=== PATIENT | male | born 1935 | race Caucasian/White ===

== ENCOUNTER → 2016-07-01 | Outpatient (CLI) | payer MEDICARE, OTHER ==
[~2016-07-01] VITALS: Ht 180.3 cm; Wt 99.8 kg
[~2016-07-01] MED LIST: AGM875T PO; ASPI-587 PO; ATOR10TA PO; ATOR40TA70 PO; BUPIVACAINE 0.25% 30 ML (SENSORCAINE) VIAL ONE; CALC-385 PO; CALC-80 PO; CYAN100015 SL; DCS100C PO; GABA-490 PO; HCT25T PO; HYDR-1231 PO; HYDR-3454 PO; HYDR-3714 PO; HYDR25TA4 PO; LISI40TA PO; METO100T2 PO; METO100T5 PO; MULT-974 PO; OMEG-9 PO; OMEG1CAP51 PO; OMEP20TA2 PO; ROSU5TAB PO; TRIAMCINOLONE ACET (KENALOG-40) 40 MG/ML 1 ML VIAL ONE
[2016-07-01 11:22] VITALS: BP 130/70
[2016-07-01 11:59] VITALS: BP 141/82
--- NOTE | 2016-07-01 14:13 | Pain Medicine-Procedure ---
Procedure Pre-Op/Post-Op Diagnosis Diagnosis: Disc disorder with radiculopathy, lumbar Indications for Operation Low back pain Attending Surgeon Sara Procedure Date of Service: Jul 01, 2016 Procedure: Lumbar Epidural Steroid Injection at the L5-S1 level under Fluoroscopic Guidance Procedure: Patient was identified in the holding area. After risks, benefits, and alternatives were discussed with the patient, informed consent was obtained. Patient was brought to the fluoroscopy suite and placed prone on the procedure room table. A time out was performed. Vital signs were monitored throughout the procedure. The patients low back was prepped and draped in the usual sterile fashion. The patients skin was anesthetized using 2% Lidocaine. A Tuohy needle was inserted and advanced to the L5-S1 epidural space under fluoroscopic guidance using the loss of resistance technique and intermittent projection of fluoroscopy. There was no paresthesia with needle placement. The needle position was confirmed in both the AP and lateral view. After negative aspiration 2ml of contrast was injected under live fluoroscopy which showed good spread of the contrast in the epidural space at the appropriate level, there was no intravascular or subarachnoid spread. Again, after negative aspiration for heme or CSF, 2 ml of 0.25% Bupivicaine, 2ml of preservative free normal saline, and 80mg of Kenalog was injected. The needle was removed and a sterile bandage was placed and the patient was transferred to the recovery area in stable condition. After a brief period of observation, patient was discharged to home with no new neurological deficits and no apparent complications. Complications None ALEA JOSEPH MD Jul 01, 2016 2:13 pm
== END ==
LOC: CARD 10:50
PROVIDERS: ATTEND Pain Medicine Pain Medicine
DX: M51.16 Intervertebral disc disorders with radiculopathy, lumbar region (principal); M47.816 Spondylosis without myelopathy or radiculopathy, lumbar region; Z79.899 Other long term (current) drug therapy
CPT/HCPCS: 62323

== ENCOUNTER 2016-09-15 08:51 | Outpatient (CLI) | payer MEDICARE, OTHER ==
[~2016-09-15] VITALS: Ht 177.8 cm; Wt 101.6 kg
[~2016-09-15 08:51] MED LIST changes: -BUPIVACAINE 0.25% 30 ML (SENSORCAINE) VIAL ONE; -TRIAMCINOLONE ACET (KENALOG-40) 40 MG/ML 1 ML VIAL ONE
[2016-09-15] MEDS ORDERED: ASPI-808 PO (09:06)
[2016-09-15 09:09] VITALS: BP 116/67
[2016-09-15 09:34] LABS: BASOPHILS # (AUTO) 0.1 10^3/uL (0.0-0.1); BASOPHILS % (AUTO) 1 % (0-10); EOSINOPHILS # (AUTO) 0.3 10^3/uL (0.0-0.3); EOSINOPHILS % (AUTO) 2 % (0-10); LYMPHOCYTES # (AUTO) 3.2 X 10^3 (1.0-4.0); LYMPHOCYTES % (AUTO) 27 % (12-44); MEAN CORPUSCULAR HEMOGLOBIN 32 PG (25-34); MEAN CORPUSCULAR HGB CONC 34 G/DL (32-36); MEAN CORPUSCULAR VOLUME 95 FL (80-99); MEAN PLATELET VOLUME 9.5 FL (7.4-10.4); MONOCYTES # (AUTO) 1.3 X 10^3 (0.0-1.0); MONOCYTES % (AUTO) 11 % (0-12); NEUTROPHILS # (AUTO) 7.2 X 10^3 (1.8-7.8); NEUTROPHILS % (AUTO) 60 % (42-75); PLATELET COUNT 249 10^3/uL (130-400); RED BLOOD COUNT 4.89 10^6/uL (4.35-5.85); RED CELL DISTRIBUTION WIDTH 14.9 % (10.0-14.5)
[2016-09-15 09:50] LABS: ANION GAP 8 MMOL/L (5-14); BLOOD UREA NITROGEN 15 MG/DL (7-18); BUN/CREATININE RATIO 14 (0-20); CALCIUM 9.8 MG/DL (8.5-10.1); CARBON DIOXIDE 29 MMOL/L (21-32); CHLORIDE 100 MMOL/L (98-107); CREATININE SERUM 1.07 MG/DL (0.60-1.30); GFR ESTIMATED > 60; GLUCOSE 100 MG/DL (70-105); HEMOLYSIS 16 (0-29); LIPEMIA -2 (0-49); POTASSIUM 4.8 MMOL/L (3.6-5.0); SODIUM 137 MMOL/L (135-145)
== END 2016-09-15 09:25 | disposition home or self-care (01) ==
LOC: PREOP 08:51
PROVIDERS: ATTEND Otolaryngology Otolaryngology/Facial Plastic Surgery
DX: Z01.812 Encounter for preprocedural laboratory examination (principal); Z11.2 Encounter for screening for other bacterial diseases; C44.42 Squamous cell carcinoma of skin of scalp and neck
CPT/HCPCS: 36415; 80048; 85025; 87081; 93005

== ENCOUNTER 2016-09-22 06:00 | Day surgery (SDC) | payer MEDICARE, OTHER ==
[~2016-09-22 06:00] MED LIST changes: +ASPI-808 PO
[2016-09-22] MEDS: LACTATED RINGERS 1,000 ML IV PRN ×2 (06:53→07:35)
[2016-09-22] MEDS ORDERED: fentaNYL INJECTION 100 MCG/2 ML AMP ONE (06:59)
[2016-09-22] MEDS ORDERED: proPOfol 200 MG/20 ML (DIPRIVAN) VIAL IV ONE (06:59)
[2016-09-22] MEDS ORDERED: LIDOCAINE/EPI 1%-1:200,000 (XYLOCAINE) 30 ML VIAL ONE (07:06)
[2016-09-22] MEDS ORDERED: SEVOFLURANE (ULTANE) 15 ML INHAL SOLN ONE ×3 (07:57→08:37)
[2016-09-22] MEDS ORDERED: LACTATED RINGERS 2,000 ML IV ONE (07:57)
[2016-09-22] MEDS ORDERED: ONDANSETRON 4 MG/2 ML (SDV) Z0FRAN ONE (07:57)
[2016-09-22] MEDS ORDERED: MUPIROCIN 2% OINT 22 GM (BACTROBAN) TUBE ONE ×2 (08:12→10:32)
[2016-09-22] MEDS ORDERED: HYDROcodone/APAP 5 MG/325 MG (LORTAB) TAB PO PRN (08:45)
[2016-09-22] MEDS ORDERED: ACETAMINOPHEN 325 MG TABLET/CAPLET (TYLENOL) PO PRN (08:45)
[2016-09-22] MEDS ORDERED: morphine INJ 10 MG/ML 1ML (SYR OR VIAL) IVP PRN (09:00)
[2016-09-22] MEDS ORDERED: ONDANSETRON 4 MG/2 ML (SDV) Z0FRAN IVP PRN (09:00)
[2016-09-22] MEDS ORDERED: HYDR-3812 PO (10:01)
== END 2016-09-22 10:43 | disposition home or self-care (01) ==
DX: C44.42 Squamous cell carcinoma of skin of scalp and neck (principal); I25.10 Atherosclerotic heart disease of native coronary artery without angina pectoris; I10 Essential (primary) hypertension; G62.9 Polyneuropathy, unspecified; Z95.5 Presence of coronary angioplasty implant and graft; Z79.899 Other long term (current) drug therapy

== ENCOUNTER → 2016-11-09 | Outpatient (CLI) | payer MEDICARE, OTHER ==
[~2016-11-09] MED LIST changes: +HYDR-3812 PO
--- NOTE | 2016-11-09 19:01 | Diagnostic Imaging Report ---
PA and lateral views of the chest. INDICATION: Abnormal lung exam. FINDINGS: There is bilateral pulmonary infiltrates in the bases. The heart size is moderately enlarged. There is a small left effusion and pleural thickening suggested. No pneumothorax. The mediastinum and mariza appear unremarkable. No prior studies are available for comparison. However, CT scan of the abdomen and pelvis from 2015 is reviewed and demonstrate fibrotic changes at the bases. IMPRESSION: 1. There are bibasilar infiltrates and suggestion of a small left effusion or pleural thickening. The findings could be chronic related to scarring. 2. Cardiomegaly. Dictated by: Dictated on workstation # [id number]
== END ==
LOC: RAD 11:04
PROVIDERS: ATTEND Internal Medicine
DX: R91.8 Other nonspecific abnormal finding of lung field (principal); I51.7 Cardiomegaly
CPT/HCPCS: 71020

== ENCOUNTER 2017-01-05 12:56 | Outpatient (CLI) | payer MEDICARE, OTHER ==
[~2017-01-05] VITALS: Ht 177.8 cm; Wt 102.1 kg
[2017-01-05] MEDS ORDERED: methylPREDNISolone 80 MG/ML (DEPO MEDROL) VIAL ONE (13:46)
[2017-01-05 13:58] VITALS: BP 109/69
[2017-01-05 14:25] VITALS: BP 124/109
--- NOTE | 2017-01-11 02:21 | OPERATIVE REPORT ---
DATE OF SERVICE: DIAGNOSIS: Lumbar radiculopathy. PROCEDURE: Fluoroscopic-guided interlaminar epidural steroid injection. PROCEDURE IN DETAIL: After obtaining informed consent from the patient, the patient's chart was reviewed. The patient was then brought to the procedure room and placed in the prone position. A timeout was performed. The back was prepped with antiseptic solution and under fluoro guidance, the patient's lumbar spine was identified at the level of L5-S1. The L5-S1 vertebra was identified with fluoro guidance and approximately 2 mL of 1.5% lidocaine solution was used to anesthetize the skin directly down to the pedicle of the L5-S1 and under fluoroscopic guidance, the tract was anesthetized up to the interlaminar space and the ligamentum flavum. This needle was withdrawn. Then, a 20-gauge 3.5 inch Tuohy needle was then directed following the same tract that was anesthetized with the spinal needle. Using loss of resistance, the epidural space was identified and then the syringe was switched for contrast solution which was injected, approximately 1 mL. After secondary confirmation of epidural access, another syringe was placed and 80 mg of Depo-Medrol was injected. The Tuohy needle was then flushed out with approximately 2 mL of the normal saline used from the loss of resistance syringe. Band-Aids were applied to all the procedure sites. The patient tolerated the procedure well and was taken to the recovery room in stable condition. COMPLICATIONS: None. Job ID: [id number] DocumentID: [id number] Dictated Date: 01/10/2017 13:18:14 Manufacturing Inspector Date: 01/11/2017 02:21:12 Dictated By: ALONSO HARTLEY DO
== END 2017-01-05 14:26 | disposition home or self-care (01) ==
LOC: CARD 12:56
PROVIDERS: ATTEND Pain Medicine Interventional Pain Medicine
DX: M54.16 Radiculopathy, lumbar region (principal); M51.36 Other intervertebral disc degeneration, lumbar region
CPT/HCPCS: 62323

== ENCOUNTER 2017-10-04 06:46 | Day surgery (SDC) | payer MEDICARE, OTHER ==
[~2017-10-04] VITALS: Ht 175.3 cm; Wt 106.7 kg
[~2017-10-04 06:46] MED LIST changes: +ACHD5005 PO; -HYDR-3812 PO
[2017-10-04] MEDS ORDERED: KETOROLAC 30 MG/ML VIAL IVP STA (06:57)
[2017-10-04] MEDS ORDERED: LACTATED RINGERS 1,000 ML IV ONE (06:57)
[2017-10-04] MEDS ORDERED: ONDANSETRON 4 MG/2 ML (SDV) Z0FRAN IVP ONE (07:00)
--- NOTE | 2017-10-04 07:05 | ED Abdominal Pain ---
General Chief Complaint: Abdominal/GI Problems Stated Complaint: ABD PAIN,NAUSEA,COUGHING Source of Information: Patient Exam Limitations: No Limitations History of Present Illness Date Seen by Provider: Oct 04, 2017 Time Seen by Provider: 06:52 Initial Comments PT ARRIVES VIA POV FROM HOME C/O RLQ PAIN SINCE 10 AM YESTERDAY RATES PAIN 4/10 AND STATES IT IS A MILD DULL ACHE C/O NAUSEA, NO VOMITING LAST MEAL WAS MONDAY EVENING 10/02/17 HAS BEEN DRINKING WATER AND GATORADE NO PROBLEMS URINATING LAST BM WAS ON MONDAY NO KNOWN FEVER, BUT TEMP IS 100.3 ON ARRIVAL HERE. NO HISTORY OF SIMILAR PCP: DR. CARMEN Allergies and Home Medications Allergies Coded Allergies: Sulfa (Sulfonamide Antibiotics) (Unverified Allergy, Unknown, 12/20/13) Home Medications Aspirin 325 Mg Tablet, 325 MG PO DAILY, (Reported) Atorvastatin Calcium 40 Mg Tablet, 20 MG PO HS, (Reported) TAKES 1/2 (40MG) TABLET Calcium Carbonate/Vitamin D3 1 Each Tablet, 1 TAB PO DAILY, (Reported) Gabapentin 400 Mg Capsule, 400 MG PO HS, (Reported) Hydrochlorothiazide 25 Mg Tablet, 12.5 MG PO DAILY, (Reported) TAKES 1/2 (25MG) TABLET Hydrocodone Bit/Acetaminophen 1 Each Tablet, 1-2 EACH PO Q4H PRN for PAIN Prescribed by: NAZIA HEAD on 09/22/16 1001 Lisinopril 40 Mg Tablet, 40 MG PO HS, (Reported) Metoprolol Tartrate 100 Mg Tablet, 25 MG PO BID, (Reported) TAKES 1/4 (100MG) TABLET Multivitamin 1 Each Tablet, 1 TAB PO DAILY, (Reported) [place]-3/Dha/Epa/Fish Oil 1 Each Capsule., 1,400 MG PO DAILY, (Reported) Patient Home Medication List Home Medication List Reviewed: Yes Review of Systems Constitutional: see HPI Respiratory: No Symptoms Reported Cardiovascular: No Symptoms Reported Gastrointestinal: See HPI, Abdominal Pain; Denies Diarrhea; Nausea; Denies Poor Fluid Intake, Denies Vomiting Genitourinary: No Symptoms Reported Musculoskeletal: no symptoms reported Skin: no symptoms reported Psychiatric/Neurological: No Symptoms Reported Endocrine: No Symptoms Reported Hematologic/Lymphatic: No Symptoms Reported Past Fshxuia-Lsohel-Iteeiq Hx Patient Social History Alcohol Use: Denies Use Recreational Drug Use: No Smoking Status: Former Smoker Type Used: Cigarettes Former Smoker, Quit: Feb 20, 1988 Recent Foreign Travel: No Contact w/Someone Who Travel: No Recent Hopitalizations: No Physical Abuse: No Sexual Abuse: No Immunizations Up To Date Tetanus Booster (TDap): Unknown PED Vaccines UTD: Yes Date of Pneumonia Vaccine: Jan 01, 2014 Date of Influenza Vaccine: Jan 01, 2014 Seasonal Allergies Seasonal Allergies: No Past Medical History Surgeries: Yes (CARDIAC STENTS; SKIN CANCER REMOVALS; SKIN GRAFT ON HEAD; PROSTATE SURGERY FOR CANCER WITH BRACHYTHERAPY; HERNIA REPAIR) Abdominal, Cardiac, Coronary Stent, Gallbladder Respiratory: Yes Pneumonia Cardiac: Yes (CARDIAC STENTS X2-2000,) Coronary Artery Disease, High Cholesterol, Hypertension Neurological: Yes Neuropathy Sexually Transmitted Disease: No HIV/AIDS: No Genitourinary: Yes (PROSTATE CANCER) Prostate Problems Gastrointestinal: Yes Abdominal Hernia Musculoskeletal: Yes Arthritis, Fractures Endocrine: No HEENT: No Cancer: Yes Prostate, Skin Did You Recieve Any Treatments: Yes What Type of Treatment Did You: Surgical Intervention, Other (BRACHYTHERAPY ON PROSTATE) Psychosocial: No Nursing Suicide Risk Score: 0 Integumentary: Yes (SKIN CANCER-REMOVED) Blood Disorders: No Adverse Reaction/Blood Tranf: No Family Medical History Glaucoma G8 BROTHER No Family History of: AIDS Abdominal aortic aneurysm [place]'s disease Alcoholism Aphasia Arthritis Asthma Cancer of mouth Cardiovascular disease Cataracts Colon cancer Completed stroke Congenital disease Congenital heart disease Coronary thrombosis Cystic fibrosis Deafness or hearing loss Dementia Diabetes mellitus Drug abuse Dysphasia Fibrocystic disease of breast Gastroenteritis Headache disorder Hypercholesterolemia Hypertension Infertility Kidney disease Myocardial infarction Neoplasm Not obtainable due to adoption Osteoporosis Parkinson's disease Prostate cancer Psychosocial problem Respiratory disorder Seizure disorder Severe allergy Thyroid disease Tuberculosis Visual disorder No Pertinent Family Hx Physical Exam Vital Signs Vital Signs - First Documented 10/04/17 06:51 Temp 100.3 Pulse 64 Resp 17 B/P (MAP) 154/84 (107) Pulse Ox 97 Capillary Refill : General Appearance: WD/WN, no apparent distress, other (WALKS UPRIGHT WITHOUT DIFFICULTY) Respiratory: normal breath sounds, no respiratory distress, no accessory muscle use Cardiovascular: regular rate, rhythm, no murmur Gastrointestinal: soft, no organomegaly, no pulsatile mass; No distended, No guarding; rebound (EQUIVOCAL), tenderness (RLQ); No hernia, No mass Extremities: normal inspection, no pedal edema, no calf tenderness, normal capillary refill Back: normal inspection, no CVA tenderness 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/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: 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, no motor/sensory deficits, alert, normal mood/affect, oriented x 3 Skin: normal color, warm/dry; No rash Focused Exam Lactate Level 10/04/17 08:13: Lactic Acid Level 1.92 Lactic Acid Level Laboratory Tests Test 10/04/17 08:13 Lactic Acid Level 1.92 MMOL/L (0.50-2.00) Progress/Results/Core Measures Results/Orders Lab Results Laboratory Tests Test 10/04/17 07:25 10/04/17 08:13 Range/Units White Blood Count 18.5 H 4.3-11.0 10^3/uL Red Blood Count 4.80 4.35-5.85 10^6/uL Hemoglobin 15.9 13.3-17.7 G/DL Hematocrit 44 40-54 % Mean Corpuscular Volume 92 80-99 FL Mean Corpuscular Hemoglobin 33 25-34 PG Mean Corpuscular Hemoglobin Concent 36 32-36 G/DL Red Cell Distribution Width 13.7 10.0-14.5 % Platelet Count 169 130-400 10^3/uL Mean Platelet Volume 10.4 7.4-10.4 FL Neutrophils (%) (Auto) 84 H 42-75 % Lymphocytes (%) (Auto) 6 L 12-44 % Monocytes (%) (Auto) 10 0-12 % Eosinophils (%) (Auto) 0 0-10 % Basophils (%) (Auto) 0 0-10 % Neutrophils # (Auto) 15.6 H 1.8-7.8 X 10^3 Lymphocytes # (Auto) 1.1 1.0-4.0 X 10^3 Monocytes # (Auto) 1.8 H 0.0-1.0 X 10^3 Eosinophils # (Auto) 0.0 0.0-0.3 10^3/uL Basophils # (Auto) 0.0 0.0-0.1 10^3/uL Neutrophils % (Manual) 82 % Lymphocytes % (Manual) 6 % Monocytes % (Manual) 12 % Blood Morphology Comment NORMAL Urine Color YELLOW Urine Clarity CLEAR Urine pH 6.5 5-9 Urine Specific [place] 1.010 L 1.016-1.022 Urine Protein 2+ H NEGATIVE Urine Glucose (UA) NEGATIVE NEGATIVE Urine Ketones NEGATIVE NEGATIVE Urine Nitrite NEGATIVE NEGATIVE Urine Bilirubin NEGATIVE NEGATIVE Urine Urobilinogen NORMAL NORMAL MG/DL Urine Leukocyte Esterase 2+ H NEGATIVE Urine RBC (Auto) 4+ H NEGATIVE Urine RBC RARE /HPF Urine WBC 25-50 H /HPF Urine Squamous Epithelial Cells 5-10 /HPF Urine Crystals NONE /LPF Urine Bacteria FEW H /HPF Urine Casts NONE /LPF Urine Mucus NEGATIVE /LPF Urine Culture Indicated YES Sodium Level 130 L 135-145 MMOL/L Potassium Level 4.2 3.6-5.0 MMOL/L Chloride Level 96 L 98-107 MMOL/L Carbon Dioxide Level 22 21-32 MMOL/L Anion Gap 12 5-14 MMOL/L Blood Urea Nitrogen 13 7-18 MG/DL Creatinine 0.90 0.60-1.30 MG/DL Estimat Glomerular Filtration Rate > 60 BUN/Creatinine Ratio 14 Glucose Level 142 H 70-105 MG/DL Calcium Level 9.4 8.5-10.1 MG/DL Total Bilirubin 1.6 H 0.1-1.0 MG/DL Aspartate Amino Transf (AST/SGOT) 24 5-34 U/L Alanine Aminotransferase (ALT/SGPT) 16 0-55 U/L Alkaline Phosphatase 56 40-136 U/L Total Protein 6.5 6.4-8.2 GM/DL Albumin 3.7 3.2-4.5 GM/DL Amylase Level 40 25-125 U/L Lipase 10 8-78 U/L Lactic Acid Level 1.92 0.50-2.00 MMOL/L My Orders Orders - TIERA MALHOTRA DO Saline Lock/Iv-Start (10/04/17 06:57) Monitor-Rhythm Ecg Trace Only (10/04/17 06:57) Amylase (10/04/17 06:57) Cbc With Automated Diff (10/04/17 06:57) Comprehensive Metabolic Panel (10/04/17 06:57) Lactic Acid Analyzer (10/04/17 06:57) Lipase (10/04/17 06:57) Ua Culture If Indicated (10/04/17 06:57) Blood Culture (10/04/17 06:57) Saline Lock/Iv-Start (10/04/17 06:57) Lactated Ringers (Lr 1000 Ml Iv Solution (10/04/17 06:57) Ondansetron Injection (Zofran Injectio (10/04/17 07:00) Ketorolac Injection (Toradol Injection) (10/04/17 06:57) Manual Differential (10/04/17 07:25) Urine Culture (10/04/17 07:25) Ct Abd/Pelv W (Appendicitis) (10/04/17 08:07) Acute Abd Series (10/04/17 08:07) Iohexol Injection (Omnipaque 350 Mg/Ml 1 (10/04/17 08:15) Sodium Chloride Flush (Catheter Flush Sy (10/04/17 08:15) Ns (Ivpb) (Sodium Chloride 0.9%) (10/04/17 08:15) Pharmacy Communication (Pharmacy Communi (10/04/17 08:09) Medications Given in ED Current Medications Medications Dose Ordered Sig/Stephen Route Start Time Stop Time Status Last Admin Dose Admin Iohexol 100 ml ONCE ONCE IV 10/04/17 08:15 10/04/17 08:16 DC 10/04/17 08:35 100 ML Lactated Ringer's 1,000 ml @ 0 mls/hr Q0M ONCE IV 10/04/17 06:57 10/04/17 06:59 DC 10/04/17 07:12 1,000 MLS/HR Ondansetron HCl 4 mg ONCE ONCE IVP 10/04/17 07:00 10/04/17 07:01 DC 10/04/17 07:12 4 MG Sodium Chloride 10 ml NEEDED PRN IV 10/04/17 08:15 10/04/17 08:35 10 ML Sodium Chloride 250 ml ONCE ONCE IV 10/04/17 08:15 10/04/17 08:16 DC 10/04/17 08:35 80 ML Vital Signs/I&O 10/04/17 06:51 Temp 100.3 Pulse 64 Resp 17 B/P (MAP) 154/84 (107) Pulse Ox 97 Progress Progress Note : Progress Note NAUSEA RESOLVED WITH ZOFRAN, PAIN IMPROVED BUT NOT COMPLETELY GONE WITH TORADOL PT DECLINES ANY OTHER MEDICATIONS FOR PAIN Diagnostic Imaging Comments CT ABDOMEN/PELVIS--+ APPENDICITIS, NO PERFORATION OR ABSCESS, MILD REACTIVE ILEUS. PER RADIOLOGIST VIA PHONE AT 0855 ACUTE ABDOMEN XRAYS--LIKELY CHRONIC CHANGES IN LUNG BASES, AIR FILLED DISTENTION OF SMALL BOWEL AND STOMACH PER RADIOLOGIST REPORT @ 0908 Reviewed: Reviewed by Me, Discussed w/Radiologist, Reviewed/Discussed Departure Communication (Admissions) 0900--SPOKE WITH DR. AGUILLON, WILL BE IN TO SEE PT AND TAKE DIRECTLY TO SURGERY , HE WILL CALL OR CREW 0937--DR. AGUILLON HERE, CARE TURNED OVER TO HIM Impression Primary Impression: Appendicitis Disposition: ADMITTED INPATIENT (TO SURGERY) Condition: Improved Admissions Decision to Admit Reason: Admit from ER (General) (TO SURGERY) Decision to Admit/Date: Oct 04, 2017 Time/Decision to Admit Time: 09:00 Departure-Patient Inst. Referrals: PAUL CARMEN MD (PCP/Family) Primary Care Physician TIERA MALHOTRA DO Oct 04, 2017 07:05
[2017-10-04 07:40] LABS: BASOPHILS % (AUTO) 0 % (0-10); EOSINOPHILS % (AUTO) 0 % (0-10); HEMATOCRIT 44 % (40-54); HEMOGLOBIN 15.9 G/DL (13.3-17.7); LYMPHOCYTES # (AUTO) 1.1 X 10^3 (1.0-4.0); LYMPHOCYTES % (AUTO) 6 % (12-44); MEAN CORPUSCULAR HEMOGLOBIN 33 PG (25-34); MEAN CORPUSCULAR HGB CONC 36 G/DL (32-36); MEAN CORPUSCULAR VOLUME 92 FL (80-99); MEAN PLATELET VOLUME 10.4 FL (7.4-10.4); MONOCYTES # (AUTO) 1.8 X 10^3 (0.0-1.0); MONOCYTES % (AUTO) 10 % (0-12); NEUTROPHILS # (AUTO) 15.6 X 10^3 (1.8-7.8); NEUTROPHILS % (AUTO) 84 % (42-75); PLATELET COUNT 169 10^3/uL (130-400); RED CELL DISTRIBUTION WIDTH 13.7 % (10.0-14.5); WHITE BLOOD COUNT 18.5 10^3/uL (4.3-11.0)
[2017-10-04 07:43] LABS: BILIRUBIN,URINE NEGATIVE (NEGATIVE); CLARITY,URINE CLEAR; COLOR,URINE YELLOW; GLUCOSE, URINE (UA) NEGATIVE (NEGATIVE); KETONES,URINE NEGATIVE (NEGATIVE); LEUKOCYTE ESTERASE ,URINE 2+ (NEGATIVE); NITRITE,URINE NEGATIVE (NEGATIVE); PH,URINE 6.5 (5-9); PROTEIN,URINE 2+ (NEGATIVE); UROBILINOGEN,URINE NORMAL (NORMAL)
[2017-10-04 08:04] LABS: BACTERIA,URINE FEW /HPF; RBC,URINE RARE /HPF; WBC,URINE 25-50 /HPF
[2017-10-04 08:06] LABS: ALANINE AMINOTRANSFERASE 16 U/L (0-55); ALBUMIN 3.7 GM/DL (3.2-4.5); ALKALINE PHOSPHATASE 56 U/L (40-136); AMYLASE 40 U/L (25-125); BILIRUBIN,TOTAL 1.6 MG/DL (0.1-1.0); BUN/CREATININE RATIO 14; CALCIUM 9.4 MG/DL (8.5-10.1); CARBON DIOXIDE 22 MMOL/L (21-32); CHLORIDE 96 MMOL/L (98-107); GFR ESTIMATED > 60; GLUCOSE 142 MG/DL (70-105); LIPASE 10 U/L (8-78); POTASSIUM 4.2 MMOL/L (3.6-5.0); SODIUM 130 MMOL/L (135-145); TOTAL PROTEIN 6.5 GM/DL (6.4-8.2)
[2017-10-04] MEDS ORDERED: CATHETER FLUSH 10 ML SYR IV PRN (08:15)
[2017-10-04] MEDS ORDERED: IOHEXOL 350 MG/ML 100 ML (OMNIPAQUE 350) VIAL IV ONE (08:15)
[2017-10-04] MEDS ORDERED: NS 250 ML (IVPB) BAG IV ONE (08:15)
[2017-10-04 08:20] LABS: LYMPHOCYTES % (MANUAL) 6 %; MONOCYTES % (MANUAL) 12 %; NEUTROPHILS % (MANUAL) 82 %; RBC MORPH NORMAL
--- NOTE | 2017-10-04 08:38 | Diagnostic Imaging Report ---
INDICATION: Abdominal pain starting yesterday. Nausea. TECHNIQUE: Single view chest with supine and upright radiographs of the abdomen. CORRELATION STUDY: Chest 11/09/2016 FINDINGS: Heart size enlarged. Mediastinum prominent perhaps slightly increased. Areas of fibrosis, scarring and/or infiltrate versus atelectasis at the lung bases are present. Stomach is distended with air-fluid level. There is prominent gas distention of the small bowel. There does appear to be some gas and stool within the colon including to the level of the rectum. However small bowel distention is rather prominent. Radiation seed implants are present. Vascular calcification. IMPRESSION: 1. Likely chronic change about the lung parenchyma. Superimposed areas of infiltrate or atelectasis at the lung bases not excluded. 2. While there is gas and stool in the colon to level of rectum, there is rather prominent gas distention of small bowel as well as the stomach. Features do raise concern for early or developing small bowel obstruction. Followup imaging would be recommended. Dictated by: Dictated on workstation # [id number]
--- NOTE | 2017-10-04 09:15 | Diagnostic Imaging Report ---
PROCEDURE: CT abdomen and pelvis with contrast, rule out appendicitis. TECHNIQUE: Multiple contiguous axial images were obtained through the abdomen and pelvis after the administration of intravenous contrast. INDICATION: Pelvic pain x1 day. History of prostate cancer. CORRELATION STUDY: 08/16/2014 FINDINGS: LOWER THORAX: Cardiomegaly is present. Coronary artery calcification. There is regional areas of fibrosis and prominent interstitial markings with honeycombing appearance about the right mid lower lung acharya and to a lesser degree lingula of the left upper lobe and anterior aspect left lower lobe. Findings relatively stable. Definitive superimposed infiltrate is not suggested. LIVER: GALLBLADDER: Absent with clips in the fossa. SPLEEN: Unremarkable. PANCREAS: Unremarkable. ADRENAL GLANDS: Unremarkable. KIDNEYS: Normal configuration. No calcification or obstruction. ABDOMINAL AORTA: Moderate aortoiliac wall calcification, nonaneurysmal. GASTROINTESTINAL TRACT: Duodenal diverticulum is present descending portion. There is inflammatory change in the right lower quadrant. The appendix is abnormally dilated in some areas up to 2 cm. Inflammatory changes particularly near the tip. There is an appendicolith near the orifice. Small amount of right lower quadrant fluid. No potential drainable abscess formation at this time. The stomach is distended. There is diffuse small bowel distention with air-fluid levels. Gas and stool to the colon. Extensive colonic diverticulosis. Features favor probable reactive ileus. Fat-containing inguinal hernias. URINARY BLADDER: Decompressed. REPRODUCTIVE: Multiple radiation seed implants to the prostate bed. OSSEOUS STRUCTURES: Degenerative change lumbar spine with likely degenerative spondylolisthesis of L4 on L5 and L3 on L4. Hypertrophic facet arthropathy. Significant areas of narrowing of spinal canal and foramina particularly at the L4-L5 and L5-S1 levels. OTHER: None. IMPRESSION: 1. Findings consistent with acute appendicitis. 2. Likely reactive ileus bowel gas pattern. Findings have been telephoned to the Emergency Department at time of this dictation. Dictated by: Dictated on workstation # [id number]
[2017-10-04] MEDS ORDERED: BUP/EPI 0.5% 1:200,000 (SENSORCAINE) 30 ML VIAL ONE (09:35)
[2017-10-04] MEDS ORDERED: DEXAMETHASONE 10 MG/ML (DECADRON) 1 ML VIAL ONE (09:38)
[2017-10-04] MEDS ORDERED: fentaNYL INJECTION 100 MCG/2 ML AMP ONE ×3 (09:38→10:48)
[2017-10-04] MEDS ORDERED: ROCURONIUM 10 MG/ML 5 ML SYRINGE IV ONE (09:38)
[2017-10-04] MEDS ORDERED: LIDOCAINE PF 2% 5 ML (XYLOCAINE) VIAL ONE (09:38)
[2017-10-04] MEDS ORDERED: proPOfol 200 MG/20 ML (DIPRIVAN) VIAL IV ONE (09:38)
[2017-10-04] MEDS ORDERED: ONDANSETRON 4 MG/2 ML (SDV) Z0FRAN ONE ×2 (09:38→10:39)
[2017-10-04] MEDS ORDERED: SEVOFLURANE (ULTANE) 15 ML INHAL SOLN ONE ×3 (09:39→11:25)
[2017-10-04] MEDS ORDERED: ceFAZolin 1,000 MG (ANCEF) VIAL ONE (09:54)
[2017-10-04] MEDS ORDERED: metroNIDAZOLE 500MG/100ML IVPB 100 ML ONE (09:55)
[2017-10-04] MEDS ORDERED: SUCCINYLCHOLINE INJ 100 MG/5 ML SYR ONE (09:59)
[2017-10-04] MEDS: LACTATED RINGERS 1,000 ML IV SCH ×2 (10:02→11:03)
--- NOTE | 2017-10-04 10:03 | History & Physicial ---
History of Present Illness History of Present Illness Reason for visit/HPI RLQ pain, anorexia and nausea over the last [address] Exam & CT confirm appendicitis. For laparoscopic appendectomy Date of Admission 10/04/17 Date Seen by Provider: Oct 04, 2017 Time Seen by Provider: 09:40 I consulted on this patient on 10/04/17 09:57 Attending Physician Drake Aguillon MD Admitting Physician Ed Smith MD Consult Allergies and Home Medications Allergies Coded Allergies: Sulfa (Sulfonamide Antibiotics) (Unverified Allergy, Unknown, 12/20/13) Home Medications Aspirin 325 Mg Tablet, 325 MG PO DAILY, (Reported) Atorvastatin Calcium 40 Mg Tablet, 20 MG PO HS, (Reported) TAKES 1/2 (40MG) TABLET Calcium Carbonate/Vitamin D3 1 Each Tablet, 1 TAB PO DAILY, (Reported) Gabapentin 400 Mg Capsule, 400 MG PO HS, (Reported) Hydrochlorothiazide 25 Mg Tablet, 12.5 MG PO DAILY, (Reported) TAKES 1/2 (25MG) TABLET Hydrocodone Bit/Acetaminophen 1 Each Tablet, 1-2 EACH PO Q4H PRN for PAIN Prescribed by: NAZIA HEAD on 09/22/16 1001 Lisinopril 40 Mg Tablet, 40 MG PO HS, (Reported) Metoprolol Tartrate 100 Mg Tablet, 25 MG PO BID, (Reported) TAKES 1/4 (100MG) TABLET Multivitamin 1 Each Tablet, 1 TAB PO DAILY, (Reported) [place]-3/Dha/Epa/Fish Oil 1 Each Capsule.dr, 1,400 MG PO DAILY, (Reported) Patient Home Medication List Home Medication List Reviewed: Yes Past Edcnlia-Bncyys-Ztohqj Hx Patient Social History Marrital Status: Employed/Student: retired Alcohol Use: Denies Use Recreational Drug Use: No Smoking Status: Former Smoker Former Smoker, Quit: Feb 20, 1988 Type Used: Cigarettes Recent Foreign Travel: No Contact w/other who traveled: No Recent Hopitalizations: No Recent Infectious Disease Expo: No Immunizations Up To Date Tetanus Booster (TDap): Unknown Pediatric: Yes Date of Pneumonia Vaccine: Jan 01, 2014 Date of Influenza Vaccine: Jan 01, 2014 Seasonal Allergies Seasonal Allergies: No Surgeries Yes (CARDIAC STENTS; SKIN CANCER REMOVALS; SKIN GRAFT ON HEAD; PROSTATE SURGERY FOR CANCER WITH BRACHYTHERAPY; HERNIA REPAIR) Abdominal, Cardiac, Coronary Stent, Gallbladder Respiratory Yes Cardiovascular Yes (CARDIAC STENTS X2-2000,) Coronary Artery Disease, High Cholesterol, Hypertension Neurological Yes Neuropathy Reproductive System Sexually Transmitted Disease: No HIV/AIDS: No Genitourinary Yes (PROSTATE CANCER) Prostate Problems Gastrointestinal Yes Abdominal Hernia Musculoskeletal Yes Arthritis, Fractures Endocrine History of Endocrine Disorders: No HEENT History of HEENT Disorders: No Cancer Yes Prostate, Skin Did You Recieve Any Treatments: Yes Type of Treatment: Surgical Intervention, Other (BRACHYTHERAPY ON PROSTATE) Psychosocial History of Psychiatric Problem: No Integumentary History of Skin or Integumenta: Yes (SKIN CANCER-REMOVED) Blood Transfusions History of Blood Disorders: No Adverse Reaction to a Blood Tr: No Family Medical History Significant Family History: No Pertinent Family Hx Family Hx: Glaucoma G8 BROTHER No Family History of: AIDS Abdominal aortic aneurysm [place]'s disease Alcoholism Aphasia Arthritis Asthma Cancer of mouth Cardiovascular disease Cataracts Colon cancer Completed stroke Congenital disease Congenital heart disease Coronary thrombosis Cystic fibrosis Deafness or hearing loss Dementia Diabetes mellitus Drug abuse Dysphasia Fibrocystic disease of breast Gastroenteritis Headache disorder Hypercholesterolemia Hypertension Infertility Kidney disease Myocardial infarction Neoplasm Not obtainable due to adoption Osteoporosis Parkinson's disease Prostate cancer Psychosocial problem Respiratory disorder Seizure disorder Severe allergy Thyroid disease Tuberculosis Visual disorder Constitutional: see HPI EENTM: no symptoms reported Respiratory: no symptoms reported Cardiovascular: no symptoms reported Gastrointestinal: see HPI Genitourinary: no symptoms reported Musculoskeletal: no symptoms reported Skin: no symptoms reported Psychiatric/Neurological: No Symptoms Reported Physical Exam Vital Signs Vital Signs - First Documented 10/04/17 06:51 Temp 100.3 Pulse 64 Resp 17 B/P (MAP) 154/84 (107) Pulse Ox 97 Capillary Refill : Less Than 3 Seconds General Appearance: No Apparent Distress Neck: Normal Inspection Respiratory: Lungs Clear Cardiovascular: Regular Rate, Rhythm Gastrointestinal: Tenderness Back: Normal Inspection Extremity: Normal Inspection Neurologic/Psychiatric: Alert, Oriented x3 Skin: Warm/Dry Comments Upper midline and supra-umbilical scars with no hernia Assessment/Plan Assessment and Plan Gentleman with acute appendicitis,for laparoscopic appendectomy Admission Diagnosis Admission Status: Observation DRAKE AGUILLON MD Oct 04, 2017 10:03 am
--- NOTE | 2017-10-04 10:05 | Progress Note-Pre Operative ---
Pre-Operative Progress Note H&P Reviewed The H&P was reviewed, patient examined and no changes noted. Date Seen by Provider: Oct 04, 2017 Time Seen by Provider: 09:40 Date H&P Reviewed: Oct 04, 2017 Time H&P Reviewed: 10:10 Pre-Operative Diagnosis: Acute appendicitis DRAKE AGUILLON MD Oct 04, 2017 10:05 am
[2017-10-04] MEDS ORDERED: PHENYLEPHRINE 100 MCG/ML 10 ML (ANESTHESIA) SYR ONE (10:17)
[2017-10-04] MEDS ORDERED: GLYCOPYRROLATE 0.2 MG/ML (ROBINUL) 2 ML VIAL ONE ×2 (10:27→10:38)
[2017-10-04] MEDS ORDERED: NEOSTIGMINE 1 MG/ML 5 ML SYRINGE ONE (10:38)
[2017-10-04] MEDS ORDERED: morphine INJ 10 MG/ML 1ML (SYR OR VIAL) ONE (10:38)
[2017-10-04] MEDS ORDERED: HYDROmorphone 1 MG/ML (DILAUDID) 1 ML SYRINGE ONE (10:39)
[2017-10-04] MEDS ORDERED: KETOROLAC 30 MG/ML VIAL ONE (11:11)
[2017-10-04] MEDS ORDERED: LACTATED RINGERS 1,000 ML IV SCH (11:28)
--- NOTE | 2017-10-04 11:28 | Operative Report ---
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 There was fluid around the right lower quadrant with a fecalith within the appendix, raising the suspicion for localized perforation. He was offered prompt laparoscopic appendectomy. Informed consent was obtained after reviewing the operative details and complications of wound infection, increased risk of bleeding and ecchymosis due to aspirin therapy, intra-abdominal abscess and cardiorespiratory from respiratory dysfunction. Description of the procedure: He was placed supine on the operative table and general anesthesia induced. 2 g of Ancef and 500 mg of Flagyl were administered intravenously as prophylaxis against wound infection. Sequential compression devices were placed around his legs, to minimize the risk of venous thrombosis. Abdomen was prepared and draped in the usual sterile manner. Due to previous abdominal surgery using midline incisions, I elected to establish pneumoperitoneum using a Veress needle introduced over the left subcostal margin. Intra-abdominal pressure was maintained at 15 mmHg, using carbon dioxide insufflation. A 5 mm trocar was placed and anatomy visualized using a 30 laparoscope. Omentum was adherent to the undersurface of an upper midline scar, in relation to a previous hernia repair. Under direct view, I placed a Andujar cannula over the supraumbilical region, followed by a 5 mm trocar over the right upper quadrant and a 12 mm trocar over the left lower quadrant of the abdomen patient was then turned into steep Trendelenburg position with the right side tilted up. Ileo-cecal junction was mobilized using Harmonic scalpel, revealing a retrocecal appendix with contained perforation along the body of the appendix. The base of the appendix was transected using an Endo ZEHRA vascular stapler. This staple line was revised using a second row of tenisha, placed along the cecum itself without compromising the ileocecal valve, due to the friable nature of the appendix stump. Mesoappendix was controlled using Harmonic scalpel and the perforated appendix was retrieved in 3 portions. These are placed in an Endo Catch bag and removed via the supraumbilical trocar site. Right lower quadrant and the pelvis with thoroughly irrigated with 2 L of warm saline. The fascia over the supraumbilical incision and the one over the left lower quadrant were closed using #1 Vicryl. To facilitate using the stapler, the 5 mm section over the right upper quadrant had to be converted to a 12 mm. Therefore the fascia was closed using #1 Vicryl as well. Skin incisions were closed using 3-0 Vicryl for the subcutaneous tissue and 4-0 Vicryl for skin, in a subcuticular fashion. 0.5 percent Marcaine with epinephrine was infiltrated along the incisions both preemptively and at the conclusion of the operation. He tolerated the procedure well, was extubated in the operating room and taken to the recovery room in a stable condition. Findings of the Procedure See op report Allergies and Home Medications Allergies Coded Allergies: Sulfa (Sulfonamide Antibiotics) (Unverified Allergy, Unknown, 12/20/13) Home Medications Aspirin 325 Mg Tablet, 325 MG PO DAILY, (Reported) Atorvastatin Calcium 40 Mg Tablet, 20 MG PO HS, (Reported) TAKES 1/2 (40MG) TABLET Calcium Carbonate/Vitamin D3 1 Each Tablet, 1 TAB PO DAILY, (Reported) Gabapentin 400 Mg Capsule, 400 MG PO HS, (Reported) Hydrochlorothiazide 25 Mg Tablet, 12.5 MG PO DAILY, (Reported) TAKES 1/2 (25MG) TABLET Hydrocodone Bit/Acetaminophen 1 Each Tablet, 1-2 EACH PO Q4H PRN for PAIN Prescribed by: NAZIA HEAD on 09/22/16 1001 Lisinopril 40 Mg Tablet, 40 MG PO HS, (Reported) Metoprolol Tartrate 100 Mg Tablet, 25 MG PO BID, (Reported) TAKES 1/4 (100MG) TABLET Multivitamin 1 Each Tablet, 1 TAB PO DAILY, (Reported) [place]-3/Dha/Epa/Fish Oil 1 Each Capsule., 1,400 MG PO DAILY, (Reported) Patient Home Medication List Home Medication List Reviewed: Yes DRAKE AGUILLON MD Oct 04, 2017 11:28 am
[2017-10-04] MEDS ORDERED: fentaNYL INJECTION 100 MCG/2 ML AMP IV PRN (11:30)
[2017-10-04] MEDS ORDERED: PIPERACILLIN/TAZOBACTAM 3.375 GM in D5W 100 ML IVPB 100 ML IV SCH (11:30)
[2017-10-04] MEDS ORDERED: ONDANSETRON 4 MG/2 ML (SDV) Z0FRAN IV PRN (11:30)
[2017-10-04] MEDS ORDERED: ACHD5005 PO (11:33)
[2017-10-04] MEDS ORDERED: AMOX-358 PO (11:33)
--- NOTE | 2017-10-04 11:34 | Discharge Inst-Simple/Standard ---
Discharge Inst-Standard Discharge Medications New, Converted or Re-Newed RX: RX on Chart Patient Instructions/Follow Up Plan of Care/Instructions/FU: Band-Aids off prior to discharge. Follow-up in one week Activity as Tolerated: Yes Discharge Diet: No Restrictions DRAKE AGUILLON MD Oct 04, 2017 11:34 am
[2017-10-04] MEDS ORDERED: ONDANSETRON 4 MG/2 ML (SDV) Z0FRAN IVP PRN (12:00)
[2017-10-04] MEDS ORDERED: PIPERACILLIN/TAZO 3.375 GM/D5W 100 ML IV NR ×2 (12:00)
[2017-10-04] MEDS ORDERED: HYDROmorphone 1 MG/ML (DILAUDID) 1 ML SYRINGE IV PRN (12:00)
[2017-10-04] MEDS ORDERED: fentaNYL INJECTION 100 MCG/2 ML AMP IVP PRN (12:00)
[2017-10-04 12:50] VITALS: BP 116/59
[2017-10-04 15:30] VITALS: BP 133/80
[2017-10-04] MEDS: PIPERACILLIN/TAZOBACTAM 3.375 GM in D5W 100 ML IVPB 100 ML IV SCH (18:59)
[2017-10-04 19:30] VITALS: BP 107/56
[2017-10-04] MEDS: HYDROcodone/APAP 5 MG/325 MG (LORTAB) TAB PO PRN (23:33)
[2017-10-05] VITALS: BP 105/60
[2017-10-05] MEDS: HYDROcodone/APAP 5 MG/325 MG (LORTAB) TAB PO PRN (03:43)
[2017-10-05] MEDS: PIPERACILLIN/TAZOBACTAM 3.375 GM in D5W 100 ML IVPB 100 ML IV SCH (03:43)
[2017-10-05 04:00] VITALS: BP 100/58
[2017-10-05 08:00] VITALS: BP 116/58
--- NOTE | 2017-10-05 08:51 | Anesthesia-General Post-Op ---
General Patient Condition Mental Status/LOC: Same as Preop Cardiovascular: Satisfactory Nausea/Vomiting: Absent Respiratory: Satisfactory Pain: Controlled Complications: Absent Post Op Complications Complications None Follow Up Care/Instructions Patient Instructions None needed. Anesthesia/Patient Condition Patient Condition Patient is doing well, no complaints, stable vital signs, no apparent adverse anesthesia problems. No complications reported per nursing. D/C home per [facility] [place] Criteria: No MULUGETA JOSUE CRNA Oct 05, 2017 08:51
--- NOTE | 2017-10-05 10:02 | Progress Note-Standard ---
Standard Progress Note Progress Notes/Assess & Plan Date Seen by Provider: Oct 05, 2017 Time Seen by Provider: 09:00 Progress/Assessment & Plan Doing well. Afebrile. Very minimal pain around the incisions. Could be discharged on oral antibiotics Final Diagnosis Perforated appendicitis Focused Exam Lactate Level 10/04/17 08:13: Lactic Acid Level 1.92 DRAKE AGUILLON MD Oct 05, 2017 10:02 am
== END 2017-10-05 09:55 | disposition home or self-care (01) ==
LOC: EDUNIT# 06:46 → ER 06:48 → SDC 09:07 → 4TH 12:40 → SDC 10-05 09:55
PROVIDERS: ATTEND Surgery
DX: K35.3 Acute appendicitis with localized peritonitis (principal); I25.10 Atherosclerotic heart disease of native coronary artery without angina pectoris; I10 Essential (primary) hypertension; C61 Malignant neoplasm of prostate; R82.99 Other abnormal findings in urine; Z79.82 Long term (current) use of aspirin; Z79.899 Other long term (current) drug therapy; Z87.891 Personal history of nicotine dependence; Z95.5 Presence of coronary angioplasty implant and graft
CPT/HCPCS: 36415; 74022; 74177; 80053; 81000; 82150; 83605; 83690; 85007; 85027; 87040; 87088; 87186; 88304; 94664; 96361; 96374; 96375

== ENCOUNTER 2018-05-20 20:39 | Emergency (ER) | payer MEDICARE, OTHER ==
[~2018-05-20] VITALS: Ht 177.8 cm; Wt 102.1 kg
[~2018-05-20 20:39] MED LIST changes: +AMOX-358 PO
[2018-05-20] MEDS ORDERED: KETOROLAC 30 MG/ML VIAL IVP STA (21:33)
--- NOTE | 2018-05-20 21:44 | ED Back Pain ---
General Chief Complaint: Back Problems Stated Complaint: BACK PAIN Nursing Triage Note: PT ARRIVED POV WITH C/I RIGHT UPPER BACK PAIN. HE WAS REACHING IN A DRYER ET HIS BACK GAVE OUT ON HIM AND NOW HE HAS PAIN Nursing Sepsis Screen: No Definite Risk Source of Information: Patient Exam Limitations: No Limitations History of Present Illness Date Seen by Provider: May 20, 2018 Time Seen by Provider: 21:15 Initial Comments PT ARRIVES VIA POV FROM HOME STATES AROUND 1400 TODAY, HE WAS HELPING HIS WITH LAUNDRY AND BENT OVER TO GET SOMETHING OUT OF THE DRYER AND LOST HIS BALANCE AND "WENT DOWN" ( STATES HE DIDN'T "FALL" )--BUT COULD NOT GET UP. STATES HIS WAS ABLE TO GET WALKER AND ASSIST HIM OFF THE FLOOR. STATES HE HAS NEUROPATHY AND HIS LEGS ARE WEAK ALL THE TIME PT STATES HE HAS HAD RIGHT UPPER AND MID BACK PAIN SINCE THEN PAIN RADIATES AROUND RIGHT RIBS TO FRONT NO PARESTHESIAS OR MOTOR DEFICITS NO PROBLEMS URINATING NO FEVER, COUGH OR RECENT ILLNESS HAS NOT TAKEN ANYTHING FOR PAIN--TAKES GABAPENTIN 900 MG AT HS FOR PERIPHERAL NEUROPATHY Allergies and Home Medications Allergies Coded Allergies: Sulfa (Sulfonamide Antibiotics) (Unverified Allergy, Unknown, 12/20/13) Home Medications Amoxicillin/Potassium Clav 1 Each Tablet, 1 EACH PO Q12H Prescribed by: DRAKE AGUILLON on 10/04/17 1133 Aspirin 325 Mg Tablet, 325 MG PO DAILY, (Reported) Atorvastatin Calcium 40 Mg Tablet, 20 MG PO HS, (Reported) TAKES 1/2 (40MG) TABLET Calcium Carbonate/Vitamin D3 1 Each Tablet, 1 TAB PO DAILY, (Reported) Gabapentin 400 Mg Capsule, 400 MG PO HS, (Reported) Hydrochlorothiazide 25 Mg Tablet, 12.5 MG PO DAILY, (Reported) TAKES 1/2 (25MG) TABLET Hydrocodone Bit/Acetaminophen 1 Tab Tab, 1-2 TAB PO 4-6HR PRN for PAIN Prescribed by: DRAKE AGUILLON on 10/04/17 1133 Lisinopril 40 Mg Tablet, 40 MG PO HS, (Reported) Metoprolol Tartrate 100 Mg Tablet, 25 MG PO BID, (Reported) TAKES 1/4 (100MG) TABLET Multivitamin 1 Each Tablet, 1 TAB PO DAILY, (Reported) [place]-3/Dha/Epa/Fish Oil 1 Each Capsule.dr, 1,400 MG PO DAILY, (Reported) Review of Systems Constitutional: no symptoms reported Respiratory: no symptoms reported Cardiovascular: see HPI Gastrointestinal: no symptoms reported Genitourinary: no symptoms reported Musculoskeletal: see HPI, back pain Skin: no symptoms reported Psychiatric/Neurological: See HPI, Pre-Existing Deficit Past Fnumksb-Niovov-Ernoud Hx Patient Social History Alcohol Use: Denies Use Recreational Drug Use: No Smoking Status: Former Smoker Type Used: Cigarettes Former Smoker, Quit: Feb 20, 1988 Recent Foreign Travel: No Contact w/Someone Who Travel: No Recent Infectious Disease Expo: No Recent Hopitalizations: No Immunizations Up To Date Tetanus Booster (TDap): Unknown PED Vaccines UTD: Yes Date of Pneumonia Vaccine: Jan 01, 2014 Date of Influenza Vaccine: Jan 01, 2014 Seasonal Allergies Seasonal Allergies: No Past Medical History Surgeries: Yes (CARDIAC CATHS WITH STENTS; SKIN CANCER REMOVALS; SKIN GRAFT ON HEAD; PROSTATE CANCER SURGERY WITH BRACHYTHERAPY; HERNIA REPAIR; APPY 10/04/17) Abdominal, Appendectomy, Cardiac, Coronary Stent, Gallbladder Respiratory: Yes Pneumonia Cardiac: Yes (CARDIAC STENTS X2-2000,) Coronary Artery Disease, High Cholesterol, Hypertension Neurological: Yes (PERIPHERAL NEUROPATHY) Neuropathy Sexually Transmitted Disease: No HIV/AIDS: No Genitourinary: Yes (PROSTATE CANCER) Prostate Problems Gastrointestinal: Yes Abdominal Hernia Musculoskeletal: Yes Arthritis, Fractures Endocrine: No HEENT: No Cancer: Yes Prostate, Skin Did You Recieve Any Treatments: Yes What Type of Treatment Did You: Surgical Intervention, Other Psychosocial: No Integumentary: Yes (SKIN CANCER-REMOVED) Blood Disorders: No Adverse Reaction/Blood Tranf: No Family Medical History Glaucoma G8 BROTHER No Family History of: AIDS Abdominal aortic aneurysm [place]'s disease Alcoholism Aphasia Arthritis Asthma Cancer of mouth Cardiovascular disease Cataracts Colon cancer Completed stroke Congenital disease Congenital heart disease Coronary thrombosis Cystic fibrosis Deafness or hearing loss Dementia Diabetes mellitus Drug abuse Dysphasia Fibrocystic disease of breast Gastroenteritis Headache disorder Hypercholesterolemia Hypertension Infertility Kidney disease Myocardial infarction Neoplasm Not obtainable due to adoption Osteoporosis Parkinson's disease Prostate cancer Psychosocial problem Respiratory disorder Seizure disorder Severe allergy Thyroid disease Tuberculosis Visual disorder No Pertinent Family Hx Physical Exam Vital Signs Vital Signs - First Documented 05/20/18 21:02 Temp 98.4 Pulse 81 Resp 18 B/P (MAP) 69/50 (56) Pulse Ox 95 O2 Delivery Room Air Capillary Refill : Less Than 3 Seconds Height, Weight, BMI Height: 5'10.00" Weight: 225lbs. 4.0oz. [id number]; 34.7 BMI Method:Stated Progress/Results/Core Measures Results/Orders My Orders Orders - TIERA MALHOTRA DO Ua Culture If Indicated (05/20/18 21:13) Saline Lock/Iv-Start (05/20/18 21:33) Ct Chest Wo (05/20/18 21:33) Ct Thoracic/Lumbar Spine Wo (05/20/18 21:33) Ketorolac Injection (Toradol Injection) (05/20/18 21:33) Vital Signs/I&O 05/20/18 21:02 Temp 98.4 Pulse 81 Resp 18 B/P (MAP) 69/50 (56) Pulse Ox 95 O2 Delivery Room Air Departure Impression Primary Impression: Back strain Additional Impressions: Pleural effusion, right Abnormal finding on CT scan Disposition: HOME, SELF-CARE Condition: Stable Departure-Patient Inst. Referrals: PAUL CARMEN MD (PCP/Family) Primary Care Physician Patient Instructions: Muscle Strain (DC), Pleural Effusion (DC), Upper Back Pain (DC) Add. Discharge Instructions: MOIST HEAT TO SORE AREA AT 20 MINUTE INTERVALS NO LIFTING OVER 10 LBS, NO TWISTING OR BENDING UNTIL YOUR BACK IS BETTER TAKE YOUR HYDROCODONE NEEDED FOR PAIN --MAY TAKE 1 PILL EVERY 4-6 HOURS NEEDED FOLLOW UP WITH YOUR DR IN 3-4 DAYS IF NO BETTER, OTHERWISE FOLLOW UP IN 1-2 WEEKS FOR FURTHER CARE All discharge instructions reviewed with patient and/or family. Voiced understanding. TIERA MALHOTRA DO May 20, 2018 21:44
--- NOTE | 2018-05-20 21:45 | NUR ---
PT TRYING TO URINATE BUT IS UNABLE TO AT THIS TIME
--- NOTE | 2018-05-20 22:07 | Diagnostic Imaging Report ---
PROCEDURE: CT chest without contrast. TECHNIQUE: Multiple contiguous axial images were obtained through the chest without the use of intravenous contrast. COMPARISON: CT abdomen and pelvis of 10/04/2017 INDICATION: Right-sided back pain FINDINGS: Lungs and airway: No endoluminal nodule within the trachea. There is a small amount of scar within the right lung base with associated volume loss and bronchiolectasis. A small area of scar within the left lung base is also noted. No airspace consolidations. Pleura: Small right pleural effusion. No pneumothorax. Heart and mediastinum: Thyroid is normal. No supraclavicular or axillary lymphadenopathy. No mediastinal, hilar or juxtaphrenic lymphadenopathy. The heart is normal in size with coronary artery calcification. No pericardial effusion. Normal caliber thoracic aorta. Upper abdomen: No evidence of acute abnormality in the upper abdomen by noncontrast imaging. Musculoskeletal: No acute rib fracture. No compression or burst fracture within the thoracic vertebral bodies. IMPRESSION: 1. Small right pleural effusion is of unknown etiology. No right-sided rib fracture. 2. Small areas of scarring and intrinsic bronchiectasis in the bilateral lower lobes are likely from sequela of prior infection. 3. No pneumonia. Dictated by: Dictated on workstation # [id number]
--- NOTE | 2018-05-20 23:13 | NUR ---
pt reports pain improved, denies being able to void at this time. po fluids encouraged.
[2018-05-20 23:36] LABS: BILIRUBIN,URINE NEGATIVE (NEGATIVE); CLARITY,URINE CLEAR; COLOR,URINE YELLOW; GLUCOSE, URINE (UA) NEGATIVE (NEGATIVE); KETONES,URINE NEGATIVE (NEGATIVE); LEUKOCYTE ESTERASE ,URINE 1+ (NEGATIVE); NITRITE,URINE NEGATIVE (NEGATIVE); PH,URINE 7 (5-9); PROTEIN,URINE NEGATIVE (NEGATIVE); UROBILINOGEN,URINE NORMAL (NORMAL)
[2018-05-20 23:43] LABS: BACTERIA,URINE TRACE /HPF; SQUAMOUS EPITHELIAL CELL,UR 0-2 /HPF; WBC,URINE RARE /HPF
[2018-05-20 23:48] VITALS: BP 101/67
--- NOTE | 2018-05-21 06:33 | Diagnostic Imaging Report ---
INDICATION: Right upper back pain. Back gave out when reaching in dryer. History of epidural injection. TECHNIQUE: Noncontrast CT imaging of the thoracic and lumbar spine with multiplanar reformatted images. CORRELATION STUDY: None FINDINGS: Thoracic spine: Alignment appearing to be relatively anatomic with very slight accentuated kyphotic curvature. There are areas of apparent likely Schmorl's node deformity about the superior T8 endplate. There is no significant overall compression deformity or acute appearing loss of vertebral body height. Mild multilevel degenerative changes are present. This includes disc space narrowing and reactive endplate osteophyte formation. High-degree osseous narrowing of the canal and/or foramina does not appear to be suggested. There is incidental note made of a small right pleural effusion. Prominent interstitial changes within the lung acharya, particularly of the right lower lobe and lingula. Nonspecific prominent-appearing lymph node in the prevascular space 14 mm in size. Lumbar spine: Lumbar spinal alignment demonstrates trace anterolisthesis of L3 on L4 and L4 on L5 favoring likely degenerative changes. No acute-appearing compression deformity. There are rather significant multilevel degenerative changes present. Disc space narrowing most severe at the L3-L4, L4-L5 and L5-S1 levels. Rather marked severity hypertrophic facet arthropathy about the lower lumbar spine. Note is made of sigmoid diverticulosis. IMPRESSION: 1. Negative for acute thoracic spine fracture. 2. Negative for acute lumbar spine fracture. 3. Advanced multilevel degenerative changes are present, particularly of the lumbar spine. 4. Incidental note made of a right pleural effusion. Interstitial change about the lung bases. 5. Incidental note made of a nonspecific approximately 14 mm lymph node within the prevascular space. A preliminary report was provided by [employer]. Dictated by: Dictated on workstation # [id number]
== END 2018-05-20 23:52 | disposition home or self-care (01) ==
LOC: EDUNIT# 20:39 → ER 20:42
DX: S29.012A Strain of muscle and tendon of back wall of thorax, initial encounter (principal); J90 Pleural effusion, not elsewhere classified; R93.89 Abnormal findings on diagnostic imaging of other specified body structures; Z85.46 Personal history of malignant neoplasm of prostate; Z85.828 Personal history of other malignant neoplasm of skin; Z88.2 Allergy status to sulfonamides; Z79.82 Long term (current) use of aspirin; Z87.891 Personal history of nicotine dependence; Z95.5 Presence of coronary angioplasty implant and graft; Z90.49 Acquired absence of other specified parts of digestive tract; Z87.01 Personal history of pneumonia (recurrent); Z98.890 Other specified postprocedural states; W18.30XA Fall on same level, unspecified, initial encounter
CPT/HCPCS: 71250; 72128; 72131; 81000

== ENCOUNTER 2018-05-22 17:55 | Emergency (ER) | payer MEDICARE, OTHER ==
[~2018-05-22] VITALS: Ht 177.8 cm; Wt 99.8 kg
--- OUTSIDE RECORDS SUMMARY | 2018-05-22 18:02 | XMS REPORT | Continuity of Care Document ---
Author Author [facility] Organization [facility] Address Unknown Phone Unavailable Allergies Active Description Code Type Severity Reaction Onset Reported/Identified Relationship to Patient Clinical Status Yes Sulfa (Sulfonamide Antibiotics) [id number] Drug Allergy Unknown N/A 2013 Medications There is no data. Problems Date Dx Coded Attending Type Code Diagnosis Diagnosed By 03/04/2013 ALEA JOSEPH MD Ot 278.00 OBESITY, NOS 03/04/2013 ALEA JOSEPH MD Ot 721.3 LUMBOSACRAL SPONDYLOSIS 03/04/2013 ALEA JOSEPH MD Ot 722.52 LUMB/LUMBOSAC DISC DEGEN 03/04/2013 ALEA JOSEPH MD, Ot V58.69 OTH MED,LT,CURRENT USE 03/04/2013 ALEA JOSEPH MD Ot V85.34 BODY MASS INDEX 34.0-34.9, ADULT 05/13/2013 ALEA JOSEPH MD, Ot 721.3 LUMBOSACRAL SPONDYLOSIS 05/13/2013 ALEA JOSEPH MD Ot 722.52 LUMB/LUMBOSAC DISC DEGEN 05/13/2013 ALEA JOSEPH MD Ot V58.69 OTH MED,LT,CURRENT USE 09/20/2013 ALEA JOSEPH MD Ot 721.3 LUMBOSACRAL SPONDYLOSIS 09/20/2013 ALEA JOSEPH MD Ot 722.52 LUMB/LUMBOSAC DISC DEGEN 09/20/2013 ALEA JOSEPH MD Ot V58.69 OTH MED,LT,CURRENT USE 12/20/2013 ALEA JOSEPH MD Ot 721.3 LUMBOSACRAL SPONDYLOSIS 12/20/2013 ALEA JOSEPH MD Ot 722.52 LUMB/LUMBOSAC DISC DEGEN 12/20/2013 ALEA JOSEPH MD Ot V58.69 OTH MED,LT,CURRENT USE 03/21/2014 ALEA JOSEPH MD Ot 721.3 LUMBOSACRAL SPONDYLOSIS 03/21/2014 ALEA JOSEPH MD Ot 722.52 LUMB/LUMBOSAC DISC DEGEN 03/21/2014 ALEA JOSEPH MD, Ot V58.69 OTH MED,LT,CURRENT USE 07/07/2014 ALEA JOSEPH MD Ot 722.52 LUMB/LUMBOSAC DISC DEGEN 08/16/2014 NELLA RAYGOZA, GAGE Gordon Ot 574.20 CHOLELITHIASIS NOS 08/16/2014 NELLA RAYGOZA, GAGE Gordon Ot 789.06 ABDOMINAL PAIN, EPIGASTRIC 08/26/2014 MAREK VAUGHAN DO Ot 574.00 CHOLELITH W AC CHOLECYST 10/10/2014 ALEA JOSEPH MD Ot 721.3 LUMBOSACRAL SPONDYLOSIS 10/10/2014 ALEA JOSEPH MD Ot 722.52 LUMB/LUMBOSAC DISC DEGEN 10/10/2014 ALEA JOSEPH MD, Ot V58.69 OTH MED,LT,CURRENT USE 02/06/2015 ALEA JOSEPH MD Ot 278.00 02/06/2015 ALEA JOSEPH MD Ot 721.3 02/06/2015 ALEA JOSEPH MD Ot 722.52 02/06/2015 ALEA JOSEPH MD Ot V58.69 02/06/2015 ALEA JOSEPH MD, Ot V85.34 02/06/2015 ALEA JOSEPH MD, Ot M47.816 SPONDYLOSIS W/O MYELOPATHY OR RADICULOPA 02/06/2015 ALEA JOSEPH MD Ot M51.16 INTERVERTEBRAL DISC DISORDERS W RADICULO 02/06/2015 ALEA JOSEPH MD Ot Z79.899 OTHER EVP SALES (CURRENT) DRUG THERAPY 06/12/2015 ALEA JOSEPH MD Ot 278.00 06/12/2015 ALEA JOSEPH MD Ot 721.3 06/12/2015 ALEA JOSEPH MD, Ot 722.52 06/12/2015 ALEA JOSEPH MD Ot V58.69 06/12/2015 ALEA JOSEPH MD Ot V85.34 06/12/2015 ALEA JOSEPH MD Ot M47.816 SPONDYLOSIS W/O MYELOPATHY OR RADICULOPA 06/12/2015 ALEA JOSEPH MD, Ot M51.16 INTERVERTEBRAL DISC DISORDERS W RADICULO 06/12/2015 ALEA JOSEPH MD, Ot Z79.899 OTHER EVP SALES (CURRENT) DRUG THERAPY 10/02/2015 ALEA JOSEPH MD, Ot M47.816 SPONDYLOSIS W/O MYELOPATHY OR RADICULOPA 10/02/2015 ALEA JOSEPH MD, Ot M51.16 INTERVERTEBRAL DISC DISORDERS W RADICULO 11/04/2015 ALEA JOSEPH MD, Ot M47.816 SPONDYLOSIS W/O MYELOPATHY OR RADICULOPA 11/04/2015 ALEA JOSEPH MD, Ot M51.16 INTERVERTEBRAL DISC DISORDERS W RADICULO 03/11/2016 ALEA JOSEPH MD Ot 278.00 OBESITY, NOS 03/11/2016 ALEA JOSEPH MD Ot 721.3 LUMBOSACRAL SPONDYLOSIS 03/11/2016 ALEA JOSEPH MD Ot 722.52 LUMB/LUMBOSAC DISC DEGEN 03/11/2016 ALEA JOSEPH MD, Ot V58.69 OTH MED,LT,CURRENT USE 03/11/2016 ALEA JOSEPH MD Ot V85.34 BODY MASS INDEX 34.0-34.9, ADULT 03/11/2016 ALEA JOSEPH MD, Ot M51.16 INTERVERTEBRAL DISC DISORDERS W RADICULO 04/06/2016 ALEA JOSEPH MD, Ot M51.16 INTERVERTEBRAL DISC DISORDERS W RADICULO 07/01/2016 ALEA JOSEPH MD Ot 278.00 OBESITY, NOS 07/01/2016 ALEA JOSEPH MD Ot 721.3 LUMBOSACRAL SPONDYLOSIS 07/01/2016 ALEA JOSEPH MD Ot 722.52 LUMB/LUMBOSAC DISC DEGEN 07/01/2016 ALEA JOSEPH MD Ot V58.69 OTH MED,LT,CURRENT USE 07/01/2016 ALEA JOSEPH MD Ot V85.34 BODY MASS INDEX 34.0-34.9, ADULT 07/06/2016 ALEA JOSEPH MD, Ot M47.816 SPONDYLOSIS W/O MYELOPATHY OR RADICULOPA 07/06/2016 ALEA JOSEPH MD, Ot M51.16 INTERVERTEBRAL DISC DISORDERS W RADICULO 07/06/2016 ALEA JOSEPH MD Ot Z79.899 OTHER EVP SALES (CURRENT) DRUG THERAPY 07/25/2016 ALEA JOSEPH MD, Ot M47.816 SPONDYLOSIS W/O MYELOPATHY OR RADICULOPA 07/25/2016 ALEA JOSEPH MD, Ot M51.16 INTERVERTEBRAL DISC DISORDERS W RADICULO 07/25/2016 ALEA JOSEPH MD, Ot Z79.899 OTHER EVP SALES (CURRENT) DRUG THERAPY 08/09/2016 ALEA JOSEPH MD, Ot M47.816 SPONDYLOSIS W/O MYELOPATHY OR RADICULOPA 08/09/2016 ALEA JOSEPH MD, Ot M51.16 INTERVERTEBRAL DISC DISORDERS W RADICULO 08/09/2016 ALEA JOSEPH MD, Ot Z79.899 OTHER JAIL (CURRENT) DRUG THERAPY 09/15/2016 ALONSO CLAUDIO MD Ot 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 09/15/2016 ALONSO CLAUDIO MD Ot Z01.812 ENCOUNTER FOR PREPROCEDURAL LABORATORY E 09/15/2016 ALONSO CLAUDIO MD Ot Z11.2 ENCOUNTER FOR SCREENING FOR OTHER BACTER 09/22/2016 ALONSO CLAUDIO MD, Ot 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 09/22/2016 ALONSO CLAUDIO MD Ot G62.9 POLYNEUROPATHY, UNSPECIFIED 09/22/2016 ALONSO CLAUDIO MD Ot I10 ESSENTIAL (PRIMARY) HYPERTENSION 09/22/2016 ALONSO CLAUDIO MD Ot I25.10 ATHSCL HEART DISEASE OF [place] CORONARY 09/22/2016 ALONSO CLAUDIO MD Ot Z79.899 OTHER JAIL (CURRENT) DRUG THERAPY 09/22/2016 ALONSO CLAUDIO MD Ot Z95.5 PRESENCE OF CORONARY ANGIOPLASTY IMPLANT 09/23/2016 ALONSO CLAUDIO MD Ot 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 09/23/2016 ALONSO CLAUDIO MD Ot G62.9 POLYNEUROPATHY, UNSPECIFIED 09/23/2016 ALONSO CLAUDIO MD Ot I10 ESSENTIAL (PRIMARY) HYPERTENSION 09/23/2016 ALONSO CLAUDIO MD Ot I25.10 ATHSCL HEART DISEASE OF [place] CORONARY 09/23/2016 ALONSO CLAUDIO MD Ot Z79.899 OTHER EVP SALES (CURRENT) DRUG THERAPY 09/23/2016 ALONSO CLAUDIO MD Ot Z95.5 PRESENCE OF CORONARY ANGIOPLASTY IMPLANT 10/02/2016 ALONSO CLAUDOI MD Ot 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 10/02/2016 ALONSO CLAUDIO MD Ot G62.9 POLYNEUROPATHY, UNSPECIFIED 10/02/2016 ALONSO CLAUDIO MD Ot I10 ESSENTIAL (PRIMARY) HYPERTENSION 10/02/2016 ALONSO CLAUDIO MD Ot I25.10 ATHSCL HEART DISEASE OF [place] CORONARY 10/02/2016 ALONSO CLAUDIO MD Ot Z79.899 OTHER JAIL (CURRENT) DRUG THERAPY 10/02/2016 ALONSO CLAUDIO MD Ot Z95.5 PRESENCE OF CORONARY ANGIOPLASTY IMPLANT 11/30/2016 PAUL CARMEN MD Ot I51.7 CARDIOMEGALY 11/30/2016 PAUL CARMEN MD Ot R91.8 OTHER NONSPECIFIC ABNORMAL FINDING OF [place] 12/07/2016 PAUL CARMEN MD Ot I51.7 CARDIOMEGALY 12/07/2016 PAUL CARMEN MD Ot R91.8 OTHER NONSPECIFIC ABNORMAL FINDING OF [place] 01/05/2017 ALONSO HARTLEY DO Ot M51.36 OTHER INTERVERTEBRAL DISC DEGENERATION, 01/05/2017 ALONSO HARTLEY DO Ot M54.16 RADICULOPATHY, LUMBAR REGION 10/05/2017 DRAKE AGUILLON MD Ot C61 MALIGNANT NEOPLASM OF PROSTATE 10/05/2017 DRAKE AGUILLON MD Ot I10 ESSENTIAL (PRIMARY) HYPERTENSION 10/05/2017 DRAKE AGUILLON MD Ot I25.10 ATHSCL HEART DISEASE OF [place] CORONARY 10/05/2017 DRAKE AGUILLON MD Ot K35.3 ACUTE APPENDICITIS WITH LOCALIZED PERITO 10/05/2017 DRAKE AGUILLON MD Ot R82.99 OTHER ABNORMAL FINDINGS IN URINE 10/05/2017 DRAKE AGUILLON MD Ot Z79.82 JAIL (CURRENT) USE OF ASPIRIN 10/05/2017 DRAKE AGUILLON MD Ot Z79.899 OTHER EVP SALES (CURRENT) DRUG THERAPY 10/05/2017 DRAKE AGUILLON MD Ot Z87.891 PERSONAL HISTORY OF NICOTINE DEPENDENCE 10/05/2017 DRAKE AGUILLON MD Ot Z95.5 PRESENCE OF CORONARY ANGIOPLASTY IMPLANT 10/10/2017 DRAKE AGUILLON MD Ot C61 MALIGNANT NEOPLASM OF PROSTATE 10/10/2017 DRAKE AGUILLON MD Ot I10 ESSENTIAL (PRIMARY) HYPERTENSION 10/10/2017 DRAKE AGUILLON MD Ot I25.10 ATHSCL HEART DISEASE OF [place] CORONARY 10/10/2017 DRAKE AGUILLON MD Ot K35.3 ACUTE APPENDICITIS WITH LOCALIZED PERITO 10/10/2017 HENNA RAYGOZA, DRAKE Shaikh Ot R82.99 OTHER ABNORMAL FINDINGS IN URINE 10/10/2017 HENNA RAYGOZA, DRAKE Shaikh Ot Z79.82 EVP SALES (CURRENT) USE OF ASPIRIN 10/10/2017 HENNA RAYGOZA, DRAKE Shaikh Ot Z79.899 OTHER EVP SALES (CURRENT) DRUG THERAPY 10/10/2017 HENNA RAYGOZA, DRAKE Shaikh Ot Z87.891 PERSONAL HISTORY OF NICOTINE DEPENDENCE 10/10/2017 HENNA RAYGOZA, DRAKE Shaikh Ot Z95.5 PRESENCE OF CORONARY ANGIOPLASTY IMPLANT 05/21/2018 ALEA JOSEPH MD Ot 278.00 OBESITY, NOS 05/21/2018 ALEA JOSEPH MD Ot 721.3 LUMBOSACRAL SPONDYLOSIS 05/21/2018 ALEA JOSEPH MD Ot 722.52 LUMB/LUMBOSAC DISC DEGEN 05/21/2018 ALEA JOSEPH MD Ot V58.69 OTH MED,LT,CURRENT USE 05/21/2018 ALEA JOSEPH MD Ot V85.34 BODY MASS INDEX 34.0-34.9, ADULT 05/21/2018 ALEA JOSEPH MD Ot M47.816 SPONDYLOSIS W/O MYELOPATHY OR RADICULOPA 05/21/2018 ALEA JOSEPH MD Ot M51.16 INTERVERTEBRAL DISC DISORDERS W RADICULO 05/21/2018 ALEA JOSEPH MD, Ot Z79.899 OTHER EVP SALES (CURRENT) DRUG THERAPY 05/21/2018 NELLA RAYGOZA, PAUL Dunbar Ot I51.7 CARDIOMEGALY 05/21/2018 PAUL CARMEN MD Ot R91.8 OTHER NONSPECIFIC ABNORMAL FINDING OF [place] 05/22/2018 TIERA MALHOTRA DO Ot J90 PLEURAL EFFUSION, NOT ELSEWHERE CLASSIFI 05/22/2018 TIERA MALHOTRA DO Ot M54.6 PAIN IN THORACIC SPINE 05/22/2018 TIERA MALHOTRA DO Ot R93.89 ABNORMAL FINDINGS ON DX IMAGING OF OTH B 05/22/2018 TIERA MALHOTRA DO Ot S29.012A STRAIN OF MUSCLE AND TENDON OF BACK WALL 05/22/2018 TIERA MALHOTRA DO Ot W18.30XA FALL ON SAME LEVEL, UNSPECIFIED, INITIAL 05/22/2018 TIERA MALHOTRA DO Ot Z79.82 JAIL (CURRENT) USE OF ASPIRIN 05/22/2018 TIERA MALHOTRA DO Ot Z85.46 PERSONAL HISTORY OF MALIGNANT NEOPLASM O 05/22/2018 TIERA MALHOTRA DO Ot Z85.828 PERSONAL HISTORY OF OTHER MALIGNANT NEOP 05/22/2018 TIERA MALHOTRA DO Ot Z87.01 PERSONAL HISTORY OF PNEUMONIA (RECURRENT 05/22/2018 TIERA MALHOTRA DO Ot Z87.891 PERSONAL HISTORY OF NICOTINE DEPENDENCE 05/22/2018 TIERA MALHOTRA DO Ot Z88.2 ALLERGY STATUS TO SULFONAMIDES STATUS 05/22/2018 TIERA MALHOTRA DO Ot Z90.49 ACQUIRED ABSENCE OF OTHER SPECIFIED PART 05/22/2018 TIERA MALHOTRA DO Ot Z95.5 PRESENCE OF CORONARY ANGIOPLASTY IMPLANT 05/22/2018 TIERA MALHOTRA DO Ot Z98.890 OTHER SPECIFIED POSTPROCEDURAL STATES Procedures There is no data. Results Test Result Range Complete blood count (CBC) with automated white blood cell (WBC) differential - 09/15/16 09:20 Blood leukocytes automated count (number/volume) 12.0 10*3/uL 4.3-11.0 Blood erythrocytes automated count (number/volume) 4.89 10*6/uL 4.35-5.85 Venous blood hemoglobin measurement (mass/volume) 15.5 g/dL 13.3-17.7 Blood hematocrit (volume fraction) 46 % 40-54 Automated erythrocyte mean corpuscular volume 95 [foz_us] 80-99 Automated erythrocyte mean corpuscular hemoglobin (mass per erythrocyte) 32 pg 25-34 Automated erythrocyte mean corpuscular hemoglobin concentration measurement ( mass/volume) 34 g/dL 32-36 Automated erythrocyte distribution width ratio 14.9 % 10.0-14.5 Automated blood platelet count (count/volume) 249 10*3/uL 130-400 Automated blood platelet mean volume measurement 9.5 [foz_us] 7.4-10.4 Automated blood neutrophils/100 leukocytes 60 % 42-75 Automated blood lymphocytes/100 leukocytes 27 % 12-44 Blood monocytes/100 leukocytes 11 % 0-12 Automated blood eosinophils/100 leukocytes 2 % 0-10 Automated blood basophils/100 leukocytes 1 % 0-10 Blood neutrophils automated count (number/volume) 7.2 10*3 1.8-7.8 Blood lymphocytes automated count (number/volume) 3.2 10*3 1.0-4.0 Blood monocytes automated count (number/volume) 1.3 10*3 0.0-1.0 Automated eosinophil count 0.3 10*3/uL 0.0-0.3 Automated blood basophil count (count/volume) 0.1 10*3/uL 0.0-0.1 Whole blood basic metabolic panel - 09/15/16 09:20 Serum or plasma sodium measurement (moles/volume) 137 mmol/L 135-145 Serum or plasma potassium measurement (moles/volume) 4.8 mmol/L 3.6-5.0 Serum or plasma chloride measurement (moles/volume) 100 mmol/L 98-107 Carbon dioxide 29 mmol/L 21-32 Serum or plasma anion gap determination (moles/volume) 8 mmol/L 5-14 Serum or plasma urea nitrogen measurement (mass/volume) 15 mg/dL 7-18 Serum or plasma creatinine measurement (mass/volume) 1.07 mg/dL 0.60-1.30 Serum or plasma urea nitrogen/creatinine mass ratio 14 0 -20 Serum or plasma creatinine measurement with calculation of estimated glomerular filtration rate > NRG Serum or plasma glucose measurement (mass/volume) 100 mg/dL 70-105 Serum or plasma calcium measurement (mass/volume) 9.8 mg/dL 8.5-10.1 Methicillin resistant Staphylococcus aureus (MRSA) screening culture - 09:20 Methicillin resistant Staphylococcus aureus (MRSA) screening culture NEG NRG Complete blood count (CBC) with automated white blood cell (WBC) differential - 10/04/17 07:25 Blood leukocytes automated count (number/volume) 18.5 10*3/uL 4.3-11.0 Blood erythrocytes automated count (number/volume) 4.80 10*6/uL 4.35-5.85 Venous blood hemoglobin measurement (mass/volume) 15.9 g/dL 13.3-17.7 Blood hematocrit (volume fraction) 44 % 40-54 Automated erythrocyte mean corpuscular volume 92 [foz_us] 80-99 Automated erythrocyte mean corpuscular hemoglobin (mass per erythrocyte) 33 pg 25-34 Automated erythrocyte mean corpuscular hemoglobin concentration measurement ( mass/volume) 36 g/dL 32-36 Automated erythrocyte distribution width ratio 13.7 % 10.0-14.5 Automated blood platelet count (count/volume) 169 10*3/uL 130-400 Automated blood platelet mean volume measurement 10.4 [foz_us] 7.4-10.4 Automated blood neutrophils/100 leukocytes 84 % 42-75 Automated blood lymphocytes/100 leukocytes 6 % 12-44 Blood monocytes/100 leukocytes 10 % 0-12 Automated blood eosinophils/100 leukocytes 0 % 0-10 Automated blood basophils/100 leukocytes 0 % 0-10 Blood neutrophils automated count (number/volume) 15.6 10*3 1.8-7.8 Blood lymphocytes automated count (number/volume) 1.1 10*3 1.0-4.0 Blood monocytes automated count (number/volume) 1.8 10*3 0.0-1.0 Automated eosinophil count 0.0 10*3/uL 0.0-0.3 Automated blood basophil count (count/volume) 0.0 10*3/uL 0.0-0.1 Complete urinalysis with reflex to culture - 10/04/17 07:25 Urine color determination YELLOW NRG Urine clarity determination CLEAR NRG Urine pH measurement by test strip 6.5 5-9 Specific gravity of urine by test strip 1.010 1.016- 1.022 Urine protein assay by test strip, semi-quantitative 2+ NEGATIVE Urine glucose detection by automated test strip NEGATIVE NEGATIVE Erythrocytes detection in urine sediment by light microscopy 4+ NEGATIVE Urine ketones detection by automated test strip NEGATIVE NEGATIVE Urine nitrite detection by test strip NEGATIVE NEGATIVE Urine total bilirubin detection by test strip NEGATIVE NEGATIVE Urine urobilinogen measurement by automated test strip (mass/volume) NORMAL NORMAL Urine leukocyte esterase detection by dipstick 2+ NEGATIVE Automated urine sediment erythrocyte count by microscopy (number/high power field) RARE NRG Automated urine sediment leukocyte count by microscopy (number/high power field ) [HPF] NRG Bacteria detection in urine sediment by light microscopy FEW NRG Squamous epithelial cells detection in urine sediment by light microscopy 5-10 NRG Crystals detection in urine sediment by light microscopy NONE NRG Casts detection in urine sediment by light microscopy NONE NRG Mucus detection in urine sediment by light microscopy NEGATIVE NRG Complete urinalysis with reflex to culture YES NRG Comprehensive metabolic panel - 10/04/17 07:25 Serum or plasma sodium measurement (moles/volume) 130 mmol/L 135-145 Serum or plasma potassium measurement (moles/volume) 4.2 mmol/L 3.6-5.0 Serum or plasma chloride measurement (moles/volume) 96 mmol/L 98-107 Carbon dioxide 22 mmol/L 21-32 Serum or plasma anion gap determination (moles/volume) 12 mmol/L 5-14 Serum or plasma urea nitrogen measurement (mass/volume) 13 mg/dL 7-18 Serum or plasma creatinine measurement (mass/volume) 0.90 mg/dL 0.60-1.30 Serum or plasma urea nitrogen/creatinine mass ratio 14 NRG Serum or plasma creatinine measurement with calculation of estimated glomerular filtration rate > NRG Serum or plasma glucose measurement (mass/volume) 142 mg/dL 70-105 Serum or plasma calcium measurement (mass/volume) 9.4 mg/dL 8.5-10.1 Serum or plasma total bilirubin measurement (mass/volume) 1.6 mg/dL 0.1-1.0 Serum or plasma alkaline phosphatase measurement (enzymatic activity/volume) 56 U/L 40-136 Serum or plasma aspartate aminotransferase measurement (enzymatic activity/ volume) 24 U/L 5-34 Serum or plasma alanine aminotransferase measurement (enzymatic activity/volume ) 16 U/L 0-55 Serum or plasma protein measurement (mass/volume) 6.5 g/dL 6.4-8.2 Serum or plasma albumin measurement (mass/volume) 3.7 g/dL 3.2-4.5 Serum or plasma amylase measurement (enzymatic activity/volume) - 10/04/17 07: 25 Serum or plasma amylase measurement (enzymatic activity/volume) 40 U /L 25-125 Lipase - 10/04/17 07:25 Lipase 10 U/L 8-78 Blood manual differential performed detection - 10/04/17 07:25 Blood monocytes/100 leukocytes 12 % NR Manual blood segmented neutrophils/100 leukocytes 82 % NR Manual blood lymphocytes/100 leukocytes 6 % NR Blood erythrocyte morphology finding identification NORMAL NR Bacterial urine culture - 10/04/17 07:25 Bacterial urine culture [facility] NR COLONY COUNT . NR FTX;REPORTABLE [facility] SENT SENSITIVITY REPORT 10/06 09:05 NRG Bacterial blood culture - 10/04/17 07:25 Bacterial blood culture NG [facility] RML Sensitivity Panel - 10/04/17 07:25 Gentamicin susceptibility test by minimum inhibitory concentration < = NRG Trimethoprim/sulfamethoxazole susceptibility test by minimum inhibitoryconcentration <= NRG Levofloxacin susceptibility test by minimum inhibitory concentration <= NRG Ampicillin susceptibility test by minimum inhibitory concentration > NRG Cefazolin susceptibility test by minimum inhibitory concentration 8 NRG Ceftriaxone susceptibility test by minimum inhibitory concentration <= NRG Ciprofloxacin susceptibility test by minimum inhibitory concentration <= NRG Meropenem susceptibility test by minimum inhibitory concentration < = NRG Nitrofurantoin susceptibility test by minimum inhibitory concentration <= NRG Amoxicillin and clavulanate potassium susc AKUA <= NRG RML Sensitivity Panel - 10/04/17 07:25 Gentamicin susceptibility test by minimum inhibitory concentration < = NRG Trimethoprim/sulfamethoxazole susceptibility test by minimum inhibitoryconcentration <= NRG Levofloxacin susceptibility test by minimum inhibitory concentration <= NRG Ampicillin susceptibility test by minimum inhibitory concentration > NRG Cefazolin susceptibility test by minimum inhibitory concentration > NRG Ceftriaxone susceptibility test by minimum inhibitory concentration <= NRG Ciprofloxacin susceptibility test by minimum inhibitory concentration <= NRG Meropenem susceptibility test by minimum inhibitory concentration < = NRG Nitrofurantoin susceptibility test by minimum inhibitory concentration <= NRG Amoxicillin and clavulanate potassium susc AKUA <= NRG Blood lactic acid measurement (moles/volume) - 10/04/17 08:13 Blood lactic acid measurement (moles/volume) 1.92 mmol/L 0.50-2.00 Bacterial blood culture - 10/04/17 08:13 Bacterial blood culture NG NRG Complete urinalysis with reflex to culture - 05/20/18 22:39 Urine color determination YELLOW NRG Urine clarity determination CLEAR NRG Urine pH measurement by test strip 7 5-9 Specific gravity of urine by test strip 1.010 1.016- 1.022 Urine protein assay by test strip, semi-quantitative NEGATIVE NEGATIVE Urine glucose detection by automated test strip NEGATIVE NEGATIVE Erythrocytes detection in urine sediment by light microscopy NEGATIVE NEGATIVE Urine ketones detection by automated test strip NEGATIVE NEGATIVE Urine nitrite detection by test strip NEGATIVE NEGATIVE Urine total bilirubin detection by test strip NEGATIVE NEGATIVE Urine urobilinogen measurement by automated test strip (mass/volume) NORMAL NORMAL Urine leukocyte esterase detection by dipstick 1+ NEGATIVE Automated urine sediment erythrocyte count by microscopy (number/high power field) NONE NRG Automated urine sediment leukocyte count by microscopy (number/high power field ) RARE NRG Bacteria detection in urine sediment by light microscopy TRACE NRG Squamous epithelial cells detection in urine sediment by light microscopy 0-2 NRG Crystals detection in urine sediment by light microscopy NONE NRG Casts detection in urine sediment by light microscopy NONE NRG Mucus detection in urine sediment by light microscopy NEGATIVE NRG Complete urinalysis with reflex to culture NO NRG Encounters ACCT No. Visit Date/Time Discharge Status Pt. Type Provider Facility Loc./Unit Complaint [id number] 05/20/2018 20:42:00 05/20/2018 23:52:00 DIS Outpatient MARYA MEJIA TIERA Bagley [facility] ER BACK PAIN [id number] 10/04/2017 09:07:00 10/05/2017 09:55:00 DIS Outpatient DRAKE AGUILLON MD [facility] APPENDICITIS [id number] 01/05/2017 12:56:00 01/05/2017 14:26:00 DIS Outpatient ALONSO HARTLEY DO [facility] CARD LUMBAR RADICULOPATHY [id number] 11/09/2016 11:04:00 11/09/2016 23:59:59 CLS Outpatient PAUL CARMEN MD [facility] RAD XR CHEST PA LATERAL [id number] 09/22/2016 06:00:00 09/22/2016 10:43:00 DIS Outpatient ALONSO CLAUDIO MD [facility] SCALP LESION [id number] 09/15/2016 08:51:00 09/15/2016 09:25:00 DIS Outpatient ALONSO CLAUDIO MD [facility] PREOP SCALP LESION [id number] 07/01/2016 10:50:00 07/01/2016 23:59:59 CLS Outpatient ALEA JOSEPH MD [facility] CARD DISC DISORDER [id number] 03/11/2016 12:57:00 03/11/2016 14:04:00 DIS Outpatient ALEA JOSEPH MD [facility] CARD DISC DISORDER [id number] 10/02/2015 11:17:00 10/02/2015 13:22:00 DIS Outpatient ALEA JOSEPH MD [facility] CARD DISC DISORDER W/ RADICULOPATHY [id number] 06/12/2015 07:12:00 06/12/2015 07:48:00 DIS Outpatient ALEA JOSEPH MD [facility] CARD DISC DISORDER WITH LUMBAR RADICULOPATH [id number] 02/06/2015 09:31:00 02/06/2015 10:35:00 DIS Outpatient ALEA JOSEPH MD [facility] DISC DISORDER W/ RADICULOPATHY [id number] 10/10/2014 07:03:00 10/10/2014 07:54:00 DIS Outpatient ALEA JOSEPH MD [facility] CARD DDD [id number] 08/25/2014 03:55:00 08/26/2014 15:00:00 DIS Outpatient MAREK VAUGHAN DO [facility] CHOLELITHIASIS [id number] 08/16/2014 00:32:00 08/16/2014 02:44:00 DIS Emergency GAGE CARMEN MD [facility] ER ABD PAIN [id number] 07/07/2014 12:43:00 07/07/2014 15:34:00 DIS Outpatient ALEA JOSEPH MD [facility] CARD DDD [id number] 03/21/2014 08:50:00 03/21/2014 09:55:00 DIS Outpatient ALEA JOSEPH MD [facility] CARD DDD [id number] 12/20/2013 07:47:00 12/20/2013 08:52:00 DIS Outpatient ALEA JOSEPH MD [facility] CARD DDD-LUMBAR [id number] 09/20/2013 07:06:00 09/20/2013 08:21:00 DIS Outpatient ALEA JOSEPH MD [facility] CARD DDD [id number] 05/13/2013 12:36:00 05/13/2013 13:29:00 DIS Outpatient ALEA JOSEPH MD [facility] CARD DDD LUMBAR [id number] 03/04/2013 12:20:00 03/04/2013 13:07:00 DIS Outpatient ALEA JOSEPH MD [facility] DDD LUMBAR [id number] 01/11/2013 07:07:00 01/11/2013 23:59:59 CLS Outpatient ALEA JOSEPH MD [facility] CARD DDD LUMBAR [id number] 05/22/2018 17:57:00 ACT Emergency ESPERANZA RAYGOZA, ARABELLA Dunbar [facility] ER FALL
[2018-05-22 18:34] LABS: BASOPHILS % (AUTO) 0 % (0-10); EOSINOPHILS % (AUTO) 0 % (0-10); HEMATOCRIT 44 % (40-54); HEMOGLOBIN 15.5 G/DL (13.3-17.7); LYMPHOCYTES # (AUTO) 0.9 X 10^3 (1.0-4.0); LYMPHOCYTES % (AUTO) 3 % (12-44); MEAN CORPUSCULAR HEMOGLOBIN 32 PG (25-34); MEAN CORPUSCULAR HGB CONC 35 G/DL (32-36); MEAN CORPUSCULAR VOLUME 91 FL (80-99); MEAN PLATELET VOLUME 8.7 FL (7.4-10.4); MONOCYTES # (AUTO) 2.6 X 10^3 (0.0-1.0); MONOCYTES % (AUTO) 8 % (0-12); NEUTROPHILS # (AUTO) 30.3 X 10^3 (1.8-7.8); NEUTROPHILS % (AUTO) 90 % (42-75); PLATELET COUNT 286 10^3/uL (130-400); RED CELL DISTRIBUTION WIDTH 14.1 % (10.0-14.5)
[2018-05-22 18:37] LABS: BILIRUBIN,URINE NEGATIVE (NEGATIVE); CLARITY,URINE SLIGHTLY CLOUDY; COLOR,URINE YELLOW; GLUCOSE, URINE (UA) NEGATIVE (NEGATIVE); KETONES,URINE 2+ (NEGATIVE); LEUKOCYTE ESTERASE ,URINE 1+ (NEGATIVE); NITRITE,URINE NEGATIVE (NEGATIVE); PH,URINE 7 (5-9); PROTEIN,URINE 2+ (NEGATIVE); UROBILINOGEN,URINE NORMAL (NORMAL)
[2018-05-22 18:39] LABS: WHITE BLOOD COUNT 33.8 10^3/uL (4.3-11.0)
[2018-05-22 18:45] LABS: BACTERIA,URINE MODERATE /HPF
[2018-05-22 19:02] LABS: ALBUMIN 3.3 GM/DL (3.2-4.5); BILIRUBIN,TOTAL 1.1 MG/DL (0.1-1.0); CREATININE SERUM 1.39 MG/DL (0.60-1.30); MAGNESIUM 1.9 MG/DL (1.8-2.4); POTASSIUM 4.7 MMOL/L (3.6-5.0); TOTAL PROTEIN 6.7 GM/DL (6.4-8.2)
--- NOTE | 2018-05-22 19:04 | Diagnostic Imaging Report ---
INDICATION: Fall 2 days ago. Time of exam 6:40 PM Correlation is made with prior study from 10/04/2017. There appears to be some infiltrate or atelectasis in the right base as well as a small right effusion. The left lung is clear. No pneumothorax is identified. IMPRESSION: Right basilar infiltrate and small right effusion. Dictated by: Dictated on workstation # [id number]
[2018-05-22 19:06] LABS: BAND NEUTROPHILS 2 %; BASOPHILS % (MANUAL) 0 %; EOSINOPHILS % (MANUAL) 0 %; LYMPHOCYTES % (MANUAL) 5 %; MONOCYTES % (MANUAL) 3 %; NEUTROPHILS % (MANUAL) 90 %; RBC MORPH NORMAL
[2018-05-22] MEDS ORDERED: NS IV 1000 ML 1,000 ML IV ONE ×2 (19:18→23:45)
--- NOTE | 2018-05-22 19:18 | ED General ---
General Chief Complaint: General Problems/Pain Stated Complaint: FALL Nursing Triage Note: PT BROUGHT IN BY EMS FROM HOME WITH COMPLAINT OF WEAKNESS. PT STATES HE FELL EARLIER TODAY AND THOUGHT HE WAS GOING TO FALL AGAIN. PT STATES HE LOWERED HIMSELF TO THE GROUND. STATES HE LAID THERE FOR AN HOUR AND HALF. HOPING TO REGAIN STRENGTH TO GET BACK UP. PT WAS UNABLE TO GET BACK UP AND EMS WAS CALLED. EMS STATES THIS IS THE SECOND TIME THEY HAVE BEEN CALLED OUT TO [facility]. PT WAS SEEN IN ER ON MONDAY AND DIAGNOED WITH PLEURISY. Nursing Sepsis Screen: No Definite Risk Source of Information: Patient, Old Records Exam Limitations: No Limitations History of Present Illness Date Seen by Provider: May 22, 2018 Time Seen by Provider: 17:57 Initial Comments This 82-year-old gentleman presents to the emergency room with primary complaint of a generalized weakness. He has been having falls recently. He was seen on May [address] of the chest, abdomen, pelvis, and spine was performed. No significant injuries were identified. A pleural effusion was identified without evidence of pneumonia. Patient was discharged from the ER on the . This morning he had another fall without injury. EMS was called to the home but patient declined transfer. He again found himself very weak this afternoon. He slid to the floor while trying to ambulate. He was unable to get up. He remained on the floor for over an hour. EMS was again activated and patient was transferred to the ER. Allergies and Home Medications Allergies Coded Allergies: Sulfa (Sulfonamide Antibiotics) (Unverified Allergy, Unknown, 12/20/13) Home Medications Amoxicillin/Potassium Clav 1 Each Tablet, 1 EACH PO Q12H Prescribed by: DRAKE AGUILLON on 10/04/17 1133 Aspirin 325 Mg Tablet, 325 MG PO DAILY, (Reported) Atorvastatin Calcium 40 Mg Tablet, 20 MG PO HS, (Reported) TAKES 1/2 (40MG) TABLET Calcium Carbonate/Vitamin D3 1 Each Tablet, 1 TAB PO DAILY, (Reported) Gabapentin 400 Mg Capsule, 400 MG PO HS, (Reported) Hydrochlorothiazide 25 Mg Tablet, 12.5 MG PO DAILY, (Reported) TAKES 1/2 (25MG) TABLET Hydrocodone Bit/Acetaminophen 1 Tab Tab, 1-2 TAB PO 4-6HR PRN for PAIN Prescribed by: DRAKE AGUILLON on 10/04/17 1133 Lisinopril 40 Mg Tablet, 40 MG PO HS, (Reported) Metoprolol Tartrate 100 Mg Tablet, 25 MG PO BID, (Reported) TAKES 1/4 (100MG) TABLET Multivitamin 1 Each Tablet, 1 TAB PO DAILY, (Reported) Balfour-3/Dha/Epa/Fish Oil 1 Each Capsule.dr, 1,400 MG PO DAILY, (Reported) Patient Home Medication List Home Medication List Reviewed: Yes Review of Systems Review of Systems Constitutional: see HPI, weakness EENTM: no symptoms reported Respiratory: see HPI, dyspnea on exertion Cardiovascular: no symptoms reported Gastrointestinal: no symptoms reported Genitourinary: no symptoms reported Musculoskeletal: see HPI Skin: no symptoms reported Psychiatric/Neurological: No Symptoms Reported Hematologic/Lymphatic: No Symptoms Reported Immunological/Allergic: no symptoms reported Past Wlllhak-Ywmlxt-Pkhpmh Hx Past Med/Social Hx: Reviewed Nursing Past Med/Soc Hx Patient Social History Alcohol Use: Occasionally Uses Number of Drinks Today: AA Alcohol Beverage of Choice: Beer Recreational Drug Use: No Smoking Status: Former Smoker Type Used: Cigarettes Former Smoker, Quit: Feb 20, 1988 Recent Foreign Travel: No Contact w/Someone Who Travel: No Recent Infectious Disease Expo: No Recent Hopitalizations: No Immunizations Up To Date Tetanus Booster (TDap): Unknown PED Vaccines UTD: Yes Date of Pneumonia Vaccine: Jan 01, 2014 Date of Influenza Vaccine: Jan 01, 2014 Seasonal Allergies Seasonal Allergies: No Past Medical History Surgeries: Yes Abdominal, Appendectomy, Cardiac, Coronary Stent, Gallbladder Respiratory: Yes Pneumonia Cardiac: Yes (CARDIAC STENTS X2-2000,) Coronary Artery Disease, High Cholesterol, Hypertension Neurological: Yes (PERIPHERAL NEUROPATHY) Neuropathy Sexually Transmitted Disease: No HIV/AIDS: No Genitourinary: Yes (PROSTATE CANCER) Prostate Problems Gastrointestinal: Yes Abdominal Hernia Musculoskeletal: Yes Arthritis, Fractures Endocrine: No HEENT: No Cancer: Yes Prostate, Skin Did You Recieve Any Treatments: Yes What Type of Treatment Did You: Surgical Intervention, Other Psychosocial: No Integumentary: Yes (SKIN CANCER-REMOVED) Blood Disorders: No Adverse Reaction/Blood Tranf: No Family Medical History Glaucoma G8 BROTHER No Family History of: AIDS Abdominal aortic aneurysm Chelan's disease Alcoholism Aphasia Arthritis Asthma Cancer of mouth Cardiovascular disease Cataracts Colon cancer Completed stroke Congenital disease Congenital heart disease Coronary thrombosis Cystic fibrosis Deafness or hearing loss Dementia Diabetes mellitus Drug abuse Dysphasia Fibrocystic disease of breast Gastroenteritis Headache disorder Hypercholesterolemia Hypertension Infertility Kidney disease Myocardial infarction Neoplasm Not obtainable due to adoption Osteoporosis Parkinson's disease Prostate cancer Psychosocial problem Respiratory disorder Seizure disorder Severe allergy Thyroid disease Tuberculosis Visual disorder No Pertinent Family Hx Physical Exam-Suspected Sepsis Physical Exam Vital Signs Vital Signs - First Documented 05/22/18 05/22/18 18:00 19:10 Temp 98.6 Pulse 112 Resp 22 B/P (MAP) 140/99 (113) Pulse Ox 92 O2 Delivery Room Air O2 Flow Rate 2.00 Capillary Refill : Less Than 3 Seconds Blood Pressure Mean: 113 Height, Weight, BMI Height: 5'10.00" Weight: 220lbs. 4.0oz. 99.637785bl; 34.7 BMI Method:Stated General Appearance: No Apparent Distress, WD/WN HEENT: PERRL/EOMI, Normal ENT Inspection Neck: Normal Inspection Respiratory: No Accessory Muscle Use, No Respiratory Distress, Crackles ( bilateral bases, left greater than right), Decreased Breath Sounds (diminished in the bases) Cardiovascular: No Edema, No Murmur, Tachycardia Gastrointestinal: Normal Bowel Sounds, Non Tender, Soft Extremity: Normal Capillary Refill, No Pedal Edema, Other (scabbed abrasion and ecchymosis to the left forearm from fallMay 20) Neurologic/Psychiatric: Alert, Oriented x3, No Motor/Sensory Deficits, Normal Mood/Affect, spot checker II-XII Norm as Tested Skin: normal color, warm/dry, ecchymosis (see above) Focused Exam Lactate Level 05/22/18 19:18: Lactic Acid Level 1.69 Lactic Acid Level Progress/Results/Core Measures Suspected Sepsis Recent Fever Within 48 Hours: No Infection Criteria Present: None New/Unexplained Altered Menta: No Sepsis Screen: No Definite Risk SIRS Temperature:98.6 Pulse: 112 Respiratory Rate: 22 Laboratory Tests 05/22/18 18:25: White Blood Count 33.8*H Blood Pressure 140 /99 Mean: 113 05/22/18 19:18: Lactic Acid Level 1.69 Laboratory Tests 05/22/18 18:25: Creatinine 1.39H, Platelet Count 286, Total Bilirubin 1.1H Results/Orders Lab Results Laboratory Tests Test 05/22/18 18:25 05/22/18 18:30 05/22/18 19:18 Range/Units White Blood Count 33.8 *H 4.3-11.0 10^3/uL Red Blood Count 4.81 4.35-5.85 10^6/uL Hemoglobin 15.5 13.3-17.7 G/DL Hematocrit 44 40-54 % Mean Corpuscular Volume 91 80-99 FL Mean Corpuscular Hemoglobin 32 25-34 PG Mean Corpuscular Hemoglobin Concent 35 32-36 G/DL Red Cell Distribution Width 14.1 10.0-14.5 % Platelet Count 286 130-400 10^3/uL Mean Platelet Volume 8.7 7.4-10.4 FL Neutrophils (%) (Auto) 90 H 42-75 % Lymphocytes (%) (Auto) 3 L 12-44 % Monocytes (%) (Auto) 8 0-12 % Eosinophils (%) (Auto) 0 0-10 % Basophils (%) (Auto) 0 0-10 % Neutrophils # (Auto) 30.3 H 1.8-7.8 X 10^3 Lymphocytes # (Auto) 0.9 L 1.0-4.0 X 10^3 Monocytes # (Auto) 2.6 H 0.0-1.0 X 10^3 Eosinophils # (Auto) 0.0 0.0-0.3 10^3/uL Basophils # (Auto) 0.0 0.0-0.1 10^3/uL Neutrophils % (Manual) 90 % Lymphocytes % (Manual) 5 % Monocytes % (Manual) 3 % Eosinophils % (Manual) 0 % Basophils % (Manual) 0 % Band Neutrophils 2 % Blood Morphology Comment NORMAL Sodium Level 122 *L 135-145 MMOL/L Potassium Level 4.7 3.6-5.0 MMOL/L Chloride Level 87 L 98-107 MMOL/L Carbon Dioxide Level 24 21-32 MMOL/L Anion Gap 11 5-14 MMOL/L Blood Urea Nitrogen 26 H 7-18 MG/DL Creatinine 1.39 H 0.60-1.30 MG/DL Estimat Glomerular Filtration Rate 49 BUN/Creatinine Ratio 19 Glucose Level 165 H 70-105 MG/DL Calcium Level 10.0 8.5-10.1 MG/DL Corrected Calcium 10.6 H 8.5-10.1 MG/DL Magnesium Level 1.9 1.8-2.4 MG/DL Total Bilirubin 1.1 H 0.1-1.0 MG/DL Aspartate Amino Transf (AST/SGOT) 29 5-34 U/L Alanine Aminotransferase (ALT/SGPT) 19 0-55 U/L Alkaline Phosphatase 86 40-136 U/L Troponin I 0.045 H <0.028 NG/ML C-Reactive Protein High Sensitivity 26.20 H 0.00-0.50 MG/DL B-Type Natriuretic Peptide 122.0 H <100.0 PG/ML Total Protein 6.7 6.4-8.2 GM/DL Albumin 3.3 3.2-4.5 GM/DL Urine Color YELLOW Urine Clarity SLIGHTLY CLOUDY Urine pH 7 5-9 Urine Specific [place] 1.010 L 1.016-1.022 Urine Protein 2+ H NEGATIVE Urine Glucose (UA) NEGATIVE NEGATIVE Urine Ketones 2+ H NEGATIVE Urine Nitrite NEGATIVE NEGATIVE Urine Bilirubin NEGATIVE NEGATIVE Urine Urobilinogen NORMAL NORMAL MG/DL Urine Leukocyte Esterase 1+ H NEGATIVE Urine RBC (Auto) 3+ H NEGATIVE Urine RBC 10-25 H /HPF Urine WBC 2-5 /HPF Urine Squamous Epithelial Cells NONE /HPF Urine Crystals NONE /LPF Urine Bacteria MODERATE H /HPF Urine Casts NONE /LPF Urine Mucus NEGATIVE /LPF Urine Culture Indicated YES Lactic Acid Level 1.69 0.50-2.00 MMOL/L My Orders Orders - JERRICA MARIANO MD BNP (05/22/18 18:15) Cbc With Automated Diff (05/22/18 18:15) Comprehensive Metabolic Panel (05/22/18 18:15) Hs C Reactive Protein (05/22/18 18:15) Magnesium (05/22/18 18:15) Troponin I (05/22/18 18:15) Ua Culture If Indicated (05/22/18 18:15) Saline Lock/Iv-Start (05/22/18 18:15) Ekg Tracing (05/22/18 18:15) O2 (05/22/18 18:15) Monitor-Rhythm Ecg Trace Only (05/22/18 18:15) Chest 1 View, Ap/Pa Only (05/22/18 18:15) Manual Differential (05/22/18 18:25) Urine Culture (05/22/18 18:30) Piperacillin/Tazobactam (Bulk) (Zosyn In (05/22/18 19:30) Blood Culture (05/22/18 19:18) Lactic Acid Analyzer (05/22/18 19:18) Saline Lock/Iv-Start (05/22/18 19:18) Ns Iv 1000 Ml (Sodium Chloride 0.9%) (05/22/18 19:18) Ns (Ivpb) (Sodium Chloride 0.9% Ivpb Bag (05/22/18 19:19) Piperacillin Sodium/Tazobactam (Zosyn Vi (05/22/18 19:20) Vancomycin Injection (Vancomycin Injecti (05/22/18 20:15) Vancomycin Injection (Vancomycin Injecti (05/22/18 20:24) Ns (Ivpb) (Sodium Chloride 0.9%) (05/22/18 20:24) Ns Iv 1000 Ml (Sodium Chloride 0.9%) (05/22/18 23:45) Medications Given in ED Vital Signs/I&O 05/23/18 00:00 Intake Total 1380 ml Balance 1380 ml Capillary Refill : Less Than 3 Seconds Blood Pressure Mean: 113 Progress Note : Progress Note Patient was seen and evaluated upon arrival. He denied any injuries from his falls today. Workup revealed evidence of pneumonia on the chest x-ray and possible urinary tract infection by urinalysis. He had a marked leukocytosis and he was determined to be septic. He was also hyponatremic and had acute kidney injury. Blood cultures and lactic acid were drawn. Antibiotic therapy was started with Zosyn. A liter of IV normal saline was administered. There was no bed availability for admission at [facility] in [place]. Patient requested transfer to [place]. I discussed the case with Dr. Louis who was agreeable to transfer. He requested vancomycin be administered as well prior to transfer. And imaging from his prior ER visit were reviewed. Imaging studies were clouded to [place]. ECG Initial ECG Impression Date: May 22, 2018 Initial ECG Impression Time: 18:11 Initial ECG Rate: 101 Initial ECG Rhythm: S.Tach Comment Sinus tachycardia with not ST elevation or depression. No abnormal intervals. PACs. Left axis deviation. Diagnostic Imaging Diagonstic Imaging: Xray Plain Films/CT/US/NM/MRI: chest Comments Chest x-ray viewed by me and report reviewed. See report below: NAME: SANDRA LANGLEY Viola [facility] REC#: [id number] PT STATUS: REG ER : 1935 PHYSICIAN: JERRICA MARIANO MD ADMIT DATE: 05/22/18/ER Signed Date of Exam: 05/22/18 CHEST 1 VIEW, AP/PA ONLY INDICATION: Fall 2 days ago. Time of exam 6:40 PM Correlation is made with prior study from 10/04/2017. There appears to be some infiltrate or atelectasis in the right base as well as a small right effusion. The left lung is clear. No pneumothorax is identified. IMPRESSION: Right basilar infiltrate and small right effusion. Dictated by: Dictated on workstation # [id number] Dict: 05/22/181900 Trans: 05/22/181904 Interpreted by: GANESH CASSIDY MD Electronically signed by: GANESH CASSIDY MD 05/22/181904 Departure Impression Primary Impression: Sepsis Qualified Codes: A41.9 - Sepsis, unspecified organism Additional Impressions: Right lower lobe pneumonia Qualified Codes: J18.1 - Lobar pneumonia, unspecified organism Acute kidney injury Hyponatremia Generalized weakness Multiple falls Urinary tract infection Qualified Codes: N39.0 - Urinary tract infection, site not specified Pleural effusion, right Disposition: XFER SHT-TRM HOSP Condition: Improved Transfer Time Spoke to Accepting Phy: 20:00 Transfer Progress Notes Patient requested transfer to [facility] due to admission diversion at [facility]. Transfer center was contacted at 19:20. Transfer Time: 00:02 Transfer Facility: [place], [place]. Accepting provider Dr. Louis. Method of Transfer: EMS Departure-Patient Inst. Referrals: PAUL CARMEN MD (PCP/Family) Primary Care Physician JERRICA MARIANO MD May 22, 2018 19:18
[2018-05-22] MEDS ORDERED: NS (IVPB) 100 ML ONE (19:19)
[2018-05-22] MEDS ORDERED: PIPERACILLIN/TAZO 4.5 GM VIAL (ZOSYN) IV ONE (19:20)
[2018-05-22] MEDS ORDERED: PIPERACILLIN/TAZOBACTAM (BULK) 4.5 GM in NS (IVPB) 100 ML IV ONE (19:30)
[2018-05-22] MEDS ORDERED: VANCOMYCIN INJECTION 1,000 MG in NS (IVPB) 250 ML IV SCH (20:15)
[2018-05-22] MEDS ORDERED: NS (IVPB) 250 ML ONE (20:24)
[2018-05-22] MEDS ORDERED: VANCOMYCIN 1000 MG/VIAL ONE (20:24)
[2018-05-22 22:43] VITALS: BP 129/62
[2018-05-23 00:01] VITALS: BP 152/102
== END 2018-05-23 00:02 | disposition short-term general hospital (02) ==
LOC: EDUNIT# 17:55 → ER 17:57
DX: A41.9 Sepsis, unspecified organism (principal); J18.1 Lobar pneumonia, unspecified organism; N17.9 Acute kidney failure, unspecified; E87.1 Hypo-osmolality and hyponatremia; R53.1 Weakness; N39.0 Urinary tract infection, site not specified; J90 Pleural effusion, not elsewhere classified; R29.6 Repeated falls; I25.10 Atherosclerotic heart disease of native coronary artery without angina pectoris; E78.00 Pure hypercholesterolemia, unspecified; I10 Essential (primary) hypertension; Z85.828 Personal history of other malignant neoplasm of skin; Z87.19 Personal history of other diseases of the digestive system; Z85.46 Personal history of malignant neoplasm of prostate; Z88.2 Allergy status to sulfonamides; Z79.82 Long term (current) use of aspirin; Z91.81 History of falling; Z87.891 Personal history of nicotine dependence; Z90.49 Acquired absence of other specified parts of digestive tract; Z98.890 Other specified postprocedural states; Z95.5 Presence of coronary angioplasty implant and graft; Z87.01 Personal history of pneumonia (recurrent)
CPT/HCPCS: 36415; 71045; 80053; 81000; 83605; 83735; 83880; 84484; 85007; 85027; 86141; 87040; 87077; 87088; 87186; 93005; 93041; 96361; 96365; 96367

== ENCOUNTER 2020-12-17 07:04 | Outpatient (CLI) | payer MEDICARE, OTHER ==
[~2020-12-17] VITALS: Ht 177.8 cm; Wt 101.5 kg
[2020-12-17 15:01] VITALS: BP 132/64
[2020-12-17 15:03] LABS: BASOPHILS % (AUTO) 0 % (0-10); EOSINOPHILS # (AUTO) 0.3 10^3/uL (0.0-0.3); EOSINOPHILS % (AUTO) 3 % (0-10); HEMATOCRIT 46 % (40-54); HEMOGLOBIN 15.3 g/dL (13.3-17.7); LYMPHOCYTES # (AUTO) 2.9 X 10^3 (1.0-4.0); LYMPHOCYTES % (AUTO) 29 % (12-44); MEAN CORPUSCULAR HEMOGLOBIN 34 pg (25-34); MEAN CORPUSCULAR HGB CONC 34 g/dL (32-36); MEAN CORPUSCULAR VOLUME 102 fL (80-99); MEAN PLATELET VOLUME 9.4 fL (9.0-12.2); MONOCYTES # (AUTO) 1.1 X 10^3 (0.0-1.0); MONOCYTES % (AUTO) 11 % (0-12); NEUTROPHILS # (AUTO) 5.6 X 10^3 (1.8-7.8); NEUTROPHILS % (AUTO) 56 % (42-75); PLATELET COUNT 207 10^3/uL (130-400); WHITE BLOOD COUNT 10.1 10^3/uL (4.3-11.0)
[2020-12-17 15:12] LABS: CALCIUM 9.4 MG/DL (8.5-10.1); CREATININE SERUM 1.04 MG/DL (0.60-1.30); POTASSIUM 4.4 MMOL/L (3.6-5.0)
[2020-12-17] MEDS ORDERED: CALC-1037 PO (15:42)
[2020-12-17] MEDS ORDERED: METO50TA15 PO (15:42)
[2020-12-17] MEDS ORDERED: ATOR10TA66 PO (15:42)
[2020-12-17] MEDS ORDERED: MULT-1136 PO (15:42)
[2020-12-17] MEDS ORDERED: GBPN600T PO (15:42)
[2020-12-17] MEDS ORDERED: LISI20TA26 PO (15:42)
[2020-12-17] MEDS ORDERED: HYDR12.56 PO (15:42)
[2020-12-17] MEDS ORDERED: OMEG12002 PO (15:42)
== END 2020-12-17 15:37 | disposition home or self-care (01) ==
LOC: PREOP 07:04
PROVIDERS: ATTEND Otolaryngology Otolaryngology/Facial Plastic Surgery
DX: Z01.812 Encounter for preprocedural laboratory examination (principal); L98.9 Disorder of the skin and subcutaneous tissue, unspecified
CPT/HCPCS: 36415; 80048; 85025; 87081; 93005

== ENCOUNTER 2020-12-25 06:07 | Day surgery (SDC) | payer MEDICARE, OTHER ==
[2020-12-25] VITALS (12 sets, daily range): BP systolic 130–171; BP diastolic 64–99
[~2020-12-25] VITALS: Ht 177.8 cm; Wt 101.5 kg
[~2020-12-25 06:07] MED LIST changes: +ATOR10TA66 PO; +CALC-1037 PO; +GBPN600T PO; +HYDR12.56 PO; +LISI20TA26 PO; +METO50TA15 PO; +MULT-1136 PO; +OMEG12002 PO
[2020-12-25] MEDS: LACTATED RINGERS 1,000 ML IV PRN ×2 (06:40→09:00)
--- NOTE | 2020-12-25 07:07 | Progress Note-Pre Operative ---
Pre-Operative Progress Note H&P Reviewed The H&P was reviewed, patient examined and no changes noted. Date Seen by Provider: Dec 25, 2020 Time Seen by Provider: 06:30 Date H&P Reviewed: Dec 25, 2020 Time H&P Reviewed: 06:30 Pre-Operative Diagnosis: Skin Cancer Right Posterior Scalp ALONSO CLAUDIO MD Dec 25, 2020 07:07
[2020-12-25] MEDS ORDERED: MUPIROCIN 2% OINT 22 GM (BACTROBAN) TUBE ONE (07:28)
[2020-12-25] MEDS ORDERED: LIDOCAINE/EPI 1%-1:100,000 (XYLOCAINE) 10 ML ONE (07:28)
[2020-12-25] MEDS ORDERED: LIDOCAINE PF 2% 5 ML (XYLOCAINE) VIAL ONE (07:37)
[2020-12-25] MEDS ORDERED: proPOfol 200 MG/20 ML (DIPRIVAN) VIAL IV ONE (07:37)
[2020-12-25] MEDS ORDERED: fentaNYL INJ 100 MCG/2 ML AMP ONE ×2 (07:51→10:39)
--- NOTE | 2020-12-25 08:39 | Progress Note-Post Operative ---
Post-Operative Progess Note Surgeon (s)/Ship Propeller Finisher (s) Surgeon ALONSO CLAUDIO MD Ship Propeller Finisher n/a Pre-Operative Diagnosis Skin Cancer Right Posterior Scalp Post-Operative Diagnosis same Post-Op Procedure Note Date of Procedure: Dec 25, 2020 Name of Procedure Performed: Excision of Right Posterior Scalp Lesion with REconstruction Description & Findings Description and Findings: n/a Anesthesia Type get Estimated Blood Loss minimal Packing none. Specimen(s) collected/removed right posterior Scalp Lesion ALONSO CLAUDIO MD Dec 25, 2020 08:39
[2020-12-25] MEDS ORDERED: HYDROcodone/APAP 5 MG/325 MG (LORTAB) TAB PO PRN (08:45)
[2020-12-25] MEDS ORDERED: ACETAMINOPHEN 325 MG TABLET PO PRN (08:45)
[2020-12-25] MEDS ORDERED: ACHD5005 PO ×2 (09:50→10:16)
[2020-12-25] MEDS ORDERED: CEPH500T PO (09:50)
[2020-12-25] MEDS ORDERED: SEVOFLURANE (ULTANE) 15 ML INHAL SOLN ONE (10:05)
[2020-12-25] MEDS ORDERED: fentaNYL INJ 100 MCG/2 ML AMP IVP ONE (10:45)
--- NOTE | 2020-12-25 11:09 | Anesthesia-General Post-Op ---
General Patient Condition Mental Status/LOC: Same as Preop Cardiovascular: Satisfactory Nausea/Vomiting: Absent Respiratory: Satisfactory Pain: Controlled Complications: Absent Post Op Complications Complications None Follow Up Care/Instructions Patient Instructions None needed. Anesthesia/Patient Condition Patient Condition Patient is doing well, no complaints, stable vital signs, no apparent adverse anesthesia problems. No complications reported per nursing. JERALD BONE CRNA Dec 25, 2020 11:09
== END 2020-12-25 12:30 | disposition home or self-care (01) ==
LOC: SDC 06:07
PROVIDERS: ATTEND Otolaryngology Otolaryngology/Facial Plastic Surgery
DX: C44.42 Squamous cell carcinoma of skin of scalp and neck (principal); I25.10 Atherosclerotic heart disease of native coronary artery without angina pectoris; I10 Essential (primary) hypertension; G62.9 Polyneuropathy, unspecified; Z87.891 Personal history of nicotine dependence; Z79.899 Other long term (current) drug therapy
CPT/HCPCS: 87081

== ENCOUNTER → 2021-07-13 | Outpatient (CLI) | payer MEDICARE, OTHER ==
[~2021-07-13] MED LIST changes: +CEPH500T PO
== END ==
LOC: CARD 09:30
PROVIDERS: ATTEND Internal Medicine Cardiovascular Disease
DX: I34.0 Nonrheumatic mitral (valve) insufficiency (principal); I11.9 Hypertensive heart disease without heart failure; I25.10 Atherosclerotic heart disease of native coronary artery without angina pectoris
CPT/HCPCS: 93306

== ENCOUNTER → 2021-07-14 | Outpatient (CLI) | payer MEDICARE, OTHER ==
[~2021-07-14] VITALS: Ht 177 cm; Wt 100.0 kg
[~2021-07-14] MED LIST changes: +REGADENOSON 0.4 MG/5 ML SYR (LEXISCAN) IV ONE
[2021-07-14] MEDS: CATHETER FLUSH 10 ML SYR IVP PRN ×2 (12:44→13:50)
[2021-07-14 13:44] VITALS: BP 149/87
--- NOTE | 2021-07-14 15:17 | Cardiology Stress Test Report ---
Stress Test Report Date of Procedure/Referring: Date of Procedure: Jul 14, 2021 PCP Nanci Ortiz MD Admitting Physician Ed Smith MD Indications: CP Baseline Heart Rate: 79 Baseline Blood Pressure: Blood Pressure Systolic: 149 Blood Pressure Diastolic: 87 Baseline Vitals Vital Signs Date Time Temp Pulse Resp B/P (MAP) Pulse Ox O2 Delivery O2 Flow Rate FiO2 07/14/21 13:44 77 16 149/87 (107) 98 Room Air Baseline EKG: Baseline EKG: NSR Summary After explaining the procedure to the patient, he signed a consent and then brought to the stress nuclear laboratory. Patient received 0.4 mg Lexiscan for stress test, ECG, heart rate and blood pressure were monitored continuously. Resting and stress dose of radio tracer were injected, imaging was acquired and reviewed in short axis, horizontal long axis and vertical long axis views. TID: 1.1 SSS: 14 SDS: 3 EF: 67 1. Patient tolerated Lexiscan well 2. Frequent atrial premature contractions noted throughout the test 3. Decreased uptake involving the whole inferior wall inferolateral wall and anterolateral wall with mild reversibility 4. Normal left ventricular size, EF 67% NANCI ORTIZ MD Jul 14, 2021 15:17
== END ==
LOC: CARD 12:45
PROVIDERS: ATTEND Internal Medicine Cardiovascular Disease
DX: I25.10 Atherosclerotic heart disease of native coronary artery without angina pectoris (principal); I10 Essential (primary) hypertension
CPT/HCPCS: 78452; 93017; A9502

== ENCOUNTER 2021-07-23 10:00 | Day surgery (SDC) | payer MEDICARE, OTHER ==
[2021-07-23] VITALS (14 sets, daily range): BP systolic 99–152; BP diastolic 61–89
[~2021-07-23] VITALS: Ht 177.8 cm; Wt 96.6 kg
[2021-07-23 08:37] LABS: HEMATOCRIT 47 % (40-54); HEMOGLOBIN 16.4 g/dL (13.3-17.7); MEAN CORPUSCULAR HEMOGLOBIN 34 pg (25-34); MEAN CORPUSCULAR HGB CONC 35 g/dL (32-36); MEAN CORPUSCULAR VOLUME 98 fL (80-99); MEAN PLATELET VOLUME 9.2 fL (9.0-12.2); PLATELET COUNT 214 10^3/uL (130-400); WHITE BLOOD COUNT 8.4 10^3/uL (4.3-11.0)
--- NOTE | 2021-07-23 08:38 | Diagnostic Imaging Report ---
EXAMINATION: Chest 1 view HISTORY: Hypertension COMPARISON: 05/22/2018 FINDINGS: The right heart border is obscured. There are bilateral pleural effusions. Prominent right perihilar opacification. No pneumothorax. There continues to be mild rightward mediastinal shift. Patchy interstitial opacities are seen throughout both lungs. The osseous structures are intact. IMPRESSION: 1. Small bilateral pleural effusions with patchy interstitial opacities throughout both lungs. Findings can be seen with pulmonary edema or atypical infection. 2. Prominent right perihilar opacification which may represent heart border given the mediastinal shift but underlying consolidation or pneumonia would be within the differential. Dictated by: Dictated on workstation # [id number]
[2021-07-23 08:44] LABS: BILIRUBIN,URINE NEGATIVE (NEGATIVE); CLARITY,URINE CLEAR; COLOR,URINE YELLOW; GLUCOSE, URINE (UA) NEGATIVE (NEGATIVE); KETONES,URINE NEGATIVE (NEGATIVE); LEUKOCYTE ESTERASE ,URINE NEGATIVE (NEGATIVE); NITRITE,URINE NEGATIVE (NEGATIVE); PH,URINE 6.5 (5-9); PROTEIN,URINE NEGATIVE (NEGATIVE)
[2021-07-23 08:49] LABS: INR 0.9 (0.8-1.4)
[2021-07-23 08:53] LABS: CALCIUM 9.7 MG/DL (8.5-10.1); CREATININE SERUM 1.05 MG/DL (0.60-1.30); POTASSIUM 4.4 MMOL/L (3.6-5.0)
[2021-07-23 09:18] LABS: BACTERIA,URINE NEGATIVE /HPF
[~2021-07-23 10:00] MED LIST changes: +ASPI-1238 PO; +ATOR20TA66 PO; +GABA300C PO; +HEParin (CATH LAB) 2,000 ML IV ONE; +LIDOCAINE 1% INJ 20 ML VIAL ONE; +LISI40TA9 PO; +METF-397 PO; +NS IV 1000 ML 1,000 ML IV SCH; +NS IV 1000 ML 1,000 ML ONE; -REGADENOSON 0.4 MG/5 ML SYR (LEXISCAN) IV ONE
--- NOTE | 2021-07-23 11:17 | Conscious Sedation/ASA ---
Conscious Sedation Pre-Proced Time 11:17 ASA Score 3 For ASA 3 and 4: Consider anesthesia and medical clearance. Also, for patients with a history of failed moderate sedation consider anesthesia. Airway Lungs Heart ASA score ASA 1: a normal healthy patient ASA 2: a patient with a mild systemic disease (mid diabetes, controlled hypertension, obesity x ASA 3: a patient with a severe systemic disease that limits activity (angina, COPD, prior Myocardial infarction) ASA 4: a patient with an incapacitating disease that is a constant threat to life (CHF, renal failure) ASA 5: a moribund patient not expected to survive 24 hrs. (ruptured aneurysm) ASA 6: a declared brain- patient whose organs are being harvested. For emergent operations, add the letter E after the classification Mallampati Classification Grade 3 Sedation Plan Analgesia, Amnesia, Plan communicated to team members, Discussed options with patient/fam, Discussed risks with patient/fam The patient is an appropriate candidate to undergo the planned procedure, sedation, and anesthesia. The patient immediately re-assessed prior to indication. NANCI ORTIZ MD Jul 23, 2021 11:17
[2021-07-23] MEDS ORDERED: fentaNYL INJ 100 MCG/2 ML AMP ONE (11:18)
[2021-07-23] MEDS ORDERED: MIDAZOLAM 5 MG/5 ML (VERSED) VIAL ONE (11:18)
[2021-07-23] MEDS ORDERED: HEParin 1000 UNIT/ML (10ML VIAL) FOR BOLUS ONE (11:18)
[2021-07-23] MEDS ORDERED: NS (IVPB) 250 ML ONE (11:41)
[2021-07-23] MEDS ORDERED: NITROGLYCERIN 50 MG/10 ML VIAL IV ONE (11:41)
[2021-07-23] MEDS ORDERED: ASPIRIN 325 MG (5 GR) TABLET ONE (12:36)
[2021-07-23] MEDS ORDERED: CLOPIDOGREL 300 MG (PLAVIX) TABLET PO ONE (12:36)
[2021-07-23] MEDS ORDERED: PATIENT MAY USE OWN MEDS, ALL PO SCH (12:45)
--- NOTE | 2021-07-23 12:52 | Cardiac Cath Report ---
Cardiac Cath Report Physician (s)/Tank Hoop Bender (s) Physician NANCI ORTIZ MD Pre-Procedure Diagnosis Pre-Procedure Diagnosis: Coronary artery disease, peripheral arterial disease Post-Procedure Note Procedure Start Date: Jul 23, 2021 Name of Procedure: Left heart catheterization Balloon angioplasty to the LAD Bilateral lower extremities runoff Third order Additional imaging Balloon angioplasty to the right SFA Findings/Procedure Note PROCEDURE NOTE: 85 years old gentleman with critical limb ischemia, ischemic toe, abnormal ONUR bilaterally, bilateral claudication, had extensive history of peripheral arterial disease and coronary artery disease. Had an abnormal stress test. Scheduled for peripheral angiogram and coronary angiogram. After explaining the procedure to the patient, all pros and cons were explained, all questions were answered. The patient signed the consent and then he was placed on the cardiac catheterization laboratory. Groin was prepped SL fashion local anesthesia was used. Sheath placed in the left femoral artery, Hina right and left were used to access the right and left coronary system, multiple views were obtained. Hina right prolapsed to the left ventricular cavity, pressure was measured, pullback LV to aorta was done. Coronary angioplasty: Patient has severe in-stent restenosis in the mid LAD, given 5000 units of heparin, EBU 4.0 guide was advanced to the left coronary system, BMW wire was advanced and parked distally, balloon angioplasty using trek 3 x 20 millimeters was done with multiple inflation with excellent results. Peripheral angiogram: Using the Hina right I was able to crossover and did runoff to the right leg then I advanced a Storq wire down to the mid SFA I was unable to advance any further and advanced straight catheter to the mid SFA I was unable to advance any further due to the subtotal occlusion with heavy calcium. Angiogram was done then angiogram was done below the knee. At that point I exchanged the catheter and the sheath and used 6 Nepali sheath 55 cm and advanced it to the proximal right SFA then advanced a straight catheter and used multiple deflated wires I was able to advance with the command 14 down to the anterior tibial artery, I advanced [place] 6 x 200 and I was unable to advance it beyond the distal SFA I was unable to advance it through the calcification in the popliteal artery. I did a single inflation, angiogram showed good result in the SFA. I was concerned about the heavy calcium and the way the lumen created a channel that patient will need debulking mechanism prior to deployment of a stent. The balloon and wire were removed, angiogram showed excellent results. I did DSA imaging below the knee on the right leg. I exchanged the catheter into 6 Nepali short catheter and did runoff to the left leg then did DSA imaging at the trifurcation. At the end of the procedure the sheath was removed. Closure device was deployed FINDINGS: Hemodynamics LV 134/11, end-diastolic pressure of 11 Aorta 130/57 mean of 84 ANATOMY: Left Main has mild stenosis. Left Anterior Descending is calcified artery with multiple stent in the proximal and midportion with severe in-stent restenosis successful balloon angioplasty using trek 3 x 20 with reduction of the stenosis to mild residual stenosis. 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 Subtotal occlusion in the posterior tibial artery at the proximal and midportion. Balloon angioplasty was done to the mid and distal right SFA. With good results. CONCLUSION: 1. Severe in-stent restenosis in the mid LAD with successful balloon angioplasty using trek 3 x 20 with good results. Mild to moderate disease at the distal LAD. 2. 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 Mild to moderate disease in the mid circumflex artery. 4. Subtotal occlusion with heavily calcified right SFA and popliteal artery with successful balloon angioplasty and reduction of the stenosis. Patient will require debulking system then deployment of a stent. Which will be staged for later point. 5. Total occlusion of the left distal SFA/popliteal artery, the trifurcation is reconstructed by collateral with slow flow DISCUSSION AND RECOMMENDATION: Continue to maximize medical therapy. Evaluate tolerance and response Anesthesia Type: Conscious Sedation Estimated blood loss (mL): 35 ml Contrast Amount: 97 ml Total Radiation Dose: 934 mGy Post-Procedure Diagnosis Post-operative diagnosis: Coronary artery disease Peripheral arterial disease Critical limb ischemia Hypertension NANCI ORTIZ MD Jul 23, 2021 12:52
[2021-07-23] MEDS ORDERED: CLOP75TA28 PO (12:54)
--- NOTE | 2021-07-23 12:55 | Discharge Inst-Post CATH ---
Discharge Inst-CATH/EP Problems Reviewed?: Yes Post Cardiac Cath/EP D/C Inst Follow Up/Plan Schedule for angiogram with possible angioplasty of the leg for Friday July 30, 2021 <b>CARDIAC CATH/EP PROCEDURE DISCHARGE INSTRUCTIONS</b> ACTIVITY * Go Home directly and rest. * Limit activity of the leg (or wrist if it was used) for 7 days including aerobics, swimming, jogging, bicycling, etc. * Restrict stair-climbing for 7 days if possible, if not, climb up with your non-cath leg, then bring together on the same step. * Avoid lifting, pushing, pulling or excessive movement of the affected extremity for 7 days. * Customary sexual activity may be resumed after 2 days-use caution not to use a position that strains or causes pain to the affected extremity. * No driving for 24 hours. * NO SMOKING. * Avoid straining for bowel movements for 7 days. * Gentle walking on level ground is allowed. * Returning to work will depend on the type of procedure and the results. Your doctor will discuss this with you. CALL YOUR DOCTOR FOR ANY OF THE FOLLOWING: *If bleeding from the puncture site occurs- Apply gentle pressure to site with clean cloth and call your doctor or EMS. * If a knot or lump forms under the skin, increases in size, or causes pain. * If bruising appears to be worsening or moving further down your leg instead of disappearing. * Temperature above 101 F. CARE OF YOUR GROIN INCISION; * Bruising or purple discoloration of the skin near the puncture site is common. * You may shower only, no bathtub bathing for 5 days. Be careful to avoid slipping as your leg may feel stiff. * If a closure device was used on your femoral artery, please see the attached guide regarding care of the device and your leg. * Leave dressing on FOR 24 hours. CARE OF YOUR WRIST INCISION; * Bruising or purple discoloration of the skin near the puncture site is common. * You may shower. * DO NOT submerge wrist. * Leave dressing on FOR 24 hours. NANCI ORTIZ MD Jul 23, 2021 12:55
[2021-07-23] MEDS: NS IV 1000 ML 1,000 ML IV SCH ×2 (14:13→22:45)
[2021-07-23] MEDS ORDERED: oxyCODONE/APAP 5/325MG (PERCOCET 5) TABLET PO ONE (19:00)
[2021-07-23] MEDS ORDERED: oxyCODONE/APAP 5/325MG (PERCOCET 5) TABLET ONE (19:01)
[2021-07-23] MEDS ORDERED: AtorvaSTATin TABLET 10 MG TABLET PO SCH (21:00)
[2021-07-23] MEDS ORDERED: meTOprolol TARTRATE 50 MG (LOPRESSOR) TAB PO SCH (21:00)
[2021-07-23] MEDS ORDERED: GABAPENTIN 300 MG (NEURONTIN) CAP PO SCH ×2 (21:00)
[2021-07-23] MEDS: meTOprolol TARTRATE 50 MG (LOPRESSOR) TAB PO SCH (21:32)
[2021-07-24] VITALS: BP 125/71
[2021-07-24 05:37] LABS: HEMATOCRIT 39 % (40-54); HEMOGLOBIN 13.4 g/dL (13.3-17.7); MEAN CORPUSCULAR HEMOGLOBIN 34 pg (25-34); MEAN CORPUSCULAR HGB CONC 35 g/dL (32-36); MEAN CORPUSCULAR VOLUME 99 fL (80-99); MEAN PLATELET VOLUME 9.6 fL (9.0-12.2); PLATELET COUNT 196 10^3/uL (130-400); WHITE BLOOD COUNT 8.3 10^3/uL (4.3-11.0)
[2021-07-24 05:47] LABS: POTASSIUM 4.3 MMOL/L (3.6-5.0)
[2021-07-24 05:49] LABS: CALCIUM 8.4 MG/DL (8.5-10.1)
[2021-07-24 05:53] LABS: CREATININE SERUM 0.99 MG/DL (0.60-1.30)
[2021-07-24] MEDS: meTOprolol TARTRATE 50 MG (LOPRESSOR) TAB PO SCH (08:10)
[2021-07-24] MEDS ORDERED: CLOPIDOGREL 75 MG (PLAVIX) TABLET PO SCH (09:00)
[2021-07-24] MEDS ORDERED: lisINopril 40 MG (PRINIVIL) TABLET PO SCH ×2 (09:00)
[2021-07-24] MEDS ORDERED: ASPIRIN E.C. 81 MG (ECOTRIN) TAB PO SCH ×2 (09:00)
[2021-07-24] MEDS ORDERED: OMEGA 3 (FISH OIL) 1000 MG CAP PO SCH (09:00)
[2021-07-24] MEDS: NS IV 1000 ML 1,000 ML IV SCH (09:08)
--- NOTE | 2021-07-24 10:47 | Progress Note - Cardiology ---
Cardiology SOAP Progress Note Subjective: No cp or palp or syncope or shortness of breath No groin or leg pain Notes bruising in the groin No focal weakness No n/v/d Wishes to go home Objective: I&O/Vital Signs 07/23/21 07/23/21 07/24/21 07/24/21 23:00 23:00 00:00 00:00 Pulse 65 65 60 58 Resp 13 13 12 12 B/P (MAP) 126/77 126/77 (93) 125/71 (89) 125/71 Pulse Ox 95 95 95 95 O2 Delivery Room Air Room Air Room Air Room Air 07/24/21 07/24/21 07/24/21 07/24/21 01:00 01:00 02:00 03:00 Pulse 57 60 56 69 Resp 11 18 20 B/P (MAP) 122/54 128/58 129/84 Pulse Ox 95 95 94 O2 Delivery Room Air Room Air Room Air 07/24/21 07/24/21 07/24/21 07/24/21 04:00 04:00 05:00 06:00 Temp 36.2 Pulse 74 68 61 Resp 24 12 12 B/P (MAP) 130/65 95/49 113/64 Pulse Ox 94 95 94 O2 Delivery Room Air Room Air Room Air 07/24/21 07/24/21 07/24/21 07/24/21 07:00 08:00 08:00 08:12 Temp 36.3 Pulse 59 63 Resp 12 B/P (MAP) 120/73 Pulse Ox 96 O2 Delivery Room Air Room Air 07/24/21 00:00 Intake Total 240 ml Output Total 175 ml Balance 65 ml Weight (Pounds): 220 Weight (Ounces): 4.0 Weight (Calculated Kilograms): 99.590055 Bruising: large amount of bruising Constitutional: AAO x 3, well-developed, well-nourished Respiratory: No accessory muscle use; other (good, bilateral air entry) Cardiovascular: regular rate-rhythm, S1 and S2, systolic murmur (soft SILVA At card base) Gastrointestional: No tender; soft; No guarding, No rebound; audible bowel sounds Extremities: other (Large amount of bruising in the L groin with brusing also involving the scrotal skin and the skin of the penis); No clubbing, No cyanosis, No significant edema Neurologic/Psychiatric: oriented x 3, other (moves all limbs equally) Skin: No rash on exposed areas, No ulcerations on exposed areas Results/Procedures: Labs Laboratory Tests 07/24/21 04:48: White Blood Count 8.3, Red Blood Count 3.93L, Hemoglobin 13.4, Hematocrit 39L, Mean Corpuscular Volume 99, Mean Corpuscular Hemoglobin 34, Mean Corpuscular Hem oglobin Concent 35, Red Cell Distribution Width 13.2, Platelet Count 196, Mean Platelet Volume 9.6, Sodium Level 128L, Potassium Level 4.3, Chloride Level 93L, Carbon Dioxide Level 22, Anion Gap 13, Blood Urea Nitrogen 14, Creatinine 0.99, Estimat Glomerular Filtration Rate 75, BUN/Creatinine Ratio 14, Glucose Level 158H, Calcium Level 8.4L A/P: Assessment: CAD and PAD - Angiography and intervention on 07/23/21: CAD Severe in-stent restenosis in the mid LAD with successful balloon angioplasty using Trek 3 x 20 balloon. Mild to moderate disease at the distal LAD. 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 Mild to moderate disease in the mid circumflex artery. PAD Subtotal occlusion and heavily calcified right SFA and popliteal artery with successful balloon angioplasty and reduction of the stenosis. Patient will require debulking system then deployment of a stent, which will be staged for later point. 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
[2021-07-24 11:46] VITALS: BP 120/73
== END 2021-07-24 11:32 | disposition home or self-care (01) ==
LOC: CATH 10:00 → ICU 13:07 → CATH 07-24 11:32
PROVIDERS: ATTEND Internal Medicine Cardiovascular Disease
DX: T82.855A Stenosis of coronary artery stent, initial encounter (principal); I25.10 Atherosclerotic heart disease of native coronary artery without angina pectoris; I73.9 Peripheral vascular disease, unspecified; I77.1 Stricture of artery; I70.92 Chronic total occlusion of artery of the extremities; I99.8 Other disorder of circulatory system; I10 Essential (primary) hypertension; I65.23 Occlusion and stenosis of bilateral carotid arteries; I45.10 Unspecified right bundle-branch block; E78.5 Hyperlipidemia, unspecified; L97.519 Non-pressure chronic ulcer of other part of right foot with unspecified severity; G62.9 Polyneuropathy, unspecified; Z87.891 Personal history of nicotine dependence; Z79.899 Other long term (current) drug therapy
CPT/HCPCS: 36247; 36248; 37224; 71045; 75716; 80048; 80053; 80061; 81000; 85027 ×2; 85610; 85730; 87081; 92920; 93005; 93458; C1725 ×2; C1760; C1769 ×4; C1887 ×3; C1894 ×2; 36415

== ENCOUNTER → 2021-08-23 | Outpatient (CLI) | payer MEDICARE, OTHER ==
[~2021-08-23] MED LIST changes: +CLOP75TA28 PO; -HEParin (CATH LAB) 2,000 ML IV ONE; -LIDOCAINE 1% INJ 20 ML VIAL ONE; -NS IV 1000 ML 1,000 ML IV SCH; -NS IV 1000 ML 1,000 ML ONE
--- NOTE | 2021-08-23 10:47 | Diagnostic Imaging Report ---
Indication: Pleural effusion. Time of Exam: 10:30 AM Correlation is made with prior chest from 11/09/2016. Heart size stable. There are some basilar interstitial changes, greatest on the right. Some mild superimposed infiltrate in the right base cannot be entirely excluded. Lungs show some hyperinflation consistent with COPD. No significant effusion is seen. There could be trace bilateral effusions. No pneumothorax is identified. Impression: COPD with basilar interstitial changes. The possibility of some superimposed infiltrate in the right base cannot be entirely excluded. Dictated by: Dictated on workstation # [id number]
== END ==
LOC: RAD 09:44
PROVIDERS: ATTEND Internal Medicine Cardiovascular Disease
DX: J44.9 Chronic obstructive pulmonary disease, unspecified (principal); J84.9 Interstitial pulmonary disease, unspecified
CPT/HCPCS: 71046

== ENCOUNTER 2021-10-23 14:42 | Emergency (ER) | payer MEDICARE, OTHER ==
[~2021-10-23] VITALS: Ht 177.8 cm; Wt 94.8 kg
[2021-10-23] MEDS ORDERED: TETANUS,DIPTH,PERTUSS P/F (BOOSTRIX) 0.5 ML VIAL IM ONE (15:45)
--- NOTE | 2021-10-23 16:00 | Diagnostic Imaging Report ---
INDICATION: Shoulder pain. COMPARISON: None available. TECHNIQUE: Three radiographs of the left shoulder dated October 23, 2021. FINDINGS: Mild degenerative changes of the acromioclavicular joint. Minimal lucency is suggested involving the left humeral neck with minimal angulation medially. No additional fracture or dislocation. No destructive osseous process. Mild degenerative changes of the glenohumeral joint. No suspicious radiopaque foreign body. IMPRESSION: Findings suspect for a nondisplaced recent left humeral neck fracture with mild degenerative changes present. Dictated by: Dictated on workstation # [id number]
[2021-10-23] MEDS ORDERED: ACHD5005 PO (17:07)
--- NOTE | 2021-10-23 17:08 | ED Upper Extremity ---
General Chief Complaint: Upper Extremity Stated Complaint: FELL, L SHOULDER PAIN Nursing Triage Note: PT TO FT 2 IN WC WITH C/O L SHOULDER PAIN. PT REPROTS FALL THIS AM AT 10AM AT HOME. PT DENIES LOC OR HITTING HIS HEAD. Source: patient, family Exam Limitations: no limitations History of Present Illness Date Seen by Provider: Oct 23, 2021 Time Seen by Provider: 15:25 Initial Comments This 85-year-old gentleman presents to the emergency room with complaints of left shoulder pain after tripping and falling on a porch step. He has neuropathy which challenges his gait. He states this is what caused the fall. He normally walks with a cane or walker and was using his cane this morning. He landed on the left shoulder and has since had persistent shoulder pain. He denies any head or neck injury. He has an abrasion on the right knee and a skin tear on the right elbow. Wounds were cleaned by his family at home. Allergies and Home Medications Allergies Coded Allergies: Sulfa (Sulfonamide Antibiotics) (Unverified Allergy, Unknown, 12/20/13) Patient Home Medication List Home Medication List Reviewed: Yes Aspirin (Aspirin EC) 81 Mg Tablet.dr, 81 MG PO DAILY, (Reported) Entered as Reported by: HORTENSIA RUIZ on 07/23/21 09 Atorvastatin Calcium (Atorvastatin Calcium) 20 Mg Tablet, 5 MG PO HS, (Reported) Entered as Reported by: HORTENSIA RUIZ on 07/23/21 09 Calcium Carbonate/Vitamin D3 (Calcium 600 + Vit D Tablet) 1 Each Tablet, 1 EACH PO DAILY, (Reported) Entered as Reported by: MARLA LEIVA on 12/17/20 1542 Cephalexin (Cephalexin) 500 Mg Tablet, 500 MG PO TID Prescribed by: MICH MORALES on 12/25/20 0950 Clopidogrel Bisulfate (Clopidogrel) 75 Mg Tablet, 75 MG PO DAILY Prescribed by: NANCI ORTIZ on 07/23/21 1254 Gabapentin (Neurontin) 300 Mg Capsule, 600 MG PO HS, (Reported) Entered as Reported by: HORTENSIA RUIZ on 07/23/21 0909 Hydrochlorothiazide (Hydrochlorothiazide) 25 Mg Tablet, 25 MG PO DAILY, (Reported) Entered as Reported by: HORTENSIA RUIZ on 07/23/21 0909 Hydrocodone/Acetaminophen (Hydrocodone-Acetamin 5-325 mg) 5 Mg-325 Mg Tablet, 0.5-1 TAB PO Q4H PRN for PAIN-MODERATE (5-7) Prescribed by: JERRICA ALEXANDER on 10/23/21 1707 Lisinopril (Lisinopril) 40 Mg Tablet, 40 MG PO DAILY, (Reported) Entered as Reported by: HORTENSIA RUIZ on 07/23/21 0909 Metoprolol Tartrate (Metoprolol Tartrate) 50 Mg Tablet, 25 MG PO BID, (Reported) Entered as Reported by: MARLA LEIVA on 12/17/20 154 Multivitamin (Multivitamin) 1 Each Tablet, 1 EACH PO DAILY, (Reported) Entered as Reported by: MARLA LEIVA on 12/17/20 154 [place]-3/Dha/Epa/Fish Oil (Fish Oil 1,200 mg Softgel) 1,200 Mg Capsule, 1,200 MG PO DAILY, (Reported) Entered as Reported by: MARLA LEIVA on 12/17/201541 Review of Systems Constitutional: no symptoms reported EENTM: no symptoms reported Respiratory: no symptoms reported Cardiovascular: no symptoms reported Gastrointestinal: no symptoms reported Genitourinary: no symptoms reported Musculoskeletal: see HPI Skin: see HPI Psychiatric/Neurological: See HPI Past Yhkrway-Iegota-Ilcquj Hx Patient Social History Tobacco Use?: No Substance use?: No Alcohol Use?: Yes Alcohol Frequency: Rarely Pt feels they are or have been: No Immunizations Up To Date Tetanus Booster (TDap): Unknown PED Vaccines UTD: Yes First/Initial COVID19 Vaccinat: Apr 2020 Second COVID19 Vaccination Marcelo: May 2020 Third COVID19 Vaccination Date: Apr 2020 Seasonal Allergies Seasonal Allergies: No Past Medical History Surgery/Hospitalization HX: HEART STENTS, HERNIA REPAIR, PROSTATE SURGERY, LUNG SURGERY Surgeries: Yes (skin lesions removed, ) Abdominal, Appendectomy, Cardiac, Coronary Stent, Gallbladder, Prostatectomy Respiratory: Yes Pneumonia Currently Using CPAP: No Currently Using BIPAP: No Cardiac: Yes (CARDIAC STENTS X2-2000,) Coronary Artery Disease, High Cholesterol, Hypertension Neurological: Yes (PERIPHERAL NEUROPATHY) Neuropathy Sexually Transmitted Disease: No HIV/AIDS: No Genitourinary: Yes (PROSTATE CANCER) Prostate Problems Gastrointestinal: Yes Abdominal Hernia Musculoskeletal: Yes Arthritis, Fractures Endocrine: No HEENT: No Cancer: Yes Prostate, Skin Did You Recieve Any Treatments: Yes What Type of Treatment Did You: Radiation, Surgical Intervention Psychosocial: No Integumentary: Yes (hx SKIN CANCER-REMOVED) Blood Disorders: No Adverse Reaction/Blood Tranf: No Family Medical History Glaucoma G8 BROTHER No Family History of: AIDS Abdominal aortic aneurysm Gabe's disease Alcoholism Aphasia Arthritis Asthma Cancer of mouth Cardiovascular disease Cataracts Colon cancer Completed stroke Congenital disease Congenital heart disease Coronary thrombosis Cystic fibrosis Deafness or hearing loss Dementia Diabetes mellitus Drug abuse Dysphasia Fibrocystic disease of breast Gastroenteritis Headache disorder Hypercholesterolemia Hypertension Infertility Kidney disease Myocardial infarction Neoplasm Not obtainable due to adoption Osteoporosis Parkinson's disease Prostate cancer Psychosocial problem Respiratory disorder Seizure disorder Severe allergy Thyroid disease Tuberculosis Visual disorder No Pertinent Family Hx Physical Exam Vital Signs Vital Signs - First Documented 10/23/21 14:57 Temp 35.8 Pulse 71 Resp 15 B/P (MAP) 112/67 (82) Pulse Ox 96 O2 Delivery Room Air Capillary Refill : Less Than 3 Seconds Height, Weight, BMI Height: 5'10.00" Weight: 220lbs. 4.0oz. 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 It was nondisplaced. Distal exam was unremarkable. Patient was offered pain medication but declined. He was provided a sling and discharge instructions were reviewed. Wounds were attended to and dressed by ER staff. Tetanus booster was administered. Diagnostic Imaging Diagonstic Imaging: Xray Plain Films/CT/US/NM/MRI: other (Left shoulder) Comments Left shoulder x-ray viewed by me and report reviewed. See report below: NAME: SANDRA LANGLEY REC#: [id number] PT STATUS: REG ER : 1935 PHYSICIAN: JERRICA MARIANO MD ADMIT DATE: 10/23/21/ER Signed Date of Exam:10/23/21 SHOULDER, LEFT, 3 VIEWS INDICATION: Shoulder pain. COMPARISON: None available. TECHNIQUE: Three radiographs of the left shoulder dated October 23, 2021. FINDINGS: Mild degenerative changes of the acromioclavicular joint. Minimal lucency is suggested involving the left humeral neck with minimal angulation medially. No additional fracture or dislocation. No destructive osseous process. Mild degenerative changes of the glenohumeral joint. No suspicious radiopaque foreign body. IMPRESSION: Findings suspect for a nondisplaced recent left humeral neck fracture with mild degenerative changes present. Dictated by: Dictated on workstation # [id number] Dict: 10/23/21 1555 Trans: 10/23/[address] [facility] [id number] Interpreted by: SUPRIYA REIS MD Electronically signed by: SUPRIYA REIS MD 10/23/21 1705 Departure Impression Primary Impression: Closed left humeral fracture Qualified Codes: S42.295A - Other nondisplaced fracture of upper end of left humerus, initial encounter for closed fracture Additional Impressions: Fall on same level Qualified Codes: W18.30XA - Fall on same level, unspecified, initial encounter Multiple abrasions Disposition: 01 HOME, SELF-CARE Condition: Stable Departure-Patient Inst. Decision time for Depature: 17:05 Referrals: JUANITA MOSHER MD, TERRY D MD TAYLOR, JOHN D MD (PCP/Family) Primary Care Physician ALONSO FUENTES MD Patient Instructions: How to Use a Shoulder Sling ED, Upper Arm Fracture ED Add. Discharge Instructions: Keep the left arm in the sling is much as possible. Icing in 20-minute intervals may be helpful for reducing pain and swelling. You may take the sling off to bathe but avoid moving the arm when doing so. You may support the arm with pillows or folded blankets when lying down. Do not attempt to reach your arm out away from your body or over your head. You may take hydrocodone as prescribed for pain. Do not use NSAID medications such as ibuprofen or naproxen as they may delay bone healing. Use hydrocodone with caution as it may cause drowsiness and constipation. You may wish to use a stool softener such as Colace to prevent constipation while you are on hydrocodone. Please contact an orthopedic provider of your choice on Monday to arrange follo w-up. A list of orthopedic providers is listed below. Please get up and ambulate with caution and preferably with assistance as you will not have the benefit of using your left arm for balance. Call for questions or concerns. Return to the ER if you have worsening symptoms despite following these instructions. All discharge instructions reviewed with patient and/or family. Voiced understanding. Scripts Hydrocodone/Acetaminophen (Hydrocodone-Acetamin 5-325 mg) 5 Mg-325 Mg Tablet 0.5-1 TAB PO Q4H PRN for PAIN-MODERATE (5-7), #20 TAB Prov: JERRICA MARIANO MD 10/23/21 Copy Copies To 1: PAUL CARMEN MD, JOSHUA T MD Oct 23, 2021 17:08
[2021-10-23 17:25] VITALS: BP 112/67
== END 2021-10-23 17:25 | disposition home or self-care (01) ==
LOC: EDUNIT# 14:42 → ER 14:44
DX: S42.202A Unspecified fracture of upper end of left humerus, initial encounter for closed fracture (principal); S51.011A Laceration without foreign body of right elbow, initial encounter; S80.211A Abrasion, right knee, initial encounter; Z23 Encounter for immunization; W10.8XXA Fall (on) (from) other stairs and steps, initial encounter
CPT/HCPCS: 73030; 99283; A4565; 90715

== ENCOUNTER 2021-11-03 11:24 | Inpatient (IN) | payer MEDICARE, OTHER ==
[~2021-11-03] VITALS: Ht 177.8 cm; Wt 94.5 kg
[~2021-11-03 11:24] MED LIST changes: -CALC600T80 PO
--- NOTE | 2021-11-03 12:04 | ED General ---
General Chief Complaint: Neurological Problems Stated Complaint: LOW BP, WEAKNESS Nursing Triage Note: STARTED ON MONDAY HAVING WEAKNESS WHICH CAUSED A FALL AT HOME FOR WHICH HE WAS SEEN IN THE ED. CURRENTLY WEARING A SLING ON HIS LEFT ARM. Source of Information: Patient Exam Limitations: No Limitations History of Present Illness Date Seen by Provider: Nov 03, 2021 Time Seen by Provider: 12:00 Initial Comments Patient is a 85-year-old male with a history of coronary artery disease, prostate cancer who presents ED with family for increased weakness. Weakness started on Monday. Patient fell last week resulted in a left shoulder fracture.Unsteady gait secondary to his neuropathy. Patient was seen at Dr. Seay's office today for further evaluation. Currently in a sling and currently nonoperative. States he has been having difficulty getting around. According to she is not able to get him around to the bathroom or around the house. Patient states he feels weak throughout. He reports increased urine urgency with decreased urine output. Reports some lower abdominal discomfort. Denies of any headache, chest pain, cough, shortness of breath, vomiting, diarrhea. His blood pressure over at the orthopedic office was 75/52. On arrival 127/67. History of neuropathy peripheral vascular disease in his lower extremity. History of cardiac stents sees Dr. Ortiz. No known fever, unilateral muscle weakness or sensory changes, facial droop, visual changes, increased confusion Allergies and Home Medications Allergies Coded Allergies: Sulfa (Sulfonamide Antibiotics) (Unverified Allergy, Unknown, 12/20/13) Patient Home Medication List Home Medication List Reviewed: Yes Aspirin (Aspirin EC) 81 Mg Tablet., 81 MG PO DAILY, (Reported) Entered as Reported by: HORTENSIA RUIZ on 07/23/21 0909 Atorvastatin Calcium (Atorvastatin Calcium) 20 Mg Tablet, 5 MG PO HS, (Reported) Entered as Reported by: HORTENSIA RUIZ on 07/23/21 0909 Calcium Carbonate/Vitamin D3 (Calcium 600 + Vit D Tablet) 1 Each Tablet, 1 EACH PO DAILY, (Reported) Entered as Reported by: MARLA LEIVA on 12/17/20 1542 Cephalexin (Cephalexin) 500 Mg Tablet, 500 MG PO TID Prescribed by: MICH MORALES on 12/25/20 0950 Clopidogrel Bisulfate (Clopidogrel) 75 Mg Tablet, 75 MG PO DAILY Prescribed by: NANCI ORTIZ on 07/23/21 1254 Gabapentin (Neurontin) 300 Mg Capsule, 600 MG PO HS, (Reported) Entered as Reported by: HORTENSIA RUIZ on 07/23/21 0909 Hydrochlorothiazide (Hydrochlorothiazide) 25 Mg Tablet, 25 MG PO DAILY, (Reported) Entered as Reported by: HORTENSIA RUIZ on 07/23/21 0909 Hydrocodone/Acetaminophen (Hydrocodone-Acetamin 5-325 mg) 5 Mg-325 Mg Tablet, 0.5-1 TAB PO Q4H PRN for PAIN-MODERATE (5-7) Prescribed by: JERRICA ALEXANDER on 10/23/21 1707 Lisinopril (Lisinopril) 40 Mg Tablet, 40 MG PO DAILY, (Reported) Entered as Reported by: HORTENSIA RUIZ on 07/23/21 0909 Metoprolol Tartrate (Metoprolol Tartrate) 50 Mg Tablet, 25 MG PO BID, (Reported) Entered as Reported by: MARLA LEIVA on 12/17/20 154 Multivitamin (Multivitamin) 1 Each Tablet, 1 EACH PO DAILY, (Reported) Entered as Reported by: MARLA LEIVA on 12/17/20 154 [place]-3/Dha/Epa/Fish Oil (Fish Oil 1,200 mg Softgel) 1,200 Mg Capsule, 1,200 MG PO DAILY, (Reported) Entered as Reported by: MARLA LEIVA on 12/17/20 154 Review of Systems Review of Systems Constitutional: No chills; diaphoresis, malaise, weakness EENTM: No ear pain, No blurred vision, No double vision, No mouth pain, No mouth swelling Respiratory: No cough, No short of breath Cardiovascular: No chest pain Gastrointestinal: abdominal pain; No diarrhea, No nausea, No vomiting Genitourinary: decreased output Musculoskeletal: No back pain, No joint pain All Other Systems Reviewed Negative Unless Noted: Yes Past Bwxehyn-Qiigqf-Ckmyqr Hx Patient Social History Tobacco Use?: No Use of E-Cig and/or Vaping dev: No Substance use?: No Alcohol Use?: Yes Alcohol Frequency: Daily Pt feels they are or have been: No Immunizations Up To Date Tetanus Booster (TDap): Unknown PED Vaccines UTD: Yes First/Initial COVID19 Vaccinat: Apr 2020 Second COVID19 Vaccination Marcelo: May 2020 Third COVID19 Vaccination Date: FALL 2020 COVID19 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: CONSTANZA Seasonal Allergies Seasonal Allergies: No Past Medical History Surgery/Hospitalization HX: HEART STENTS, HERNIA REPAIR, PROSTATE SURGERY, LUNG SURGERY Surgeries: Yes (skin lesions removed, ) Abdominal, Appendectomy, Cardiac, Coronary Stent, Gallbladder, Prostatectomy Respiratory: Yes Pneumonia Currently Using CPAP: No Currently Using BIPAP: No Cardiac: Yes (CARDIAC STENTS X2-2000,) Coronary Artery Disease, High Cholesterol, Hypertension Neurological: Yes (PERIPHERAL NEUROPATHY) Neuropathy Sexually Transmitted Disease: No HIV/AIDS: No Genitourinary: Yes (PROSTATE CANCER) Prostate Problems Gastrointestinal: Yes Abdominal Hernia Musculoskeletal: Yes Arthritis, Fractures Endocrine: No HEENT: No Cancer: Yes Prostate, Skin Did You Recieve Any Treatments: Yes What Type of Treatment Did You: Radiation, Surgical Intervention Psychosocial: No Integumentary: Yes (hx SKIN CANCER-REMOVED) Blood Disorders: No Adverse Reaction/Blood Tranf: No Family Medical History Glaucoma G8 BROTHER No Family History of: AIDS Abdominal aortic aneurysm [place]'s disease Alcoholism Aphasia Arthritis Asthma Cancer of mouth Cardiovascular disease Cataracts Colon cancer Completed stroke Congenital disease Congenital heart disease Coronary thrombosis Cystic fibrosis Deafness or hearing loss Dementia Diabetes mellitus Drug abuse Dysphasia Fibrocystic disease of breast Gastroenteritis Headache disorder Hypercholesterolemia Hypertension Infertility Kidney disease Myocardial infarction Neoplasm Not obtainable due to adoption Osteoporosis Parkinson's disease Prostate cancer Psychosocial problem Respiratory disorder Seizure disorder Severe allergy Thyroid disease Tuberculosis Visual disorder No Pertinent Family Hx Physical Exam Vital Signs Vital Signs - First Documented 11/03/21 11:44 Temp 36.0 Pulse 56 Resp 18 B/P (MAP) 126/67 (86) Pulse Ox 95 Capillary Refill : Less Than 3 Seconds Height, Weight, BMI Height: 5'10.00" Weight: 220lbs. 4.0oz. 99.841936md; 31.00 BMI Method:Stated General Appearance: No Apparent Distress, WD/WN Eyes: Bilateral Eye Normal Inspection, Bilateral Eye PERRL, Bilateral Eye EOMI HEENT: PERRL/EOMI, TMs Normal, Normal ENT Inspection, Pharynx Normal Neck: Full Range of Motion, Normal Inspection, Non Tender, Supple Respiratory: Chest Non Tender, Lungs Clear, Normal Breath Sounds, No Accessory Muscle Use, No Respiratory Distress Cardiovascular: Regular Rate, Rhythm, No Edema, No Gallop Gastrointestinal: Normal Bowel Sounds, No Organomegaly, No Pulsatile Mass, Soft, Tenderness (Suprapubic tenderness) Back: Normal Inspection, No CVA Tenderness, No Vertebral Tenderness Extremity: Normal Capillary Refill, Normal Inspection, Normal Range of Motion, Non Tender Neurologic/Psychiatric: Alert, Oriented x3, No Motor/Sensory Deficits, Normal Mood/Affect Skin: Normal Color, Warm/Dry Progress/Results/Core Measures Suspected Sepsis SIRS Temperature: Pulse: 56 Respiratory Rate: 18 Laboratory Tests 11/03/21 11:53: White Blood Count 11.2H Blood Pressure 126 /67 Mean: 86 Laboratory Tests 11/03/21 11:53: Creatinine 0.97, Platelet Count 313, Total Bilirubin 1.0 Results/Orders Lab Results Laboratory Tests Test 11/03/21 11:53 11/03/21 12:04 11/03/21 14:15 Range/Units White Blood Count 11.2 H 4.3-11.0 10^3/uL Red Blood Count 4.51 4.30-5.52 10^6/uL Hemoglobin 15.3 13.3-17.7 g/dL Hematocrit 42 40-54 % Mean Corpuscular Volume 94 80-99 fL Mean Corpuscular Hemoglobin 34 25-34 pg Mean Corpuscular Hemoglobin Concent 36 32-36 g/dL Red Cell Distribution Width 12.6 10.0-14.5 % Platelet Count 313 130-400 10^3/uL Mean Platelet Volume 8.5 L 9.0-12.2 fL Immature Granulocyte % (Auto) 1 % Neutrophils (%) (Auto) 73 42-75 % Lymphocytes (%) (Auto) 14 12-44 % Monocytes (%) (Auto) 11 0-12 % Eosinophils (%) (Auto) 1 0-10 % Basophils (%) (Auto) 0 0-10 % Neutrophils # (Auto) 8.2 H 1.8-7.8 10^3/uL Lymphocytes # (Auto) 1.5 1.0-4.0 10^3/uL Monocytes # (Auto) 1.3 H 0.0-1.0 10^3/uL Eosinophils # (Auto) 0.1 0.0-0.3 10^3/uL Basophils # (Auto) 0.1 0.0-0.1 10^3/uL Immature Granulocyte # (Auto) 0.1 0.0-0.1 10^3/uL Sodium Level 119 *L 135-145 MMOL/L Potassium Level 4.4 3.6-5.0 MMOL/L Chloride Level 80 L 98-107 MMOL/L Carbon Dioxide Level 29 21-32 MMOL/L Anion Gap 10 5-14 MMOL/L Blood Urea Nitrogen 15 7-18 MG/DL Creatinine 0.97 0.60-1.30 MG/DL Estimat Glomerular Filtration Rate 77 BUN/Creatinine Ratio 15 Glucose Level 114 H 70-105 MG/DL Calcium Level 10.0 8.5-10.1 MG/DL Corrected Calcium 10.0 8.5-10.1 MG/DL Magnesium Level 1.9 1.6-2.4 MG/DL Total Bilirubin 1.0 0.1-1.0 MG/DL Aspartate Amino Transf (AST/SGOT) 19 5-34 U/L Alanine Aminotransferase (ALT/SGPT) 16 0-55 U/L Alkaline Phosphatase 61 40-136 U/L Troponin I < 0.028 <0.028 NG/ML C-Reactive Protein High Sensitivity 0.50 0.00-0.50 MG/DL B-Type Natriuretic Peptide 72.8 <100.0 PG/ML Total Protein 7.1 6.4-8.2 GM/DL Albumin 4.0 3.2-4.5 GM/DL Lipase 45 8-78 U/L Influenza Type A (RT-PCR) Not Detected Not Detecte Influenza Type B (RT-PCR) Not Detected Not Detecte SARS-CoV-2 RNA (RT-PCR) Not Detected Not Detecte Urine Color YELLOW Urine Clarity CLEAR Urine pH 7.0 5-9 Urine Specific [place] 1.010 L 1.016-1.022 Urine Protein NEGATIVE NEGATIVE Urine Glucose (UA) NEGATIVE NEGATIVE Urine Ketones NEGATIVE NEGATIVE Urine Nitrite NEGATIVE NEGATIVE Urine Bilirubin NEGATIVE NEGATIVE Urine Urobilinogen 4.0 < = 1.0 MG/DL Urine Leukocyte Esterase NEGATIVE NEGATIVE Urine RBC (Auto) NEGATIVE NEGATIVE Urine RBC NONE /HPF Urine WBC RARE /HPF Urine Crystals NONE /LPF Urine Bacteria NEGATIVE /HPF Urine Casts PRESENT /LPF Urine Hyaline Casts RARE /LPF Urine Mucus NEGATIVE /LPF Urine Culture Indicated NO My Orders Orders - ERIC MILLER Cbc With Automated Diff (11/03/21 11:57) Comprehensive Metabolic Panel (11/03/21 11:57) Lipase (8/3/22 11:57) Magnesium (11/03/21 11:57) Hs C Reactive Protein (11/03/21 11:57) Urinalysis (11/03/21 11:57) Bladder Scan (11/03/21 11:57) Troponin I [place] (11/03/21 11:57) Bnp [place] (11/03/21 11:57) Ekg Tracing (11/03/21 11:57) Ct Head Wo (11/03/21 11:57) Ct Abdomen/Pelvis W (11/03/21 11:57) Covid 19 Inhouse Test (11/03/21 11:57) Influenza A And B By Pcr (11/03/21 11:57) Chest 1 View, Ap/Pa Only (11/03/21 11:57) Iohexol Injection (Omnipaque 350 Mg/Ml 1 (11/03/21 12:45) Received Contrast (Hold Metformin- Contr (11/03/21 12:45) Ns (Ivpb) (Sodium Chloride 0.9% Ivpb Bag (11/03/21 12:45) Ns Iv 1000 Ml (Sodium Chloride 0.9%) (11/03/21 12:39) Catheter(Urinary) Insert & Ass 03,15 (11/03/21 13:18) Lidocaine 2% (Urojet) (Xylocaine Urojet) (11/03/21 13:30) Ceftriaxone 1 Gm Pre-Mix (Rocephin 1 Gm (11/03/21 13:18) Ed Admission (Communication) (11/03/21 13:19) Medications Given in ED Current Medications Medications Dose Ordered Sig/Stephen Route Start Time Stop Time Status Last Admin Dose Admin Iohexol 100 ml ONCE ONCE IV 11/03/21 12:45 11/03/21 12:46 DC 11/03/21 12:47 100 ML Lidocaine HCl 10 ml ONCE ONCE TOP 11/03/21 13:30 11/03/21 13:31 DC 11/03/21 14:03 10 ML Sodium Chloride 100 ml ONCE ONCE IV 11/03/21 12:45 11/03/21 12:46 DC 11/03/21 12:47 80 ML Vital Signs/I&O 11/03/21 11:44 Temp 36.0 Pulse 56 Resp 18 B/P (MAP) 126/67 (86) Pulse Ox 95 Capillary Refill : Less Than 3 Seconds Blood Pressure Mean: 86 ECG Comment Sinus bradycardia with occasional supraventricular premature complexes, 59 bpm, QRS duration 101 MS, QTc 407 MS Departure Communication (PCP) Patient is a 85-year-old male with a history of coronary artery disease presents ED with generalized weakness. Patient fell last Monday suffered a left proximal humerus fracture. Was seen at the orthopedic clinic sent here for his continued weakness. Patient was normal tensive. Reports urine urgency with decreased urine output since Monday. Bladder scan showed 267 mL. Was not able to urinate here. Patient with hyponatremia 119 chloride of 80. Patient was started on a liter of fluid. Slight elevated white blood count. Cardiac work-up unremarkable. CT scan of the head with chronic findings. Chest x-ray negative for pneumonia concerning for fibrosis chronic. Denies of any chest pain, shortness of breath or fever. Reports lower abdominal tenderness. CT abdomen pelvis negative for any acute findings. Discussed patient with Dr. Quiroz who recommends placing a Burnett catheter and give Rocephin. Admit to the unit for IV fluids. Family agrees with plan of action. Patient may have underlying UTI but the weakness may be secondary to electrolyte abnormalities Impression Primary Impression: Hyponatremia Additional Impressions: Weakness Urinary retention Disposition: ADMITTED INPATIENT Condition: Stable Admissions Decision to Admit Reason: Admit from ER (General) Decision to Admit/Date: Nov 03, 2021 Time/Decision to Admit Time: 13:36 Departure-Patient Inst. Referrals: PAUL CARMEN MD (PCP/Family) Primary Care Physician ERIC MILLER Nov 03, 2021 12:04
[2021-11-03 12:07] LABS: BASOPHILS # (AUTO) 0.1 10^3/uL (0.0-0.1); BASOPHILS % (AUTO) 0 % (0-10); EOSINOPHILS # (AUTO) 0.1 10^3/uL (0.0-0.3); EOSINOPHILS % (AUTO) 1 % (0-10); HEMATOCRIT 42 % (40-54); HEMOGLOBIN 15.3 g/dL (13.3-17.7); LYMPHOCYTES # (AUTO) 1.5 10^3/uL (1.0-4.0); LYMPHOCYTES % (AUTO) 14 % (12-44); MEAN CORPUSCULAR HEMOGLOBIN 34 pg (25-34); MEAN CORPUSCULAR HGB CONC 36 g/dL (32-36); MEAN CORPUSCULAR VOLUME 94 fL (80-99); MEAN PLATELET VOLUME 8.5 fL (9.0-12.2); MONOCYTES # (AUTO) 1.3 10^3/uL (0.0-1.0); MONOCYTES % (AUTO) 11 % (0-12); NEUTROPHILS # (AUTO) 8.2 10^3/uL (1.8-7.8); NEUTROPHILS % (AUTO) 73 % (42-75); PLATELET COUNT 313 10^3/uL (130-400); WHITE BLOOD COUNT 11.2 10^3/uL (4.3-11.0)
[2021-11-03 12:12] LABS: CHLORIDE 80 MMOL/L (98-107); POTASSIUM 4.4 MMOL/L (3.6-5.0)
[2021-11-03 12:15] LABS: GLUCOSE 114 MG/DL (70-105); TOTAL PROTEIN 7.1 GM/DL (6.4-8.2)
[2021-11-03 12:16] LABS: CARBON DIOXIDE 29 MMOL/L (21-32)
[2021-11-03 12:18] LABS: ALKALINE PHOSPHATASE 61 U/L (40-136)
[2021-11-03 12:19] LABS: CREATININE SERUM 0.97 MG/DL (0.60-1.30); GFR ESTIMATED 77
[2021-11-03 12:20] LABS: BUN/CREATININE RATIO 15
[2021-11-03 12:21] LABS: ALANINE AMINOTRANSFERASE 16 U/L (0-55); MAGNESIUM 1.9 MG/DL (1.6-2.4)
[2021-11-03 12:22] LABS: LIPASE 45 U/L (8-78)
[2021-11-03 12:35] LABS: SODIUM 119 MMOL/L (135-145)
[2021-11-03] MEDS ORDERED: NS IV 1000 ML 1,000 ML IV STA (12:39)
[2021-11-03] MEDS ORDERED: HOLD METFORMIN - RECEIVED CONTRAST 20 ML VIAL IV SCH (12:45)
[2021-11-03] MEDS ORDERED: IOHEXOL 350 MG/ML 100 ML (OMNIPAQUE 350) VIAL IV ONE (12:45)
[2021-11-03] MEDS ORDERED: NS 100 ML (IVPB) BAG IV ONE (12:45)
--- NOTE | 2021-11-03 13:08 | Diagnostic Imaging Report ---
PROCEDURE: CT head without contrast. TECHNIQUE: Multiple contiguous axial images were obtained through the brain without the use of intravenous contrast. Auto Exposure Controls were utilized during the CT exam to meet ALARA standards for radiation dose reduction. INDICATION: Weakness, fall. COMPARISON: I have no priors. FINDINGS: There is no hemorrhage, and there are no abnormal extra-axial fluid collections. There is atrophy accounting for ventriculomegaly. No focal or generalized cerebral edema. No findings to suggest an elevated intracerebral pressure. There are intracranial vertebral and carotid atherosclerotic vascular calcifications. No calvarial fracture deformity. The sinuses are clear. No pneumocephalus. IMPRESSION: Chronic atrophy and ventriculomegaly with atherosclerotic calcifications and white matter disease as chronic findings. No hemorrhage, fracture, or acute pathology apparent. Dictated by: Dictated on workstation # [id number]
--- NOTE | 2021-11-03 13:11 | Diagnostic Imaging Report ---
HISTORY: Cough. COMPARISON: 08/23/2021. TECHNIQUE: Frontal view of the chest. FINDINGS: Lung volumes are mildly low. The cardiac silhouette is normal in size. There are chronic interstitial opacities in the lung bases with reticular opacities in the right lung base. Overall aeration appears similar to the prior exam. No pleural effusion or pneumothorax is seen. There are degenerative changes in the shoulders and spine. IMPRESSION: 1. Chronic opacities in the lung bases, likely fibrosis and/or atelectasis, with no new consolidation seen. Dictated by: Dictated on workstation # [id number]
--- NOTE | 2021-11-03 13:12 | Diagnostic Imaging Report ---
PROCEDURE: CT abdomen and pelvis with contrast. TECHNIQUE: Multiple contiguous axial images were obtained through the abdomen and pelvis after administration of intravenous contrast. Auto Exposure Controls were utilized during the CT exam to meet ALARA standards for radiation dose reduction. All CT scans use one or more of the following dose optimizing techniques: Automated exposure control, MA and/or KvP adjustment based on patient size and exam type or iterative reconstruction. INDICATION: Incomplete bladder emptying. COMPARISON: Exam is compared with abdominopelvic CT 10/04/2017. FINDINGS: Since the prior, there has been apparent interval appendectomy. There are progressive fibrotic changes to the visualized lung bases, greater right. Gallbladder is surgically absent. The liver, spleen, adrenals, and pancreas are all nonacute. There is no hydroureteronephrosis. The atherosclerotic aortoiliac vessels are patent and nonaneurysmal. There is noninflamed diverticulosis of the sigmoid. The urinary bladder appeared normal. Its volume is unremarkable. The wall is non-thickened. No perivesical edema. There are radiation seeds at the prostate. No pelvic sidewall or ilioinguinal lymphadenopathy. There is no suspicious lytic or sclerotic bone lesion. There are degenerative changes to the spine, chronic. No inflammatory process, ascites, abscess, hematoma, or acute fluid collection. No radiopaque stone. IMPRESSION: 1. Unobstructed, nonfocal, and nonacute urinary tracts. 2. Post-treatment changes to the prostate with no findings suggestive of soft tissue or osseous metastases. 3. Progressive basilar pulmonary fibrosis with surgical changes as described without apparent complication. 4. Noninflamed diverticulosis. No acute appearing abnormality. Dictated by: Dictated on workstation # [id number]
[2021-11-03] MEDS ORDERED: cefTRIAXone 1 GM PRE-MIX 50 ML IV STA (13:18)
[2021-11-03] MEDS ORDERED: LIDOCAINE UROJET 2% GEL 10 ML PKG TOP ONE (13:30)
[2021-11-03 14:20] LABS: BILIRUBIN,URINE NEGATIVE (NEGATIVE); CLARITY,URINE CLEAR; COLOR,URINE YELLOW; GLUCOSE, URINE (UA) NEGATIVE (NEGATIVE); KETONES,URINE NEGATIVE (NEGATIVE); LEUKOCYTE ESTERASE ,URINE NEGATIVE (NEGATIVE); NITRITE,URINE NEGATIVE (NEGATIVE); PROTEIN,URINE NEGATIVE (NEGATIVE)
[2021-11-03 14:55] LABS: BACTERIA,URINE NEGATIVE /HPF; HYALINE CASTS, URINE RARE /LPF; WBC,URINE RARE /HPF
[2021-11-03 17:31] VITALS: BP 131/65
--- NOTE | 2021-11-03 17:52 | Tele-ICU Progress Note ---
Subjective Date Seen by a Provider: Nov 03, 2021 Time Seen by a Provider: 17:45 Subjective/Events-last exam This virtual visit was conducted using real time audio/video. Thank you for asking us to see this patient for weakness, low Na 119 and urinary retention. Recent events: Fell last week and has shoulder #. PMH:CAD/stents, Prostate CA, PAD, neuropathy, HL, HTN. SH: smoking history: N FH: Non-contributory ROas in HPI. PE: No distress on camera. VSS. O2 sat 95% on RA HEENT: No obvious masses, adenopathy or JVD. Chest: clear to auscultation. CV: RRR S1 S2 No murmur or added sounds. Abd: Non-tender. Bowel sounds Y. : Unremarkable. Burnett Y. IT BUSINESS SYSTEMS ANALYST/psychiatric: Grossly intact. No obvious focal findings. Extremities: No edema. Capillary refill < 3 seconds. Skin: unremarkable. Results: Elevated WCC 11.2, BG 114. Decreased Na 119. CXR: minor chronic basal opacities. Available chart/ vitals / labs / images reviewed. Video assessment done using teleICU camera, rest of exam as per RN. A/P: Critical Care: critically ill patient. Cont. IVF, empiric abx. Lovenox added. Discussed with RN SANGITA. Asked RN to reach out to eICU if any questions or concerns later. Time spent with patient/coordination of care with other health professionals (mins): 30 Sepsis Event Evaluation Height, Weight, BMI Height: 5'10.00" Weight: 220lbs. 4.0oz. 99.164412mx; 31.00 BMI Method:Stated Exam Exam Patient acknowledged, consented, and participated in this virtual visit which was conducted using real time audio/video Vital Signs Date Time Temp Pulse Resp B/P (MAP) Pulse Ox O2 Delivery O2 Flow Rate FiO2 11/03/21 11:44 36.0 56 18 126/67 (86) 95 Height & Weight Height: 5'10.00" Weight: 220lbs. 4.0oz. 99.831175kr; 31.00 BMI Method:Stated General Appearance: No Apparent Distress, WD/WN HEENT: PERRL/EOMI, TMs Normal, Normal ENT Inspection, Pharynx Normal Neck: Full Range of Motion, Normal Inspection, Non Tender, Supple Respiratory: Chest Non Tender, Lungs Clear, Normal Breath Sounds, No Accessory Muscle Use, No Respiratory Distress Cardiovascular: Regular Rate, Rhythm, No Edema, No Gallop Capillary Refill: Less Than 3 Seconds Extremity: Normal Capillary Refill, Normal Inspection, Normal Range of Motion, Non Tender Neurologic/Psychiatric: Alert, Oriented x3, No Motor/Sensory Deficits, Normal Mood/Affect Skin: Normal Color, Warm/Dry Results Lab Laboratory Tests 11/03/21 11:53 Assessment/Plan Assessment/Plan See free text. Critical Care: Critically Ill Patient SYMONE DAUGHERTY MD Nov 03, 2021 17:52
[2021-11-03] MEDS ORDERED: NS IV 1000 ML 1,000 ML ONE (17:53)
[2021-11-03] MEDS: NS IV 1000 ML 1,000 ML IV SCH (17:56)
[2021-11-03] MEDS ORDERED: MILK OF MAGNESIA 400 MG/5 ML 30 ML UDC PO PRN (18:00)
[2021-11-03] MEDS ORDERED: MELATONIN 3 MG TABLET PO PRN (18:00)
[2021-11-03] MEDS ORDERED: diphenhydrAMINE 50 MG/ML INJ (BENADRYL) IVP PRN (18:00)
[2021-11-03] MEDS ORDERED: CALCIUM CARBONATE 500 MG (TUMS) TAB.CHEW PO PRN (18:00)
[2021-11-03] MEDS ORDERED: cefTRIAXone 2,000 MG in NS (IVPB) 50 ML IV SCH (18:00)
[2021-11-03] MEDS ORDERED: ONDANSETRON 4 MG/2 ML (SDV) Z0FRAN IV PRN (18:00)
[2021-11-03] MEDS ORDERED: ANTACID SUSP 30 ML UDC (MYLANTA) PO PRN (18:00)
[2021-11-03] MEDS ORDERED: diphenhydrAMINE 25 MG TAB (BENADRYL) PO PRN (18:00)
[2021-11-03] MEDS ORDERED: LACTULOSE SYRUP 10GM/15ML (ENULOSE) 30ML UDC PO PRN (18:00)
[2021-11-03] MEDS ORDERED: polyethylene glycoL POWDER 17 GM (MIRALAX) PACK PO PRN (18:00)
[2021-11-03] MEDS ORDERED: ACETAMINOPHEN 325 MG TABLET PO PRN (18:00)
[2021-11-03] MEDS ORDERED: ONDANSETRON 4 MG (ZOFRAN) ORAL DISSOLVE TAB PO PRN (18:00)
[2021-11-03] MEDS ORDERED: BISACODYL 10 MG SUPP (DULCOLAX) PR PRN (18:00)
--- NOTE | 2021-11-03 19:16 | History & Physical-Hospitalist ---
History of Present Illness HPI/Chief Complaint Caitlyn Negro is an 85 year old male with PMH HTN, CAD, history of prostate cancer, who presented with weakness. He has had multiple falls recently. He had a fall over a week ago and broke his left arm whicih is now in a sling. He has not been eating or drinking much at home. He has been having urinary urgency. He denies headaches. He has had some confusion. He denies lightheadedness and dizziness. He denies chest pain and shortness of breath. Source: patient, family Exam Limitations: no limitations Date Seen 11/03/21 Time Seen by a Provider: 18:30 Attending Physician Ed Smith MD PCP Admitting Physician: Keke Green MD Attending Physician: Keke Green MD Referring Physician Date of Admission Nov 03, 2021 at 15:29 Home Medications & Allergies Home Medications Reviewed patient Home Medication Reconciliation performed by pharmacy medication reconciliations copier and printer field technician and/or nursing. Patients Allergies have been reviewed. Allergies Allergies Coded Allergies Sulfa (Sulfonamide Antibiotics) (Unverified Allergy, Unknown, 12/20/13) Past Vmsbmeh-Gwvvie-Ynslov Hx Patient Social History Tobacco Use?: No Smoking Status: Never a Smoker Use of E-Cig and/or Vaping dev: No Substance use?: No Alcohol Use?: Yes Alcohol type: Hard Liquor Additional alcohol type: [place]OUR[place] AND WATER Alcohol Frequency: Daily Additional Alcohol Comments: 1 DRINK PER DAY Pt feels they are or have been: No Immunizations Up To Date Date of Influenza Vaccine: Dec 17, 2020 First/Initial COVID19 Vaccinat: Apr 2020 Second COVID19 Vaccination Marcelo: May 2020 Tetanus Booster (TDap): Unknown Hepatitis A: No Hepatitis B: No PED Vaccines UTD: Yes Date of Pneumonia Vaccine: Jan 01, 2014 Seasonal Allergies Seasonal Allergies: No Current Status Advance Directives: Yes Advance Directive Location: Family to bring in copy Communicates: Verbally Primary Language: Comoran Preferred Spoken Language: Comoran Is interpretation needed?: No Sensory deficits: Vision impairment Implanted or Applied Medical D: None Past Medical History Surgeries: Abdominal, Appendectomy, Cardiac, Coronary Stent, Gallbladder, Prostatectomy Pneumonia Currently Using CPAP: No Currently Using BIPAP: No Coronary Artery Disease, High Cholesterol, Hypertension Neuropathy Sexually Transmitted Disease: No HIV/AIDS: No Prostate Problems Abdominal Hernia Arthritis, Fractures Prostate, Skin Did You Recieve Any Treatments: Yes What Type of Treatment Did You: Radiation, Surgical Intervention Blood Disorders: No Adverse Reaction/Blood Tranf: No Family Medical History Glaucoma G8 BROTHER No Family History of: AIDS Abdominal aortic aneurysm Gabe's disease Alcoholism Aphasia Arthritis Asthma Cancer of mouth Cardiovascular disease Cataracts Colon cancer Completed stroke Congenital disease Congenital heart disease Coronary thrombosis Cystic fibrosis Deafness or hearing loss Dementia Diabetes mellitus Drug abuse Dysphasia Fibrocystic disease of breast Gastroenteritis Headache disorder Hypercholesterolemia Hypertension Infertility Kidney disease Myocardial infarction Neoplasm Not obtainable due to adoption Osteoporosis Parkinson's disease Prostate cancer Psychosocial problem Respiratory disorder Seizure disorder Severe allergy Thyroid disease Tuberculosis Visual disorder No Pertinent Family Hx Review of Systems Constitutional: weakness EENTM: no symptoms reported Respiratory: no symptoms reported Cardiovascular: no symptoms reported Gastrointestinal: no symptoms reported Genitourinary: decreased output Physical Exam Physical Exam Vital Signs Vital Signs - First Documented 11/03/21 11/03/21 11:44 17:31 Temp 36.0 Pulse 56 Resp 18 B/P (MAP) 126/67 (86) Pulse Ox 95 O2 Delivery Room Air Capillary Refill : Less Than 3 Seconds Height, Weight, BMI Height: 5'10.00" Weight: 220lbs. 4.0oz. 99.527699dn; 29.79 BMI Method:Stated General Appearance: No Apparent Distress, WD/WN HEENT: PERRL/EOMI, Pharynx Normal Neck: Normal Inspection, Supple Respiratory: Lungs Clear, Normal Breath Sounds, No Respiratory Distress Cardiovascular: Regular Rate, Rhythm, No Murmur Gastrointestinal: Normal Bowel Sounds, Non Tender, Soft Extremity: Normal Inspection, Pedal Edema Neurologic/Psychiatric: Alert, Normal Mood/Affect Skin: Normal Color, Warm/Dry Results Results/Procedures Labs Laboratory Tests 11/03/21 11:53 11/03/21 18:20 11/03/21 20:20 Patient resulted labs reviewed. Imaging: Reviewed Imaging Report Assessment/Plan Admission Diagnosis Hyponatremia Admission Status: Inpatient Order (span 2 midnights) Reason for Inpatient Admission: Electrolyte abnormality Assessment and Plan Hyponatremia Na 119 on arrival Likely due to HCTZ, hold Normal saline Monitor sodium levels closely HTN CAD Hold HCTZ Resume home meds once med rec completed History of prostate cancer Urinary urgency Recommend follow up with PCP Needs to establish with Urology DVT prophylaxis: Lovenox Critical Care Critically Ill Patient Diagnosis/Problems Diagnosis/Problems (1) Hyponatremia Status: Acute (2) Fall on same level Status: Acute KEKE GREEN MD Nov 03, 2021 19:16
[2021-11-03] MEDS: SENNOSIDES 8.6 MG (SENOKOT) TAB PO SCH (19:45)
[2021-11-03] MEDS: ENOXAPARIN 40 MG/0.4 ML (LOVENOX) SYR SC SCH (19:45)
[2021-11-03] MEDS: DOCUSATE SODIUM 100 MG (COLACE) CAP PO SCH (19:45)
[2021-11-03] MEDS ORDERED: OXYBUTYNIN (DITROPAN) 5 MG TAB PO ONE (22:15)
[2021-11-04] MEDS: NS IV 1000 ML 1,000 ML IV SCH ×3 (03:11→19:32)
[2021-11-04] MEDS ORDERED: 1/2 NS IV SOLUTION 1,000 ML IV SCH (06:00)
[2021-11-04] MEDS: SENNOSIDES 8.6 MG (SENOKOT) TAB PO SCH ×2 (08:15→21:37)
[2021-11-04] MEDS: OXYBUTYNIN (DITROPAN) 5 MG TAB PO SCH ×2 (08:15→21:36)
[2021-11-04] MEDS: DOCUSATE SODIUM 100 MG (COLACE) CAP PO SCH ×2 (08:15→21:37)
[2021-11-04 08:28] LABS: HEMATOCRIT 39 % (40-54); HEMOGLOBIN 13.8 g/dL (13.3-17.7); MEAN CORPUSCULAR HEMOGLOBIN 34 pg (25-34); MEAN CORPUSCULAR HGB CONC 36 g/dL (32-36); MEAN CORPUSCULAR VOLUME 96 fL (80-99); MEAN PLATELET VOLUME 8.9 fL (9.0-12.2); PLATELET COUNT 242 10^3/uL (130-400); WHITE BLOOD COUNT 9.7 10^3/uL (4.3-11.0)
[2021-11-04 08:36] LABS: POTASSIUM 3.9 MMOL/L (3.6-5.0)
[2021-11-04 08:42] LABS: CREATININE SERUM 0.77 MG/DL (0.60-1.30)
[2021-11-04 08:44] LABS: MAGNESIUM 1.7 MG/DL (1.6-2.4)
[2021-11-04] MEDS ORDERED: PHARMACY TO DOSE SQ SCH (09:00)
--- NOTE | 2021-11-04 09:37 | Tele-ICU Progress Note ---
Subjective Date Seen by a Provider: Nov 04, 2021 Time Seen by a Provider: 09:05 Subjective/Events-last exam This virtual visit was conducted using real time audio/video. Thank you for asking us to see this patient for weakness, low Na 119 and urinary retention. Recent events: Fell last week and has shoulder #. PMH:CAD/stents, Prostate CA, PAD, neuropathy, HL, HTN. SH: smoking history: N FH: Non-contributory ROS: as in HPI. PE: No distress on camera. VSS. O2 sat 98% on RA HEENT: No obvious masses, adenopathy or JVD. Chest: clear to auscultation. CV: RRR S1 S2 No murmur or added sounds. Abd: Non-tender. Bowel sounds Y. : Unremarkable. Burnett Y. GAS ENGINEER/psychiatric: Grossly intact. No obvious focal findings. Extremities: No edema. Capillary refill < 3 seconds. Skin: unremarkable. Results: Decreased Na 122 improved. CXR: minor chronic basal opacities. Available chart/ vitals / labs / images reviewed. Video assessment done using teleICU camera, rest of exam as per RN. A/P: Critical Care: critically ill patient. Cont. IVF, Beena., empiric abx. HCTZ held. Discussed with RN SANGITA. Asked RN to reach out to eICU if any questions or concerns later. Time spent with patient/coordination of care with other health professionals (mins): 15 Sepsis Event Evaluation Height, Weight, BMI Height: 5'10.00" Weight: 220lbs. 4.0oz. 99.671342fx; 29.67 BMI Method:Stated Exam Exam Patient acknowledged, consented, and participated in this virtual visit which was conducted using real time audio/video Vital Signs Date Time Temp Pulse Resp B/P (MAP) Pulse Ox O2 Delivery O2 Flow Rate FiO2 11/04/21 09:00 67 10 124/54 99 Room Air 11/04/21 08:00 36.4 11/04/21 08:00 76 13 144/69 99 Room Air 11/04/21 08:00 Room Air 11/04/21 07:00 80 11/04/21 07:00 70 12 144/64 95 Room Air 11/04/21 06:00 66 15 133/72 98 Room Air 11/04/21 05:00 65 16 125/53 95 Room Air 11/04/21 04:00 Room Air 11/04/21 04:00 66 13 131/73 97 Room Air 11/04/21 03:00 74 15 113/64 97 Room Air 11/04/21 02:56 Room Air 11/04/21 02:00 70 16 136/58 99 Room Air 11/04/21 01:00 80 11/04/21 01:00 75 22 97 Room Air 11/04/21 00:00 65 18 142/62 99 Room Air 11/04/21 00:00 Room Air 11/03/21 23:00 74 17 131/70 98 Room Air 11/03/21 22:34 36.1 11/03/21 22:00 69 14 122/63 97 Room Air 11/03/21 21:00 70 20 120/30 97 Room Air 11/03/21 20:42 11/03/21 20:03 36.3 11/03/21 20:00 Room Air 11/03/21 20:00 72 17 114/63 98 Room Air 11/03/21 19:00 70 16 108/77 99 Room Air 11/03/21 18:05 98 Room Air 11/03/21 18:01 65 11/03/21 17:55 67 16 141/74 98 Room Air 11/03/21 17:31 74 20 131/65 99 Room Air 11/03/21 11:44 36.0 56 18 126/67 (86) 95 I & O 11/04/21 07:00 Intake Total 1620 ml Output Total 2625 ml Balance -1005 ml Height & Weight Height: 5'10.00" Weight: 220lbs. 4.0oz. 99.812473hh; 29.67 BMI Method:Stated General Appearance: No Apparent Distress, WD/WN HEENT: PERRL/EOMI, Pharynx Normal Neck: Normal Inspection, Supple Respiratory: Lungs Clear, Normal Breath Sounds, No Respiratory Distress Cardiovascular: Regular Rate, Rhythm, No Murmur Capillary Refill: Less Than 3 Seconds Extremity: Normal Inspection, Pedal Edema Neurologic/Psychiatric: Alert, Normal Mood/Affect Skin: Normal Color, Warm/Dry Results Lab Laboratory Tests 11/03/21 11:53 11/03/21 18:20 11/03/21 20:20 11/04/21 00:52 11/04/21 04:37 11/04/21 08:14 Assessment/Plan Assessment/Plan See free text. Critical Care: Critically Ill Patient SYMONE DAUGHERTY MD Nov 04, 2021 09:37
--- NOTE | 2021-11-04 11:05 | Physical Therapy Evaluation ---
PT Evaluation-General Medical Diagnosis Admission Date Nov 03, 2021 at 15:29 Medical Diagnosis: falls Onset Date: Nov 03, 2021 Therapy Diagnosis Therapy Diagnosis: impaired mobility, strength, balance Height/Weight Height (Feet): 5 Height (Inches): 10.00 Weight (Pounds): 220 Weight (Ounces): 4.0 Precautions Precautions/Isolations: Fall Prevention, Standard Precautions Referral Physician: Richie Reason for Referral: Evaluation/Treatment Medical History Additional Medical History Past Medical History Surgeries: Abdominal, Appendectomy, Cardiac, Coronary Stent, Gallbladder, Prostatectomy Pneumonia Currently Using CPAP: No Currently Using BIPAP: No Coronary Artery Disease, High Cholesterol, Hypertension Neuropathy Sexually Transmitted Disease: No HIV/AIDS: No Prostate Problems Abdominal Hernia Arthritis, Fractures Prostate, Skin Did You Recieve Any Treatments: Yes What Type of Treatment Did You: Radiation, Surgical Intervention Blood Disorders: No Adverse Reaction/Blood Tranf: No Reviewed History: Yes Social History Current Living Status: Spouse Entry Into Home: Stairs With Railing PT Steps Into Home: 3 Prior Prior Level of Function SCALE: Activities may be completed with or without assistive devices. 9-Yabecgobpr-zdyrmej completes the activity by him/herself with no assistance from a helper. 5-Set-up or Clean-up Assistance-helper sets up or cleans up; patient completes activity. [place] assists only prior to or following the activity. 4-Supervision or Touching Assistance-helper provides verbal cues and/or touching/steadying and/or contact guard assistance as patient completes activity. Assistance may be provided throughout the activity or intermittently. 3-Partial/Moderate Assistance-helper does LESS THAN HALF the effort. [place] lifts, holds or supports trunk or limbs, but provides less than half the effort. 2-Substantial/Maximal Assistance-helper does MORE THAN HALF the effort. [place] lifts or holds trunk or limbs and provides more than half the effort. 8-Sfxhdhnmg-ubmvkb does ALL the effort. Patient does none of the effort to complete the activity. Or, the assistance of 2 or more helpers is required for the patient to complete the activity. If activity was not attempted, code reason: 7-Patient Refused. 9-Not Applicable-not attempted and the patient did not perform the activity before the current illness, exacerbation or injury. 10-Not Attempted due to Environmental Limitations-(lack of equipment, weather restraints, etc.). 88-Not Attempted due to Medical Conditions or Safety Concerns. Bed Mobility: 6 Transfers (B,C,W/C): 6 Gait: 6 Stairs: 6 Indoor Mobility (Ambulation): Independent Stairs: Independent Prior Devices Use: Walker PT Evaluation-Current Subjective Patient in bed pre tx, agrees to PT, has 4/10 pain in left shoulder. Pt/Family Goals to be independent at home Objective Patient Orientation: Person, Place, Situation Attachments: Burnett Catheter, IV left arm sling, unknown weight bearing status but assume it is NWB ROM/Strength ROM Lower Extremities WNL Strength Lower Extremities LLE (hip flexion 3/5, knee flexion 4-/5, knee extension 4-/5, dorsiflexion 3+/5), RLE (hip flexion 3/5, knee flexion 4-/5, knee extension 4-/5, dorsiflexion 3+/5) Sensory Vision: Wears Glasses Sensation Right Lower Extremit: Impaired Sensation Left Lower Extremity: Impaired Transfers Roll Left to Right (QC): 3 Lying to Sitting/Side of Bed(Q: 3 Sit to Stand (QC): 3 Chair/Whu-hv-Mhtod Xfer(QC): 3 Toilet Transfer (QC): 3 Patient needs min assist for supine to sit and to scoot forward, he stands once with min assist, supporting with walker, and is only able to stand for a few seconds before needing to sit back down. Patient states that he needs to have a BM. Bedside commode obtained and he stands again with min assist, transfers to the commode with min assist and sits. Therapist helps patient move walker because he can only use the right arm on it. Nurse notified patient is on commode. Balance Sitting Static: Fair Sitting Dynamic: Poor Standing Static: Poor Standing Dynamic: Poor Assessment/Needs Patient on commode post tx with nurse call. Patient has impaired mobility, strength, balance. Patient slumps quite a bit with standing and transfers. Rehab Potential: Fair PT Chcf Goals Spinning Frame Cleaner Goals PT Ch[facility] Goals Time Frame: Nov 11, 2021 Roll Left & Right (QC): 4 Sit to Lying (QC): 4 Lying-Sitting on Side/Bed(QC): 4 Sit to Stand (QC): 4 Chair/Cwz-de-Rgohq Xfer(QC): 4 Walk 10 feet (QC): 4 Walk 50ft with 2 Turns (QC): 4 PT Plan Problem List Problem List: Activity Tolerance, Functional Strength, Safety, Balance, Gait, Transfer, Bed Mobility, ROM Treatment/Plan Treatment Plan: Continue Plan of Care Treatment Plan: Bed Mobility, Education, Functional Activity [place], Functional Strength, Gait, Safety, Therapeutic Exercise, Transfers Treatment Duration: Nov 11, 2021 Frequency: 6 times per week Estimated Hrs Per Day: .25 hour per day Patient and/or Family Agrees t: Yes Safety Risks/Education Patient Education: Transfer Techniques, Correct Positioning, Safety Issues Teaching Recipient: Patient Teaching Methods: Demonstration, Discussion Response to Teaching: Reinforcement Needed Discharge Recommendations Plan Patient will perform bed mobility and transfer training, balance and endurance training, functional strengthening, stair training, gait training, and education, to improve functional mobility and independence at home Therapy Discharge Recommendati: Scheduled Assistance, Home & Family, Post Acute PT Time/GCodes Time In: 1011 Time Out: 1025 Total Billed Treatment Time: 14 Total Billed Treatment 1 visit BRENDA DENNIS PT Nov 04, 2021 11:05
[2021-11-04] MEDS ORDERED: CLOP75TA28 PO (12:59)
[2021-11-04] MEDS ORDERED: CALC600T80 PO (12:59)
--- NOTE | 2021-11-04 13:44 | Occupational Therapy Eval ---
OT Evaluation-General/PLF Medical Diagnosis Admission Date Nov 03, 2021 at 15:29 Medical Diagnosis: Hyponatremia Onset Date: Nov 03, 2021 Therapy Diagnosis Therapy Diagnosis: Reduced adl status Height/Weight Height (Feet): 5 Height (Inches): 10.00 Weight (Pounds): 220 Weight (Ounces): 4.0 Precautions Precautions/Isolations: Fall Prevention, Standard Precautions Weight Bear Status Weight Bearing Restriction: Non Weight Bearing Location Restriction: L UE Referral Physician: Richie Referral Reason: Evaluation/Treatment Medical History Pertinent Medical History: CAD, HTN, Neuropathy Current History Pt presents to ER with weakness. He had a fall ~1 week prior resulting in a L shoulder fx. Per family, pt is to remain in sling and is not a candidate for surgery. Unknown WB status, thus therapy will treat as NWB at this time. Per , pt is unsteady at baseline secondary to neuropathy and weakness. He required assistance with transferring in/out of shower and "sometimes" (dependi ng on day) need assist with LB dressing. Since fall, he has been dependent for adls. does all iadls. Pt uses a walker at baseline. Social History Home: Multilevel (Pt remains on main level ) Current Living Status: Spouse Entry Into Home: Stairs With Railing Steps Into Home: 3 ADL-Prior Level of Function SCALE: Activities may be completed with or without assistive devices. 0-Hjvbtxqjkw-jhylkge completes the activity by him/herself with no assistance from a helper. 5-Set-up or Clean-up Assistance-helper sets up or cleans up; patient completes activity. [place] assists only prior to or following the activity. 4-Supervision or Touching Assistance-helper provides verbal cues and/or touching/steadying and/or contact guard assistance as patient completes activity. Assistance may be provided throughout the activity or intermittently. 3-Partial/Moderate Assistance-helper does LESS THAN HALF the effort. [place] lifts, holds or supports trunk or limbs, but provides less than half the effort. 2-Substantial/Maximal Assistance-helper does MORE THAN HALF the effort. [place] lifts or holds trunk or limbs and provides more than half the effort. 0-Pyksqojml-rbqcsd does ALL the effort. Patient does none of the effort to complete the activity. Or, the assistance of 2 or more helpers is required for the patient to complete the activity. If activity was not attempted, code reason: 7-Patient Refused. 9-Not Applicable-not attempted and the patient did not perform the activity before the current illness, exacerbation or injury. 10-Not Attempted due to Environmental Limitations-(lack of equipment, weather restraints, etc.). 88-Not Attempted due to Medical Conditions or Safety Concerns. Self Care: Needed Some Help Functional Cognition: Needed Some Help DME/Equipment: Bath Chair, Grab Bars, Shower Drive Self: No OT Current Status Subjective responds to majority of questions. She reports that he has pain in L shoulder, no numerical value given. Pt will often look at (to answer) when she does not immediately respond to questions. Appearance Pt left supine in bed, all needs within reach. Mental Status/Objective Patient Orientation: Person, Situation Attachments: Sherman Catheter, IV, Other-See Comments (LUE sling ) Current Glasses/Contacts: Yes Hearing Aids: No Dentures/Partials: No Hand Dominance: Right Upper Extremity Coordination RUE WFL L shoulder not tested secondary to recent shoulder fx L elbow not tested secondary to pain with very limited movement L Hand/wrist WFL Upper Extremity Strength RUE: 3+/5 grossly L metrologist: fair ADL-Treatment Eating (QC): 4 (anticipate assst with bilateral tasks such as cutting) Upper Body Dressing (QC): 1 Lower Body Dressing (QC): 1 On/Off Footwear (QC): 1 (due to only having use of 1 UE.) Toileting Hygiene (QC): 1 (sherman cathter) Pt supine in bed at OT arrival. Sling almost completely off of LUE. Education on correct positioning. Dependent to readjust. His reports that he has been dependent to don/doff UB clothing and sling since fracture. Education/demonstration provided on compensatory techniques and type of clothing to wear to ease task. Per physical therapy, pt was very unsteady on feet and only able to tolerate standing for a brief moment. Per patient's , pt usually requires BUE support on walker to maintain balance. At this time, pt is unable to use LUE for weight bearing and will likely need assist with all standing functional tasks such as clothing management. Pt may benefit from using a shweta walker once LE strength improves. Education OT Patient Education: Correct positioning, Energy conservation, Modified ADL techniques, Purpose of tx/functional activities, Reviewed precautions, Rehab process, Safety issues, Transfer techniques Teaching Recipient: Patient, Family Teaching Methods: Demonstration, Discussion Response to Teaching: Verbalize Understanding, Reinforcement Needed OT Corporate Travel Agent Goals Corporate Travel Agent Goals Time Frame: Nov 25, 2021 Eating (QC): 5 Oral Hygiene (QC): 5 Toileting Hygiene (QC): 3 Shower/Bathe Self (QC): 3 Upper Body Dressing (QC): 3 Lower Body Dressing (QC): 3 1=Demonstrate adherence to instructed precautions during ADL tasks. 2=Patient will verbalize/demonstrate understanding of assistive devices/mo difications for ADL. 3=Patient will improve strength/tolerance for activity to enable patient to perform ADL's. OT Education/Plan Problem List/Assessment Assessment: Decreased Activ Tolerance, Decreased Safety Aware, Decreased UE Strength, Impaired Bed Mobility, Impaired Cognition, Impaired Coordination, Impaired Funct Balance, Impaired Self-Care Skills, Restricted Funct UE ROM Discharge Recommendations Plan/Recommendations: Continue POC Therapy Discharge Recommendati: Post Acute OT Treatment Plan/Plan of Care Treatment,Training & Education: Yes Patient would benefit from OT for education, treatment and training to promote i ndependence in ADL's, mobility, safety and/or upper extremity function for ADL's. Plan of Care: ADL Retraining, Caregiver Training, Cognitive Retraining, Functional Mobility, Group Exercise/Act as Ind, Orthotic Fitting/Training, UE Fu nct Exercise/Act, W/C Management Training Treatment Duration: Nov 25, 2021 Frequency: 3 times per week (3-5x/week) Estimated Hrs Per Day: .25 hour per day Agreement: Yes Rehab Potential: Fair Time/GCodes Start Time: 13:22 Stop Time: 13:37 Total Time Billed (hr/min): 15 Billed Treatment Time 1 visit Lindsey Tate OT Nov 04, 2021 13:44
[2021-11-04] MEDS ORDERED: cefTRIAXone 2,000 MG in NS (IVPB) 50 ML IV SCH (14:00)
[2021-11-04] MEDS: ENOXAPARIN 40 MG/0.4 ML (LOVENOX) SYR SC SCH (18:34)
--- NOTE | 2021-11-04 19:59 | Progress Note - Hospitalist ---
Subjective HPI/CC On Admission Date Seen by Provider: Nov 04, 2021 Time Seen by Provider: 10:00 Caitlyn Negro is an 85 year old male with PMH HTN, CAD, history of prostate cancer, who presented with weakness. He has had multiple falls recently. He had a fall over a week ago and broke his left arm whicih is now in a sling. He has not been eating or drinking much at home. He has been having urinary urgency. He denies headaches. He has had some confusion. He denies lightheadedness and dizziness. He denies chest pain and shortness of breath. Subjective/Events-last exam He is feeling well. He wants to go home. His says he is not getting around well enough to go back home. She wants him to get some rehab before coming back home. He has not worked with therapy yet. He denies pain. He denies confusion. Objective Exam Vital Signs Vital Signs Date Time Temp Pulse Resp B/P (MAP) Pulse Ox O2 Delivery O2 Flow Rate FiO2 11/04/21 19:50 36.7 11/04/21 19:35 97 Room Air 11/04/21 19:00 65 18 158/70 Capillary Refill : Less Than 3 Seconds General Appearance: No Apparent Distress, WD/WN Respiratory: Lungs Clear, No Respiratory Distress Cardiovascular: Regular Rate, Rhythm, No Murmur Gastrointestinal: Normal Bowel Sounds, Soft Extremity: Normal Inspection, Pedal Edema Neurologic/Psychiatric: Alert, Normal Mood/Affect Skin: Normal Color, Warm/Dry Results/Procedures Lab Laboratory Tests 11/03/21 20:20 11/04/21 00:52 11/04/21 04:37 11/04/21 08:14 11/04/21 11:58 11/04/21 16:14 Patient resulted labs reviewed. Imaging: Reviewed Imaging Report Assessment/Plan Assessment and Plan Assess & Plan/Chief Complaint Hyponatremia Na 119 on arrival Likely due to HCTZ, hold Na improved to 125 this morning Transitioned to 1/2 NS overnight Switch back to NS Monitor sodium level closely May need 3% hypertonic saline HTN CAD Hold HCTZ Resume home meds once med rec completed History of prostate cancer Urinary urgency Recommend follow up with PCP Needs to establish with Urology DVT prophylaxis: Lovenox Critical Care Critically Ill Patient Diagnosis/Problems Diagnosis/Problems (1) Hyponatremia Status: Acute (2) Fall on same level Status: Acute (3) Weakness Status: Acute (4) History of prostate cancer Status: Chronic KEKE GREEN MD Nov 04, 2021 19:59
[2021-11-04] MEDS ORDERED: GABAPENTIN 300 MG (NEURONTIN) CAP PO SCH (21:00)
[2021-11-04] MEDS ORDERED: meTOprolol TARTRATE 50 MG (LOPRESSOR) TAB PO SCH (21:00)
[2021-11-04] MEDS ORDERED: GABAPENTIN 300 MG (NEURONTIN) CAP ONE (21:38)
[2021-11-04] MEDS ORDERED: meTOprolol TARTRATE 50 MG (LOPRESSOR) TAB ONE (21:38)
[2021-11-04] MEDS ORDERED: SODIUM CHLORIDE 3% 500 ML IV SCH (23:00)
[2021-11-05 07:55] LABS: HEMATOCRIT 37 % (40-54); HEMOGLOBIN 13.5 g/dL (13.3-17.7); MEAN CORPUSCULAR HEMOGLOBIN 35 pg (25-34); MEAN CORPUSCULAR HGB CONC 37 g/dL (32-36); MEAN CORPUSCULAR VOLUME 96 fL (80-99); MEAN PLATELET VOLUME 8.4 fL (9.0-12.2); PLATELET COUNT 224 10^3/uL (130-400); WHITE BLOOD COUNT 7.7 10^3/uL (4.3-11.0)
[2021-11-05 08:00] LABS: CALCIUM 8.7 MG/DL (8.5-10.1)
[2021-11-05 08:04] LABS: CREATININE SERUM 0.74 MG/DL (0.60-1.30)
[2021-11-05] MEDS: DOCUSATE SODIUM 100 MG (COLACE) CAP PO SCH (08:18)
[2021-11-05] MEDS: SENNOSIDES 8.6 MG (SENOKOT) TAB PO SCH (08:18)
[2021-11-05] MEDS ORDERED: lisINopril 20 MG (PRINIVIL) TABLET PO SCH (09:00)
[2021-11-05] MEDS: OXYBUTYNIN (DITROPAN) 5 MG TAB PO SCH (09:00)
[2021-11-05] MEDS ORDERED: CALCIUM CARBONATE 600 MG (CALCARB) TAB PO SCH (09:00)
[2021-11-05] MEDS ORDERED: meTOprolol TARTRATE 25 MG (LOPRESSOR) TABLET PO SCH (09:00)
[2021-11-05] MEDS ORDERED: ASPIRIN E.C. 81 MG (ECOTRIN) TAB PO SCH (09:00)
[2021-11-05] MEDS ORDERED: CLOPIDOGREL 75 MG (PLAVIX) TABLET PO SCH (09:00)
--- NOTE | 2021-11-05 09:40 | Tele-ICU Progress Note ---
Subjective Date Seen by a Provider: Nov 05, 2021 Time Seen by a Provider: 09:35 Subjective/Events-last exam 85 M fell one wk ago with left humerus Fx, Na found to be 119, Now on 3% saline, last Na 125, No Sz, patient is awake and alert, Does not have central line Sepsis Event Evaluation Height, Weight, BMI Height: 5'10.00" Weight: 220lbs. 4.0oz. 99.611079sx; 29.89 BMI Method:Stated Exam Exam Patient acknowledged, consented, and participated in this virtual visit which was conducted using real time audio/video Vital Signs Date Time Temp Pulse Resp B/P (MAP) Pulse Ox O2 Delivery O2 Flow Rate FiO2 11/05/21 08:00 88 14 91/78 96 Room Air 11/05/21 08:00 95 Room Air 11/05/21 08:00 36.7 11/05/21 07:00 80 24 133/71 92 Room Air 11/05/21 07:00 59 11/05/21 06:00 56 17 128/60 97 Room Air 11/05/21 05:00 62 17 140/67 95 Room Air 11/05/21 04:00 54 17 128/51 97 Room Air 11/05/21 03:50 36.5 Room Air 11/05/21 03:50 95 Room Air 11/05/21 03:00 55 23 112/47 94 Room Air 11/05/21 02:00 56 15 93/45 97 Room Air 11/05/21 01:00 52 11/05/21 01:00 52 15 119/60 98 Room Air 11/05/21 00:00 53 12 125/58 93 Room Air 11/04/21 23:10 98 Room Air 11/04/21 23:10 36.4 Room Air 11/04/21 23:00 64 15 113/99 97 Room Air 11/04/21 22:00 65 22 134/66 97 Room Air 11/04/21 21:42 36.4 11/04/21 21:00 36.4 11/04/21 21:00 62 16 140/52 97 Room Air 11/04/21 20:00 64 18 152/35 97 Room Air 11/04/21 19:50 36.7 11/04/21 19:35 97 Room Air 11/04/21 19:00 36.7 65 18 158/70 97 Room Air 11/04/21 19:00 68 14 158/70 98 Room Air 11/04/21 19:00 68 11/04/21 18:00 75 11 80/65 97 Room Air 11/04/21 17:00 65 10 108/96 97 Room Air 11/04/21 16:00 69 14 127/61 96 Room Air 11/04/21 16:00 Room Air 11/04/21 15:00 67 14 117/74 97 Room Air 11/04/21 14:00 79 18 101/81 97 Room Air 11/04/21 13:00 68 18 107/47 97 Room Air 11/04/21 13:00 68 11/04/21 12:00 76 16 86/54 97 Room Air 11/04/21 12:00 Room Air 11/04/21 11:59 36.7 11/04/21 11:00 84 16 101/51 97 Room Air 11/04/21 10:00 80 14 91/67 95 Room Air I & O 11/05/21 07:00 Intake Total 2555 ml Output Total 2375 ml Balance 180 ml Height & Weight Height: 5'10.00" Weight: 220lbs. 4.0oz. 99.414816cw; 29.89 BMI Method:Stated General Appearance: No Apparent Distress, WD/WN HEENT: PERRL/EOMI, Pharynx Normal Neck: Normal Inspection, Supple Respiratory: Lungs Clear, No Respiratory Distress Cardiovascular: Regular Rate, Rhythm, No Murmur Capillary Refill: Less Than 3 Seconds Gastrointestinal: normal bowel sounds, non tender, soft Extremity: Normal Inspection, No Pedal Edema, Pedal Edema Neurologic/Psychiatric: Alert, Normal Mood/Affect Skin: Normal Color, Warm/Dry Results Lab Laboratory Tests 11/03/21 11:53 11/03/21 18:20 11/03/21 20:20 11/04/21 00:52 11/04/21 04:37 11/04/21 08:14 11/04/21 11:58 11/04/21 16:14 11/04/21 19:42 11/05/21 00:38 11/05/21 07:42 Assessment/Plan Assessment/Plan With Na 125 would stop 3%, and start 0.9 NS @ 100 mL/h WIll speak to attending Dr Quiroz Critical Care: Critically Ill Patient (25) MARGARITA FIGUEROA MD Nov 05, 2021 09:40
[2021-11-05] MEDS ORDERED: SODIUM CHLORIDE 1 GM TABLET PO ONE (10:15)
[2021-11-05] MEDS ORDERED: SODIUM CHLORIDE 1 GM TABLET PO SCH (13:00)
--- NOTE | 2021-11-05 13:43 | Physical Therapy Daily Note ---
PT Daily Note-Current Subjective Pt in bed upon arrival and agrees to PT. Spouse present. Pain Numeric Pain Scale: 5-Moderate Pain Location: Left Location Body Site: Arm Mental Status Patient Orientation: Person, Confused, Time Attachments: [place]ett Catheter, IV Transfers SCALE: Activities may be completed with or without assistive devices. 9-Pugftmnbss-akowpce completes the activity by him/herself with no assistance f rom a helper. 5-Set-up or Clean-up Assistance-helper sets up or cleans up; patient completes activity. [place] assists only prior to or following the activity. 4-Supervision or Touching Assistance-helper provides verbal cues and/or touching/steadying and/or contact guard assistance as patient completes activity. Assistance may be provided throughout the activity or intermittently. 3-Partial/Moderate Assistance-helper does LESS THAN HALF the effort. [place] lifts, holds or supports trunk or limbs, but provides less than half the effort. 2-Substantial/Maximal Assistance-helper does MORE THAN HALF the effort. [place] lifts or holds trunk or limbs and provides more than half the effort. 7-Yemwydjtw-rfuifz does ALL the effort. Patient does none of the effort to complete the activity. Or, the assistance of 2 or more helpers is required for the patient to complete the activity. If activity was not attempted, code reason: 7-Patient Refused. 9-Not Applicable-not attempted and the patient did not perform the activity before the current illness, exacerbation or injury. 10-Not Attempted due to Environmental Limitations-(lack of equipment, weather restraints, etc.). 88-Not Attempted due to Medical Conditions or Safety Concerns. Sit to Lying (QC): 3 Lying to Sitting/Side of Bed(Q: 2 Sit to Stand (QC): 2 Gait Training Does the Patient Walk?: Yes Distance: 5' Gait Persons Needed: 1 Gait Assistive Device: FWW Exercises Supine Ex: Bridging Supine Reps: 10 Treatments TFs from bed and amb 5' pt then very faituged and needs to go back to the bed. Then performs bed mobility. Call light nearby and all needs met as PT departs. Assessment Current Status: Fair Progress Pt becomes fatigued very quickly after taking just a few steps and then needs to sit down. Pt then very fatigued following amb and balance while sitting EOB becomes poor. Pt required frequent verbal and tactile cues for TFs and bed mobility. PT Electrophysiology Tech Goals Care Home Goals PT Electrophysiology Tech Goals Time Frame: Nov 11, 2021 Roll Left & Right (QC): 4 Sit to Lying (QC): 4 Lying-Sitting on Side/Bed(QC): 4 Sit to Stand (QC): 4 Chair/Ghw-wl-Qmstj Xfer(QC): 4 Walk 10 feet (QC): 4 Walk 50ft with 2 Turns (QC): 4 PT Plan Problem List Problem List: Activity Tolerance, Functional Strength, Safety, Transfer Treatment/Plan Treatment Plan: Continue Plan of Care Treatment Plan: Bed Mobility, Education, Functional Activity [place], Functional Strength, Gait, Safety, Therapeutic Exercise, Transfers Treatment Duration: Nov 11, 2021 Frequency: 6 times per week Estimated Hrs Per Day: .25 hour per day Patient and/or Family Agrees t: Yes Safety Risks/Education Patient Education: Transfer Techniques, Reviewed Precautions, Correct Positioning Teaching Recipient: Patient, Family Teaching Methods: Discussion Response to Teaching: Verbalize Understanding Time/GCodes Time In: 0858 Time Out: 921 Total Billed Treatment Time: 24 Total Billed Treatment 1, FA x 2 MILO BOND POULTRY PATHOLOGIST Nov 05, 2021 13:43
[2021-11-05] MEDS ORDERED: AtorvaSTATin TABLET 10 MG TABLET PO SCH (21:00)
--- NOTE | 2021-11-05 21:03 | Discharge Summary ---
Discharge Summary Hospital Course Was the Problem List Reviewed?: Yes Problems/Dx: (1) Hyponatremia Status: Acute (2) Fall on same level Status: Acute (3) Weakness Status: Acute (4) History of prostate cancer Status: Chronic Hospital Course Date of Admission: Nov 03, 2021 at 15:29 Admission Diagnosis : Hyponatremia Family Physician/Provider: Paul Carmen MD Date of Discharge: 11/05/21 Discharge Diagnosis: Hyponatremia Hospital Course: Caitlyn Negro is an 85 year old male who presented after a fall and was admitted with severe hyponatremia. His sodium was 119 on arrival. After over 24 hours on normal saline, his sodium levels had not significantly improved. He was started on 3% hypertonic saline and his sodium levels improved to 125. He was transitioned to salt tabs. He was on a fluid restriction. 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 He had a CT head and chest xray on arrival without any acute abnormalities. He was not on any medications typical for causing SIADH. His HCTZ was stopped. He has a history of prostate cancer and needs to follow up with a Urologist. He has been having urinary urgency, but his UA was negative for infection. He remained debilitated and was transferred to inpatient rehab for ongoing therapy needs. Labs and Pending Lab Test: Laboratory Tests 11/05/21 00:38: Sodium Level 123*L 11/05/21 07:42: Sodium Level 125*L, White Blood Count 7.7, Red Blood Count 3.86L, Hemoglobin 13.5, Hematocrit 37L, Mean Corpuscular Volume 96, Mean Corpuscular Hemoglobin 35H, Mean Corpuscular Hemoglobin Concent 37H, Red Cell Distribution Width 12.8, Platelet Count 224, Mean Platelet Volume 8.4L, Potassium Level 4.0, Chloride Level 94L, Carbon Dioxide Level 25, Anion Gap 6, Blood Urea Nitrogen 8, Creatinine 0.74, Estimat Glomerular Filtration Rate 89, BUN/Creatinine Ratio 11, Glucose Level 86, Calcium Level 8.7 Microbiology 11/03/21 MRSA Screen - Final, Complete MRSA not isolated Home Meds Active Reported Clopidogrel (Clopidogrel Bisulfate) 75 Mg Tablet 75 Mg PO DAILY Calcium Carbonate 600 Mg Calcium (1500 Mg) Tablet 600 Mg PO DAILY Aspirin EC (Aspirin) 81 Mg Tablet.dr 81 Mg PO DAILY Neurontin (Gabapentin) 300 Mg Capsule 600 Mg PO HS TAKES 2 (300MG) CAPS Atorvastatin Calcium 20 Mg Tablet 5 Mg PO HS TAKES OF A 20MG TAB Hydrochlorothiazide 25 Mg Tablet 12.5 Mg PO DAILY TAKES OF A 25MG TAB Lisinopril 40 Mg Tablet 20 Mg PO DAILY TAKES OF A 40MG TAB Metoprolol Tartrate 50 Mg Tablet 25 Mg PO BID TAKES OF A 50MG TAB Fish Oil 1,200 mg Softgel ([place]-3/Dha/Epa/Fish Oil) 1,200 Mg Capsule 1,200 Mg PO DAILY Multivitamin 1 Each Tablet 1 Each PO DAILY Assessment/Pt Instructions Transferred to inpatient rehab Discharge Planning: >30 minutes discharge planning Discharge Instructions Discharge Diet: Low Sodium Diet Activity as Tolerated: Yes Discharge Physical Examination Vital Signs Vital Signs Date Time Temp Pulse Resp B/P (MAP) Pulse Ox O2 Delivery O2 Flow Rate FiO2 11/05/21 12:00 90 25 129/73 Room Air 11/05/21 12:00 95 11/05/21 08:00 36.7 General Appearance: No Apparent Distress, WD/WN Respiratory: Lungs Clear, No Respiratory Distress Cardiovascular: Regular Rate, Rhythm, No Murmur Gastrointestinal: Normal Bowel Sounds, Soft Extremity: Normal Inspection, No Pedal Edema Skin: Normal Color, Warm/Dry Neurologic/Psychiatric: Alert, Normal Mood/Affect, Motor Weakness Allergies: Coded Allergies: Sulfa (Sulfonamide Antibiotics) (Unverified Allergy, Unknown, 12/20/13) Copy Copies To 1: PAUL CARMEN MD Discharge Summary Date of Admission Nov 03, 2021 at 15:29 Date of Discharge Nov 05, 2021 at 13:59 Discharge Date: Nov 05, 2021 Discharge Time: 13:59 Admission Diagnosis Hyponatremia Consults/Procedures Consulations TeleICU Discharge Diagnosis Hyponatremia HTN CAD History of prostate cancer (1) Hyponatremia Status: Acute (2) Fall on same level Status: Acute (3) Weakness Status: Acute (4) History of prostate cancer Status: Chronic KEKE GREEN MD Nov 05, 2021 21:02
== END 2021-11-05 13:59 | DRG 641 ==
LOC: EDUNIT# 11:24 → ER 11:26 → ICU 13:21 → UNDOADMIN 13:21 → ICU 15:29
PROVIDERS: ADMIT Internal Medicine; ATTEND Internal Medicine
DX: E87.1 Hypo-osmolality and hyponatremia (principal); R53.1 Weakness; Z85.46 Personal history of malignant neoplasm of prostate; I10 Essential (primary) hypertension; I25.10 Atherosclerotic heart disease of native coronary artery without angina pectoris; R39.15 Urgency of urination; I73.9 Peripheral vascular disease, unspecified; G62.9 Polyneuropathy, unspecified; Z95.5 Presence of coronary angioplasty implant and graft; E78.00 Pure hypercholesterolemia, unspecified; M19.90 Unspecified osteoarthritis, unspecified site; Z85.828 Personal history of other malignant neoplasm of skin; Z92.3 Personal history of irradiation; Z20.822 Contact with and (suspected) exposure to COVID-19
CPT/HCPCS: 36415; 51702; 70450; 71045; 74177; 80048; 80053; 81000; 82436; 83690; 83735; 83880; 83930; 83935; 84100; 84133; 84295; 84300; 84484; 85025; 85027; 86141; 87081; 87636; 93005

== ENCOUNTER → 2021-11-03 | Outpatient (CLI) | payer MEDICARE, OTHER ==
[~2021-11-03] MED LIST changes: +CALC600T80 PO
--- NOTE | 2021-11-03 11:01 | Diagnostic Imaging Report ---
INDICATION: Left shoulder fracture, follow-up. Time of Exam: 10:42 AM Correlation is made with prior radiographs from 10/23/2021. The fracture involving the neck of the humerus is again noted. There is also a fracture involving the greater tuberosity. No significant displacement is seen. Overall alignment is anatomic. Glenohumeral and acromioclavicular alignment are maintained. No significant callus formation is seen. IMPRESSION: Proximal humerus fracture, as described. Fracture lines remain clearly visible without significant callus formation. Overall alignment is anatomic. Dictated by: Dictated on workstation # [id number]
== END ==
LOC: ORTHO 10:31
PROVIDERS: ATTEND Orthopaedic Surgery
DX: S42.225D 2-part nondisplaced fracture of surgical neck of left humerus, subsequent encounter for fracture with routine healing (principal); X58.XXXD Exposure to other specified factors, subsequent encounter
CPT/HCPCS: 73030; G0463; 99202

== ENCOUNTER 2021-11-05 10:29 | Inpatient (IN) | payer MEDICARE, OTHER ==
[~2021-11-05] VITALS: Ht 177.8 cm; Wt 94.7 kg
[~2021-11-05 10:29] MED LIST changes: +CALC600T80 PO
--- NOTE | 2021-11-05 11:53 | PM&R Post Admission Assessment ---
PM&R HP Date of Visit: Nov 05, 2021 Time of Visit: 14:00 History of Present Illness CC: Debility from hyponatremia and left humerus fracture HPI: This is an 85 yr old male clinic pt of Dr. Smith and Dr. Ortiz cardiology. Pt presented to the hospital with severe hyponatremia, with a sodium level of 120. Pt also suffered a fall sustaining left humerus fracture. At this current time he presented to in-patient rehab for aggressive rehabilitation, fluid restriction, salt tablets, and monitoring closely. at bedside. Has urinary retention so will start on bladder meds abd keep sherman in for now. Received Rocephin empirically but UA normal. Past Ucixnaj-Aatbnp-Sserlf Hx Past Med/Social Hx: Reviewed Nursing Past Med/Soc Hx, Reviewed and Corrections made Patient Social History Marrital Status: Employed/Student: retired Alcohol Use: Occasionally Uses Alcohol Beverage of Choice: Beer Smoking Status: Never a Smoker Former Smoker, Quit: Feb 20, 1988 Type Used: Cigarettes Recent Hopitalizations: No Immunizations Up To Date Tetanus Booster (TDap): Unknown Pediatric: Yes Date of Pneumonia Vaccine: Jan 01, 2014 Date of Influenza Vaccine: Dec 17, 2020 Seasonal Allergies Seasonal Allergies: No Past Medical History Surgeries: Abdominal, Appendectomy, Cardiac, Coronary Stent, Gallbladder, Prostatectomy Currently Using CPAP: No Currently Using BIPAP: No Cardiac: Coronary Artery Disease, High Cholesterol, Hypertension Neurological: Neuropathy Sexually Transmitted Disease: No HIV/AIDS: No Genitourinary: Prostate Problems Gastrointestinal: Abdominal Hernia Musculoskeletal: Arthritis, Fractures Cancer: Prostate, Skin Did You Recieve Any Treatments: Yes What Type of Treatment Did You: Radiation, Surgical Intervention History of Blood Disorders: No Adverse Reaction to Blood Mckeon: No Family History Glaucoma G8 BROTHER No Family History of: AIDS Abdominal aortic aneurysm Gabe's disease Alcoholism Aphasia Arthritis Asthma Cancer of mouth Cardiovascular disease Cataracts Colon cancer Completed stroke Congenital disease Congenital heart disease Coronary thrombosis Cystic fibrosis Deafness or hearing loss Dementia Diabetes mellitus Drug abuse Dysphasia Fibrocystic disease of breast Gastroenteritis Headache disorder Hypercholesterolemia Hypertension Infertility Kidney disease Myocardial infarction Neoplasm Not obtainable due to adoption Osteoporosis Parkinson's disease Prostate cancer Psychosocial problem Respiratory disorder Seizure disorder Severe allergy Thyroid disease Tuberculosis Visual disorder No Pertinent Family Hx PM&R Allergy/Meds/Data Review Allergies Coded Allergies: Sulfa (Sulfonamide Antibiotics) (Unverified Allergy, Unknown, 12/20/13) Home Medications Scheduled Aspirin (Aspirin EC), 81 MG PO DAILY, (Reported) Atorvastatin Calcium (Atorvastatin Calcium), 5 MG PO HS, (Reported) Calcium Carbonate (Calcium Carbonate), 600 MG PO DAILY, (Reported) Clopidogrel Bisulfate (Clopidogrel), 75 MG PO DAILY, (Reported) Gabapentin (Neurontin), 600 MG PO HS, (Reported) Hydrochlorothiazide (Hydrochlorothiazide), 12.5 MG PO DAILY, (Reported) Lisinopril (Lisinopril), 20 MG PO DAILY, (Reported) Metoprolol Tartrate (Metoprolol Tartrate), 25 MG PO BID, (Reported) Multivitamin (Multivitamin), 1 EACH PO DAILY, (Reported) [place]-3/Dha/Epa/Fish Oil (Fish Oil 1,200 mg Softgel), 1,200 MG PO DAILY, (Reported) Discontinued Medications Calcium Carbonate/Vitamin D3 (Calcium 600 + Vit D Tablet), 1 EACH PO DAILY, (Reported) Discontinued Reason: Prescription changed Cephalexin (Cephalexin), 500 MG PO TID Discontinued Reason: Duplicate Order Clopidogrel Bisulfate (Clopidogrel), 75 MG PO DAILY Discontinued Reason: Duplicate Order Hydrocodone/Acetaminophen (Hydrocodone-Acetamin 5-325 mg), 0.5-1 TAB PO Q4H PRN for PAIN-MODERATE (5-7) Discontinued Reason: No Longer Taking Current Medications Current Medications Reviewed Review of Systems Constitutional: see HPI, malaise, weakness EENTM: no symptoms reported Respiratory: no symptoms reported Cardiovascular: no symptoms reported Gastrointestinal: no symptoms reported Genitourinary: other (retention) Musculoskeletal: back pain, joint pain Skin: no symptoms reported Psychiatric/Neurological: Anxiety, Depressed All Other Systems Reviewed Negative Unless Noted: Yes Physical Exam Physical Exam Vital Signs Capillary Refill : Height, Weight, BMI Height: 5'10.00" Weight: 220lbs. 4.0oz. 99.007228kv; 29.89 BMI Method:Stated General Appearance: No Apparent Distress, WD/WN, Chronically ill Eyes: Bilateral Eye Normal Inspection, Bilateral Eye PERRL HEENT: PERRL/EOMI, Normal ENT Inspection, Pharynx Normal Neck: Full Range of Motion, Normal Inspection, Non Tender, Supple, Carotid Bruit Respiratory: Chest Non Tender, Lungs Clear, Normal Breath Sounds, No Accessory Muscle Use, No Respiratory Distress Cardiovascular: Regular Rate, Rhythm, No Edema, No Gallop, No JVD, No Murmur, Normal Peripheral Pulses Gastrointestinal: Normal Bowel Sounds, No Organomegaly, No Pulsatile Mass, Non Tender, Soft Back: Normal Inspection, No CVA Tenderness, No Vertebral Tenderness Extremity: Normal Capillary Refill, Normal Inspection, Normal Range of Motion (except right arm in sling), Non Tender, No Calf Tenderness, No Pedal Edema Neurologic/Psychiatric: Alert, Oriented x3, No Motor/Sensory Deficits, Normal Mood/Affect, Motor Weakness (generalized) Skin: Normal Color, Warm/Dry Lymphatic: No Adenopathy PM&R Medical Assessment & Plan REHAB/MEDICAL ASSESSMENT AND PLAN: REHAB IMPAIRMENT GROUP: Hyponatremia with left humerus fracture ETIOLOGIC DIAGNOSIS: Hyponatremia with left humerus fracture The comorbidities that impact the patients function and/or functional outcome by: left arm in sling, fall risk, hyponatremia, CAD, urinary retention REHAB PLAN: The patient is being admitted to our comprehensive inpatient rehabilitation facility and can tolerate the intensity of service consisting of at least: 180 minutes of therapy a day, 5 out of 7 days a week Rehab treatment will consist of: PT OT will focus on regaining function in order to return back to independent living The patient/family has a good understanding of our discharge process and will benefit from an interdisciplinary inpatient rehabilitation program. The patient has potential to make improvement and is in need of at least two of the following multidisciplinary therapies including but not limited to physical, occupational, speech, and prosthetics and orthotics. Additionally the patient will need services from respiratory, nutritional services, wound care, psychology, etc. (Customize this to each patient). Given the patients complex condition and risk of further medical complications, rehabilitation services cannot be safely or effectively provided at a lower level of care such as a jail facility. BARRIERS TO DISCHARGE: Urinary retention with left arm in sling ESTIMATED LOS: 7 days DISPOSITION: Home RELEVANT CHANGES SINCE PREADMISSION SCREENING: I have compared the patients medical and functional status at the time of the preadmission screening and there are: no changes PROGNOSIS: Good REHABILITATION GOALS: 1.PT OT will focus on regaining function in order to return back to independent living All the above goals were reviewed with the patient and he/she is in agreement. By signing this document, I acknowledge that I have personally performed a full physical examination on this patient within 24 hours of admission to this inpatient rehabilitation facility and have determined the patient to be able to tolerate the above course of treatment at an intensive level for a reasonable period of time. I will be completing a detailed individualized Plan of Care for this patient by day #4 of the patients stay based upon the Preadmission Screen, the Post-Admission Evaluation, and the therapy evaluations. Admission Dx/Comorbidities: (1) Weakness Status: Acute ICD Codes: R53.1 - Weakness (2) CAD (coronary artery disease) ICD Codes: I25.10 - Atherosclerotic heart disease of [place] coronary artery w ithout angina pectoris (3) Sherman catheter in place ICD Codes: Z97.8 - Presence of other specified devices (4) Fall on same level Status: Acute ICD Codes: W18.30XA - Fall on same level, unspecified, initial encounter (5) Hyponatremia Status: Acute ICD Codes: E87.1 - Hypo-osmolality and hyponatremia (6) Urinary retention ICD Codes: R33.9 - Retention of urine, unspecified (7) History of prostate cancer Status: Chronic ICD Codes: Z85.46 - Personal history of malignant neoplasm of prostate (8) Closed left humeral fracture Status: Acute ICD Codes: S42.302A - Unspecified fracture of shaft of humerus, left arm, initial encounter for closed fracture (9) Multiple abrasions Status: Acute ICD Codes: T07.XXXA - Unspecified multiple injuries, initial encounter Assessment/Plan Assessment and Plan Assess & Plan/Chief Complaint Assessment: Fall Debility Left humerus fracture no surgery required placed in sling Urinary retention Sherman cath in place started bladder meds Hyponatremia placed on salt tablets and fluid restriction HTN HLP h/o Prostate cancer Plan: IRF protocol Bladder meds DC sherman soon Home meds ARIA ALEMAN DO Nov 05, 2021 11:53
[2021-11-05] MEDS ORDERED: LOPERAMIDE 2 MG (IMODIUM) TABLET PO PRN (12:00)
[2021-11-05] MEDS ORDERED: LACTULOSE SYRUP 10GM/15ML (ENULOSE) 30ML UDC PO PRN (12:00)
[2021-11-05] MEDS ORDERED: guaiFENesin/CODEINE (ROBITUSSIN AC) 10ML UDC PO PRN (12:00)
[2021-11-05] MEDS ORDERED: DOCUSATE SODIUM 100 MG (COLACE) CAP PO PRN (12:00)
[2021-11-05] MEDS ORDERED: diphenhydrAMINE 25 MG TAB (BENADRYL) PO PRN (12:00)
[2021-11-05] MEDS ORDERED: CALCIUM CARBONATE 500 MG (TUMS) TAB.CHEW PO PRN (12:00)
[2021-11-05] MEDS ORDERED: BISACODYL 10 MG SUPP (DULCOLAX) PR PRN (12:00)
[2021-11-05] MEDS ORDERED: ALPRAZolam 0.25 MG (XANAX) TAB PO PRN (12:00)
[2021-11-05] MEDS ORDERED: FLEET ENEMA ADULT 1 EA BTL PR PRN (12:00)
[2021-11-05] MEDS ORDERED: ONDANSETRON 4 MG (ZOFRAN) ORAL DISSOLVE TAB PO PRN (12:00)
[2021-11-05 13:00] VITALS: BP 130/69
--- NOTE | 2021-11-05 13:56 | Physical Therapy Evaluation ---
PT Evaluation-General Medical Diagnosis Admission Date Nov 05, 2021 at 13:38 Medical Diagnosis: debility, humerus fx Onset Date: Nov 03, 2021 Therapy Diagnosis Therapy Diagnosis: impaired mobility Height/Weight Height (Feet): 5 Height (Inches): 10.00 Weight (Pounds): 220 Weight (Ounces): 4.0 Referral Physician: Aurelia Cruz DO Reason for Referral: Evaluation/Treatment Medical History Pertinent Medical History: CAD, HTN, Neuropathy Additional Medical History Past Medical History Surgeries: Abdominal, Appendectomy, Cardiac, Coronary Stent, Gallbladder, Prostatectomy Pneumonia Currently Using CPAP: No Currently Using BIPAP: No Coronary Artery Disease, High Cholesterol, Hypertension Neuropathy Sexually Transmitted Disease: No HIV/AIDS: No Prostate Problems Abdominal Hernia Arthritis, Fractures Prostate, Skin Did You Recieve Any Treatments: Yes What Type of Treatment Did You: Radiation, Surgical Intervention Blood Disorders: No Adverse Reaction/Blood Tranf: No Reviewed History: Yes Reviewed History: Yes Social History Current Living Status: Spouse Entry Into Home: Stairs With Railing PT Steps Into Home: 3 Prior Prior Level of Function SCALE: Activities may be completed with or without assistive devices. 7-Wbaweekwdb-xksvesm completes the activity by him/herself with no assistance from a helper. 5-Set-up or Clean-up Assistance-helper sets up or cleans up; patient completes activity. [place] assists only prior to or following the activity. 4-Supervision or Touching Assistance-helper provides verbal cues and/or touching/steadying and/or contact guard assistance as patient completes activity. Assistance may be provided throughout the activity or intermittently. 3-Partial/Moderate Assistance-helper does LESS THAN HALF the effort. [place] lifts, holds or supports trunk or limbs, but provides less than half the effort. 2-Substantial/Maximal Assistance-helper does MORE THAN HALF the effort. [place] lifts or holds trunk or limbs and provides more than half the effort. 0-Tesgzxdxk-wpjdfe does ALL the effort. Patient does none of the effort to complete the activity. Or, the assistance of 2 or more helpers is required for the patient to complete the activity. If activity was not attempted, code reason: 7-Patient Refused. 9-Not Applicable-not attempted and the patient did not perform the activity before the current illness, exacerbation or injury. 10-Not Attempted due to Environmental Limitations-(lack of equipment, weather restraints, etc.). 88-Not Attempted due to Medical Conditions or Safety Concerns. Bed Mobility: 6 Transfers (B,C,W/C): 6 Gait: 6 Stairs: 6 Indoor Mobility (Ambulation): Independent Stairs: Independent Prior Devices Use: Walker PT Evaluation-Current Subjective Patient in bed pre tx, agrees to PT, has 6-7/10 pain in left shoulder, nurse notified. Will be co-treating with OT for part of tx due to poor patient mobility, strength, endurance, severe debility, coordinate UE and LE during activity, safety and reduce risk of falls. Pt/Family Goals to be independent at home Objective Patient Orientation: Person, Place, Situation arm sling left side ROM/Strength ROM Lower Extremities WNL Strength Lower Extremities LLE (hip flexion 3/5, knee flexion 4-/5, knee extension 4-/5, dorsiflexion 3+/5), RLE (hip flexion 3/5, knee flexion 4-/5, knee extension 4-/5, dorsiflexion 3+/5) Sensory Vision: Wears Glasses Sensation Right Lower Extremit: Impaired Sensation Left Lower Extremity: Impaired Transfers Roll Left & Right (QC): 3 Sit to Lying (QC): 3 Lying to Sitting/Side of Bed(Q: 3 Sit to Stand (QC): 3 Chair/Yep-bu-Zngpi Xfer(QC): 4 Toilet Transfer (QC): 4 Car Transfer (QC): 3 Patient performs rolling and supine <-> sit with min assist, sit <-> stand min assist, transfers CGA, car transfer min assist. Patient needs frequent cues for hand placement and positioning. Gait Does the Patient Walk?: Yes Mode of Locomotion: Walk Anticipated Mode of Locomotion: Walk Walk 10 feet (QC): 88 Walk 50 ft with 2 Turns(QC): 88 Walk 150 ft (QC): 88 Walking 10ft/uneven surface-QC: 88 Distance: 6' Gait Assistive Device: Walker Erich Comments/Gait Description Patient ambulated 6' with a hemiwalker with min assist, he is fairly unsteady during ambulation and needs some assist with balance, needs cues for foot placement, slumped posture Wheelchair Training Wheel 50 ft with 2 turns (QC): 10 Wheel 150 ft (QC): 10 Stairs 1 Step (curb) (QC): 88 4 Steps (QC): 88 12 Steps (QC): 88 Balance Sitting Static: Normal Sitting Dynamic: Normal Standing Static: Poor Standing Dynamic: Poor Picking up an Object (QC): 88 Treatment Patient also performed bathing and dressing. PT performed bed mobility and transfers, ambulation, standing and positioning during bathing and dressing, OT performed bathing, dressing, UE positioning and safety during activity. Assessment/Needs Patient in WC post tx, will be working with OT and a PARIMUTUEL TICKET SELLER at this time. Patient has impaired mobility, strength, endurance. Patient is very unsteady on his feet and needs assist with balance during ambulation. Rehab Potential: Fair PT Short Term Goals Short Term Goals Time Frame: Nov 12, 2021 Roll Left & Right: 4 (CGA) Sit to lyin (CGA) Lying to sitting on side of be: 4 (CGA) Sit to stand: 4 (CGA) Walk 10 feet: 4 (CGA) Walk 50 feet with two turns: 4 (CGA) PT Alf Goals Alf Goals PT Alf Goals Time Frame: Nov 26, 2021 Roll Left & Right (QC): 6 Sit to Lying (QC): 6 Lying-Sitting on Side/Bed(QC): 6 Sit to Stand (QC): 4 (SBA) Chair/Djc-ma-Gwqng Xfer(QC): 4 (SA) Toilet Transfer (QC): 4 (SBA) Car Transfer (QC): 4 (SBA) Does the Patient Walk: Yes Walk 10 feet (QC): 4 (SBA) Walk 50ft with 2 Turns (QC): 4 (SBA) Walk 150 ft (QC): 4 (SBA) Walking 10ft on Uneven Surface: 4 (SBA) 1 Step (curb) (QC): 4 (SBA) 4 Steps (QC): 4 (SBA) 12 Steps (QC): 88 Picking up an Object (QC): 4 (CGA using hostess cashier) Wheel 50 feet with 2 turns (QC: 9 Wheel 150 feet: 9 PT Plan Problem List Problem List: Activity Tolerance, Functional Strength, Safety, Balance, Gait, Transfer, Bed Mobility, ROM Treatment/Plan Treatment Plan: Continue Plan of Care Treatment Plan: Bed Mobility, Education, Functional Activity [place], Functional Strength, Group Therapy, Gait, Safety, Therapeutic Exercise, Transfers Treatment Duration: Nov 26, 2021 Frequency: At least 5 of 7 days/Wk (IRF) Estimated Hrs Per Day: 1.5 hours per day Patient and/or Family Agrees t: Yes Safety Risks/Education Patient Education: Gait Training, Transfer Techniques, Correct Positioning, Safety Issues Teaching Recipient: Patient Teaching Methods: Demonstration, Discussion Response to Teaching: Reinforcement Needed Discharge Recommendations Plan Patient will perform bed mobility and transfer training, balance and endurance training, functional strengthening, stair training, gait training, and education, to improve functional mobility and independence at home. Therapy Discharge Recommendati: Scheduled Assistance, Home & Family, Post Acute PT Time/GCodes Time In: 1305 Time Out: 1340 Total Billed Treatment Time: 25 Total Billed Treatment 1 visit EVM 10' FA 15' PT eval from [id number], OT eval from [id number], co-treat from [id number] BRENDA LEVIN PT Nov 05, 2021 13:56
--- NOTE | 2021-11-05 13:56 | ST Cognitive Linguistic Eval ---
Speech Evaluation-General Medical History Pertinent Medical History: CAD, HTN, Neuropathy JESSICA EDWARDS Nov 05, 2021 13:56
[2021-11-05] MEDS ORDERED: BETHANECHOL 25 MG (URECHOLINE) TAB PO ONE (14:30)
[2021-11-05] MEDS: ACETAMINOPHEN 325 MG TABLET PO PRN ×2 (14:33→21:02)
--- NOTE | 2021-11-05 14:46 | Occupational Therapy Eval ---
OT Evaluation-General/PLF Medical Diagnosis Admission Date Nov 05, 2021 at 13:38 Medical Diagnosis: debility, humerus fx Onset Date: Nov 03, 2021 Therapy Diagnosis Therapy Diagnosis: reduced adl status Height/Weight Height (Feet): 5 Height (Inches): 10.00 Weight (Pounds): 220 Weight (Ounces): 4.0 Precautions Precautions/Isolations: Fall Prevention, Standard Precautions Referral Physician: Aurelia Cruz DO Referral Reason: Evaluation/Treatment Medical History Pertinent Medical History: CAD, HTN, Neuropathy Current History Pt presents to ER with weakness. Found to have hyponetremia. He had a fall ~1 week prior resulting in a L shoulder fx. Per family, pt is to remain in sling and is not a candidate for surgery. Unknown WB status, thus therapy will treat as NWB at this time. Per , pt is unsteady at baseline secondary to neuropathy and weakness. He required assistance with transferring in/out of shower and "sometimes" (depending on day) need assist with LB dressing. Since fall, he has been dependent for adls. does all iadls. Pt uses a walker at baseline. Reviewed History: Yes Social History Home: Multilevel (Pt remains on main level ) Current Living Status: Spouse Entry Into Home: Stairs With Railing Steps Into Home: 3 ADL-Prior Level of Function SCALE: Activities may be completed with or without assistive devices. 9-Kbnrnyhrhz-kpnxduy completes the activity by him/herself with no assistance from a helper. 5-Set-up or Clean-up Assistance-helper sets up or cleans up; patient completes activity. [place] assists only prior to or following the activity. 4-Supervision or Touching Assistance-helper provides verbal cues and/or touching/steadying and/or contact guard assistance as patient completes activity. Assistance may be provided throughout the activity or intermittently. 3-Partial/Moderate Assistance-helper does LESS THAN HALF the effort. [place] lifts, holds or supports trunk or limbs, but provides less than half the effort. 2-Substantial/Maximal Assistance-helper does MORE THAN HALF the effort. [place] lifts or holds trunk or limbs and provides more than half the effort. 4-Fauwtrgnh-huuixd does ALL the effort. Patient does none of the effort to complete the activity. Or, the assistance of 2 or more helpers is required for the patient to complete the activity. If activity was not attempted, code reason: 7-Patient Refused. 9-Not Applicable-not attempted and the patient did not perform the activity before the current illness, exacerbation or injury. 10-Not Attempted due to Environmental Limitations-(lack of equipment, weather restraints, etc.). 88-Not Attempted due to Medical Conditions or Safety Concerns. Self Care: Needed Some Help Functional Cognition: Needed Some Help DME/Equipment: Bath Chair, Grab Bars, Shower OT Current Status Subjective Pt rates pain 7/10 in R shoulder. RN notified. Appearance Pt left supine in bed, all needs within reach, RN in room at end of treatment. Mental Status/Objective Patient Orientation: Person, Place, Situation Attachments: Burnett Catheter, Telemetry Current Glasses/Contacts: Yes Hearing Aids: No Dentures/Partials: No Hand Dominance: Right Upper Extremity ROM RUE WFL L shoulder not tested secondary to recent shoulder fx L elbow not tested secondary to pain with very limited movement L Hand/wrist: WFL Upper Extremity Strength RUE: 3+/5 grossly L car ferry master: fair ADL-Treatment Eating (QC): 4 Oral Hygiene (QC): 4 Shower/Bathe Self (QC): 1 Upper Body Dressing (QC): 2 Lower Body Dressing (QC): 1 On/Off Footwear (QC): 1 Toileting Hygiene (QC): 1 (Pt able to reach back devendra area, however wipes once and reports "I'm good." Significant amount of stool still present. Max a to clean.) With unsupported sitting, pt requires UE support to maintain sitting balance. Thus, Sponge bath performed at w/c level (for trunk support). Cues for shweta technique when washing R axilla. Assist still needed for thoroughness post cues. Min a to minimally abduct L arm in order to wash L axilla. Pt able to wash down to mid calf, assist to wash down to feet secondary to poor flexibility. Mod a x1 to stand and maintain balance as second person washed buttocks/devendra care. Very poor standing tolerance with pt only able to tolerate standing for ~20 seconds. Poor posture in standing, several cues for trunk/hip extension. Clothing donned seated in w/c. Post cues for compensatory method, pt still needing max a to don UB clothing. Assist needed to thread LUE, bring overhead, and thread RUE. Dependent to don LUE sling. Very little effort when donning LB clothing over feet. After one failed attempt, pt politely refuses to attempt again. Dependent for clothing management due to needing assist x2. Post cues, pt was able to untwist toothpaste lid and apply to toothbrush without physical assistance. Other Treatments Pt performed several sit<>stands with mod a. Several reminders on correct hand placement and brake management on w/c. Pt with very poor standing tolerance. Often initiates sitting, requires cues for safety. Pt only able to take 4-6 steps at a time, very unsteady. Poor safety with shweta walker, cues/assist for management. He propelled w/c throughout unit, several cues on improved propulsion, safety, object avoidance, and body awareness (pt often bumping R or L arm when turning corners). Education OT Patient Education: Correct positioning, Energy conservation, Modified ADL techniques, Progress toward Goal/Update tx plan, Purpose of tx/functional activities, Reviewed precautions, Rehab process, Safety issues, Transfer techniques, W/C management Teaching Recipient: Patient Teaching Methods: Demonstration, Discussion Response to Teaching: Verbalize Understanding, Return Demonstration, Reinforcement Needed OT Short Term Goals Short Term Goals Time Frame: Nov 19, 2021 Eatin Oral hygiene: 5 Toileting hygiene: 2 Shower/bathe self: 3 Upper body dressin Lower body dressin Putting on/taking off footwear: 2 OT Group Home Goals Group Home Goals Time Frame: Nov 26, 2021 Eating (QC): 5 Oral Hygiene (QC): 5 Toileting Hygiene (QC): 4 Shower/Bathe Self (QC): 4 Upper Body Dressing (QC): 4 Lower Body Dressing (QC): 3 On/Off Footwear (QC): 3 1=Demonstrate adherence to instructed precautions during ADL tasks. 2=Patient will verbalize/demonstrate understanding of assistive devices/modifications for ADL. 3=Patient will improve strength/tolerance for activity to enable patient to perform ADL's. OT Education/Plan Problem List/Assessment Assessment: Decreased Activ Tolerance, Decreased Safety Aware, Decreased UE Strength, Impaired Bed Mobility, Impaired Cognition, Impaired Coordination, Impaired Funct Balance, Impaired Self-Care Skills, Restricted Funct UE ROM Discharge Recommendations Plan/Recommendations: Continue POC Therapy Discharge Recommendati: Post Acute OT Equpiment Recommendations-D/C: Toilet Riser with Rails, Binder Coverstitch Treatment Plan/Plan of Care Treatment,Training & Education: Yes Patient would benefit from OT for education, treatment and training to promote independence in ADL's, mobility, safety and/or upper extremity function for ADL's. Plan of Care: ADL Retraining, Caregiver Training, Cognitive Retraining, Concurrent Therapy, Functional Mobility, Group Exercise/Act as Ind, Orthotic Fitting/Training, UE Funct Exercise/Act, W/C Management Training Treatment Duration: Nov 26, 2021 Frequency: At least 5 of 7 days/Wk (IRF) Estimated Hrs Per Day: 1.5 hours per day (75-90 min/day) Agreement: Yes Rehab Potential: Fair Time/GCodes Start Time: 13:15 Stop Time: 14:45 Total Time Billed (hr/min): 90 Billed Treatment Time 1 visit EVH (10 min) ADL x3 (50 min) FA x2 (30 min) Lindsey Sykes OT Nov 05, 2021 14:46
--- NOTE | 2021-11-05 15:35 | Physical Therapy Daily Note ---
PT Daily Note-Current Subjective Pt agrees to PT/OT cotreat. Will be co-treating with OT for part of tx due to poor patient mobility, strength, endurance, severe debility, coordinate UE and LE during activity, safety and reduce risk of falls. Pain Numeric Pain Scale: 7 Location: Left Location Body Site: Shoulder Mental Status Patient Orientation: Person Transfers SCALE: Activities may be completed with or without assistive devices. 4-Wdfsnkzkgq-luprggc completes the activity by him/herself with no assistance from a helper. 5-Set-up or Clean-up Assistance-helper sets up or cleans up; patient completes activity. [place] assists only prior to or following the activity. 4-Supervision or Touching Assistance-helper provides verbal cues and/or touching/steadying and/or contact guard assistance as patient completes a ctivity. Assistance may be provided throughout the activity or intermittently. 3-Partial/Moderate Assistance-helper does LESS THAN HALF the effort. [place] lifts, holds or supports trunk or limbs, but provides less than half the effort. 2-Substantial/Maximal Assistance-helper does MORE THAN HALF the effort. [place] lifts or holds trunk or limbs and provides more than half the effort. 4-Fykgryimh-ihcjub does ALL the effort. Patient does none of the effort to complete the activity. Or, the assistance of 2 or more helpers is required for the patient to complete the activity. If activity was not attempted, code reason: 7-Patient Refused. 9-Not Applicable-not attempted and the patient did not perform the activity before the current illness, exacerbation or injury. 10-Not Attempted due to Environmental Limitations-(lack of equipment, weather restraints, etc.). 88-Not Attempted due to Medical Conditions or Safety Concerns. Sit to Lying (QC): 3 Sit to Stand (QC): 3 Gait Training Does the Patient Walk?: Yes Distance: 5' x 2 Gait Persons Needed: 1 Gait Assistive Device: FWW Pt only able to take 4-6 steps at a time, very unsteady. Treatments Call light and all needs met as PT departs. Nursing present. Assessment Current Status: Fair Progress Very poor standing tolerance with pt only able to tolerate standing for ~20 seconds. Poor posture in standing, several cues for trunk/hip extension. Pt performed several sit<>stands with mod a. Several reminders on correct hand placement and brake management on w/c. Pt with very poor standing tolerance. Often initiates sitting, requires cues for safety. He propelled w/c throughout unit, several cues on improved propulsion, safety, object avoidance, and body awareness (pt often bumping R or L arm when turning corners). PT Short Term Goals Short Term Goals Time Frame: Nov 12, 2021 Roll Left & Right: 4 (CGA) Sit to lyin (CGA) Lying to sitting on side of be: 4 (CGA) Sit to stand: 4 (CGA) Walk 10 feet: 4 (CGA) Walk 50 feet with two turns: 4 (CGA) PT Usp Goals Usp Goals PT Usp Goals Time Frame: Nov 26, 2021 Roll Left & Right (QC): 6 Sit to Lying (QC): 6 Lying-Sitting on Side/Bed(QC): 6 Sit to Stand (QC): 4 (SBA) Chair/Nkc-qs-Atpwc Xfer(QC): 4 (SA) Toilet Transfer (QC): 4 (SBA) Car Transfer (QC): 4 (SBA) Does the Patient Walk: Yes Walk 10 feet (QC): 4 (SBA) Walk 50ft with 2 Turns (QC): 4 (SBA) Walk 150 ft (QC): 4 (SBA) Walking 10ft on Uneven Surface: 4 (SBA) 1 Step (curb) (QC): 4 (SBA) 4 Steps (QC): 4 (SBA) 12 Steps (QC): 88 Picking up an Object (QC): 4 (CGA using lighthouse keeper) Wheel 50 feet with 2 turns (QC: 9 Wheel 150 feet: 9 PT Plan Problem List Problem List: Activity Tolerance, Functional Strength, Safety Treatment/Plan Treatment Plan: Continue Plan of Care Treatment Plan: Bed Mobility, Education, Functional Activity [place], Functional Strength, Group Therapy, Gait, Safety, Therapeutic Exercise, Transfers Treatment Duration: Nov 26, 2021 Frequency: At least 5 of 7 days/Wk (IRF) Estimated Hrs Per Day: 1.5 hours per day Patient and/or Family Agrees t: Yes Safety Risks/Education Patient Education: Gait Training, Transfer Techniques, Correct Positioning, W/C Management Teaching Recipient: Patient Teaching Methods: Discussion Response to Teaching: Verbalize Understanding, Return Demonstration Time/GCodes Time In: 1340 Time Out: 1445 Total Billed Treatment Time: 65 Total Billed Treatment 1, FA x 2 (35min), WC x 2 (30min) MILO BOND CIGARETTE MACHINE OPERATOR Nov 05, 2021 15:35
[2021-11-05] MEDS: TAMSULOSIN 0.4 MG (FLOMAX) CAP PO SCH (17:29)
[2021-11-05] MEDS: BETHANECHOL 25 MG (URECHOLINE) TAB PO SCH ×2 (17:29→21:02)
[2021-11-05] MEDS: ENOXAPARIN 40 MG/0.4 ML (LOVENOX) SYR SC SCH (17:33)
[2021-11-05 20:21] VITALS: BP 125/66
[2021-11-05] MEDS: GABAPENTIN 300 MG (NEURONTIN) CAP PO SCH (21:01)
[2021-11-05] MEDS: SENNA W/DOCUSATE (SENOKOT S) TABLET PO SCH (21:03)
[2021-11-05] MEDS: DOCUSATE SODIUM 100 MG (COLACE) CAP PO SCH (21:03)
[2021-11-05] MEDS: meTOprolol TARTRATE 25 MG (LOPRESSOR) TABLET PO SCH (21:03)
[2021-11-05] MEDS: AtorvaSTATin TABLET 10 MG TABLET PO SCH (21:04)
[2021-11-05] MEDS: polyethylene glycoL POWDER 17 GM (MIRALAX) PACK PO SCH (21:06)
[2021-11-05] MEDS: SODIUM CHLORIDE 1 GM TABLET PO SCH (21:06)
[2021-11-06] MEDS: MULTIVIT W/MINERALS TAB (THERAGRAN M) PO SCH (06:41)
[2021-11-06] MEDS: BETHANECHOL 25 MG (URECHOLINE) TAB PO SCH ×4 (06:42→21:15)
[2021-11-06] MEDS: CALCIUM CARBONATE 600 MG (CALCARB) TAB PO SCH (06:42)
[2021-11-06] MEDS: OMEGA 3 (FISH OIL) 1000 MG CAP PO SCH (06:42)
--- NOTE | 2021-11-06 06:58 | Individualized Plan of Care ---
Individualized Plan of Care Rehab Nursing IPOC Order Admission Date Nov 05, 2021 at 13:38 Current Orders Orders Admission Order(Inpt,Obs,Sdc) (11/05/21 11:51) [place] (11/05/21 11:51) Sequential Compression Device (11/05/21 11:51) Computer Recycling Worker-Inpt Rehab Con (11/05/21 11:51) Rehab Nursing Orders-Ipoc (11/05/21 11:51) Physical Therapy Rehab Orders (11/05/21 11:51) Occupational Therapy Rehab Ord (11/05/21 11:51) Speech Therapy Rehab Orders (11/05/21 11:51) Precautions (Aru) (11/05/21 11:51) Weekly Weight WEEK (11/05/21 11:51) Rehab-Intensity Of Therapy (11/05/21 11:51) Initiate Admission Nursing Pro .admission (11/05/21 11:51) Alprazolam Tablet (Xanax Tablet) (11/05/21 12:00) Calcium Carbonate Chew Tablet (Antacid C (11/05/21 12:00) Diphenhydramine Tablet (Benadryl Tablet) (11/05/21 12:00) Docusate Sodium Capsule (Colace Capsule) (11/05/21 21:00) Docusate Sodium Capsule (Colace Capsule) (11/05/21 12:00) Bisacodyl Suppository (Dulcolax Supposit (11/05/21 12:00) Lactulose Oral Solution (Enulose Oral So (11/05/21 12:00) Na Phos/Na Biphos Enema (Fleet Enema Francesco (11/05/21 12:00) Guaifenesin/Codeine Syrup (Robitussin Ac (11/05/21 12:00) Loperamide Tablet (Imodium Tablet) (11/05/21 12:00) Melatonin Tablet (Melatonin Tablet) (11/05/21 12:00) Polyethylene Glycol Powder Pkt (Miralax (11/05/21 21:00) Ondansetron Oral Dissolve Tab (Zofran (11/05/21 12:00) Senna S Tablet (Senokot S Tablet) (11/05/21 21:00) Acetaminophen Tablet/Caplet (Tylenol T (11/05/21 12:00) Code/Resuscitation (11/05/21 11:51) Initiate Admission Nursing Pro .admission (11/05/21 11:51) Admission Arrival Bed Request (11/05/21 13:23) Code/Resuscitation (11/05/21 14:12) Sodium Chloride Tablet (Sodium Chloride (11/05/21 21:00) Enoxaparin Injection (Lovenox Injection) (11/05/21 18:00) Catheter(Uri) To Dependent Mony (11/05/21 14:16) Aspirin Enteric Coated Tablet (Ecotrin T (11/06/21 09:00) Calcium Carbonate Tablet (Calcarb 600 Ta (11/06/21 07:00) Clopidogrel Tablet (Plavix Tablet) (11/06/21 09:00) Gabapentin Capsule/Tablet (Neurontin Cap (11/05/21 21:00) Hydrochlorothiazide Cap/Tablet (Hctz Cap (11/06/21 09:00) Therapeutic Multivitamin Tab (Vitamins, (11/06/21 07:00) [place] 3 Capsule (Fish Oil Capsule) (11/06/21 07:00) Fluid Restriction (11/05/21 14:19) Hydrocodone/Apap 5/325 Tablet (Lortab 5 (11/05/21 14:30) Atorvastatin Tablet (Lipitor Tablet) (11/05/21 21:00) Lisinopril Tablet (Zestril Tablet) (11/06/21 09:00) Metoprolol Tartrate (Ir) Tab (Lopressor (11/05/21 21:00) Tamsulosin Capsule (Flomax Capsule) (11/05/21 18:00) Bethanechol Tablet (Urecholine Tablet) (11/05/21 14:30) Bethanechol Tablet (Urecholine Tablet) (11/05/21 16:00) Patient Visit (11/05/21 ) Pt Eval Moderate Complexity (11/05/21 ) Functional Activities, Ea 15 (11/05/21 ) Sodium 2g (2000 Mg) (11/05/21 Dinner) Cbc With Automated Diff (11/06/21 06:59) Comprehensive Metabolic Panel (11/06/21 06:59) Patient Visit (11/06/21 ) Exercise Therap, Ea 15 Min (11/06/21 ) Rehab Nursing Orders: Ongoing Assess. of Cognitive Status, Ongoing Assess. of Function Status, Bladder Management, Bladder Scan, Bladder Training, Bowel Management, Bowel Training, Disease Management & Educaiton, DVT Prophylaxis, Fall Prevention, Fluid/Electrolyte/Nutrition Mgmt, Infection Prevention, Medication Management & Education, Management of Risks & Complications, Management of Skin Intergrity, Nutrition Management, Pain Management, Patient/Family Support, Safety Management, Wound Management Intensity of Therapy to be met Patient to be seen: Min.3h per day/5 of 7d PT IPOC Problem List: Activity Tolerance, Functional Strength, Safety Treatment Plan: Continue Plan of Care Bed Mobility, Education, Functional Activity [place], Functional Strength, Group Therapy, Gait, Safety, Therapeutic Exercise, Transfers Treatment Duration: Nov 26, 2021 Frequency: At least 5 of 7 days/Wk (IRF) Estimated Hrs Per Day: 1.5 hours per day OT IPOC Problems: Decreased Activ Tolerance, Decreased Safety Aware, Decreased UE Strength, Impaired Bed Mobility, Impaired Cognition, Impaired Coordination, Impaired Funct Balance, Impaired Self-Care Skills, Restricted Funct UE ROM OT Treatment, Training and Edu: Yes Plan of Care: ADL Retraining, Caregiver Training, Cognitive Retraining, Concurrent Therapy, Functional Mobility, Group Exercise/Act as Ind, Orthotic Fitting/Training, UE Funct Exercise/Act, W/C Management Training Treatment Duration: Nov 26, 2021 Frequency: At least 5 of 7 days/Wk (IRF) Estimated Hrs Per Day: 1.5 hours per day (75-90 min/day) ST IPOC Speech Therapy Treatment Plan: Discontinue ST Treatment Duration: Nov 05, 2021 Frequency: Modified Program (IRF) Estimated Hrs Per Day: Other Computer Recycling Worker/Case Mgmt Computer Recycling Worker/Case Managemen: Discharge Planning Dietitian/Migration Specialist Dietitian/Migration Specialist to monitor nutritional status and make changes and/or re commendations as needed and work with speech pathology on dietary upgrades as the occur. Physician IPOC Medical Issues being managed closely and that require the 24 hour availability of a physician: Recent fall with left humerus fracture with severe hyponatremia requiring ICU monitoring will need close management to prevent any decompensation Medical Issues: Bowel/Bladder Function, DVT Prophylaxis, Falls Precautions, Fluid/Electrolyte/Nutrition Balance, Infection Protection, Pain Management Brief Synthesis of Preadmission Screen, Post-Admission Evaluation, and Therapy Evaluations: PT and OT will focus on regaining function with left arm in a sling due to fracture inoperable type in order to regain function in order to return back to independent living Medical Prognosis: Good Anticipated Length of Stay: 7 days ARIA ALEMAN DO Nov 06, 2021 06:58
--- NOTE | 2021-11-06 06:58 | PM&R Progress Note ---
Subjective HPI/CC On Admission Date Seen by Provider: Nov 06, 2021 Time Seen by Provider: 11:00 Subjective/Events-last exam 11/06/2021: Doing well Bowels caused fecal incontinence but they are moving Sodium level 125 Salt tablets and fluid restriction in place Participating in therapy Review of Systems General: Fatigue, Malaise Objective Exam Vital Signs Vital Signs Date Time Temp Pulse Resp B/P (MAP) Pulse Ox O2 Delivery O2 Flow Rate FiO2 11/06/21 08:30 Room Air 11/06/21 08:00 36.3 68 20 131/60 (83) 93 Capillary Refill : General Appearance: No Apparent Distress, WD/WN, Chronically ill HEENT: PERRL/EOMI, Normal ENT Inspection, Pharynx Normal Neck: Full Range of Motion, Normal Inspection, Non Tender, Supple, Carotid Bruit Respiratory: Chest Non Tender, Lungs Clear, Normal Breath Sounds, No Accessory Muscle Use, No Respiratory Distress Cardiovascular: Regular Rate, Rhythm, No Edema, No Gallop, No JVD, No Murmur, Normal Peripheral Pulses Gastrointestinal: Normal Bowel Sounds, No Organomegaly, No Pulsatile Mass, Non Tender, Soft Back: Normal Inspection, No CVA Tenderness, No Vertebral Tenderness Extremity: Normal Capillary Refill, Normal Inspection, Normal Range of Motion (except right arm in sling), Non Tender, No Calf Tenderness, No Pedal Edema Neurologic/Psychiatric: Alert, Oriented x3, No Motor/Sensory Deficits, Normal Mood/Affect, Motor Weakness (generalized) Skin: Normal Color, Warm/Dry Lymphatic: No Adenopathy Results/Procedures Lab Laboratory Tests 11/06/21 07:15 Patient resulted labs reviewed. FIM Transfers Therapy Code Descriptions/Definitions Functional [place] Measure: 0=Not Assessed/NA 4=Minimal Assistance 1=Total Assistance 5=Supervision or Setup 2=Maximal Assistance 6=Modified [place] 3=Moderate Assistance 7=Complete IndependenceSCALE: Activities may be completed with or without assistive devices. 5-Ziidgqalwt-lszzphe completes the activity by him/herself with no assistance from a helper. 5-Set-up or Clean-up Assistance-helper sets up or cleans up; patient completes activity. [place] assists only prior to or following the activity. 4-Supervision or Touching Assistance-helper provides verbal cues and/or touching/steadying and/or contact guard assistance as patient completes activity. Assistance may be provided throughout the activity or intermittently. 3-Partial/Moderate Assistance-helper does LESS THAN HALF the effort. [place] lifts, holds or supports trunk or limbs, but provides less than half the effort. 2-Substantial/Maximal Assistance-helper does MORE THAN HALF the effort. [place] lifts or holds trunk or limbs and provides more than half the effort. 5-Trxwhwhgx-sdvdoo does ALL the effort. Patient does none of the effort to complete the activity. Or, the assistance of 2 or more helpers is required for the patient to complete the activity. If activity was not attempted, code reason: 7-Patient Refused. 9-Not Applicable-not attempted and the patient did not perform the activity before the current illness, exacerbation or injury. 10-Not Attempted due to Environmental Limitations-(lack of equipment, weather restraints, etc.). 88-Not Attempted due to Medical Conditions or Safety Concerns. Roll Left to Right (QC): 3 Sit to Lying (QC): 3 Sit to Stand (QC): 3 Chair/Fkj-qu-Edrzk Xfer(QC): 4 Car Transfer (QC): 3 Gait Training Does the Patient Walk?: Yes Distance: 5' x 2 Walk 10 feet (QC): 88 Walk 50 ft with 2 Turns(QC): 88 Walk 150 ft (QC): 88 Walking 10ft/uneven surface-QC: 88 Gait Persons Needed: 1 Gait Assistive Device: FWW Wheelchair Training Wheel 50 ft with 2 turns (QC): 10 Wheel 150 ft (QC): 10 Stair Training 1 Step (curb) (QC): 88 4 Steps (QC): 88 12 Steps (QC): 88 Balance Picking up an Object (QC): 88 ADL-Treatment Eating (QC): 4 Oral Hygiene (QC): 4 Shower/Bathe Self (QC): 1 Upper Body Dressing (QC): 2 Lower Body Dressing (QC): 1 On/Off Footwear (QC): 1 Toileting Hygiene (QC): 1 (Pt able to reach back devendra area, however wipes once and reports "I'm good." Significant amount of stool still present. Max a to clean.) Assessment/Plan Assessment and Plan Assess & Plan/Chief Complaint Assessment: Fall Debility Left humerus fracture no surgery required placed in sling Urinary retention Sherman cath in place started bladder meds Hyponatremia placed on salt tablets and fluid restriction HTN HLP h/o Prostate cancer Plan: IRF protocol Bladder meds DC sherman soon Home meds 11/06/2021: Supportive care Bladder meds (1) Weakness Status: Acute (2) CAD (coronary artery disease) (3) Sherman catheter in place (4) Fall on same level Status: Acute (5) Hyponatremia Status: Acute (6) Urinary retention (7) History of prostate cancer Status: Chronic (8) Closed left humeral fracture Status: Acute (9) Multiple abrasions Status: Acute ARIA ALEMAN DO Nov 06, 2021 06:58
[2021-11-06 07:22] VITALS: BP 131/60
[2021-11-06 07:25] LABS: BASOPHILS # (AUTO) 0.1 10^3/uL (0.0-0.1); BASOPHILS % (AUTO) 1 % (0-10); EOSINOPHILS # (AUTO) 0.2 10^3/uL (0.0-0.3); EOSINOPHILS % (AUTO) 3 % (0-10); HEMATOCRIT 38 % (40-54); HEMOGLOBIN 13.3 g/dL (13.3-17.7); LYMPHOCYTES # (AUTO) 1.6 10^3/uL (1.0-4.0); LYMPHOCYTES % (AUTO) 25 % (12-44); MEAN CORPUSCULAR HEMOGLOBIN 34 pg (25-34); MEAN CORPUSCULAR HGB CONC 35 g/dL (32-36); MEAN CORPUSCULAR VOLUME 97 fL (80-99); MEAN PLATELET VOLUME 8.2 fL (9.0-12.2); MONOCYTES # (AUTO) 0.8 10^3/uL (0.0-1.0); MONOCYTES % (AUTO) 13 % (0-12); NEUTROPHILS # (AUTO) 3.7 10^3/uL (1.8-7.8); NEUTROPHILS % (AUTO) 57 % (42-75); PLATELET COUNT 229 10^3/uL (130-400); WHITE BLOOD COUNT 6.4 10^3/uL (4.3-11.0)
[2021-11-06 07:53] LABS: ALBUMIN 3.1 GM/DL (3.2-4.5); BILIRUBIN,TOTAL 0.8 MG/DL (0.1-1.0); CALCIUM 8.8 MG/DL (8.5-10.1); CREATININE SERUM 0.78 MG/DL (0.60-1.30); POTASSIUM 3.9 MMOL/L (3.6-5.0); TOTAL PROTEIN 5.6 GM/DL (6.4-8.2)
[2021-11-06] MEDS: SODIUM CHLORIDE 1 GM TABLET PO SCH ×3 (07:54→21:21)
[2021-11-06] MEDS: CLOPIDOGREL 75 MG (PLAVIX) TABLET PO SCH (07:55)
[2021-11-06] MEDS: ASPIRIN E.C. 81 MG (ECOTRIN) TAB PO SCH (07:55)
[2021-11-06] MEDS: lisINopril 20 MG (PRINIVIL) TABLET PO SCH (07:55)
[2021-11-06] MEDS: DOCUSATE SODIUM 100 MG (COLACE) CAP PO SCH ×2 (07:55→21:19)
[2021-11-06] MEDS: SENNA W/DOCUSATE (SENOKOT S) TABLET PO SCH ×2 (07:55→21:19)
[2021-11-06] MEDS: meTOprolol TARTRATE 25 MG (LOPRESSOR) TABLET PO SCH ×2 (07:55→21:15)
[2021-11-06 08:00] VITALS: BP 131/60
[2021-11-06] MEDS: ACETAMINOPHEN 325 MG TABLET PO PRN ×3 (08:20→21:16)
[2021-11-06] MEDS: polyethylene glycoL POWDER 17 GM (MIRALAX) PACK PO SCH ×2 (09:30→21:19)
--- NOTE | 2021-11-06 14:18 | Physical Therapy Daily Note ---
PT Daily Note-Current Subjective Pt laying Supine in bed as Nursing had just finished TF from recliner to Supine in bed. Pt agrees to Supine EX. Mental Status Patient Orientation: Person, Place, Situation Attachments: Other-See Comments (Sling for L UE) Transfers SCALE: Activities may be completed with or without assistive devices. 4-Gvugfsvzvs-qyvgefj completes the activity by him/herself with no assistance from a helper. 5-Set-up or Clean-up Assistance-helper sets up or cleans up; patient completes activity. [place] assists only prior to or following the activity. 4-Supervision or Touching Assistance-helper provides verbal cues and/or touching/steadying and/or contact guard assistance as patient completes activity. Assistance may be provided throughout the activity or intermittently. 3-Partial/Moderate Assistance-helper does LESS THAN HALF the effort. [place] lifts, holds or supports trunk or limbs, but provides less than half the effort. 2-Substantial/Maximal Assistance-helper does MORE THAN HALF the effort. [place] lifts or holds trunk or limbs and provides more than half the effort. 2-Djthcnwgz-ytttdl does ALL the effort. Patient does none of the effort to complete the activity. Or, the assistance of 2 or more helpers is required for the patient to complete the activity. If activity was not attempted, code reason: 7-Patient Refused. 9-Not Applicable-not attempted and the patient did not perform the activity before the current illness, exacerbation or injury. 10-Not Attempted due to Environmental Limitations-(lack of equipment, weather restraints, etc.). 88-Not Attempted due to Medical Conditions or Safety Concerns. Exercises Supine Ex: Ankle pumps, Quad Set, Glut sets, Heel Slides, Straight leg raise, Hip abd/add Supine Reps: 10 Treatments Pt completes Supine EX in bed w/RB as needed. Pt resting with all needs met, call light in hand. Assessment Current Status: Good Progress ROM is good with Supine Ex. PT Short Term Goals Short Term Goals Time Frame: Nov 12, 2021 Roll Left & Right: 4 (CGA) Sit to lyin (CGA) Lying to sitting on side of be: 4 (CGA) Sit to stand: 4 (CGA) Walk 10 feet: 4 (CGA) Walk 50 feet with two turns: 4 (CGA) PT Mcfp Goals Mcfp Goals PT Survey Research Analyst Goals Time Frame: Nov 26, 2021 Roll Left & Right (QC): 6 Sit to Lying (QC): 6 Lying-Sitting on Side/Bed(QC): 6 Sit to Stand (QC): 4 (SBA) Chair/Brx-io-Izdto Xfer(QC): 4 (SA) Toilet Transfer (QC): 4 (SBA) Car Transfer (QC): 4 (SBA) Does the Patient Walk: Yes Walk 10 feet (QC): 4 (SBA) Walk 50ft with 2 Turns (QC): 4 (SBA) Walk 150 ft (QC): 4 (SBA) Walking 10ft on Uneven Surface: 4 (SBA) 1 Step (curb) (QC): 4 (SBA) 4 Steps (QC): 4 (SBA) 12 Steps (QC): 88 Picking up an Object (QC): 4 (CGA using produce clerk) Wheel 50 feet with 2 turns (QC: 9 Wheel 150 feet: 9 PT Plan Problem List Problem List: Activity Tolerance Treatment/Plan Treatment Plan: Continue Plan of Care Treatment Plan: Bed Mobility, Education, Functional Activity [place], Functional Strength, Group Therapy, Gait, Safety, Therapeutic Exercise, Transfers Treatment Duration: Nov 26, 2021 Frequency: At least 5 of 7 days/Wk (IRF) Estimated Hrs Per Day: 1.5 hours per day Patient and/or Family Agrees t: Yes Safety Risks/Education Patient Education: Correct Positioning Teaching Recipient: Patient Teaching Methods: Discussion Response to Teaching: Verbalize Understanding Time/GCodes Time In: 1335 Time Out: 1355 Total Billed Treatment Time: 20 Total Billed Treatment 1, EX (20m) VALERIE OMER RECLAMATION ENGINEER Nov 06, 2021 14:18
[2021-11-06] MEDS: ENOXAPARIN 40 MG/0.4 ML (LOVENOX) SYR SC SCH (17:53)
[2021-11-06] MEDS: TAMSULOSIN 0.4 MG (FLOMAX) CAP PO SCH (17:53)
[2021-11-06 20:00] VITALS: BP 125/59
[2021-11-06 21:03] VITALS: BP 125/59
[2021-11-06] MEDS: GABAPENTIN 300 MG (NEURONTIN) CAP PO SCH (21:15)
[2021-11-06] MEDS: AtorvaSTATin TABLET 10 MG TABLET PO SCH (21:15)
[2021-11-07] MEDS: BETHANECHOL 25 MG (URECHOLINE) TAB PO SCH ×4 (05:41→21:40)
[2021-11-07] MEDS: ACETAMINOPHEN 325 MG TABLET PO PRN (05:41)
[2021-11-07] MEDS: OMEGA 3 (FISH OIL) 1000 MG CAP PO SCH (06:03)
[2021-11-07] MEDS: CALCIUM CARBONATE 600 MG (CALCARB) TAB PO SCH (06:03)
[2021-11-07] MEDS: MULTIVIT W/MINERALS TAB (THERAGRAN M) PO SCH (06:03)
--- NOTE | 2021-11-07 06:40 | PM&R Progress Note ---
Subjective HPI/CC On Admission Date Seen by Provider: Nov 07, 2021 Time Seen by Provider: 12:00 Subjective/Events-last exam 11/07/2021: Doing well No pain reported Left sling in place BM with fecal incontinence which frustrates him 11/06/2021: Doing well Bowels caused fecal incontinence but they are moving Sodium level 125 Salt tablets and fluid restriction in place Participating in therapy Review of Systems General: Fatigue, Malaise Musculoskeletal: arm pain Objective Exam Vital Signs Vital Signs Date Time Temp Pulse Resp B/P (MAP) Pulse Ox O2 Delivery O2 Flow Rate FiO2 11/07/21 21:34 95 Room Air 11/07/21 20:00 36.5 70 20 130/59 (82) Capillary Refill : General Appearance: No Apparent Distress, WD/WN, Chronically ill HEENT: PERRL/EOMI, Normal ENT Inspection, Pharynx Normal Neck: Full Range of Motion, Normal Inspection, Non Tender, Supple, Carotid Bruit Respiratory: Chest Non Tender, Lungs Clear, Normal Breath Sounds, No Accessory Muscle Use, No Respiratory Distress Cardiovascular: Regular Rate, Rhythm, No Edema, No Gallop, No JVD, No Murmur, Normal Peripheral Pulses Gastrointestinal: Normal Bowel Sounds, No Organomegaly, No Pulsatile Mass, Non Tender, Soft Back: Normal Inspection, No CVA Tenderness, No Vertebral Tenderness Extremity: Normal Capillary Refill, Normal Inspection, Normal Range of Motion (except right arm in sling), Non Tender, No Calf Tenderness, No Pedal Edema Neurologic/Psychiatric: Alert, Oriented x3, No Motor/Sensory Deficits, Normal Mood/Affect, Motor Weakness (generalized) Skin: Normal Color, Warm/Dry Lymphatic: No Adenopathy Results/Procedures Lab Patient resulted labs reviewed. FIM Transfers Therapy Code Descriptions/Definitions Functional [place] Measure: 0=Not Assessed/NA 4=Minimal Assistance 1=Total Assistance 5=Supervision or Setup 2=Maximal Assistance 6=Modified [place] 3=Moderate Assistance 7=Complete IndependenceSCALE: Activities may be completed with or without assistive devices. 1-Rqopkqozxq-eflctgb completes the activity by him/herself with no assistance from a helper. 5-Set-up or Clean-up Assistance-helper sets up or cleans up; patient completes activity. [place] assists only prior to or following the activity. 4-Supervision or Touching Assistance-helper provides verbal cues and/or touching/steadying and/or contact guard assistance as patient completes activity. Assistance may be provided throughout the activity or intermittently. 3-Partial/Moderate Assistance-helper does LESS THAN HALF the effort. [place] lifts, holds or supports trunk or limbs, but provides less than half the effort. 2-Substantial/Maximal Assistance-helper does MORE THAN HALF the effort. [place] lifts or holds trunk or limbs and provides more than half the effort. 0-Jqpcqlfpz-aygndx does ALL the effort. Patient does none of the effort to complete the activity. Or, the assistance of 2 or more helpers is required for the patient to complete the activity. If activity was not attempted, code reason: 7-Patient Refused. 9-Not Applicable-not attempted and the patient did not perform the activity before the current illness, exacerbation or injury. 10-Not Attempted due to Environmental Limitations-(lack of equipment, weather restraints, etc.). 88-Not Attempted due to Medical Conditions or Safety Concerns. Roll Left to Right (QC): 3 Sit to Lying (QC): 3 Sit to Stand (QC): 3 Chair/Tct-df-Npfzi Xfer(QC): 4 Car Transfer (QC): 3 Gait Training Does the Patient Walk?: Yes Distance: 5' x 2 Walk 10 feet (QC): 88 Walk 50 ft with 2 Turns(QC): 88 Walk 150 ft (QC): 88 Walking 10ft/uneven surface-QC: 88 Gait Persons Needed: 1 Gait Assistive Device: FWW Wheelchair Training Wheel 50 ft with 2 turns (QC): 10 Wheel 150 ft (QC): 10 Stair Training 1 Step (curb) (QC): 88 4 Steps (QC): 88 12 Steps (QC): 88 Balance Picking up an Object (QC): 88 ADL-Treatment Eating (QC): 4 Oral Hygiene (QC): 4 Shower/Bathe Self (QC): 1 Upper Body Dressing (QC): 2 Lower Body Dressing (QC): 1 On/Off Footwear (QC): 1 Toileting Hygiene (QC): 1 (Pt able to reach back devendra area, however wipes once and reports "I'm good." Significant amount of stool still present. Max a to clean.) Assessment/Plan Assessment and Plan Assess & Plan/Chief Complaint Assessment: Fall Debility Left humerus fracture no surgery required placed in sling Urinary retention Sherman cath in place started bladder meds Hyponatremia placed on salt tablets and fluid restriction HTN HLP h/o Prostate cancer Plan: IRF protocol Bladder meds DC sherman soon Home meds 11/06/2021: Supportive care Bladder meds 11/07/2021: Check labs in am BM+ (1) Weakness Status: Acute (2) CAD (coronary artery disease) (3) Sherman catheter in place (4) Fall on same level Status: Acute (5) Hyponatremia Status: Acute (6) Urinary retention (7) History of prostate cancer Status: Chronic (8) Closed left humeral fracture Status: Acute (9) Multiple abrasions Status: Acute ARIA ALEMAN DO Nov 07, 2021 06:40
[2021-11-07 07:23] VITALS: BP 130/63
[2021-11-07] MEDS: CLOPIDOGREL 75 MG (PLAVIX) TABLET PO SCH (09:06)
[2021-11-07] MEDS: meTOprolol TARTRATE 25 MG (LOPRESSOR) TABLET PO SCH ×2 (09:06→21:33)
[2021-11-07] MEDS: HYDROcodone/APAP 5 MG/325 MG (LORTAB) TAB PO PRN (09:06)
[2021-11-07] MEDS: ASPIRIN E.C. 81 MG (ECOTRIN) TAB PO SCH (09:06)
[2021-11-07] MEDS: lisINopril 20 MG (PRINIVIL) TABLET PO SCH (09:06)
[2021-11-07] MEDS: SODIUM CHLORIDE 1 GM TABLET PO SCH ×3 (09:53→21:32)
[2021-11-07] MEDS: TAMSULOSIN 0.4 MG (FLOMAX) CAP PO SCH ×2 (10:13→17:59)
[2021-11-07] MEDS: DOCUSATE SODIUM 100 MG (COLACE) CAP PO SCH ×2 (10:13→21:37)
[2021-11-07] MEDS: polyethylene glycoL POWDER 17 GM (MIRALAX) PACK PO SCH ×2 (10:13→21:38)
[2021-11-07] MEDS: SENNA W/DOCUSATE (SENOKOT S) TABLET PO SCH ×2 (10:13→21:39)
[2021-11-07] MEDS: ENOXAPARIN 40 MG/0.4 ML (LOVENOX) SYR SC SCH (18:00)
[2021-11-07 20:00] VITALS: BP 130/59
[2021-11-07] MEDS: GABAPENTIN 300 MG (NEURONTIN) CAP PO SCH (21:33)
[2021-11-07] MEDS: AtorvaSTATin TABLET 10 MG TABLET PO SCH (21:33)
[2021-11-08] MEDS: ACETAMINOPHEN 325 MG TABLET PO PRN ×2 (02:15→21:17)
--- NOTE | 2021-11-08 05:56 | PM&R Progress Note ---
Subjective HPI/CC On Admission Date Seen by Provider: Nov 08, 2021 Time Seen by Provider: 08:30 Subjective/Events-last exam 11/08/2021: Pt is confused a bit Sodium level is 128 Regular diet, will discontinue low sodium diet 11/07/2021: Doing well No pain reported Left sling in place BM with fecal incontinence which frustrates him 11/06/2021: Doing well Bowels caused fecal incontinence but they are moving Sodium level 125 Salt tablets and fluid restriction in place Participating in therapy Review of Systems General: Fatigue, Malaise Musculoskeletal: arm pain Objective Exam Vital Signs Vital Signs Date Time Temp Pulse Resp B/P (MAP) Pulse Ox O2 Delivery O2 Flow Rate FiO2 11/08/21 20:01 36.3 72 22 158/74 (102) 93 Room Air Capillary Refill : General Appearance: No Apparent Distress, WD/WN, Chronically ill HEENT: PERRL/EOMI, Normal ENT Inspection, Pharynx Normal Neck: Full Range of Motion, Normal Inspection, Non Tender, Supple, Carotid Bruit Respiratory: Chest Non Tender, Lungs Clear, Normal Breath Sounds, No Accessory Muscle Use, No Respiratory Distress Cardiovascular: Regular Rate, Rhythm, No Edema, No Gallop, No JVD, No Murmur, Normal Peripheral Pulses Gastrointestinal: Normal Bowel Sounds, No Organomegaly, No Pulsatile Mass, Non Tender, Soft Back: Normal Inspection, No CVA Tenderness, No Vertebral Tenderness Extremity: Normal Capillary Refill, Normal Inspection, Normal Range of Motion (except right arm in sling), Non Tender, No Calf Tenderness, No Pedal Edema Neurologic/Psychiatric: Alert, Oriented x3, No Motor/Sensory Deficits, Normal Mood/Affect, Motor Weakness (generalized) Skin: Normal Color, Warm/Dry Lymphatic: No Adenopathy Results/Procedures Lab Laboratory Tests 11/08/21 05:30 11/08/21 06:32 Patient resulted labs reviewed. FIM Transfers Therapy Code Descriptions/Definitions Functional [place] Measure: 0=Not Assessed/NA 4=Minimal Assistance 1=Total Assistance 5=Supervision or Setup 2=Maximal Assistance 6=Modified [place] 3=Moderate Assistance 7=Complete IndependenceSCALE: Activities may be completed with or without assistive devices. 7-Hxkpahwmls-xinsnaa completes the activity by him/herself with no assistance from a helper. 5-Set-up or Clean-up Assistance-helper sets up or cleans up; patient completes activity. [place] assists only prior to or following the activity. 4-Supervision or Touching Assistance-helper provides verbal cues and/or touching/steadying and/or contact guard assistance as patient completes activity. Assistance may be provided throughout the activity or intermittently. 3-Partial/Moderate Assistance-helper does LESS THAN HALF the effort. [place] lifts, holds or supports trunk or limbs, but provides less than half the effort. 2-Substantial/Maximal Assistance-helper does MORE THAN HALF the effort. [place] lifts or holds trunk or limbs and provides more than half the effort. 8-Mmgycrnom-begylu does ALL the effort. Patient does none of the effort to complete the activity. Or, the assistance of 2 or more helpers is required for the patient to complete the activity. If activity was not attempted, code reason: 7-Patient Refused. 9-Not Applicable-not attempted and the patient did not perform the activity before the current illness, exacerbation or injury. 10-Not Attempted due to Environmental Limitations-(lack of equipment, weather restraints, etc.). 88-Not Attempted due to Medical Conditions or Safety Concerns. Roll Left to Right (QC): 3 Sit to Lying (QC): 3 Sit to Stand (QC): 3 Chair/Icx-sg-Gaqfm Xfer(QC): 4 Car Transfer (QC): 3 Gait Training Does the Patient Walk?: Yes Distance: 5' x 2 Walk 10 feet (QC): 88 Walk 50 ft with 2 Turns(QC): 88 Walk 150 ft (QC): 88 Walking 10ft/uneven surface-QC: 88 Gait Persons Needed: 1 Gait Assistive Device: FWW Wheelchair Training Wheel 50 ft with 2 turns (QC): 10 Wheel 150 ft (QC): 10 Stair Training 1 Step (curb) (QC): 88 4 Steps (QC): 88 12 Steps (QC): 88 Balance Picking up an Object (QC): 88 ADL-Treatment Eating (QC): 4 Oral Hygiene (QC): 4 Shower/Bathe Self (QC): 1 Upper Body Dressing (QC): 2 Lower Body Dressing (QC): 1 On/Off Footwear (QC): 1 Toileting Hygiene (QC): 1 (Pt able to reach back devednra area, however wipes once and reports "I'm good." Significant amount of stool still present. Max a to clean.) Assessment/Plan Assessment and Plan Assess & Plan/Chief Complaint Assessment: Fall Debility Left humerus fracture no surgery required placed in sling Urinary retention Sherman cath in place started bladder meds Hyponatremia placed on salt tablets and fluid restriction HTN HLP h/o Prostate cancer Plan: IRF protocol Bladder meds DC sherman soon Home meds 11/06/2021: Supportive care Bladder meds 11/07/2021: Check labs in am BM+ 11/08/2021: Salt tablets Fluid restriction (1) Weakness Status: Acute (2) CAD (coronary artery disease) (3) Sherman catheter in place (4) Fall on same level Status: Acute (5) Hyponatremia Status: Acute (6) Urinary retention (7) History of prostate cancer Status: Chronic (8) Closed left humeral fracture Status: Acute (9) Multiple abrasions Status: Acute ARIA ALEMAN DO Nov 08, 2021 05:56
[2021-11-08 06:06] LABS: POTASSIUM 4.2 MMOL/L (3.6-5.0)
[2021-11-08 06:07] LABS: CALCIUM 8.6 MG/DL (8.5-10.1)
[2021-11-08] MEDS: OMEGA 3 (FISH OIL) 1000 MG CAP PO SCH (06:08)
[2021-11-08] MEDS: MULTIVIT W/MINERALS TAB (THERAGRAN M) PO SCH (06:08)
[2021-11-08] MEDS: BETHANECHOL 25 MG (URECHOLINE) TAB PO SCH ×4 (06:08→21:12)
[2021-11-08] MEDS: CALCIUM CARBONATE 600 MG (CALCARB) TAB PO SCH (06:08)
[2021-11-08 06:09] LABS: TOTAL PROTEIN 5.6 GM/DL (6.4-8.2)
[2021-11-08 06:11] LABS: BILIRUBIN,TOTAL 0.7 MG/DL (0.1-1.0)
[2021-11-08 06:12] LABS: CREATININE SERUM 0.79 MG/DL (0.60-1.30)
[2021-11-08 06:42] LABS: BASOPHILS # (AUTO) 0.1 10^3/uL (0.0-0.1); BASOPHILS % (AUTO) 1 % (0-10); EOSINOPHILS # (AUTO) 0.3 10^3/uL (0.0-0.3); EOSINOPHILS % (AUTO) 3 % (0-10); HEMATOCRIT 36 % (40-54); HEMOGLOBIN 12.6 g/dL (13.3-17.7); LYMPHOCYTES # (AUTO) 1.8 10^3/uL (1.0-4.0); LYMPHOCYTES % (AUTO) 24 % (12-44); MEAN CORPUSCULAR HEMOGLOBIN 33 pg (25-34); MEAN CORPUSCULAR HGB CONC 35 g/dL (32-36); MEAN CORPUSCULAR VOLUME 96 fL (80-99); MEAN PLATELET VOLUME 8.3 fL (9.0-12.2); MONOCYTES # (AUTO) 0.8 10^3/uL (0.0-1.0); MONOCYTES % (AUTO) 11 % (0-12); NEUTROPHILS # (AUTO) 4.4 10^3/uL (1.8-7.8); NEUTROPHILS % (AUTO) 60 % (42-75); PLATELET COUNT 242 10^3/uL (130-400); WHITE BLOOD COUNT 7.3 10^3/uL (4.3-11.0)
[2021-11-08 07:43] VITALS: BP 126/68
[2021-11-08] MEDS: ASPIRIN E.C. 81 MG (ECOTRIN) TAB PO SCH (08:07)
[2021-11-08] MEDS: lisINopril 20 MG (PRINIVIL) TABLET PO SCH (08:07)
[2021-11-08] MEDS: CLOPIDOGREL 75 MG (PLAVIX) TABLET PO SCH (08:07)
[2021-11-08] MEDS: meTOprolol TARTRATE 25 MG (LOPRESSOR) TABLET PO SCH ×2 (08:07→21:13)
[2021-11-08] MEDS: SENNA W/DOCUSATE (SENOKOT S) TABLET PO SCH ×2 (08:08→21:12)
[2021-11-08] MEDS: DOCUSATE SODIUM 100 MG (COLACE) CAP PO SCH ×2 (08:08→21:12)
[2021-11-08] MEDS: polyethylene glycoL POWDER 17 GM (MIRALAX) PACK PO SCH ×2 (08:08→21:12)
[2021-11-08] MEDS: SODIUM CHLORIDE 1 GM TABLET PO SCH ×3 (08:10→21:18)
--- NOTE | 2021-11-08 08:30 | ST Cognitive Linguistic Eval ---
Speech Evaluation-General Medical Diagnosis Debility, Humerus fx Onset Date: Nov 03, 2021 Therapy Diagnosis Therapy Diagnosis: Minimal Cognitive Impairment Precautions Precautions: Fall, Pressure Ulcer Precautions/Isolations: Fall Prevention, Standard Precautions, Pressure Ulcer Referral Referring Physician: Dr. Aurelia Cruz Reason for Referral: Evaluation/Treatment Medical History Pertinent Medical History: CAD, HTN, Neuropathy Current History The patient is an 85 year-old male with a past medical history of CAD, high cholesterol, and HTN, who presented to the medical facility with severe hyponatermia and a left humerus fracture following a fall. Reviewed History: Yes Social History Current Living Status: Spouse Speech PLF-Current Status Prior Level of Function The patient denied difficulties with his speech and language abilities. Per patient, "I told my friends, at our age, our brain just runs out of room, we're at capacity." in reference to the clinician's questions regarding his memory ability. The patient stated he is not concerned about his memory and feels he is age appropriate. The patient stated he has not noticed a change in his cognitive function pre-fall versus post-fall and denied the presence of a concussion or loss of consciousness. Subjective The patient was seated upright in his bed, awake and alert upon entrance to his room by the clinician. The patient greeted the clinician appropriately and was agreeable to participation in the cognitive linguistic treatment session. The patient does have dried blood on his left ring finger. 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 Language Eval: Auditory Comprehends Simple Yes/No Ques: Functional Indent/Objects [place]: Functional Ident/Pics in [place]: Functional Follows 1-Step Commands: Functional Follows General Conversations: Functional Language Eval: Verbal Language Completes Spontaneous Greeting: Functional Produces Auto, Serial Info: Functional Imitates Simple Words/Phrases: Functional Word Finding: Functional Requests Basic Needs: Functional States Basic Personal Info: Functional Language Evaluation: Reading Follows Simple Written Direct: Functional Language Evaluation: Writing Writes to Simple Dictation: Functional Cognitive Patient Orientation The patient was independently oriented to self, location, month, day of the week, date and year. 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 Oral Motor/Speech Production The patient does not display dysarthria or apraxia of speech at this time. The patient is 100% intelligible in known and unknown contexts. 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 The clinician discussed with the patient the decline in his memory scores and the skilled speech pathology exercises which could be completed during his rehabilitation stay to aid in these areas. The patient stated he has not experienced a recent decline in his memory or a change since the time of his fall. The patient reported he was present on ARU to "get strong and get back home." The clinician supported the patient's statement and offered to monitor the patient's progress throughout his stay. The clinician additionally discussed the patient with physical therapy and requested any concerns with cognition be brought to the ST's attention. Speech Patient Assess Expression of Ideas/Wants: Expression (4) Understanding Verbal Content: Understands (4) Brief Interview-Mental Status: Yes Repetition of Three Words: Three (3) Temporal Orientation: Year: Correct (3) Temporal Orientation: Month: Accurate within 5 days(2) Temporal Orientation: Day: Correct (1) Recall : Wear to say "Sock": Yes, no cue required (2) Recall : Color: Yes, after cueing (1) Recall : Bed: Yes,after cueing (1) Memory/Recall Ability: Current season, That he or she is in a hsp/hsp unit Speech-Plan Treatment Plan Speech Therapy Treatment Plan: Discontinue ST (Speech pathology will monitor the patient's progress through additional therapy disciplines. If memory deficits result in reduced ability to progress safely physically, speech pathology will follow up with the patient.) Treatment Duration: Nov 08, 2021 Frequency: 1 time per week Estimated Hrs Per Day: .5 hour per day Rehab Potential: Fair Safety Risks/Education Teaching Recipient: Patient Teaching Methods: Discussion Response to Teaching: Verbalize Understanding Education Topics Provided: Results, Plan of Care, Speech Pathology Skill Set and Focus Time Speech Therapy Time In: 08:30 Speech Therapy Time Out: 09:00 Total Billed Time: 30 Billed Treatment Time 1, YULY BARDALES ELIZABETH Nov 08, 2021 08:30
--- NOTE | 2021-11-08 11:40 | Occupational Ther Daily Note ---
OT Current Status-Daily Note Subjective Pt alert, lying in bed. Pt agrees to therapy. Pt has tendencies to give up on tasks that require increased work or a new technique to do due to medical status. Pt asked during tasks, "What do I do next?" but when the question is asked of pt, he is able to stated next step. Mental Status/Objective Patient Orientation: Person, Place, Time, Situation Attachments: Other-See Comments (L UE sling) ADL-Treatment Pt agrees to shower. Mod A for supine to EOB with HOB fully raised. Pt requ ires verbal cues and physical assist to stand straight up to transfer from EOB to w/c using hemiwalker. Min A for SPT using w/c and grabbars for toilet transfer. Assist to manipulate clothing and cleanse after BM. Pt sat 100% of the time to complete shower. Verbal cues to make sure pt washes all body parts. Assist to cleanse buttocks while pt leaned to side, pt able to cleanse other areas. Min A to doff socks, max A to don socks. Max A to don/doff pants. Min A to doff shirt, mod A to don shirt using modified technique (L UE->head->R UE). Verbal cues to use L UE to hold tube of toothpaste to take off lid then squeeze onto toothbrush. Pt able to slide Crocs on/off by self. Therapy Code Descriptions/Definitions Functional [place] Measure: 0=Not Assessed/NA 4=Minimal Assistance 1=Total Assistance 5=Supervision or Setup 2=Maximal Assistance 6=Modified [place] 3=Moderate Assistance 7=Complete IndependenceSCALE: Activities may be completed with or without assistive devices. 3-Nkwnkfrsyd-wxnzapf completes the activity by him/herself with no assistance from a helper. 5-Set-up or Clean-up Assistance-helper sets up or cleans up; patient completes activity. [place] assists only prior to or following the activity. 4-Supervision or Touching Assistance-helper provides verbal cues and/or touching/steadying and/or contact guard assistance as patient completes activity. Assistance may be provided throughout the activity or intermittently. 3-Partial/Moderate Assistance-helper does LESS THAN HALF the effort. [place] lifts, holds or supports trunk or limbs, but provides less than half the effort. 2-Substantial/Maximal Assistance-helper does MORE THAN HALF the effort. [place] lifts or holds trunk or limbs and provides more than half the effort. 0-Kbqhbsmcw-fcsrtq does ALL the effort. Patient does none of the effort to complete the activity. Or, the assistance of 2 or more helpers is required for the patient to complete the activity. If activity was not attempted, code reason: 7-Patient Refused. 9-Not Applicable-not attempted and the patient did not perform the activity before the current illness, exacerbation or injury. 10-Not Attempted due to Environmental Limitations-(lack of equipment, weather restraints, etc.). 88-Not Attempted due to Medical Conditions or Safety Concerns. Oral Hygiene (QC): 6 Shower/Bathe Self (QC): 3 Upper Body Dressing (QC): 3 (Mod A) Lower Body Dressing (QC): 2 (Max A) On/Off Footwear: 3 (Mod A) Toileting Hygiene (QC): 2 Toilet Transfer (QC): 3 Other Treatment Co-treat with PT [id number], skills of 2 clinicians required to decrease fall risk, increase activity tolerance and strength for daily functional tasks. PT focusing on ambulation, transfers and LE strengthening while OT focusing on L UE positioning, dynamic standing and support during ambulation. Pt able to ambulate using rail with R UE 2x's with min A to CGA, see PT notes for distance. Pt then working on sit to stand with B LE strengthening. After session, pt left in care of PT. All needs met. OT Short Term Goals Short Term Goals Time Frame: Nov 19, 2021 Eatin Oral hygiene: 5 Toileting hygiene: 2 Shower/bathe self: 3 Upper body dressin Lower body dressin Putting on/taking off footwear: 2 OT Syrup Filterer Goals Syrup Filterer Goals Time Frame: Nov 26, 2021 Eating (QC): 5 Oral Hygiene (QC): 5 Toileting Hygiene (QC): 4 Shower/Bathe Self (QC): 4 Upper Body Dressing (QC): 4 Lower Body Dressing (QC): 3 On/Off Footwear (QC): 3 1=Demonstrate adherence to instructed precautions during ADL tasks. 2=Patient will verbalize/demonstrate understanding of assistive devices/modifications for ADL. 3=Patient will improve strength/tolerance for activity to enable patient to perform ADL's. OT Education/Plan Problem List/Assessment Assessment: Decreased Activ Tolerance, Decreased Safety Aware, Decreased UE Strength, Impaired Bed Mobility, Impaired Cognition, Impaired Coordination, Impaired Funct Balance, Impaired Self-Care Skills, Restricted Funct UE ROM (L UE ) Discharge Recommendations Plan/Recommendations: Continue POC Treatment Plan/Plan of Care Patient would benefit from OT for education, treatment and training to promote independence in ADL's, mobility, safety and/or upper extremity function for ADL's. Plan of Care: ADL Retraining, Caregiver Training, Cognitive Retraining, Concurrent Therapy, Functional Mobility, Group Exercise/Act as Ind, Orthotic Fitting/Training, UE Funct Exercise/Act, W/C Management Training Treatment Duration: Nov 26, 2021 Frequency: At least 5 of 7 days/Wk (IRF) Estimated Hrs Per Day: 1.5 hours per day (75-90 min/day) Agreement: Yes Rehab Potential: Fair Time/GCodes Start Time: 10:00 Stop Time: 11:30 Total Time Billed (hr/min): 90 Billed Treatment Time 1 visit-ADL 4 (60 min) FA 2 (30 min) co-treat with PT [id number], Individual [id number] TAMIKA CENTENO Nov 08, 2021 11:40
[2021-11-08] MEDS: HYDROcodone/APAP 5 MG/325 MG (LORTAB) TAB PO PRN (12:43)
--- NOTE | 2021-11-08 13:23 | Physical Therapy Daily Note ---
PT Daily Note-Current Subjective Pt wheeling out of room with OT upon arrival. Pt agrees to PT/OT partial co- treat to work on higher level balance activities. Mental Status Patient Orientation: Person, Place, Situation Attachments: Burnett Catheter Transfers SCALE: Activities may be completed with or without assistive devices. 9-Hehfyxvnjz-onxvvys completes the activity by him/herself with no assistance from a helper. 5-Set-up or Clean-up Assistance-helper sets up or cleans up; patient completes activity. [place] assists only prior to or following the activity. 4-Supervision or Touching Assistance-helper provides verbal cues and/or t ouching/steadying and/or contact guard assistance as patient completes activity. Assistance may be provided throughout the activity or intermittently. 3-Partial/Moderate Assistance-helper does LESS THAN HALF the effort. [place] lifts, holds or supports trunk or limbs, but provides less than half the effort. 2-Substantial/Maximal Assistance-helper does MORE THAN HALF the effort. [place] lifts or holds trunk or limbs and provides more than half the effort. 9-Gvkhlxnry-lmfrpj does ALL the effort. Patient does none of the effort to complete the activity. Or, the assistance of 2 or more helpers is required for the patient to complete the activity. If activity was not attempted, code reason: 7-Patient Refused. 9-Not Applicable-not attempted and the patient did not perform the activity before the current illness, exacerbation or injury. 10-Not Attempted due to Environmental Limitations-(lack of equipment, weather restraints, etc.). 88-Not Attempted due to Medical Conditions or Safety Concerns. Sit to Stand (QC): 4 Weight Bearing Full Weight Bearing Full Weight Bearing Gait Training Does the Patient Walk?: Yes Distance: 20' Walk 10 feet (QC): 4 Hallway railing used during walking Wheelchair Training Does the Pt Use a Wheelchair?: Yes Wheel 50 ft with 2 turns (QC): 4 Wheel 150 ft (QC): 4 Type of Wheelchair: Manual Exercises Seated Therapy Exercises: Ankle pumps, Long arc quads, Hip flexion, Hip abd/add, Glut set Seated Reps: 15 Treatments Co-treat with PT [id number], skills of 2 clinicians required to decrease fall risk, increase activity tolerance and strength for daily functional tasks. PT focusing on ambulation, transfers and LE strengthening while OT focusing on L UE positioning, dynamic standing and support during ambulation. Pt able to ambulate using rail with R UE 2x's with min A to CGA for ~10' for 2 sets. Pt then working on sit to stand with B LE strengthening. OT departs & ([id number]) PT continues to work on Seated EX for LE strengthening. Pt propels WCH to room & TF via SPT to recliner. All needs met, call light in hand. Assessment Current Status: Good Progress Pt is gaining strength but still demonstrates knee buckling with extended standing. PT Short Term Goals Short Term Goals Time Frame: Nov 12, 2021 Roll Left & Right: 4 (CGA) Sit to lyin (CGA) Lying to sitting on side of be: 4 (CGA) Sit to stand: 4 (CGA) Walk 10 feet: 4 (CGA) Walk 50 feet with two turns: 4 (CGA) PT Mcfp Goals Indoor Landscape Architect Goals PT Mcfp Goals Time Frame: Nov 26, 2021 Roll Left & Right (QC): 6 Sit to Lying (QC): 6 Lying-Sitting on Side/Bed(QC): 6 Sit to Stand (QC): 4 (SBA) Chair/Rcr-xu-Lpdma Xfer(QC): 4 (SA) Toilet Transfer (QC): 4 (SBA) Car Transfer (QC): 4 (SBA) Does the Patient Walk: Yes Walk 10 feet (QC): 4 (SBA) Walk 50ft with 2 Turns (QC): 4 (SBA) Walk 150 ft (QC): 4 (SBA) Walking 10ft on Uneven Surface: 4 (SBA) 1 Step (curb) (QC): 4 (SBA) 4 Steps (QC): 4 (SBA) 12 Steps (QC): 88 Picking up an Object (QC): 4 (CGA using finance business partner) Wheel 50 feet with 2 turns (QC: 9 Wheel 150 feet: 9 PT Plan Problem List Problem List: Activity Tolerance, Functional Strength Treatment/Plan Treatment Plan: Continue Plan of Care Treatment Plan: Bed Mobility, Education, Functional Activity [place], Functional Strength, Group Therapy, Gait, Safety, Therapeutic Exercise, Transfers Treatment Duration: Nov 26, 2021 Frequency: At least 5 of 7 days/Wk (IRF) Estimated Hrs Per Day: 1.5 hours per day Patient and/or Family Agrees t: Yes Safety Risks/Education Patient Education: Gait Training, Transfer Techniques, Correct Positioning, Safety Issues Teaching Recipient: Patient Teaching Methods: Discussion Response to Teaching: Verbalize Understanding Time/GCodes Time In: 1100 Time Out: 1200 Total Billed Treatment Time: 60 Total Billed Treatment Co-treat w/OT for 30m ([id number]) 1, GT (15m), FA (15m), EX (15 & WCH (15m) VALERIE OMER OVERLOCK HEMMER Nov 08, 2021 13:23
[2021-11-08] MEDS: TAMSULOSIN 0.4 MG (FLOMAX) CAP PO SCH (17:03)
[2021-11-08] MEDS: ENOXAPARIN 40 MG/0.4 ML (LOVENOX) SYR SC SCH (17:03)
[2021-11-08 20:01] VITALS: BP 158/74
[2021-11-08] MEDS: AtorvaSTATin TABLET 10 MG TABLET PO SCH (21:13)
[2021-11-08] MEDS: GABAPENTIN 300 MG (NEURONTIN) CAP PO SCH (21:16)
--- NOTE | 2021-11-09 05:54 | PM&R Progress Note ---
Subjective HPI/CC On Admission Date Seen by Provider: Nov 09, 2021 Time Seen by Provider: 12:30 Subjective/Events-last exam 11/09/2021: Patient doing well Appreciate urology consult Discontinue catheter for trial void Flomax and Urecholine maintained No major issues 11/08/2021: Pt is confused a bit Sodium level is 128 Regular diet, will discontinue low sodium diet 11/07/2021: Doing well No pain reported Left sling in place BM with fecal incontinence which frustrates him 11/06/2021: Doing well Bowels caused fecal incontinence but they are moving Sodium level 125 Salt tablets and fluid restriction in place Participating in therapy Review of Systems General: Fatigue, Malaise Objective Exam Vital Signs Vital Signs Date Time Temp Pulse Resp B/P (MAP) Pulse Ox O2 Delivery O2 Flow Rate FiO2 11/09/21 19:17 36.7 83 20 130/60 (83) 93 Room Air Capillary Refill : General Appearance: No Apparent Distress, WD/WN, Chronically ill HEENT: PERRL/EOMI, Normal ENT Inspection, Pharynx Normal Neck: Full Range of Motion, Normal Inspection, Non Tender, Supple, Carotid Bruit Respiratory: Chest Non Tender, Lungs Clear, Normal Breath Sounds, No Accessory Muscle Use, No Respiratory Distress Cardiovascular: Regular Rate, Rhythm, No Edema, No Gallop, No JVD, No Murmur, Normal Peripheral Pulses Gastrointestinal: Normal Bowel Sounds, No Organomegaly, No Pulsatile Mass, Non Tender, Soft Back: Normal Inspection, No CVA Tenderness, No Vertebral Tenderness Extremity: Normal Capillary Refill, Normal Inspection, Normal Range of Motion (except right arm in sling), Non Tender, No Calf Tenderness, No Pedal Edema Neurologic/Psychiatric: Alert, Oriented x3, No Motor/Sensory Deficits, Normal Mood/Affect, Motor Weakness (generalized) Skin: Normal Color, Warm/Dry Lymphatic: No Adenopathy Results/Procedures Lab Patient resulted labs reviewed. FIM Transfers Therapy Code Descriptions/Definitions Functional [place] Measure: 0=Not Assessed/NA 4=Minimal Assistance 1=Total Assistance 5=Supervision or Setup 2=Maximal Assistance 6=Modified [place] 3=Moderate Assistance 7=Complete IndependenceSCALE: Activities may be completed with or without assistive devices. 0-Zvbpmxzzgj-vuloafz completes the activity by him/herself with no assistance from a helper. 5-Set-up or Clean-up Assistance-helper sets up or cleans up; patient completes activity. [place] assists only prior to or following the activity. 4-Supervision or Touching Assistance-helper provides verbal cues and/or touching/steadying and/or contact guard assistance as patient completes activity. Assistance may be provided throughout the activity or intermittently. 3-Partial/Moderate Assistance-helper does LESS THAN HALF the effort. [place] lifts, holds or supports trunk or limbs, but provides less than half the effort. 2-Substantial/Maximal Assistance-helper does MORE THAN HALF the effort. [place] lifts or holds trunk or limbs and provides more than half the effort. 5-Pqsskawxz-qdzlgr does ALL the effort. Patient does none of the effort to complete the activity. Or, the assistance of 2 or more helpers is required for the patient to complete the activity. If activity was not attempted, code reason: 7-Patient Refused. 9-Not Applicable-not attempted and the patient did not perform the activity before the current illness, exacerbation or injury. 10-Not Attempted due to Environmental Limitations-(lack of equipment, weather restraints, etc.). 88-Not Attempted due to Medical Conditions or Safety Concerns. Roll Left to Right (QC): 3 Sit to Lying (QC): 3 Sit to Stand (QC): 4 Chair/Arc-mq-[place] Xfer(QC): 4 Car Transfer (QC): 3 Gait Training Does the Patient Walk?: Yes Distance: 20' Walk 10 feet (QC): 4 Walk 50 ft with 2 Turns(QC): 88 Walk 150 ft (QC): 88 Walking 10ft/uneven surface-QC: 88 Gait Persons Needed: 1 Gait Assistive Device: FWW Wheelchair Training Does the Pt Use a Wheelchair?: Yes Wheel 50 ft with 2 turns (QC): 4 Wheel 150 ft (QC): 4 Type of Wheelchair: Manual Stair Training 1 Step (curb) (QC): 88 4 Steps (QC): 88 12 Steps (QC): 88 Balance Picking up an Object (QC): 88 ADL-Treatment Eating (QC): 4 Oral Hygiene (QC): 6 Shower/Bathe Self (QC): 3 Upper Body Dressing (QC): 3 (Mod A) Lower Body Dressing (QC): 2 (Max A) On/Off Footwear (QC): 3 (Mod A) Toileting Hygiene (QC): 2 Toilet Transfer (QC): 3 Assessment/Plan Assessment and Plan Assess & Plan/Chief Complaint Assessment: Fall Debility Left humerus fracture no surgery required placed in sling Urinary retention Sherman cath in place started bladder meds then DC catheter 11/09/2021 by urology Hyponatremia placed on salt tablets and fluid restriction HTN HLP h/o Prostate cancer Plan: IRF protocol Bladder meds DC sherman soon Home meds 11/06/2021: Supportive care Bladder meds 11/07/2021: Check labs in am BM+ 11/08/2021: Salt tablets Fluid restriction 11/09/2021: Supportive care Monitor closely (1) Weakness Status: Acute (2) CAD (coronary artery disease) (3) Sherman catheter in place (4) Fall on same level Status: Acute (5) Hyponatremia Status: Acute (6) Urinary retention (7) History of prostate cancer Status: Chronic (8) Closed left humeral fracture Status: Acute (9) Multiple abrasions Status: Acute ARIA ALEMAN DO Nov 09, 2021 05:54
[2021-11-09] MEDS: OMEGA 3 (FISH OIL) 1000 MG CAP PO SCH (06:26)
[2021-11-09] MEDS: CALCIUM CARBONATE 600 MG (CALCARB) TAB PO SCH (06:26)
[2021-11-09] MEDS: ACETAMINOPHEN 325 MG TABLET PO PRN (06:26)
[2021-11-09] MEDS: MULTIVIT W/MINERALS TAB (THERAGRAN M) PO SCH (06:26)
[2021-11-09] MEDS: BETHANECHOL 25 MG (URECHOLINE) TAB PO SCH ×4 (06:26→20:07)
[2021-11-09 07:28] VITALS: BP 159/74
--- NOTE | 2021-11-09 09:05 | Physical Therapy Daily Note ---
PT Daily Note-Current Subjective Pt sitting in recliner upon arrival. Pt agrees to PT. Pain Location: Left Location Body Site: Shoulder Pain Description: Ache Comment: Reports but not rated Mental Status Patient Orientation: Person, Place, Time, Situation Attachments: Other-See Comments (Sling for L UE) Transfers SCALE: Activities may be completed with or without assistive devices. 2-Jmawskjbpr-mvavfuk completes the activity by him/herself with no assistance from a helper. 5-Set-up or Clean-up Assistance-helper sets up or cleans up; patient completes activity. [place] assists only prior to or following the activity. 4-Supervision or Touching Assistance-helper provides verbal cues and/or touching/steadying and/or contact guard assistance as patient completes acti vity. Assistance may be provided throughout the activity or intermittently. 3-Partial/Moderate Assistance-helper does LESS THAN HALF the effort. [place] lifts, holds or supports trunk or limbs, but provides less than half the effort. 2-Substantial/Maximal Assistance-helper does MORE THAN HALF the effort. [place] lifts or holds trunk or limbs and provides more than half the effort. 9-Wfzcsuyho-lqfhgq does ALL the effort. Patient does none of the effort to complete the activity. Or, the assistance of 2 or more helpers is required for the patient to complete the activity. If activity was not attempted, code reason: 7-Patient Refused. 9-Not Applicable-not attempted and the patient did not perform the activity before the current illness, exacerbation or injury. 10-Not Attempted due to Environmental Limitations-(lack of equipment, weather restraints, etc.). 88-Not Attempted due to Medical Conditions or Safety Concerns. Sit to Stand (QC): 4 Weight Bearing Full Weight Bearing Full Weight Bearing Exercises Seated Therapy Exercises: Sit to stand (5 reps), Long arc quads, Hip flexion, Hip abd/add, Glut set Seated Reps: 15 Treatments 800-900: TF to standing and propels WCH in hallway. Pt completes Seated EX then short RB. Pt completes sit to stands at //bars. Short RB between each. Pt propels WCH in hallway until fatigued then BUTCHER MEAT assists. Pt TF back to recliner to rest at end of tx. All needs met, call light in hand. [id number]: Pt's Sp is present and asks how pt is progressing. Pt is able to TF to EOB and back. BUTCHER MEAT reports sit to stand TF progress and how tx is going. Pt resting in bed as lunch arrives. All needs met, call light in hand. Assessment Current Status: Fair Progress PT Short Term Goals Short Term Goals Time Frame: Nov 12, 2021 Roll Left & Right: 4 (CGA) Sit to lyin (CGA) Lying to sitting on side of be: 4 (CGA) Sit to stand: 4 (CGA) Walk 10 feet: 4 (CGA) Walk 50 feet with two turns: 4 (CGA) PT Halfway Goals Halfway Goals PT Halfway Goals Time Frame: Nov 26, 2021 Roll Left & Right (QC): 6 Sit to Lying (QC): 6 Lying-Sitting on Side/Bed(QC): 6 Sit to Stand (QC): 4 (SBA) Chair/Uop-dv-Pvzyh Xfer(QC): 4 (SA) Toilet Transfer (QC): 4 (SBA) Car Transfer (QC): 4 (SBA) Does the Patient Walk: Yes Walk 10 feet (QC): 4 (SBA) Walk 50ft with 2 Turns (QC): 4 (SBA) Walk 150 ft (QC): 4 (SBA) Walking 10ft on Uneven Surface: 4 (SBA) 1 Step (curb) (QC): 4 (SBA) 4 Steps (QC): 4 (SBA) 12 Steps (QC): 88 Picking up an Object (QC): 4 (CGA using nascar pit crew person) Wheel 50 feet with 2 turns (QC: 9 Wheel 150 feet: 9 PT Plan Problem List Problem List: Activity Tolerance, Functional Strength Treatment/Plan Treatment Plan: Continue Plan of Care Treatment Plan: Bed Mobility, Education, Functional Activity [place], Functional Strength, Group Therapy, Gait, Safety, Therapeutic Exercise, Transfers Treatment Duration: Nov 26, 2021 Frequency: At least 5 of 7 days/Wk (IRF) Estimated Hrs Per Day: 1.5 hours per day Patient and/or Family Agrees t: Yes Safety Risks/Education Patient Education: Transfer Techniques, Correct Positioning, Safety Issues Teaching Recipient: Patient Teaching Methods: Discussion Response to Teaching: Verbalize Understanding Time/GCodes Time In: 800 Time Out: 900 Total Billed Treatment Time: 60 Total Billed Treatment 800-900: 1, EX (20m), WCH (15m) & FA x2 (25m) [id number]: 1, FA (15m) VALERIE OMER BUTCHER MEAT Nov 09, 2021 09:05
[2021-11-09] MEDS: CLOPIDOGREL 75 MG (PLAVIX) TABLET PO SCH (09:54)
[2021-11-09] MEDS: ASPIRIN E.C. 81 MG (ECOTRIN) TAB PO SCH (09:54)
[2021-11-09] MEDS: lisINopril 20 MG (PRINIVIL) TABLET PO SCH (09:55)
[2021-11-09] MEDS: SENNA W/DOCUSATE (SENOKOT S) TABLET PO SCH ×2 (09:55→20:10)
[2021-11-09] MEDS: DOCUSATE SODIUM 100 MG (COLACE) CAP PO SCH ×2 (09:55→20:11)
[2021-11-09] MEDS: meTOprolol TARTRATE 25 MG (LOPRESSOR) TABLET PO SCH ×2 (09:55→20:07)
[2021-11-09] MEDS: SODIUM CHLORIDE 1 GM TABLET PO SCH ×3 (09:55→20:09)
--- NOTE | 2021-11-09 10:00 | Occupational Ther Daily Note ---
OT Current Status-Daily Note Subjective Pt alert, sitting in recliner. Pt agrees to therapy. Pt states that he is just tired. Mental Status/Objective Patient Orientation: Person, Place, Time, Situation Attachments: Burnett Catheter ADL-Treatment Sitting at sink, pt completes oral care independently. CGA with SPT using hemicane. Therapy Code Descriptions/Definitions Functional [place] Measure: 0=Not Assessed/NA 4=Minimal Assistance 1=Total Assistance 5=Supervision or Setup 2=Maximal Assistance 6=Modified [place] 3=Moderate Assistance 7=Complete IndependenceSCALE: Activities may be completed with or without assistive devices. 5-Pkorlhzioa-krwunwc completes the activity by him/herself with no assistance from a helper. 5-Set-up or Clean-up Assistance-helper sets up or cleans up; patient completes activity. [place] assists only prior to or following the activity. 4-Supervision or Touching Assistance-helper provides verbal cues and/or touching/steadying and/or contact guard assistance as patient completes activity. Assistance may be provided throughout the activity or intermittently. 3-Partial/Moderate Assistance-helper does LESS THAN HALF the effort. [place] lif ts, holds or supports trunk or limbs, but provides less than half the effort. 2-Substantial/Maximal Assistance-helper does MORE THAN HALF the effort. [place] lifts or holds trunk or limbs and provides more than half the effort. 0-Auqomnocu-luzkjv does ALL the effort. Patient does none of the effort to complete the activity. Or, the assistance of 2 or more helpers is required for the patient to complete the activity. If activity was not attempted, code reason: 7-Patient Refused. 9-Not Applicable-not attempted and the patient did not perform the activity before the current illness, exacerbation or injury. 10-Not Attempted due to Environmental Limitations-(lack of equipment, weather restraints, etc.). 88-Not Attempted due to Medical Conditions or Safety Concerns. Oral Hygiene (QC): 6 Other Treatment Pt able to propel w/c using R UE and B LE. Pt requires verbal cues to maintain straight line while propelling w/c. Pt completed R UE exercise using 2# wt 2 sets 10 reps of chest press and shldr press, 2 sets 15 reps bicep curls. Pt completed grasp strengthening with blue therapy sponge 20x's 2 sets with forearm rotation. L elbow flex/ext with support and no resistance. Pt then propelled back to room using w/c. Pt requested to lay in bed. Min A for EOB to supine with B LE's. After therapy, pt lying in bed with call light/phone in reach. All needs met in room. OT Short Term Goals Short Term Goals Time Frame: Nov 19, 2021 Eatin Oral hygiene: 5 Toileting hygiene: 2 Shower/bathe self: 3 Upper body dressin Lower body dressin Putting on/taking off footwear: 2 OT Fpc Goals Powdered Sugar Pulverizer Operator Goals Time Frame: Nov 26, 2021 Eating (QC): 5 Oral Hygiene (QC): 5 Toileting Hygiene (QC): 4 Shower/Bathe Self (QC): 4 Upper Body Dressing (QC): 4 Lower Body Dressing (QC): 3 On/Off Footwear (QC): 3 1=Demonstrate adherence to instructed precautions during ADL tasks. 2=Patient will verbalize/demonstrate understanding of assistive devices/modifications for ADL. 3=Patient will improve strength/tolerance for activity to enable patient to perform ADL's. OT Education/Plan Problem List/Assessment Assessment: Decreased Activ Tolerance, Decreased UE Strength, Impaired Self-C are Skills Discharge Recommendations Plan/Recommendations: Continue POC Treatment Plan/Plan of Care Patient would benefit from OT for education, treatment and training to promote independence in ADL's, mobility, safety and/or upper extremity function for ADL's. Plan of Care: ADL Retraining, Caregiver Training, Cognitive Retraining, Concurrent Therapy, Functional Mobility, Group Exercise/Act as Ind, Orthotic Fitting/Training, UE Funct Exercise/Act, W/C Management Training Treatment Duration: Nov 26, 2021 Frequency: At least 5 of 7 days/Wk (IRF) Estimated Hrs Per Day: 1.5 hours per day (75-90 min/day) Agreement: Yes Rehab Potential: Fair Time/GCodes Start Time: 09:00 Stop Time: 10:00 Total Time Billed (hr/min): 60 Billed Treatment Time 1 visit-ADL 2 (35 min) EX 2 (35 min) TAMIKA CENTENO Nov 09, 2021 10:00
--- NOTE | 2021-11-09 11:01 | CONSULTATION REPORT ---
DATE OF SERVICE: 11/09/2021 ATTENDING PHYSICIAN: Dr. Cruz. SUMMARY: An 85-year-old white man with a left humeral fracture in rehabilitation for debility, weakness and rehabilitation. The patient has had a catheter since the fracture. He was started on Flomax 0.4 daily and Urecholine 25 q.i.d., no trial of voiding yet. The patient has a history of cancer of the prostate, which was treated over 10 years ago by brachytherapy by and Dr. Rose, who has been followed for the cancer with his PCP and his PSA has been okay. Rectal exam, deferred. IMPRESSION: 1. Possible urinary retention. 2. History of CA of the prostate. PLAN: Trial of voiding. Follow up with bladder scan, postvoid residual and manage accordingly. Keep him on Flomax and Urecholine for now. If he fails a trial of voidings, we will do a cystoscopy. The plan was fully explained to the patient. CC: Dr. Cruz - requested, unable to deliver. Job ID: [id number] DocumentID: [id number] Dictated Date: 11/09/2021 10:25:21 Medical Collector Date: 11/09/2021 11:00:29 Dictated By: JANICE SCHWARZ MD
[2021-11-09] MEDS: polyethylene glycoL POWDER 17 GM (MIRALAX) PACK PO SCH ×2 (12:01→20:10)
[2021-11-09] MEDS: TAMSULOSIN 0.4 MG (FLOMAX) CAP PO SCH (18:17)
[2021-11-09] MEDS: ENOXAPARIN 40 MG/0.4 ML (LOVENOX) SYR SC SCH (18:17)
[2021-11-09 19:17] VITALS: BP 130/60
[2021-11-09] MEDS: GABAPENTIN 300 MG (NEURONTIN) CAP PO SCH (20:06)
[2021-11-09] MEDS: AtorvaSTATin TABLET 10 MG TABLET PO SCH (20:08)
[2021-11-09] MEDS: HYDROcodone/APAP 5 MG/325 MG (LORTAB) TAB PO PRN (20:08)
[2021-11-10] MEDS: HYDROcodone/APAP 5 MG/325 MG (LORTAB) TAB PO PRN ×4 (01:57→20:04)
[2021-11-10] MEDS: OMEGA 3 (FISH OIL) 1000 MG CAP PO SCH (06:09)
[2021-11-10] MEDS: BETHANECHOL 25 MG (URECHOLINE) TAB PO SCH ×4 (06:09→20:03)
[2021-11-10] MEDS: CALCIUM CARBONATE 600 MG (CALCARB) TAB PO SCH (06:10)
[2021-11-10] MEDS: MULTIVIT W/MINERALS TAB (THERAGRAN M) PO SCH (06:10)
--- NOTE | 2021-11-10 06:38 | PM&R Progress Note ---
Subjective HPI/CC On Admission Date Seen by Provider: Nov 10, 2021 Time Seen by Provider: 09:00 Subjective/Events-last exam 11/10/2021: No major issues No falls No pain Fluid restriction maintained 11/09/2021: Patient doing well Appreciate urology consult Discontinue catheter for trial void Flomax and Urecholine maintained No major issues 11/08/2021: Pt is confused a bit Sodium level is 128 Regular diet, will discontinue low sodium diet 11/07/2021: Doing well No pain reported Left sling in place BM with fecal incontinence which frustrates him 11/06/2021: Doing well Bowels caused fecal incontinence but they are moving Sodium level 125 Salt tablets and fluid restriction in place Participating in therapy Review of Systems General: Fatigue, Malaise Objective Exam Vital Signs Vital Signs Date Time Temp Pulse Resp B/P (MAP) Pulse Ox O2 Delivery O2 Flow Rate FiO2 11/10/21 20:01 36.6 72 16 158/77 (104) 92 Room Air Capillary Refill : General Appearance: No Apparent Distress, WD/WN, Chronically ill HEENT: PERRL/EOMI, Normal ENT Inspection, Pharynx Normal Neck: Full Range of Motion, Normal Inspection, Non Tender, Supple, Carotid Bruit Respiratory: Chest Non Tender, Lungs Clear, Normal Breath Sounds, No Accessory Muscle Use, No Respiratory Distress Cardiovascular: Regular Rate, Rhythm, No Edema, No Gallop, No JVD, No Murmur, Normal Peripheral Pulses Gastrointestinal: Normal Bowel Sounds, No Organomegaly, No Pulsatile Mass, Non Tender, Soft Back: Normal Inspection, No CVA Tenderness, No Vertebral Tenderness Extremity: Normal Capillary Refill, Normal Inspection, Normal Range of Motion (except right arm in sling), Non Tender, No Calf Tenderness, No Pedal Edema Neurologic/Psychiatric: Alert, Oriented x3, No Motor/Sensory Deficits, Normal Mood/Affect, Motor Weakness (generalized) Skin: Normal Color, Warm/Dry Lymphatic: No Adenopathy Results/Procedures Lab Patient resulted labs reviewed. FIM Transfers Therapy Code Descriptions/Definitions Functional [place] Measure: 0=Not Assessed/NA 4=Minimal Assistance 1=Total Assistance 5=Supervision or Setup 2=Maximal Assistance 6=Modified [place] 3=Moderate Assistance 7=Complete IndependenceSCALE: Activities may be completed with or without assistive devices. 2-Jslcbviuli-xthqfny completes the activity by him/herself with no assistance from a helper. 5-Set-up or Clean-up Assistance-helper sets up or cleans up; patient completes activity. [place] assists only prior to or following the activity. 4-Supervision or Touching Assistance-helper provides verbal cues and/or touching/steadying and/or contact guard assistance as patient completes activity. Assistance may be provided throughout the activity or intermittently. 3-Partial/Moderate Assistance-helper does LESS THAN HALF the effort. [place] lifts, holds or supports trunk or limbs, but provides less than half the effort. 2-Substantial/Maximal Assistance-helper does MORE THAN HALF the effort. [place] lifts or holds trunk or limbs and provides more than half the effort. 4-Ythshcbvo-ncbijz does ALL the effort. Patient does none of the effort to complete the activity. Or, the assistance of 2 or more helpers is required for the patient to complete the activity. If activity was not attempted, code reason: 7-Patient Refused. 9-Not Applicable-not attempted and the patient did not perform the activity before the current illness, exacerbation or injury. 10-Not Attempted due to Environmental Limitations-(lack of equipment, weather restraints, etc.). 88-Not Attempted due to Medical Conditions or Safety Concerns. Roll Left to Right (QC): 3 Sit to Lying (QC): 3 Sit to Stand (QC): 4 Chair/Kvx-ue-Racdy Xfer(QC): 4 Car Transfer (QC): 3 Gait Training Does the Patient Walk?: Yes Distance: 20' Walk 10 feet (QC): 4 Walk 50 ft with 2 Turns(QC): 88 Walk 150 ft (QC): 88 Walking 10ft/uneven surface-QC: 88 Gait Persons Needed: 1 Gait Assistive Device: FWW Wheelchair Training Does the Pt Use a Wheelchair?: Yes Wheel 50 ft with 2 turns (QC): 4 Wheel 150 ft (QC): 4 Type of Wheelchair: Manual Stair Training 1 Step (curb) (QC): 88 4 Steps (QC): 88 12 Steps (QC): 88 Balance Picking up an Object (QC): 88 ADL-Treatment Eating (QC): 4 Oral Hygiene (QC): 6 Shower/Bathe Self (QC): 3 Upper Body Dressing (QC): 3 (Mod A) Lower Body Dressing (QC): 2 (Max A) On/Off Footwear (QC): 3 (Mod A) Toileting Hygiene (QC): 2 Toilet Transfer (QC): 3 Assessment/Plan Assessment and Plan Assess & Plan/Chief Complaint Assessment: Fall Debility Left humerus fracture no surgery required placed in sling Urinary retention Sherman cath in place started bladder meds then DC catheter 11/09/2021 by urology Hyponatremia placed on salt tablets and fluid restriction HTN HLP h/o Prostate cancer Plan: IRF protocol Bladder meds DC sherman soon Home meds 11/06/2021: Supportive care Bladder meds 11/07/2021: Check labs in am BM+ 11/08/2021: Salt tablets Fluid restriction 11/09/2021: Supportive care Monitor closely 11/10/2021: Fall risk Pain control (1) Weakness Status: Acute (2) CAD (coronary artery disease) (3) Sherman catheter in place (4) Fall on same level Status: Acute (5) Hyponatremia Status: Acute (6) Urinary retention (7) History of prostate cancer Status: Chronic (8) Closed left humeral fracture Status: Acute (9) Multiple abrasions Status: Acute ARIA ALEMAN DO Nov 10, 2021 06:38
[2021-11-10 07:55] VITALS: BP 112/67
[2021-11-10] MEDS: polyethylene glycoL POWDER 17 GM (MIRALAX) PACK PO SCH ×3 (08:13→20:04)
[2021-11-10] MEDS: lisINopril 20 MG (PRINIVIL) TABLET PO SCH (08:13)
[2021-11-10] MEDS: meTOprolol TARTRATE 25 MG (LOPRESSOR) TABLET PO SCH ×2 (08:14→20:04)
[2021-11-10] MEDS: CLOPIDOGREL 75 MG (PLAVIX) TABLET PO SCH (08:14)
[2021-11-10] MEDS: SODIUM CHLORIDE 1 GM TABLET PO SCH ×3 (08:14→20:05)
[2021-11-10] MEDS: DOCUSATE SODIUM 100 MG (COLACE) CAP PO SCH ×2 (08:14→20:03)
[2021-11-10] MEDS: SENNA W/DOCUSATE (SENOKOT S) TABLET PO SCH ×2 (08:14→20:04)
--- NOTE | 2021-11-10 08:33 | Progress Note - Urology ---
Progress Note-Urology Progress Notes/Assess & Plan Progress/Assessment & Plan VOIDING WELL. NO COMPLAINTS. PVR 66 AND 200. KEEP SAME PLAN Final Diagnosis RETENTION JANICE SCHWARZ MD Nov 10, 2021 08:33
--- NOTE | 2021-11-10 08:43 | Occupational Ther Daily Note ---
OT Current Status-Daily Note Subjective Pt alert, sitting in recliner. Pt agrees to therapy. During session, pt fatigues quickly and is 'whoozy/dizzy'. Lengthy recovery break taken and pt recovers, reported to nrsg. Mental Status/Objective Patient Orientation: Person, Place, Time, Situation Attachments: Other-See Comments (arm sling L) ADL-Treatment Pt agrees to shower. CGA for sit to stand, though pt thinks that he needs assistance to push to stand. CGA for toilet transfer. CGA to manipulate clothing, pt voided 100cc. Pt completed shower 100% in sitting using grabbars and hand held shower. Pt doffs pants with CGA, dons pants with max A. Fearful of leaning forward to grasp waist band of pants. As pt tires, decrease problem solving and sequencing occurs and verbal/physical cues are required. Pt independent with oral care and eating. Pt able to doff shirt by self then mod A to don shirt. Verbal cues to position self in bed only. After session, pt lying in bed with call light/phone in reach. All needs met. Therapy Code Descriptions/Definitions Functional [place] Measure: 0=Not Assessed/NA 4=Minimal Assistance 1=Total Assistance 5=Supervision or Setup 2=Maximal Assistance 6=Modified [place] 3=Moderate Assistance 7=Complete IndependenceSCALE: Activities may be completed with or without assistive devices. 1-Oezktbswnf-yxnbedx completes the activity by him/herself with no assistance from a helper. 5-Set-up or Clean-up Assistance-helper sets up or cleans up; patient completes activity. [place] assists only prior to or following the activity. 4-Supervision or Touching Assistance-helper provides verbal cues and/or touching/steadying and/or contact guard assistance as patient completes activity. Assistance may be provided throughout the activity or intermittently. 3-Partial/Moderate Assistance-helper does LESS THAN HALF the effort. [place] lifts, holds or supports trunk or limbs, but provides less than half the effort. 2-Substantial/Maximal Assistance-helper does MORE THAN HALF the effort. [place] lifts or holds trunk or limbs and provides more than half the effort. 2-Ropbnfqru-qiwjpx does ALL the effort. Patient does none of the effort to complete the activity. Or, the assistance of 2 or more helpers is required for the patient to complete the activity. If activity was not attempted, code reason: 7-Patient Refused. 9-Not Applicable-not attempted and the patient did not perform the activity before the current illness, exacerbation or injury. 10-Not Attempted due to Environmental Limitations-(lack of equipment, weather restraints, etc.). 88-Not Attempted due to Medical Conditions or Safety Concerns. Eating (QC): 6 Oral Hygiene (QC): 6 Shower/Bathe Self (QC): 4 Upper Body Dressing (QC): 3 Lower Body Dressing (QC): 2 On/Off Footwear: 2 Toileting Hygiene (QC): 4 Toilet Transfer (QC): 4 OT Short Term Goals Short Term Goals Time Frame: Nov 19, 2021 Eatin Oral hygiene: 5 Toileting hygiene: 2 Shower/bathe self: 3 Upper body dressin Lower body dressin Putting on/taking off footwear: 2 OT Host And Hostess Goals [facility] Goals Time Frame: Nov 26, 2021 Eating (QC): 5 Oral Hygiene (QC): 5 Toileting Hygiene (QC): 4 Shower/Bathe Self (QC): 4 Upper Body Dressing (QC): 4 Lower Body Dressing (QC): 3 On/Off Footwear (QC): 3 1=Demonstrate adherence to instructed precautions during ADL tasks. 2=Patient will verbalize/demonstrate understanding of assistive camron mac/modifications for ADL. 3=Patient will improve strength/tolerance for activity to enable patient to perform ADL's. OT Education/Plan Problem List/Assessment Assessment: Decreased Activ Tolerance, Impaired Funct Balance, Impaired Self- Care Skills Discharge Recommendations Plan/Recommendations: Continue POC Treatment Plan/Plan of Care Patient would benefit from OT for education, treatment and training to promote independence in ADL's, mobility, safety and/or upper extremity function for ADL's. Plan of Care: ADL Retraining, Caregiver Training, Cognitive Retraining, Concurrent Therapy, Functional Mobility, Group Exercise/Act as Ind, Orthotic Fitting/Training, UE Funct Exercise/Act, W/C Management Training Treatment Duration: Nov 26, 2021 Frequency: At least 5 of 7 days/Wk (IRF) Estimated Hrs Per Day: 1.5 hours per day (75-90 min/day) Agreement: Yes Rehab Potential: Fair Time/GCodes Start Time: 07:30 Stop Time: 09:00 Total Time Billed (hr/min): 90 Billed Treatment Time 1 visit-ADL 6 (90 min) TAMIKA CENTENO Nov 10, 2021 08:43
[2021-11-10] MEDS: ASPIRIN E.C. 81 MG (ECOTRIN) TAB PO SCH (09:56)
--- NOTE | 2021-11-10 12:05 | Physical Therapy Daily Note ---
PT Daily Note-Current Subjective Pt sitting in recliner upon arrival. Pt agrees to PT. Pt reports pain in L shoulder with movement. Nurse gives pain med. Pain Numeric Pain Scale: 9 Location: Left Location Body Site: Shoulder Pain Description: Ache Mental Status Patient Orientation: Person, Place, Situation Attachments: Other-See Comments (Sling for L UE) Transfers SCALE: Activities may be completed with or without assistive devices. 2-Xzaarbuhkl-xxqovar completes the activity by him/herself with no assistance from a helper. 5-Set-up or Clean-up Assistance-helper sets up or cleans up; patient completes activity. [place] assists only prior to or following the activity. 4-Supervision or Touching Assistance-helper provides verbal cues and/or touching/steadying and/or contact guard assistance as patient completes activity. Assistance may be provided throughout the activity or intermittently. 3-Partial/Moderate Assistance-helper does LESS THAN HALF the effort. [place] lifts, holds or supports trunk or limbs, but provides less than half the effort. 2-Substantial/Maximal Assistance-helper does MORE THAN HALF the effort. [place] lifts or holds trunk or limbs and provides more than half the effort. 7-Hivmuaept-cbfldv does ALL the effort. Patient does none of the effort to complete the activity. Or, the assistance of 2 or more helpers is required for the patient to complete the activity. If activity was not attempted, code reason: 7-Patient Refused. 9-Not Applicable-not attempted and the patient did not perform the activity before the current illness, exacerbation or injury. 10-Not Attempted due to Environmental Limitations-(lack of equipment, weather restraints, etc.). 88-Not Attempted due to Medical Conditions or Safety Concerns. Sit to Stand (QC): 3 Toilet Transfer (QC): 3 Weight Bearing Full Weight Bearing Full Weight Bearing Gait Training Does the Patient Walk?: Yes Distance: 10' Walk 10 feet (QC): 4 Gait Assistive Device: Walker Erich Wheelchair Training Does the Pt Use a Wheelchair?: Yes Wheel 50 ft with 2 turns (QC): 5 Wheel 150 ft (QC): 5 Type of Wheelchair: Manual Exercises NuStep Minutes: 10 NuStep Workload: 3 Treatments TF to standing and amb. using Erich walker to BR. After toileting, pt needs some assistance to pull up underwear & short up. Pt amb. short distance to hallway before fatiguing and needing to sit in WCH to rest. Pt able to propel WCH in hallway. TF to NuStep then takes short RB after completed 10m. Pt propels back to room and TF to recliner to rest. All needs met, call light in hand. Assessment Current Status: Good Progress Pt has been able to increase activity level kaitlyn. with walking. Pain in shoulder at times will limit upright activity. PRIMARY CARE PROVIDER encouraged pt to take pain med. earlier before pain gets that unbearable. PT Short Term Goals Short Term Goals Time Frame: Nov 12, 2021 Roll Left & Right: 4 (CGA) Sit to lyin (CGA) Lying to sitting on side of be: 4 (CGA) Sit to stand: 4 (CGA) Walk 10 feet: 4 (CGA) Walk 50 feet with two turns: 4 (CGA) PT Correction Goals Tribunal Member Goals PT Correction Goals Time Frame: Nov 26, 2021 Roll Left & Right (QC): 6 Sit to Lying (QC): 6 Lying-Sitting on Side/Bed(QC): 6 Sit to Stand (QC): 4 (SBA) Chair/Zpy-ms-Axror Xfer(QC): 4 (SA) Toilet Transfer (QC): 4 (SBA) Car Transfer (QC): 4 (SBA) Does the Patient Walk: Yes Walk 10 feet (QC): 4 (SBA) Walk 50ft with 2 Turns (QC): 4 (SBA) Walk 150 ft (QC): 4 (SBA) Walking 10ft on Uneven Surface: 4 (SBA) 1 Step (curb) (QC): 4 (SBA) 4 Steps (QC): 4 (SBA) 12 Steps (QC): 88 Picking up an Object (QC): 4 (CGA using revenue field agent) Wheel 50 feet with 2 turns (QC: 9 Wheel 150 feet: 9 PT Plan Problem List Problem List: Activity Tolerance, Functional Strength, Gait, Transfer Treatment/Plan Treatment Plan: Continue Plan of Care Treatment Plan: Bed Mobility, Education, Functional Activity [place], Functional Strength, Group Therapy, Gait, Safety, Therapeutic Exercise, Transfers Treatment Duration: Nov 26, 2021 Frequency: At least 5 of 7 days/Wk (IRF) Estimated Hrs Per Day: 1.5 hours per day Patient and/or Family Agrees t: Yes Safety Risks/Education Patient Education: Gait Training, Transfer Techniques, Correct Positioning, Safety Issues Teaching Recipient: Patient Teaching Methods: Discussion Response to Teaching: Verbalize Understanding Time/GCodes Time In: 1100 Time Out: 1200 Total Billed Treatment Time: 60 Total Billed Treatment 1, FA (15m), GT (15m), WCH (15m) & EX (15m) VALERIE OMER PRIMARY CARE PROVIDER Nov 10, 2021 12:05
--- NOTE | 2021-11-10 15:39 | Physical Therapy Daily Note ---
PT Daily Note-Current Subjective Pt sitting in recliner just finishing with [place] upon arrival. Pt agrees to PT. Pain Location: Left Location Body Site: Shoulder Pain Description: Ache Comment: Reports but doesn't rate Mental Status Patient Orientation: Person, Place, Situation Attachments: Other-See Comments (Sling for L UE) Transfers SCALE: Activities may be completed with or without assistive devices. 4-Sjvtuctysm-xckpfay completes the activity by him/herself with no assistance from a helper. 5-Set-up or Clean-up Assistance-helper sets up or cleans up; patient completes activity. [place] assists only prior to or following the activity. 4-Supervision or Touching Assistance-helper provides verbal cues and/or touching/steadying and/or contact guard assistance as patient completes activity. Assistance may be provided throughout the activity or intermittently. 3-Partial/Moderate Assistance-helper does LESS THAN HALF the effort. [place] lifts, holds or supports trunk or limbs, but provides less than half the effort. 2-Substantial/Maximal Assistance-helper does MORE THAN HALF the effort. [place] lifts or holds trunk or limbs and provides more than half the effort. 7-Hygweoblp-kmormc does ALL the effort. Patient does none of the effort to complete the activity. Or, the assistance of 2 or more helpers is required for the patient to complete the activity. If activity was not attempted, code reason: 7-Patient Refused. 9-Not Applicable-not attempted and the patient did not perform the activity before the current illness, exacerbation or injury. 10-Not Attempted due to Environmental Limitations-(lack of equipment, weather restraints, etc.). 88-Not Attempted due to Medical Conditions or Safety Concerns. Sit to Lying (QC): 5 Sit to Stand (QC): 3 Toilet Transfer (QC): 3 Weight Bearing Full Weight Bearing Full Weight Bearing Gait Training Does the Patient Walk?: Yes Distance: 15' x2 Walk 10 feet (QC): 4 Gait Persons Needed: 1 Gait Assistive Device: Walker Erich Exercises Seated Therapy Exercises: Ankle pumps, Long arc quads, Hip flexion, Glut set Seated Reps: 15 Treatments TF to standing and amb. to BR. Pt able to don/doff underwear & shorts but reports fatigue so amb. back to recliner to rest. Pt completes Seated Ex before asking to TF to bed. TF to EOB then Supine, repositioned to comfort & positioning. All needs met, call light in hand. Assessment Current Status: Good Progress Pt's mobility has improved with using Erich walker. Pt still fatigues quickly but able to ambulate farther and more independently with Erich instead of FWW or hallway railing. Pt walks more functionally. PT Short Term Goals Short Term Goals Time Frame: Nov 12, 2021 Roll Left & Right: 4 (CGA) Sit to lyin (CGA) Lying to sitting on side of be: 4 (CGA) Sit to stand: 4 (CGA) Walk 10 feet: 4 (CGA) Walk 50 feet with two turns: 4 (CGA) PT Alf Goals Insurance Agency Owner Goals PT Alf Goals Time Frame: Nov 26, 2021 Roll Left & Right (QC): 6 Sit to Lying (QC): 6 Lying-Sitting on Side/Bed(QC): 6 Sit to Stand (QC): 4 (SBA) Chair/Hvd-gm-Aiunt Xfer(QC): 4 (SA) Toilet Transfer (QC): 4 (SBA) Car Transfer (QC): 4 (SBA) Does the Patient Walk: Yes Walk 10 feet (QC): 4 (SBA) Walk 50ft with 2 Turns (QC): 4 (SBA) Walk 150 ft (QC): 4 (SBA) Walking 10ft on Uneven Surface: 4 (SBA) 1 Step (curb) (QC): 4 (SBA) 4 Steps (QC): 4 (SBA) 12 Steps (QC): 88 Picking up an Object (QC): 4 (CGA using jewelry sales associate) Wheel 50 feet with 2 turns (QC: 9 Wheel 150 feet: 9 PT Plan Problem List Problem List: Activity Tolerance, Functional Strength, Gait, Transfer Treatment/Plan Treatment Plan: Continue Plan of Care Treatment Plan: Bed Mobility, Education, Functional Activity [place], Functional Strength, Group Therapy, Gait, Safety, Therapeutic Exercise, Transfers Treatment Duration: Nov 26, 2021 Frequency: At least 5 of 7 days/Wk (IRF) Estimated Hrs Per Day: 1.5 hours per day Patient and/or Family Agrees t: Yes Safety Risks/Education Patient Education: Gait Training, Transfer Techniques, Correct Positioning Teaching Recipient: Patient Teaching Methods: Discussion Response to Teaching: Verbalize Understanding Time/GCodes Time In: 1420 Time Out: 1505 Total Billed Treatment Time: 45 Total Billed Treatment 1, FA x2 (25m) & EX (20m) VALERIE OMER OIL DISTRIBUTOR Nov 10, 2021 15:39
[2021-11-10] MEDS: ENOXAPARIN 40 MG/0.4 ML (LOVENOX) SYR SC SCH (17:09)
[2021-11-10] MEDS: TAMSULOSIN 0.4 MG (FLOMAX) CAP PO SCH (17:09)
[2021-11-10 20:01] VITALS: BP 158/77
[2021-11-10] MEDS: GABAPENTIN 300 MG (NEURONTIN) CAP PO SCH (20:03)
[2021-11-10] MEDS: AtorvaSTATin TABLET 10 MG TABLET PO SCH (20:03)
[2021-11-11] VITALS (8 sets, daily range): BP systolic 61–122; BP diastolic 31–58
[2021-11-11] MEDS: HYDROcodone/APAP 5 MG/325 MG (LORTAB) TAB PO PRN ×2 (00:36→05:09)
[2021-11-11] MEDS: BETHANECHOL 25 MG (URECHOLINE) TAB PO SCH ×2 (05:09→11:47)
--- NOTE | 2021-11-11 05:39 | PM&R Progress Note ---
Subjective HPI/CC On Admission Date Seen by Provider: Nov 11, 2021 Time Seen by Provider: 12:00 Subjective/Events-last exam 11/11/2021: Nurse called me to the bedside urgently due to hypotension and unable to obtain oxygen saturation and bradycardia of 30 I arrived at the bedside urgently and found the patient to be diaphoretic but in no other distress Blood pressure was 70/40 IV fluids initiated of 1 L bolus which ultimately improved blood pressure to 88/40 Constant cough was noted so chest x-ray obtained showing pneumonia and findings consistent with sepsis from pneumonia so he was moved to the ICU. All medication orders and sepsis protocol initiated 11/10/2021: No major issues No falls No pain Fluid restriction maintained 11/09/2021: Patient doing well Appreciate urology consult Discontinue catheter for trial void Flomax and Urecholine maintained No major issues 11/08/2021: Pt is confused a bit Sodium level is 128 Regular diet, will discontinue low sodium diet 11/07/2021: Doing well No pain reported Left sling in place BM with fecal incontinence which frustrates him 11/06/2021: Doing well Bowels caused fecal incontinence but they are moving Sodium level 125 Salt tablets and fluid restriction in place Participating in therapy Review of Systems General: Fatigue, Malaise Musculoskeletal: arm pain Focused Exam Lactate Level 11/11/21 12:54: Lactic Acid Level 3.59*H 11/11/21 15:27: Lactic Acid Level 3.24*H 11/11/21 19:05: Lactic Acid Level 1.95 Lactic Acid Level Laboratory Tests Test 11/11/21 19:05 Lactic Acid Level 1.95 MMOL/L (0.50-2.00) Objective Exam Vital Signs Vital Signs Date Time Temp Pulse Resp B/P (MAP) Pulse Ox O2 Delivery O2 Flow Rate FiO2 11/11/21 19:34 Nasal Cannula 2.00 11/11/21 12:40 35.3 73 109/53 (71) 97 11/11/21 11:41 20 Capillary Refill : General Appearance: No Apparent Distress, WD/WN, Chronically ill HEENT: PERRL/EOMI, Normal ENT Inspection, Pharynx Normal Neck: Full Range of Motion, Normal Inspection, Non Tender, Supple, Carotid Bruit Respiratory: Chest Non Tender, Lungs Clear, Normal Breath Sounds, No Accessory Muscle Use, No Respiratory Distress Cardiovascular: Regular Rate, Rhythm, No Edema, No Gallop, No JVD, No Murmur, Normal Peripheral Pulses Gastrointestinal: Normal Bowel Sounds, No Organomegaly, No Pulsatile Mass, Non Tender, Soft Back: Normal Inspection, No CVA Tenderness, No Vertebral Tenderness Extremity: Normal Capillary Refill, Normal Inspection, Normal Range of Motion (except right arm in sling), Non Tender, No Calf Tenderness, No Pedal Edema Neurologic/Psychiatric: Alert, Oriented x3, No Motor/Sensory Deficits, Normal Mood/Affect, Motor Weakness (generalized) Skin: Normal Color, Warm/Dry Lymphatic: No Adenopathy Results/Procedures Lab Laboratory Tests 11/11/21 08:12 11/11/21 12:54 Patient resulted labs reviewed. FIM Transfers Therapy Code Descriptions/Definitions Functional [place] Measure: 0=Not Assessed/NA 4=Minimal Assistance 1=Total Assistance 5=Supervision or Setup 2=Maximal Assistance 6=Modified [place] 3=Moderate Assistance 7=Complete IndependenceSCALE: Activities may be completed with or without assistive devices. 9-Rhfqrcvinz-jhliocz completes the activity by him/herself with no assistance from a helper. 5-Set-up or Clean-up Assistance-helper sets up or cleans up; patient completes activity. [place] assists only prior to or following the activity. 4-Supervision or Touching Assistance-helper provides verbal cues and/or touching/steadying and/or contact guard assistance as patient completes activity. Assistance may be provided throughout the activity or intermittently. 3-Partial/Moderate Assistance-helper does LESS THAN HALF the effort. [place] lifts, holds or supports trunk or limbs, but provides less than half the effort. 2-Substantial/Maximal Assistance-helper does MORE THAN HALF the effort. [place] lifts or holds trunk or limbs and provides more than half the effort. 7-Fxtrmebuh-zxngum does ALL the effort. Patient does none of the effort to complete the activity. Or, the assistance of 2 or more helpers is required for the patient to complete the activity. If activity was not attempted, code reason: 7-Patient Refused. 9-Not Applicable-not attempted and the patient did not perform the activity before the current illness, exacerbation or injury. 10-Not Attempted due to Environmental Limitations-(lack of equipment, weather restraints, etc.). 88-Not Attempted due to Medical Conditions or Safety Concerns. Roll Left to Right (QC): 3 Sit to Lying (QC): 5 Sit to Stand (QC): 3 Chair/Yln-px-Rcdff Xfer(QC): 4 Car Transfer (QC): 3 Gait Training Does the Patient Walk?: Yes Distance: 15' x2 Walk 10 feet (QC): 4 Walk 50 ft with 2 Turns(QC): 88 Walk 150 ft (QC): 88 Walking 10ft/uneven surface-QC: 88 Gait Persons Needed: 1 Gait Assistive Device: Walker Erich Wheelchair Training Does the Pt Use a Wheelchair?: Yes Wheel 50 ft with 2 turns (QC): 5 Wheel 150 ft (QC): 5 Type of Wheelchair: Manual Stair Training 1 Step (curb) (QC): 88 4 Steps (QC): 88 12 Steps (QC): 88 Balance Picking up an Object (QC): 88 ADL-Treatment Eating (QC): 6 Oral Hygiene (QC): 6 Shower/Bathe Self (QC): 4 Upper Body Dressing (QC): 3 Lower Body Dressing (QC): 2 On/Off Footwear (QC): 2 Toileting Hygiene (QC): 4 Toilet Transfer (QC): 4 Assessment/Plan Assessment and Plan Assess & Plan/Chief Complaint Assessment: Hypotensive event on 11/11/2021 with hypoxia, diaphoresis and evidence of sepsis from pneumonia prompting ICU transfer Fall Debility Left humerus fracture no surgery required placed in sling Urinary retention Sherman cath in place started bladder meds then DC catheter 11/09/2021 by urology Hyponatremia placed on salt tablets and fluid restriction HTN HLP h/o Prostate cancer Plan: IRF protocol Bladder meds DC sherman soon Home meds 11/06/2021: Supportive care Bladder meds 11/07/2021: Check labs in am BM+ 11/08/2021: Salt tablets Fluid restriction 11/09/2021: Supportive care Monitor closely 11/10/2021: Fall risk Pain control 11/11/2021: Transferred to ICU (1) Weakness Status: Acute (2) CAD (coronary artery disease) (3) Sherman catheter in place (4) Fall on same level Status: Acute (5) Hyponatremia Status: Acute (6) Urinary retention (7) History of prostate cancer Status: Chronic (8) Closed left humeral fracture Status: Acute (9) Multiple abrasions Status: Acute ARIA ALEMAN DO Nov 11, 2021 05:39
[2021-11-11] MEDS: MULTIVIT W/MINERALS TAB (THERAGRAN M) PO SCH (06:33)
[2021-11-11] MEDS: OMEGA 3 (FISH OIL) 1000 MG CAP PO SCH (06:33)
[2021-11-11] MEDS: CALCIUM CARBONATE 600 MG (CALCARB) TAB PO SCH (06:33)
[2021-11-11] MEDS: ASPIRIN E.C. 81 MG (ECOTRIN) TAB PO SCH (08:21)
[2021-11-11] MEDS: CLOPIDOGREL 75 MG (PLAVIX) TABLET PO SCH (08:21)
[2021-11-11] MEDS: SODIUM CHLORIDE 1 GM TABLET PO SCH (08:22)
[2021-11-11] MEDS: meTOprolol TARTRATE 25 MG (LOPRESSOR) TABLET PO SCH (08:22)
[2021-11-11] MEDS: lisINopril 20 MG (PRINIVIL) TABLET PO SCH (08:22)
[2021-11-11] MEDS: polyethylene glycoL POWDER 17 GM (MIRALAX) PACK PO SCH ×2 (08:23→09:32)
[2021-11-11] MEDS: SENNA W/DOCUSATE (SENOKOT S) TABLET PO SCH (08:23)
[2021-11-11] MEDS: DOCUSATE SODIUM 100 MG (COLACE) CAP PO SCH (08:23)
--- NOTE | 2021-11-11 08:41 | Occupational Ther Daily Note ---
OT Current Status-Daily Note Subjective Pt alert, lying in bed. Pt had not received breakfast when DUNCAN entered room. DUNCAN called and checked on meal, meal came during session. No c/o pain at this time, pain only with adjusting sling on L UE. Pt agrees to therapy. Mental Status/Objective Patient Orientation: Person, Place, Time, Situation Attachments: Other-See Comments (L arm sling) ADL-Treatment Pt requests to use toilet. Min A for supine to EOB. CGA for sit to stand. Pt using hemiwalker to ambulate to bathroom, min A due to balance deficits. Pt requires hemiwalker to assist with stabilization during ambulation and transfer for safety and decrease fall risk. CGA for toilet transfer using hemiwalker and grabbars. Pt able to initiate hiking pants down over hips then assist to complete, assist to hike up over hips while using hemiwalker for support. Pt completes grooming and hand washing sitting at sink. Pt independent with eating. Pt able to doff socks by self. Pt working to simulate threading feet into pants. Pt declines using pick up to complete. Pt resistive to leaning forward to thread feet. Pt then uses figure four techniques to thread pants over feet by self. Therapy Code Descriptions/Definitions Functional [place] Measure: 0=Not Assessed/NA 4=Minimal Assistance 1=Total Assistance 5=Supervision or Setup 2=Maximal Assistance 6=Modified [place] 3=Moderate Assistance 7=Complete IndependenceSCALE: Activities may be completed with or without assistive devices. 2-Dttzavckzy-rdzwwez completes the activity by him/herself with no assistance from a helper. 5-Set-up or Clean-up Assistance-helper sets up or cleans up; patient completes activity. [place] assists only prior to or following the activity. 4-Supervision or Touching Assistance-helper provides verbal cues and/or touching /steadying and/or contact guard assistance as patient completes activity. Assistance may be provided throughout the activity or intermittently. 3-Partial/Moderate Assistance-helper does LESS THAN HALF the effort. [place] lifts, holds or supports trunk or limbs, but provides less than half the effort. 2-Substantial/Maximal Assistance-helper does MORE THAN HALF the effort. [place] lifts or holds trunk or limbs and provides more than half the effort. 4-Gpxevyugg-pkvdbd does ALL the effort. Patient does none of the effort to complete the activity. Or, the assistance of 2 or more helpers is required for the patient to complete the activity. If activity was not attempted, code reason: 7-Patient Refused. 9-Not Applicable-not attempted and the patient did not perform the activity before the current illness, exacerbation or injury. 10-Not Attempted due to Environmental Limitations-(lack of equipment, weather restraints, etc.). 88-Not Attempted due to Medical Conditions or Safety Concerns. Eating (QC): 6 Toileting Hygiene (QC): 3 (mod A) Toilet Transfer (QC): 4 (CGA) Other Treatment Stabilizing L upper arm and shldr, pt completes elbow flex/ext, forearm sup/pron, wrist flex/ext-1 set 20x's. Pt given green theraband and skilled instruction on one arm exercises using R UE. Pt continues to require skilled instruction for correct technique. After therapy, pt sitting in recliner with call light/phone in reach. All needs met in room. Education OT Patient Education: Exercise program, Modified ADL techniques Teaching Recipient: Patient Teaching Methods: Demonstration, Discussion Response to Teaching: Verbalize Understanding, Return Demonstration, Reinforcement Needed OT Short Term Goals Short Term Goals Time Frame: Nov 19, 2021 Eatin Oral hygiene: 5 Toileting hygiene: 2 Shower/bathe self: 3 Upper body dressin Lower body dressin Putting on/taking off footwear: 2 OT [facility] Goals Automation And Controls Instructor Goals Time Frame: Nov 26, 2021 Eating (QC): 5 (met) Oral Hygiene (QC): 5 (met) Toileting Hygiene (QC): 4 Shower/Bathe Self (QC): 4 Upper Body Dressing (QC): 4 Lower Body Dressing (QC): 3 On/Off Footwear (QC): 3 1=Demonstrate adherence to instructed precautions during ADL tasks. 2=Patient will verbalize/demonstrate understanding of assistive devices/modifications for ADL. 3=Patient will improve strength/tolerance for activity to enable patient to perform ADL's. OT Education/Plan Problem List/Assessment Assessment: Decreased Activ Tolerance, Decreased UE Strength, Impaired Bed Mobility, Impaired Funct Balance, Impaired Self-Care Skills, Restricted Funct UE ROM (L UE) Discharge Recommendations Plan/Recommendations: Continue POC Treatment Plan/Plan of Care Patient would benefit from OT for education, treatment and training to promote independence in ADL's, mobility, safety and/or upper extremity function for ADL's. Plan of Care: ADL Retraining, Caregiver Training, Cognitive Retraining, Concurrent Therapy, Functional Mobility, Group Exercise/Act as Ind, Orthotic Fitting/Training, UE Funct Exercise/Act, W/C Management Training Treatment Duration: Nov 26, 2021 Frequency: At least 5 of 7 days/Wk (IRF) Estimated Hrs Per Day: 1.5 hours per day (75-90 min/day) Agreement: Yes Rehab Potential: Fair Time/GCodes Start Time: 07:30 Stop Time: 09:00 Total Time Billed (hr/min): 90 Billed Treatment Time 1 visit-ADL 5 (70 min) EX 1 (20 min) TAMIKA CENTENO Nov 11, 2021 08:41
[2021-11-11 08:45] LABS: CALCIUM 9.7 MG/DL (8.5-10.1); CREATININE SERUM 0.91 MG/DL (0.60-1.30); POTASSIUM 3.9 MMOL/L (3.6-5.0)
[2021-11-11] MEDS ORDERED: NS IV 1000 ML 1,000 ML IV SCH ×2 (10:30→11:00)
--- NOTE | 2021-11-11 10:49 | Progress Note - Urology ---
Progress Note-Urology Progress Notes/Assess & Plan Progress/Assessment & Plan VOIDING WELL ON OWN. FEELS EMPTYING WELL. NO PVR DONE BY NURSING STAFF Final Diagnosis RETENTION JANICE SCHWARZ MD Nov 11, 2021 10:49
--- NOTE | 2021-11-11 10:58 | Physical Therapy Daily Note ---
PT Daily Note-Current Subjective Upon entering room pt is up in recliner and states he just doesnt feel well, has stomach upset and feels he is constipated, nurse present and giving metamucil?. Pt. agrees to rx. pt. requested to go to [facility], [place] hoping to have a BM. As this SAMPLE DISPLAY PREPARER assisted pt. after toileting where it was noted that he was bearing down to attempt to have BM , pt c/o extreme weakness and "not feeling well at all" ( see notes below) symptoms and c/o escalated from there Pain Location: No Pain Reported Appearance pt. became more pale, clammy, off and on partially unresponsive, drifting with eyes closed etc. pt. weak during gait and TRFs and stance Mental Status Patient Orientation: Normal For Age Attachments: Other-See Comments (sling left arm) Transfers SCALE: Activities may be completed with or without assistive devices. 1-Nrooaiazwx-biipynv completes the activity by him/herself with no assistance from a helper. 5-Set-up or Clean-up Assistance-helper sets up or cleans up; patient completes activity. [place] assists only prior to or following the activity. 4-Supervision or Touching Assistance-helper provides verbal cues and/or touching/steadying and/or contact guard assistance as patient completes activity. Assistance may be provided throughout the activity or intermittently. 3-Partial/Moderate Assistance-helper does LESS THAN HALF the effort. [place] lifts, holds or supports trunk or limbs, but provides less than half the effort. 2-Substantial/Maximal Assistance-helper does MORE THAN HALF the effort. [place] lifts or holds trunk or limbs and provides more than half the effort. 7-Hjiovccul-unlhpt does ALL the effort. Patient does none of the effort to complete the activity. Or, the assistance of 2 or more helpers is required for the patient to complete the activity. If activity was not attempted, code reason: 7-Patient Refused. 9-Not Applicable-not attempted and the patient did not perform the activity before the current illness, exacerbation or injury. 10-Not Attempted due to Environmental Limitations-(lack of equipment, weather restraints, etc.). 88-Not Attempted due to Medical Conditions or Safety Concerns. Sit to Lying (QC): 3 Sit to Stand (QC): 3 Chair/Jgx-nc-Imlif Xfer(QC): 3 Toilet Transfer (QC): 3 pt. feeling very weak required mod asst for all TRFs, unable to stand very long , had to sit to rest between pulling up boxers and ad outer pants Weight Bearing Full Weight Bearing Full Weight Bearing Gait Training Does the Patient Walk?: Yes Walk 10 feet (QC): 3 Gait Persons Needed: 1 Gait Assistive Device: Walker Erich pt. ambulated recliner to bthr with min to CGA , after on toilet and rising pt attempted to ambulate out of bthrm, was never really able to come to full stance, c/o weakness and feeling worse, mod assist was necessary for approx 7 ft then w/c was brought to get pt to his room Exercises Supine Ex: Ankle pumps, Quad Set, Glut sets, Heel Slides, Scooting, Hip abd/add Supine Reps: 20 Seated Therapy Exercises: Ankle pumps, Sit to stand, Long arc quads Seated Reps: 10 Treatments sup and seated LE ex, gait to bthrm approx 12 ft with min to CGA, pt attempted to have BM , door closed with this SAMPLE DISPLAY PREPARER just outside the door for privacy, it was noted that pt became markedly weaker, more pale , clammy and was not able to walk bck to his chair from bthrm, pts legs melting and required sudden need for assistance and a w/c. Pt. was brought to his bedside, vitals taken : BP 67/32, HR 53bpm, O2 sats 89%, nursing notified and pt. was TRFd to his bed which rquired 2 mod asst . Pt. continued to decline, nurse present for contd monitoring, BP 69/23, HR 53, O2 sats 87%, pt. contd clammy, cool damp clothes and emesis basin were brought as pt. also c/o increased nausea. Nurse at bedside responding , Rx discontinued Assessment Current Status: Regressing pt. was later TRFd to ICU with declining status PT Short Term Goals Short Term Goals Time Frame: Nov 12, 2021 Roll Left & Right: 4 (CGA) Sit to lyin (CGA) Lying to sitting on side of be: 4 (CGA) Sit to stand: 4 (CGA) Walk 10 feet: 4 (CGA) Walk 50 feet with two turns: 4 (CGA) PT Half-Way Goals Half-Way Goals PT Cell Operation Supervisor Goals Time Frame: Nov 26, 2021 Roll Left & Right (QC): 6 Sit to Lying (QC): 6 Lying-Sitting on Side/Bed(QC): 6 Sit to Stand (QC): 4 (SBA) Chair/Lrr-zr-Hgqnm Xfer(QC): 4 (SA) Toilet Transfer (QC): 4 (SBA) Car Transfer (QC): 4 (SBA) Does the Patient Walk: Yes Walk 10 feet (QC): 4 (SBA) Walk 50ft with 2 Turns (QC): 4 (SBA) Walk 150 ft (QC): 4 (SBA) Walking 10ft on Uneven Surface: 4 (SBA) 1 Step (curb) (QC): 4 (SBA) 4 Steps (QC): 4 (SBA) 12 Steps (QC): 88 Picking up an Object (QC): 4 (CGA using digital media strategist) Wheel 50 feet with 2 turns (QC: 9 Wheel 150 feet: 9 PT Plan Treatment/Plan Treatment Plan: Discontinue PT Treatment Plan: Bed Mobility, Education, Functional Activity [place], Functional Strength, Group Therapy, Gait, Safety, Therapeutic Exercise, Transfers Treatment Duration: Nov 26, 2021 Frequency: At least 5 of 7 days/Wk (IRF) Estimated Hrs Per Day: 1.5 hours per day Patient and/or Family Agrees t: Yes Safety Risks/Education Patient Education: Gait Training, Transfer Techniques, Safety Issues Teaching Recipient: Patient Teaching Methods: Discussion Response to Teaching: Unable to Return Demonstration, Reinforcement Needed Time/GCodes Time In: 930 Time Out: 1030 Total Billed Treatment Time: 60 Total Billed Treatment 1,FA35m,GT15m,EX10m CLAUDINE CANCINO SAMPLE DISPLAY PREPARER Nov 11, 2021 10:58
[2021-11-11] MEDS: NS IV 1000 ML 1,000 ML IV SCH (11:48)
--- NOTE | 2021-11-11 12:00 | Diagnostic Imaging Report ---
EXAMINATION: Chest 1 view HISTORY: Dyspnea. COMPARISON: 11/03/2021. FINDINGS: Heart size and pulmonary vasculature are stable. Patchy interstitial and airspace opacities within both lungs, right greater than left. Trace right pleural effusion. No pneumothorax. The osseous structures are intact. IMPRESSION: 1. Stable patchy interstitial and airspace opacities compared to 11/03/2021. Dictated by: Dictated on workstation # [id number]
[2021-11-11] MEDS ORDERED: CEFEPIME INJECTION 2,000 MG in NS (IVPB) 50 ML IV SCH (12:30)
[2021-11-11] MEDS: CEFEPIME 1,000 MG/NS 50 ML IVPB IV SCH ×2 (12:45)
[2021-11-11 13:03] LABS: BASOPHILS # (AUTO) 0.1 10^3/uL (0.0-0.1); BASOPHILS % (AUTO) 1 % (0-10); EOSINOPHILS % (AUTO) 0 % (0-10); HEMATOCRIT 44 % (40-54); HEMOGLOBIN 15.1 g/dL (13.3-17.7); LYMPHOCYTES # (AUTO) 0.8 10^3/uL (1.0-4.0); LYMPHOCYTES % (AUTO) 6 % (12-44); MEAN CORPUSCULAR HEMOGLOBIN 34 pg (25-34); MEAN CORPUSCULAR HGB CONC 35 g/dL (32-36); MEAN CORPUSCULAR VOLUME 99 fL (80-99); MEAN PLATELET VOLUME 8.5 fL (9.0-12.2); MONOCYTES # (AUTO) 1.2 10^3/uL (0.0-1.0); MONOCYTES % (AUTO) 8 % (0-12); NEUTROPHILS # (AUTO) 12.5 10^3/uL (1.8-7.8); NEUTROPHILS % (AUTO) 85 % (42-75); PLATELET COUNT 286 10^3/uL (130-400); WHITE BLOOD COUNT 14.8 10^3/uL (4.3-11.0)
[2021-11-11 13:24] LABS: ALBUMIN 3.9 GM/DL (3.2-4.5); BILIRUBIN,DIRECT 0.4 MG/DL (0.0-0.3); BILIRUBIN,INDIRECT 0.4 MG/DL; BILIRUBIN,TOTAL 0.8 MG/DL (0.1-1.0); TOTAL PROTEIN 6.5 GM/DL (6.4-8.2)
[2021-11-11 13:38] LABS: LYMPHOCYTES % (MANUAL) 5 %; MONOCYTES % (MANUAL) 6 %; NEUTROPHILS % (MANUAL) 89 %; RBC MORPH NORMAL
--- NOTE | 2021-11-12 09:36 | Progress Note - Urology ---
Progress Note-Urology Progress Notes/Assess & Plan Progress/Assessment & Plan DOING AND FEELING BETTER. URINE CLEAR. MAY DC ANTONY ONCE NOT NEEDED MEDICALLY Final Diagnosis RETENTION JANICE SCHWARZ MD Nov 12, 2021 09:36
[2021-11-12 13:20] VITALS: BP 128/60
[2021-11-12] MEDS: TAMSULOSIN 0.4 MG (FLOMAX) CAP PO SCH ×2 (13:59→17:54)
[2021-11-12] MEDS: SODIUM CHLORIDE 1 GM TABLET PO SCH ×4 (13:59→20:11)
[2021-11-12] MEDS: BETHANECHOL 25 MG (URECHOLINE) TAB PO SCH ×6 (13:59→20:11)
[2021-11-12] MEDS: ENOXAPARIN 40 MG/0.4 ML (LOVENOX) SYR SC SCH (13:59)
[2021-11-12] MEDS: NS IV 1000 ML 1,000 ML IV SCH ×2 (14:00→14:12)
[2021-11-12] MEDS: CEFEPIME 1,000 MG/NS 50 ML IVPB IV SCH ×12 (14:00→23:59)
[2021-11-12] MEDS: meTOprolol TARTRATE 25 MG (LOPRESSOR) TABLET PO SCH ×3 (14:01→20:11)
[2021-11-12] MEDS: CALCIUM CARBONATE 600 MG (CALCARB) TAB PO SCH (14:01)
[2021-11-12] MEDS: SENNA W/DOCUSATE (SENOKOT S) TABLET PO SCH ×3 (14:01→19:43)
[2021-11-12] MEDS: AtorvaSTATin TABLET 10 MG TABLET PO SCH ×2 (14:01→20:11)
[2021-11-12] MEDS: GABAPENTIN 300 MG (NEURONTIN) CAP PO SCH ×2 (14:01→20:11)
[2021-11-12] MEDS: polyethylene glycoL POWDER 17 GM (MIRALAX) PACK PO SCH ×3 (14:01→19:42)
[2021-11-12] MEDS: DOCUSATE SODIUM 100 MG (COLACE) CAP PO SCH ×3 (14:01→19:42)
[2021-11-12] MEDS: OMEGA 3 (FISH OIL) 1000 MG CAP PO SCH (14:02)
[2021-11-12] MEDS: ASPIRIN E.C. 81 MG (ECOTRIN) TAB PO SCH (14:02)
[2021-11-12] MEDS: MULTIVIT W/MINERALS TAB (THERAGRAN M) PO SCH (14:02)
[2021-11-12] MEDS: CLOPIDOGREL 75 MG (PLAVIX) TABLET PO SCH (14:11)
[2021-11-12] MEDS: lisINopril 20 MG (PRINIVIL) TABLET PO SCH (14:12)
--- NOTE | 2021-11-12 14:31 | Physical Therapy Daily Note ---
PT Daily Note-Current Subjective Patient in bed pre tx, agrees to PT, has no complaints of pain. Will be co- treating with OT due to poor patient mobility, strength, endurance, severe debility, coordinate UE and LE during activity, safety and reduce risk of falls. Appearance Patient in bed post tx with nurse call, phone, tray, all needs met, with information technology administrator Mental Status Patient Orientation: Person, Place, Situation Attachments: Oxygen, [place] Catheter left arm sling Transfers SCALE: Activities may be completed with or without assistive devices. 5-Zqvefqryag-mxeczpk completes the activity by him/herself with no assistance from a helper. 5-Set-up or Clean-up Assistance-helper sets up or cleans up; patient completes activity. [place] assists only prior to or following the activity. 4-Supervision or Touching Assistance-helper provides verbal cues and/or touching/steadying and/or contact guard assistance as patient completes activity. Assistance may be provided throughout the activity or intermittently. 3-Partial/Moderate Assistance-helper does LESS THAN HALF the effort. [place] lifts, holds or supports trunk or limbs, but provides less than half the effort. 2-Substantial/Maximal Assistance-helper does MORE THAN HALF the effort. [place] lifts or holds trunk or limbs and provides more than half the effort. 2-Rjoelotat-kqhwyc does ALL the effort. Patient does none of the effort to complete the activity. Or, the assistance of 2 or more helpers is required for the patient to complete the activity. If activity was not attempted, code reason: 7-Patient Refused. 9-Not Applicable-not attempted and the patient did not perform the activity before the current illness, exacerbation or injury. 10-Not Attempted due to Environmental Limitations-(lack of equipment, weather restraints, etc.). 88-Not Attempted due to Medical Conditions or Safety Concerns. Sit to Lying (QC): 3 Lying to Sitting/Side of Bed(Q: 3 Sit to Stand (QC): 3 Chair/Uie-wv-Pwglj Xfer(QC): 3 Patient performs supine to sit with min assist, sit to stand min assist, transfer to commode with mod assist. Patient is incontinent of bowel upon standing, it is bloody mucus-like. Patient does very little in the commode. Transfers back to bed because healthcare worker comes to perform some cardiac testing. Weight Bearing Full Weight Bearing Full Weight Bearing Treatments PT performed bed mobility and transfers, toileting, OT performed toileting, UE positioning and safety during activity. Assessment Current Status: Poor Progress No change in mobility from before. Patient is fragile, just came back from ICU was initially having BP issues and has bloody stool. Hospital worker comes for cardiac testing and patient is handed off to him. Will check back with patient tomorrow. PT Short Term Goals Short Term Goals Time Frame: Nov 12, 2021 Roll Left & Right: 4 (CGA) Sit to lyin (CGA) Lying to sitting on side of be: 4 (CGA) Sit to stand: 4 (CGA) Walk 10 feet: 4 (CGA) Walk 50 feet with two turns: 4 (CGA) PT Halfway Goals Halfway Goals PT Halfway Goals Time Frame: Nov 26, 2021 Roll Left & Right (QC): 6 Sit to Lying (QC): 6 Lying-Sitting on Side/Bed(QC): 6 Sit to Stand (QC): 4 (SBA) Chair/Ocn-op-Ocizs Xfer(QC): 4 (SA) Toilet Transfer (QC): 4 (SBA) Car Transfer (QC): 4 (SBA) Does the Patient Walk: Yes Walk 10 feet (QC): 4 (SBA) Walk 50ft with 2 Turns (QC): 4 (SBA) Walk 150 ft (QC): 4 (SBA) Walking 10ft on Uneven Surface: 4 (SBA) 1 Step (curb) (QC): 4 (SBA) 4 Steps (QC): 4 (SBA) 12 Steps (QC): 88 Picking up an Object (QC): 4 (CGA using continuous wave operator) Wheel 50 feet with 2 turns (QC: 9 Wheel 150 feet: 9 PT Plan Problem List Problem List: Activity Tolerance, Functional Strength, Safety, Balance, Gait, Transfer, Bed Mobility, ROM Treatment/Plan Treatment Plan: Continue Plan of Care Treatment Plan: Bed Mobility, Education, Functional Activity [place], Functional Strength, Group Therapy, Gait, Safety, Therapeutic Exercise, Transfers Treatment Duration: Nov 26, 2021 Frequency: At least 5 of 7 days/Wk (IRF) Estimated Hrs Per Day: 1.5 hours per day Patient and/or Family Agrees t: Yes Safety Risks/Education Patient Education: Transfer Techniques, Correct Positioning, Safety Issues Teaching Recipient: Patient Teaching Methods: Demonstration, Discussion Response to Teaching: Reinforcement Needed Time/GCodes Time In: 1400 Time Out: 1430 Total Billed Treatment Time: 30 Total Billed Treatment 1 visit FA BRENDA LEVIN PT Nov 12, 2021 14:31
--- NOTE | 2021-11-12 14:36 | Occupational Ther Daily Note ---
OT Current Status-Daily Note Subjective Pt alert, lying in bed. Pt transferred back to IRF from ICU this date. No c/o pain. C/o fatigue. Monitored BP, see nrsg notes. PT/OT cotreat [id number], skills of 2 clinicians required to decrease fall risk, monitoring vital signs and modifications due to decreased activity tolerance. PT focusing on transfers and mobility while OT focusing on ADLs, positioning and functional mobility. Mental Status/Objective Patient Orientation: Person, Place, Time, Situation Attachments: IV, Oxygen ADL-Treatment Pt requires assist for bed mobility. Min A for supine to EOB with HOB fully raised. Pt requires multiple recovery breaks due to significantly decreased activity tolerance. Sit to stand min A. SPT from EOB to BSC to w/c then back to bed mod A. Dependent with lower body dressing and toileting. Pt is fragile, just came back form ICU was initially having BP issues and has bloody stool. Hospital worker comes for cardiac testing and patient is handed off to him. Will check back with patient at next available time. Pt left in care of hospital staff. Therapy Code Descriptions/Definitions Functional [place] Measure: 0=Not Assessed/NA 4=Minimal Assistance 1=Total Assistance 5=Supervision or Setup 2=Maximal Assistance 6=Modified [place] 3=Moderate Assistance 7=Complete IndependenceSCALE: Activities may be completed with or without assistive devices. 3-Inxysymcir-bzgqmhl completes the activity by him/herself with no assistance from a helper. 5-Set-up or Clean-up Assistance-helper sets up or cleans up; patient completes activity. [place] assists only prior to or following the activity. 4-Supervision or Touching Assistance-helper provides verbal cues and/or touching/steadying and/or contact guard assistance as patient completes activity. Assistance may be provided throughout the activity or intermittently. 3-Partial/Moderate Assistance-helper does LESS THAN HALF the effort. [place] lifts, holds or supports trunk or limbs, but provides less than half the effort. 2-Substantial/Maximal Assistance-helper does MORE THAN HALF the effort. [place] lifts or holds trunk or limbs and provides more than half the effort. 6-Vvohcbpjb-khqdxq does ALL the effort. Patient does none of the effort to complete the activity. Or, the assistance of 2 or more helpers is required for the patient to complete the activity. If activity was not attempted, code reason: 7-Patient Refused. 9-Not Applicable-not attempted and the patient did not perform the activity before the current illness, exacerbation or injury. 10-Not Attempted due to Environmental Limitations-(lack of equipment, weather restraints, etc.). 88-Not Attempted due to Medical Conditions or Safety Concerns. OT Short Term Goals Short Term Goals Time Frame: Nov 19, 2021 Eatin Oral hygiene: 5 Toileting hygiene: 2 Shower/bathe self: 3 Upper body dressin Lower body dressin Putting on/taking off footwear: 2 OT Usp Goals Usp Goals Time Frame: Nov 26, 2021 Eating (QC): 5 (met) Oral Hygiene (QC): 5 (met) Toileting Hygiene (QC): 4 Shower/Bathe Self (QC): 4 Upper Body Dressing (QC): 4 Lower Body Dressing (QC): 3 On/Off Footwear (QC): 3 1=Demonstrate adherence to instructed precautions during ADL tasks. 2=Patient will verbalize/demonstrate understanding of assistive devices/modifications for ADL. 3=Patient will improve strength/tolerance for activity to enable patient to perform ADL's. OT Education/Plan Problem List/Assessment Assessment: Decreased Activ Tolerance, Decreased UE Strength, Impaired Self- Care Skills Discharge Recommendations Plan/Recommendations: Continue POC Treatment Plan/Plan of Care Patient would benefit from OT for education, treatment and training to promote independence in ADL's, mobility, safety and/or upper extremity function for ADL's. Plan of Care: ADL Retraining, Caregiver Training, Cognitive Retraining, Concurrent Therapy, Functional Mobility, Group Exercise/Act as Ind, Orthotic Fitting/Training, UE Funct Exercise/Act, W/C Management Training Treatment Duration: Nov 26, 2021 Frequency: At least 5 of 7 days/Wk (IRF) Estimated Hrs Per Day: 1.5 hours per day (75-90 min/day) Agreement: Yes Rehab Potential: Fair Time/GCodes Start Time: 13:35 Stop Time: 14:00 Total Time Billed (hr/min): 55 Billed Treatment Time 1 visit-ADL 4 (55 min) TAMIKA CENTENO Nov 12, 2021 14:36
--- NOTE | 2021-11-12 17:38 | Consultation - Surgery ---
History of Present Illness History of Present Illness Patient Consulted On(sussy/time) 11/12/21 17:32 Time Seen by Provider: 16:43 History of Present Illness Surgery asked to consult regarding Hematochezia. HPI per IM: Pt is an 85yo M who is currently being treated for septic pneumonia acquired while rehabbing a L humerus fx here in the hospital. He was found to have a positive fecal occult blood test today. He has not seen any blood in his stool. Denies nausea/vomiting, abdominal pain, diarrhea or constipation. He is not aware of a family hx of cancer of any sort. He states that his last colonoscopy was 10+ years ago, he has only had one and doesnt believe they found anything. When I spoke to nurse she stated that PT has seen 1 or 2 bloody BMs. Pt doesn't think he has had another. He was recently in the ICU because of Pneumonia and hypotension; transferred back down to rehab. and pt don't think they would want any major surgery and therefore would need to think about doing scopes. At this time they are leaning toward doing nothing. Allergies and Home Medications Allergies Coded Allergies: Sulfa (Sulfonamide Antibiotics) (Unverified Allergy, Unknown, 12/20/13) Patient Home Medication List Home Medication List Reviewed: Yes Aspirin (Aspirin EC) 81 Mg Tablet.dr, 81 MG PO DAILY, (Reported) Entered as Reported by: HORTENSIA RUIZ on 07/23/21908 Last Action: Continued Atorvastatin Calcium (Atorvastatin Calcium) 20 Mg Tablet, 5 MG PO HS, (Reported) Entered as Reported by: HORTENSIA RUIZ on 07/23/21908 Last Action: Continued Calcium Carbonate (Calcium Carbonate) 600 Mg Calcium (1500 Mg) Tablet, 600 MG PO DAILY, (Reported) Entered as Reported by: KAYLEE ADAMS on 11/04/211258 Last Action: Continued Clopidogrel Bisulfate (Clopidogrel) 75 Mg Tablet, 75 MG PO DAILY, (Reported) Entered as Reported by: KAYLEE ADAMS on 11/04/211258 Last Action: Continued Gabapentin (Neurontin) 300 Mg Capsule, 600 MG PO HS, (Reported) Entered as Reported by: HORTENSIA RUIZ on 07/23/21908 Last Action: Continued Hydrochlorothiazide (Hydrochlorothiazide) 25 Mg Tablet, 12.5 MG PO DAILY, (Reported) Entered as Reported by: HORTENSIA RUIZ on 07/23/21908 Last Action: Continued Lisinopril (Lisinopril) 40 Mg Tablet, 20 MG PO DAILY, (Reported) Entered as Reported by: HORTENSIA RUIZ on 07/23/21908 Last Action: Continued Metoprolol Tartrate (Metoprolol Tartrate) 50 Mg Tablet, 25 MG PO BID, (Reported) Entered as Reported by: MARLA LEIVA on 12/17/201541 Last Action: Continued Multivitamin (Multivitamin) 1 Each Tablet, 1 EACH PO DAILY, (Reported) Entered as Reported by: MARLA LEIVA on 12/17/201541 Last Action: Converted [place]-3/Dha/Epa/Fish Oil (Fish Oil 1,200 mg Softgel) 1,200 Mg Capsule, 1,200 MG PO DAILY, (Reported) Entered as Reported by: MARLA LEIVA on 12/17/201541 Last Action: Converted Past [place]-Aqikdy Hx Patient Social History Smoking Status: Former Smoker Former Smoker, Quit: Feb 20, 1988 Type Used: Cigarettes Recent Hopitalizations: No Alcohol Use?: Yes Have you traveled recently?: No Immunizations Up To Date Tetanus Booster (TDap): Unknown PED Vaccines UTD: Yes Date of Pneumonia Vaccine: Jan 01, 2014 Date of Influenza Vaccine: Dec 17, 2020 Seasonal Allergies Seasonal Allergies: No Surgeries History of Surgeries: Yes (skin lesions removed, ) Surgeries: Abdominal, Appendectomy, Cardiac, Coronary Stent, Gallbladder, Prostatectomy Respiratory History of Respiratory Disorde: Yes Respiratory Disorders: Pneumonia Cardiovascular History of Cardiac Disorders: Yes (CARDIAC STENTS X2-2000,) Cardiac Disorders: Coronary Artery Disease, High Cholesterol, Hypertension Neurological History of Neurological Disord: Yes (PERIPHERAL NEUROPATHY) Neurological Disorders: Neuropathy Reproductive System Sexually Transmitted Disease: No HIV/AIDS: No Genitourinary History of Genitourinary Disor: Yes (PROSTATE CANCER) Genitourinary Disorders: Prostate Problems Gastrointestinal History of Gastrointestinal Di: Yes Gastrointestinal Disorders: Abdominal Hernia Musculoskeletal History of Musculoskeletal Dis: Yes Musculoskeletal Disorders: Arthritis, Fractures Endocrine History of Endocrine Disorders: No HEENT History of HEENT Disorders: No Cancer History of Cancer: Yes Cancer: Prostate, Skin Psychosocial History of Psychiatric Problem: No Integumentary History of Skin or Integumenta: Yes (hx SKIN CANCER-REMOVED) Blood Transfusions History of Blood Disorders: No Adverse Reaction to a Blood Tr: No Family Medical History Significant Family History: Other Conditions/Hx (Glaucoma - brother) Family Medial History: Glaucoma G8 BROTHER Review of Systems-General Constitutional: fever, malaise EENTM: No blurred vision, No mouth pain, No epistaxis Respiratory: cough, dyspnea on exertion; No hemoptysis; short of breath Cardiovascular: No chest pain; Hx of Intervention; No palpitations Gastrointestinal: abdominal pain, diarrhea; No hematemesis; melena; No nausea, No vomiting Genitourinary: No dysuria, No frequency, No hematuria; other (has sherman in place) Musculoskeletal: joint pain, joint swelling, muscle stiffness, muscle cramps Skin: No change in color, No change in hair/nails Physical Exam-General Problems Physical Exam Vital Signs Vital Signs - First Documented 11/06/21 11/11/21 07:22 10:45 Temp 36.3 Pulse 68 Resp 20 B/P (MAP) 131/60 (83) Pulse Ox 93 O2 Delivery Room Air O2 Flow Rate 6.00 Capillary Refill : General Appearance: WD/WN, no apparent distress Eyes: Bilateral Eye PERRL, Bilateral Eye EOMI HEENT: pharynx normal; No scleral icterus (R), No scleral icterus (L) Neck: non-tender, supple Respiratory: no respiratory distress, no accessory muscle use, decreased breath sounds Cardiovascular: regular rate, rhythm, no murmur Gastrointestinal: non tender, soft, no organomegaly Back: no CVA tenderness, no vertebral tenderness Extremities: no pedal edema, no calf tenderness, other (Left arm in sling) Neurologic/Psychiatric: alert, normal mood/affect, oriented x 3 Skin: normal color, warm/dry Data Review Labs Laboratory Tests 11/11/21 19:05: Lactic Acid Level 1.95 Radiology Date of Exam:11/11/21 CHEST 1 VIEW, AP/PA ONLY EXAMINATION: Chest 1 view HISTORY: Dyspnea. COMPARISON: 11/03/2021. FINDINGS: Heart size and pulmonary vasculature are stable. Patchy interstitial and airspace opacities within both lungs, right greater than left. Trace right pleural effusion. No pneumothorax. The osseous structures are intact. IMPRESSION: 1. Stable patchy interstitial and airspace opacities compared to 11/03/2021. Dictated by: Dictated on workstation # [id number] Dict: 11/11/21 1154 Trans: 11/11/21 1205 [id number] [id number] Interpreted by: ARISTIDES BOO DO Electronically signed by: ARISTIDES BOO DO 11/11/21 1205 Assessment/Plan Assessment/Plan Assessment/Plan Sepsis Pneumonia Positive fecal occult HTN CAD PAD Pt was hypotensive and bradycardic today likely secondary to pneumonia/sepsis. He is stable now and receiving fluids and abx. He has not had a colonoscopy in 10+ years. Hgb is 13.1 and pt is on Aspirin/Plavix. I spoke with the patient about his options of having a colonoscopy or EGD to further evaluate GI bleed if necessary. Would not recommend any intervention at this time, plan on checking Hgb in the morning to make sure it is stable. KELBY CHRISTENSEN DO Nov 12, 2021 17:38
[2021-11-12 20:06] VITALS: BP 109/64
[2021-11-12] MEDS: HYDROcodone/APAP 5 MG/325 MG (LORTAB) TAB PO PRN (21:59)
[2021-11-13 06:08] LABS: HEMOGLOBIN 11.9 g/dL (13.3-17.7)
[2021-11-13] MEDS: CALCIUM CARBONATE 600 MG (CALCARB) TAB PO SCH (06:22)
[2021-11-13] MEDS: OMEGA 3 (FISH OIL) 1000 MG CAP PO SCH (06:22)
[2021-11-13] MEDS: BETHANECHOL 25 MG (URECHOLINE) TAB PO SCH ×4 (06:22→20:57)
[2021-11-13] MEDS: CEFEPIME 1,000 MG/NS 50 ML IVPB IV SCH ×6 (06:22→18:03)
[2021-11-13] MEDS: MULTIVIT W/MINERALS TAB (THERAGRAN M) PO SCH (06:23)
[2021-11-13 07:12] VITALS: BP 110/65
[2021-11-13] MEDS: CLOPIDOGREL 75 MG (PLAVIX) TABLET PO SCH (08:34)
[2021-11-13] MEDS: SENNA W/DOCUSATE (SENOKOT S) TABLET PO SCH ×2 (08:35→19:48)
[2021-11-13] MEDS: DOCUSATE SODIUM 100 MG (COLACE) CAP PO SCH ×2 (08:35→19:48)
[2021-11-13] MEDS: SODIUM CHLORIDE 1 GM TABLET PO SCH ×3 (08:35→20:59)
[2021-11-13] MEDS: polyethylene glycoL POWDER 17 GM (MIRALAX) PACK PO SCH ×2 (08:35→19:48)
[2021-11-13 08:45] VITALS: BP 86/54
--- NOTE | 2021-11-13 08:45 | Physical Therapy Daily Note ---
PT Daily Note-Current Subjective Upon arrival, pt was supine in bed. Pt reports no pain. Pt agrees to PT. Pain Numeric Pain Scale: 0-No Pain Mental Status Patient Orientation: Person, Confused (Min), Situation Attachments: Oxygen, [place] Catheter Transfers SCALE: Activities may be completed with or without assistive devices. 6-Dsfbyeajlp-eecpimr completes the activity by him/herself with no assistance from a helper. 5-Set-up or Clean-up Assistance-helper sets up or cleans up; patient completes activity. [place] assists only prior to or following the activity. 4-Supervision or Touching Assistance-helper provides verbal cues and/or touching/steadying and/or contact guard assistance as patient completes activity. Assistance may be provided throughout the activity or intermittently. 3-Partial/Moderate Assistance-helper does LESS THAN HALF the effort. [place] lifts, holds or supports trunk or limbs, but provides less than half the effort. 2-Substantial/Maximal Assistance-helper does MORE THAN HALF the effort. [place] lifts or holds trunk or limbs and provides more than half the effort. 4-Mmkchjgxx-qiqfcj does ALL the effort. Patient does none of the effort to complete the activity. Or, the assistance of 2 or more helpers is required for the patient to complete the activity. If activity was not attempted, code reason: 7-Patient Refused. 9-Not Applicable-not attempted and the patient did not perform the activity before the current illness, exacerbation or injury. 10-Not Attempted due to Environmental Limitations-(lack of equipment, weather restraints, etc.). 88-Not Attempted due to Medical Conditions or Safety Concerns. Sit to Lying (QC): 3 Lying to Sitting/Side of Bed(Q: 3 Sit to Stand (QC): 3 Toilet Transfer (QC): 3 ([facility]) Weight Bearing Full Weight Bearing Full Weight Bearing Gait Training Does the Patient Walk?: No and Walking Goal IS indicated Gait Assistive Device: Walker Erich Exercises Supine Ex: Ankle pumps (20x), Quad Set (15x), Glut sets (20x), Heel Slides (20x), Straight leg raise (15x), Hip abd/add (10x) Treatments Pt performed and completed all exs listed above along with heel bed press to target hamstrings 15x. Pt transferred to [facility], with assistance from GUITAR REPAIR TECHNICIAN. Pt required changing due to BM, along with the bed. Once PT was concluded, RN arrives. Pt had call light and tray in reach and all needs met. As PT exists pt room, RN is still present. Assessment Current Status: Good Progress Pt demonstrated fatigue during tx session. Pt would doze off, but would wake up with verbal cueing. Unsure if pt had specks of blood on sheets, RN notified. Pt would benefit from continued PT, to improve on activity tolerance, strength, and GT. PT Short Term Goals Short Term Goals Time Frame: Nov 12, 2021 Roll Left & Right: 4 (CGA) Sit to lyin (CGA) Lying to sitting on side of be: 4 (CGA) Sit to stand: 4 (CGA) Walk 10 feet: 4 (CGA) Walk 50 feet with two turns: 4 (CGA) PT Mcc Goals Mcc Goals PT Traffic Rate Computer Goals Time Frame: Nov 26, 2021 Roll Left & Right (QC): 6 Sit to Lying (QC): 6 Lying-Sitting on Side/Bed(QC): 6 Sit to Stand (QC): 4 (SBA) Chair/Azp-nj-Srqjf Xfer(QC): 4 (SA) Toilet Transfer (QC): 4 (SBA) Car Transfer (QC): 4 (SBA) Does the Patient Walk: Yes Walk 10 feet (QC): 4 (SBA) Walk 50ft with 2 Turns (QC): 4 (SBA) Walk 150 ft (QC): 4 (SBA) Walking 10ft on Uneven Surface: 4 (SBA) 1 Step (curb) (QC): 4 (SBA) 4 Steps (QC): 4 (SBA) 12 Steps (QC): 88 Picking up an Object (QC): 4 (CGA using flatlock sewing machine operator) Wheel 50 feet with 2 turns (QC: 9 Wheel 150 feet: 9 PT Plan Problem List Problem List: Activity Tolerance, Functional Strength, Gait Treatment/Plan Treatment Plan: Continue Plan of Care Treatment Plan: Bed Mobility, Education, Functional Activity [place], Functional Strength, Group Therapy, Gait, Safety, Therapeutic Exercise, Transfers Treatment Duration: Nov 26, 2021 Frequency: At least 5 of 7 days/Wk (IRF) Estimated Hrs Per Day: 1.5 hours per day Patient and/or Family Agrees t: Yes Time/GCodes Time In: 742 Time Out: 835 Total Billed Treatment Time: 53 Total Billed Treatment 1, FA x2 (30), EX x2 (23) MIKE PAGE PTA Nov 13, 2021 08:45
--- NOTE | 2021-11-13 09:15 | PM&R Progress Note ---
Subjective HPI/CC On Admission Date Seen by Provider: Nov 13, 2021 Time Seen by Provider: 11:00 Subjective/Events-last exam 11/13/2021: Orthostasis noted Joselinjoaquinjesus ordered NELLY wraps over RAFAL hose Cefepime maintained 11/11/2021: Nurse called me to the bedside urgently due to hypotension and unable to obtain oxygen saturation and bradycardia of 30 I arrived at the bedside urgently and found the patient to be diaphoretic but in no other distress Blood pressure was 70/40 IV fluids initiated of 1 L bolus which ultimately improved blood pressure to 88/40 Constant cough was noted so chest x-ray obtained showing pneumonia and findings consistent with sepsis from pneumonia so he was moved to the ICU. All medication orders and sepsis protocol initiated 11/10/2021: No major issues No falls No pain Fluid restriction maintained 11/09/2021: Patient doing well Appreciate urology consult Discontinue catheter for trial void Flomax and Urecholine maintained No major issues 11/08/2021: Pt is confused a bit Sodium level is 128 Regular diet, will discontinue low sodium diet 11/07/2021: Doing well No pain reported Left sling in place BM with fecal incontinence which frustrates him 11/06/2021: Doing well Bowels caused fecal incontinence but they are moving Sodium level 125 Salt tablets and fluid restriction in place Participating in therapy Review of Systems General: Fatigue, Malaise Focused Exam Lactate Level 11/11/21 12:54: Lactic Acid Level 3.59*H 11/11/21 15:27: Lactic Acid Level 3.24*H 11/11/21 19:05: Lactic Acid Level 1.95 Objective Exam Vital Signs Vital Signs Date Time Temp Pulse Resp B/P (MAP) Pulse Ox O2 Delivery O2 Flow Rate FiO2 11/13/21 09:33 77 98/54 (69) 11/13/21 09:11 Room Air 11/13/21 07:12 36.3 16 95 1.00 Capillary Refill : General Appearance: No Apparent Distress, WD/WN, Chronically ill HEENT: PERRL/EOMI, Normal ENT Inspection, Pharynx Normal Neck: Full Range of Motion, Normal Inspection, Non Tender, Supple, Carotid Bruit Respiratory: Chest Non Tender, Lungs Clear, Normal Breath Sounds, No Accessory Muscle Use, No Respiratory Distress Cardiovascular: Regular Rate, Rhythm, No Edema, No Gallop, No JVD, No Murmur, Normal Peripheral Pulses Gastrointestinal: Normal Bowel Sounds, No Organomegaly, No Pulsatile Mass, Non Tender, Soft Back: Normal Inspection, No CVA Tenderness, No Vertebral Tenderness Extremity: Normal Capillary Refill, Normal Inspection, Normal Range of Motion (except right arm in sling), Non Tender, No Calf Tenderness, No Pedal Edema Neurologic/Psychiatric: Alert, Oriented x3, No Motor/Sensory Deficits, Normal Mood/Affect, Motor Weakness (generalized) Skin: Normal Color, Warm/Dry Lymphatic: No Adenopathy Results/Procedures Lab Laboratory Tests 11/13/21 05:55 Patient resulted labs reviewed. FIM Transfers Therapy Code Descriptions/Definitions Functional [place] Measure: 0=Not Assessed/NA 4=Minimal Assistance 1=Total Assistance 5=Supervision or Setup 2=Maximal Assistance 6=Modified [place] 3=Moderate Assistance 7=Complete IndependenceSCALE: Activities may be completed with or without assistive devices. 6-Tzauyfmypo-luegoqi completes the activity by him/herself with no assistance from a helper. 5-Set-up or Clean-up Assistance-helper sets up or cleans up; patient completes activity. [place] assists only prior to or following the activity. 4-Supervision or Touching Assistance-helper provides verbal cues and/or touching/steadying and/or contact guard assistance as patient completes activity. Assistance may be provided throughout the activity or intermittently. 3-Partial/Moderate Assistance-helper does LESS THAN HALF the effort. [place] lifts, holds or supports trunk or limbs, but provides less than half the effort. 2-Substantial/Maximal Assistance-helper does MORE THAN HALF the effort. [place] lifts or holds trunk or limbs and provides more than half the effort. 3-Surekynkc-benucl does ALL the effort. Patient does none of the effort to complete the activity. Or, the assistance of 2 or more helpers is required for the patient to complete the activity. If activity was not attempted, code reason: 7-Patient Refused. 9-Not Applicable-not attempted and the patient did not perform the activity before the current illness, exacerbation or injury. 10-Not Attempted due to Environmental Limitations-(lack of equipment, weather restraints, etc.). 88-Not Attempted due to Medical Conditions or Safety Concerns. Roll Left to Right (QC): 3 Sit to Lying (QC): 3 Sit to Stand (QC): 3 Chair/Qjs-us-Patdq Xfer(QC): 3 Car Transfer (QC): 3 Gait Training Does the Patient Walk?: No and Walking Goal IS indicated Distance: 15' x2 Walk 10 feet (QC): 3 Walk 50 ft with 2 Turns(QC): 88 Walk 150 ft (QC): 88 Walking 10ft/uneven surface-QC: 88 Gait Persons Needed: 1 Gait Assistive Device: Walker Erich Wheelchair Training Does the Pt Use a Wheelchair?: Yes Wheel 50 ft with 2 turns (QC): 5 Wheel 150 ft (QC): 5 Type of Wheelchair: Manual Stair Training 1 Step (curb) (QC): 88 4 Steps (QC): 88 12 Steps (QC): 88 Balance Picking up an Object (QC): 88 ADL-Treatment Eating (QC): 6 Oral Hygiene (QC): 6 Shower/Bathe Self (QC): 4 Upper Body Dressing (QC): 3 Lower Body Dressing (QC): 2 On/Off Footwear (QC): 2 Toileting Hygiene (QC): 3 (mod A) Toilet Transfer (QC): 4 (CGA) Assessment/Plan Assessment and Plan Assess & Plan/Chief Complaint Assessment: Hypotensive event on 11/11/2021 with hypoxia, diaphoresis and evidence of sepsis from pneumonia prompting ICU transfer Fall Debility Left humerus fracture no surgery required placed in sling Urinary retention Sherman cath in place started bladder meds then DC catheter 11/09/2021 by urology Hyponatremia placed on salt tablets and fluid restriction HTN HLP h/o Prostate cancer Orthostasis Plan: IRF protocol Bladder meds DC sherman soon Home meds 11/06/2021: Supportive care Bladder meds 11/07/2021: Check labs in am BM+ 11/08/2021: Salt tablets Fluid restriction 11/09/2021: Supportive care Monitor closely 11/10/2021: Fall risk Pain control 11/11/2021: Transferred to ICU 11/13/2021: 1 liter of NS today Lift fluid restriction Cefepime (1) Weakness Status: Acute (2) CAD (coronary artery disease) (3) Sherman catheter in place (4) Fall on same level Status: Acute (5) Hyponatremia Status: Acute (6) Urinary retention (7) History of prostate cancer Status: Chronic (8) Closed left humeral fracture Status: Acute (9) Multiple abrasions Status: Acute ARIA ALEMAN DO Nov 13, 2021 09:15
[2021-11-13 09:33] VITALS: BP 98/54
--- NOTE | 2021-11-13 09:59 | Diagnostic Imaging Report ---
EXAMINATION: Chest 1 view HISTORY: Pneumonia COMPARISON: 11/12/2021 FINDINGS: Patient is rotated to the right. There is a stable right base airspace opacity. There are tiny pleural effusions. No pneumothorax. Heart size is normal. IMPRESSION: 1. Stable right base airspace opacity concerning for pneumonia. Dictated by: Dictated on workstation # [id number]
[2021-11-13] MEDS ORDERED: NS IV 1000 ML 1,000 ML IV SCH (10:30)
[2021-11-13] MEDS: lisINopril 20 MG (PRINIVIL) TABLET PO SCH (10:49)
[2021-11-13] MEDS: meTOprolol TARTRATE 25 MG (LOPRESSOR) TABLET PO SCH ×2 (10:49→20:57)
[2021-11-13] MEDS: FLUDROCORTISONE 0.1 MG (FLORINEF) TAB PO SCH (10:56)
--- NOTE | 2021-11-13 13:28 | Progress Note - Surgery ---
BEBETO CABRERA 11/13/21 1328: Subjective Date Seen by a Provider: Nov 13, 2021 Subjective/Events-last exam Patient states that he is feeling better this morning. He had a bowel movement this morning that had little to no blood in it. He is not in any pain and has no complaints. Review of Systems General: No Chills, No Night Sweats Cardiovascular: No: Chest Pain Gastrointestinal: No: Nausea, Vomiting, Abdominal Pain Focused Exam Lactate Level 11/11/21 12:54: Lactic Acid Level 3.59*H 11/11/21 15:27: Lactic Acid Level 3.24*H 11/11/21 19:05: Lactic Acid Level 1.95 Objective Exam Vital Signs Date Time Temp Pulse Resp B/P (MAP) Pulse Ox O2 Delivery O2 Flow Rate FiO2 11/13/21 09:33 77 98/54 (69) 11/13/21 09:11 Room Air 11/13/21 08:45 102 86/54 (65) 11/13/21 07:12 36.3 81 16 110/65 (80) 95 Nasal Cannula 1.00 11/12/21 21:20 Nasal Cannula 2.00 11/12/21 20:55 Room Air 11/12/21 20:06 36.5 78 16 109/64 (79) 97 Nasal Cannula 2.00 11/12/21 13:55 Room Air I & O 11/13/21 07:00 Intake Total 500 ml Output Total 650 ml Balance -150 ml Capillary Refill : General Appearance: No Apparent Distress, WD/WN HEENT: PERRL/EOMI, Moist Mucous Membranes Neck: Normal Inspection, Supple, Carotid Bruit Respiratory: Lungs Clear, No Accessory Muscle Use, No Respiratory Distress Cardiovascular: Regular Rate, Rhythm, No Murmur Gastrointestinal: non tender, soft, no organomegaly Extremity: Normal Inspection, No Pedal Edema Neurologic/Psychiatric: Alert, Oriented x3 Skin: Normal Color, Warm/Dry Lymphatic: No Adenopathy Results Lab Laboratory Tests 11/13/21 05:55: Hemoglobin 11.9L, Hematocrit 35L Microbiology 11/11/21 Blood Culture - Preliminary, Resulted No growth Assessment/Plan Assessment/Plan Assessment/Plan Sepsis Pneumonia Positive fecal occult HTN CAD PAD Hemoglobin is 11.9 today. I spoke with the patient about his options of having a colonoscopy or EGD to further evaluate GI bleed if necessary. Would not recommend any intervention at this time. Continue to monitor stools for any blood. CARLOS RAMOS DO 11/14/21 1457: Subjective Time Seen by a Provider: 12:19 Subjective/Events-last exam Pt seen and examined, with in room. He denies any abdominal pain and not any weaker. Nurse thinks PT again saw BM with small amount of dark blood. Review of Systems General: No Chills, No Night Sweats Cardiovascular: No: Chest Pain Gastrointestinal: No: Nausea, Vomiting, Abdominal Pain Objective Exam General Appearance: No Apparent Distress, WD/WN HEENT: PERRL/EOMI, Moist Mucous Membranes Respiratory: Lungs Clear, Normal Breath Sounds, No Accessory Muscle Use, No Respiratory Distress Cardiovascular: Regular Rate, Rhythm, No Murmur Gastrointestinal: non tender, soft, no organomegaly Extremity: No Pedal Edema, Other (left arm in sling) Neurologic/Psychiatric: Alert, Oriented x3 Skin: Normal Color Assessment/Plan Assessment/Plan Assessment/Plan Anemia Positive fecal occult HTN CAD PAD Recently had sepsis secondary to pneumonia, but that has resolved. Hemoglobin is 11.9 today. I spoke with the patient about his options of having a colonoscopy or EGD to further evaluate GI bleed if necessary. Would not recommend any intervention at this time. Continue to monitor stools for any blood. Supervisory-Addendum Brief Verification & Attestation Participated in pt care: history, MDM, physical Personally performed: exam, history, MDM, supervision of care Care discussed with: Medical Student Procedures: n/a Verification and Attestation of Medical Student E/M Service A medical student performed and documented this service. I then reviewed and verified all information documented by the medical student and made modifications to such information, when appropriate. I personally performed a physical exam, medical decision making and then discussed any differences betwee n the notes and made revisions as necessary to create one note. Carlos Ramos , 11/14/21 , 14:57 BEBETO CABRERA Nov 13, 2021 13:28 CARLOS RAMOS DO Nov 14, 2021 14:57
[2021-11-13] MEDS: HYDROcodone/APAP 5 MG/325 MG (LORTAB) TAB PO PRN (15:41)
[2021-11-13] MEDS: TAMSULOSIN 0.4 MG (FLOMAX) CAP PO SCH (18:02)
[2021-11-13 19:44] VITALS: BP 111/74
[2021-11-13] MEDS: GABAPENTIN 300 MG (NEURONTIN) CAP PO SCH (20:57)
[2021-11-13] MEDS: AtorvaSTATin TABLET 10 MG TABLET PO SCH (20:57)
[2021-11-14] MEDS: CEFEPIME 1,000 MG/NS 50 ML IVPB IV SCH ×8 (00:38→18:51)
[2021-11-14] MEDS: MULTIVIT W/MINERALS TAB (THERAGRAN M) PO SCH (06:42)
[2021-11-14] MEDS: CALCIUM CARBONATE 600 MG (CALCARB) TAB PO SCH (06:42)
[2021-11-14] MEDS: OMEGA 3 (FISH OIL) 1000 MG CAP PO SCH (06:42)
[2021-11-14] MEDS: BETHANECHOL 25 MG (URECHOLINE) TAB PO SCH ×4 (06:42→20:43)
[2021-11-14 07:14] VITALS: BP 135/74
[2021-11-14] MEDS: DOCUSATE SODIUM 100 MG (COLACE) CAP PO SCH ×2 (09:00→21:25)
[2021-11-14] MEDS: meTOprolol TARTRATE 25 MG (LOPRESSOR) TABLET PO SCH ×2 (09:00→20:45)
[2021-11-14] MEDS: lisINopril 20 MG (PRINIVIL) TABLET PO SCH (09:00)
[2021-11-14] MEDS: SENNA W/DOCUSATE (SENOKOT S) TABLET PO SCH ×2 (09:00→21:25)
[2021-11-14] MEDS: polyethylene glycoL POWDER 17 GM (MIRALAX) PACK PO SCH ×2 (09:00→21:25)
[2021-11-14] MEDS: FLUDROCORTISONE 0.1 MG (FLORINEF) TAB PO SCH (09:46)
[2021-11-14] MEDS: SODIUM CHLORIDE 1 GM TABLET PO SCH ×3 (09:47→20:46)
--- NOTE | 2021-11-14 10:26 | Progress Note - Surgery ---
BEBETO CABRERA 11/14/21 1026: Subjective Date Seen by a Provider: Nov 14, 2021 Time Seen by a Provider: 09:40 Subjective/Events-last exam Pt reports no changes from yesterday. Denies any N/V, abdominal pain, sweats or chills. He did not notice any blood in his stool yesterday. Review of Systems General: No Chills, No Night Sweats Pulmonary: No Dyspnea Gastrointestinal: No: Nausea, Vomiting, Abdominal Pain Focused Exam Lactate Level 11/11/21 12:54: Lactic Acid Level 3.59*H 11/11/21 15:27: Lactic Acid Level 3.24*H 11/11/21 19:05: Lactic Acid Level 1.95 Objective Exam Vital Signs Date Time Temp Pulse Resp B/P (MAP) Pulse Ox O2 Delivery O2 Flow Rate FiO2 11/14/21 07:14 36.6 70 18 135/74 (94) 98 Nasal Cannula 1.00 11/13/21 20:20 Room Air 11/13/21 19:46 Nasal Cannula 2.00 11/13/21 19:44 36.6 65 16 111/74 (86) 98 Nasal Cannula 1.00 I & O 11/14/21 07:00 Intake Total 2520 ml Output Total 875 ml Balance 1645 ml Capillary Refill : General Appearance: No Apparent Distress, WD/WN HEENT: PERRL/EOMI, Moist Mucous Membranes Neck: Normal Inspection, Supple, Carotid Bruit Respiratory: Lungs Clear, No Accessory Muscle Use, No Respiratory Distress Cardiovascular: Regular Rate, Rhythm, No Murmur Gastrointestinal: non tender, soft, no organomegaly Extremity: Normal Inspection, No Pedal Edema Neurologic/Psychiatric: Alert, Oriented x3 Skin: Normal Color, Warm/Dry Lymphatic: No Adenopathy Results Lab Microbiology 11/11/21 Blood Culture - Preliminary, Resulted No growth Assessment/Plan Assessment/Plan Assessment/Plan Sepsis Pneumonia Positive fecal occult HTN CAD PAD Hgb stable. I spoke with the patient about his options of having a colonoscopy or EGD to further evaluate GI bleed if necessary. Would not recommend any intervention at this time. Continue to monitor stools for any blood. CARLOS RAMOS DO 11/14/21 1501: Subjective Time Seen by a Provider: 13:14 Subjective/Events-last exam Pt seen and examined, denies any changes. Nurse states having "[place], mucousy stools now". C. diff was done and negative, not really having diarrhea. Review of Systems General: No Chills, No Night Sweats Pulmonary: No Dyspnea Gastrointestinal: No: Nausea, Vomiting, Abdominal Pain Musculoskeletal: arm pain Objective Exam General Appearance: No Apparent Distress, WD/WN HEENT: PERRL/EOMI, Moist Mucous Membranes Respiratory: Lungs Clear, No Accessory Muscle Use, No Respiratory Distress Cardiovascular: Regular Rate, Rhythm, No Murmur Gastrointestinal: non tender, soft, no organomegaly Extremity: No Pedal Edema Assessment/Plan Assessment/Plan Assessment/Plan Anemia Positive fecal occult HTN CAD PAD Hgb stable. Patient does not appear to need colonoscopy or EGD at this time; plus he does not want to do them. If anything changes we can always do something. I also spoke to pt and his yesterday that there is always possibility of malignancy; wouldn't know unless we checked. They understood and were ok with not checking. Supervisory-Addendum Brief Verification & Attestation Participated in pt care: history, MDM, physical Personally performed: exam, history, MDM, supervision of care Care discussed with: Medical Student Procedures: n/a Verification and Attestation of Medical Student E/M Service A medical student performed and documented this service. I then reviewed and verified all information documented by the medical student and made modifications to such information, when appropriate. I personally performed a physical exam, medical decision making and then discussed any differences between the notes and made revisions as necessary to create one note. Carlos Ramos , 11/14/21 , 15:00 BEBETO CABRERA Nov 14, 2021 10:26 CARLOS RAMOS DO Nov 14, 2021 15:01
[2021-11-14] MEDS: TAMSULOSIN 0.4 MG (FLOMAX) CAP PO SCH (16:56)
--- NOTE | 2021-11-14 17:20 | PM&R Progress Note ---
Subjective HPI/CC On Admission Date Seen by Provider: Nov 14, 2021 Time Seen by Provider: 16:00 Subjective/Events-last exam 11/14/2021: Doing better Increased dietary consumption Checking labs tomorrow wonders if she can take care of him at home 11/13/2021: Orthostasis noted Shaejesus ordered NELLY wraps over RAFAL hose Cefepime maintained 11/11/2021: Nurse called me to the bedside urgently due to hypotension and unable to obtain oxygen saturation and bradycardia of 30 I arrived at the bedside urgently and found the patient to be diaphoretic but in no other distress Blood pressure was 70/40 IV fluids initiated of 1 L bolus which ultimately improved blood pressure to 88/40 Constant cough was noted so chest x-ray obtained showing pneumonia and findings consistent with sepsis from pneumonia so he was moved to the ICU. All medication orders and sepsis protocol initiated 11/10/2021: No major issues No falls No pain Fluid restriction maintained 11/09/2021: Patient doing well Appreciate urology consult Discontinue catheter for trial void Flomax and Urecholine maintained No major issues 11/08/2021: Pt is confused a bit Sodium level is 128 Regular diet, will discontinue low sodium diet 11/07/2021: Doing well No pain reported Left sling in place BM with fecal incontinence which frustrates him 11/06/2021: Doing well Bowels caused fecal incontinence but they are moving Sodium level 125 Salt tablets and fluid restriction in place Participating in therapy Review of Systems General: Fatigue, Malaise Focused Exam Lactate Level Objective Exam Vital Signs Vital Signs Date Time Temp Pulse Resp B/P (MAP) Pulse Ox O2 Delivery O2 Flow Rate FiO2 11/14/21 20:43 Room Air 11/14/21 19:44 36.7 71 21 136/74 (94) 97 1.00 Capillary Refill : General Appearance: No Apparent Distress, WD/WN HEENT: PERRL/EOMI, Moist Mucous Membranes Neck: Normal Inspection, Supple, Carotid Bruit Respiratory: Lungs Clear, No Accessory Muscle Use, No Respiratory Distress Cardiovascular: Regular Rate, Rhythm, No Murmur Gastrointestinal: Normal Bowel Sounds, No Organomegaly, No Pulsatile Mass, Non Tender, Soft Back: Normal Inspection, No CVA Tenderness, No Vertebral Tenderness Extremity: No Pedal Edema Neurologic/Psychiatric: Alert, Oriented x3 Skin: Normal Color Lymphatic: No Adenopathy Results/Procedures Lab Patient resulted labs reviewed. FIM Transfers Therapy Code Descriptions/Definitions Functional [place] Measure: 0=Not Assessed/NA 4=Minimal Assistance 1=Total Assistance 5=Supervision or Setup 2=Maximal Assistance 6=Modified [place] 3=Moderate Assistance 7=Complete IndependenceSCALE: Activities may be completed with or without assistive devices. 3-Edecbxmwch-hqiulrw completes the activity by him/herself with no assistance from a helper. 5-Set-up or Clean-up Assistance-helper sets up or cleans up; patient completes activity. [place] assists only prior to or following the activity. 4-Supervision or Touching Assistance-helper provides verbal cues and/or touching/steadying and/or contact guard assistance as patient completes activity. Assistance may be provided throughout the activity or intermittently. 3-Partial/Moderate Assistance-helper does LESS THAN HALF the effort. [place] lifts, holds or supports trunk or limbs, but provides less than half the effort. 2-Substantial/Maximal Assistance-helper does MORE THAN HALF the effort. [place] lifts or holds trunk or limbs and provides more than half the effort. 4-Ginqptayb-uyztmo does ALL the effort. Patient does none of the effort to complete the activity. Or, the assistance of 2 or more helpers is required for the patient to complete the activity. If activity was not attempted, code reason: 7-Patient Refused. 9-Not Applicable-not attempted and the patient did not perform the activity before the current illness, exacerbation or injury. 10-Not Attempted due to Environmental Limitations-(lack of equipment, weather restraints, etc.). 88-Not Attempted due to Medical Conditions or Safety Concerns. Roll Left to Right (QC): 3 Sit to Lying (QC): 3 Sit to Stand (QC): 3 Chair/Hni-ob-Uzcun Xfer(QC): 3 Car Transfer (QC): 3 Gait Training Does the Patient Walk?: No and Walking Goal IS indicated Distance: 15' x2 Walk 10 feet (QC): 3 Walk 50 ft with 2 Turns(QC): 88 Walk 150 ft (QC): 88 Walking 10ft/uneven surface-QC: 88 Gait Persons Needed: 1 Gait Assistive Device: Walker Erich Wheelchair Training Does the Pt Use a Wheelchair?: Yes Wheel 50 ft with 2 turns (QC): 5 Wheel 150 ft (QC): 5 Type of Wheelchair: Manual Stair Training 1 Step (curb) (QC): 88 4 Steps (QC): 88 12 Steps (QC): 88 Balance Picking up an Object (QC): 88 ADL-Treatment Eating (QC): 6 Oral Hygiene (QC): 6 Shower/Bathe Self (QC): 4 Upper Body Dressing (QC): 3 Lower Body Dressing (QC): 2 On/Off Footwear (QC): 2 Toileting Hygiene (QC): 3 (mod A) Toilet Transfer (QC): 4 (CGA) Assessment/Plan Assessment and Plan Assess & Plan/Chief Complaint Assessment: Hypotensive event on 11/11/2021 with hypoxia, diaphoresis and evidence of sepsis from pneumonia prompting ICU transfer Fall Debility Left humerus fracture no surgery required placed in sling Urinary retention Sherman cath in place started bladder meds then DC catheter 11/09/2021 by urology Hyponatremia placed on salt tablets and fluid restriction HTN HLP h/o Prostate cancer Orthostasis Plan: IRF protocol Bladder meds DC sherman soon Home meds 11/06/2021: Supportive care Bladder meds 11/07/2021: Check labs in am BM+ 11/08/2021: Salt tablets Fluid restriction 11/09/2021: Supportive care Monitor closely 11/10/2021: Fall risk Pain control 11/11/2021: Transferred to ICU 11/13/2021: 1 liter of NS today Lift fluid restriction Cefepime 11/14/2021: Monitor closely Labs in am (1) Weakness Status: Acute (2) CAD (coronary artery disease) (3) Sherman catheter in place (4) Fall on same level Status: Acute (5) Hyponatremia Status: Acute (6) Urinary retention (7) History of prostate cancer Status: Chronic (8) Closed left humeral fracture Status: Acute (9) Multiple abrasions Status: Acute ARIA ALEMAN DO Nov 14, 2021 17:20
[2021-11-14 19:44] VITALS: BP 136/74
[2021-11-14] MEDS: MELATONIN 3 MG TABLET PO PRN (20:42)
[2021-11-14] MEDS: GABAPENTIN 300 MG (NEURONTIN) CAP PO SCH (20:45)
[2021-11-14] MEDS: AtorvaSTATin TABLET 10 MG TABLET PO SCH (20:45)
[2021-11-15] MEDS: CEFEPIME 1,000 MG/NS 50 ML IVPB IV SCH ×8 (00:30→18:46)
[2021-11-15] MEDS: CALCIUM CARBONATE 600 MG (CALCARB) TAB PO SCH (06:05)
[2021-11-15] MEDS: MULTIVIT W/MINERALS TAB (THERAGRAN M) PO SCH (06:05)
[2021-11-15] MEDS: BETHANECHOL 25 MG (URECHOLINE) TAB PO SCH ×4 (06:06→20:29)
[2021-11-15] MEDS: OMEGA 3 (FISH OIL) 1000 MG CAP PO SCH (06:06)
[2021-11-15 06:43] LABS: BASOPHILS # (AUTO) 0.1 10^3/uL (0.0-0.1); BASOPHILS % (AUTO) 1 % (0-10); EOSINOPHILS # (AUTO) 0.3 10^3/uL (0.0-0.3); EOSINOPHILS % (AUTO) 4 % (0-10); HEMATOCRIT 35 % (40-54); HEMOGLOBIN 11.7 g/dL (13.3-17.7); LYMPHOCYTES # (AUTO) 1.6 10^3/uL (1.0-4.0); LYMPHOCYTES % (AUTO) 21 % (12-44); MEAN CORPUSCULAR HEMOGLOBIN 33 pg (25-34); MEAN CORPUSCULAR HGB CONC 34 g/dL (32-36); MEAN CORPUSCULAR VOLUME 99 fL (80-99); MEAN PLATELET VOLUME 9.1 fL (9.0-12.2); MONOCYTES # (AUTO) 0.7 10^3/uL (0.0-1.0); MONOCYTES % (AUTO) 10 % (0-12); NEUTROPHILS # (AUTO) 4.9 10^3/uL (1.8-7.8); NEUTROPHILS % (AUTO) 64 % (42-75); PLATELET COUNT 247 10^3/uL (130-400); WHITE BLOOD COUNT 7.6 10^3/uL (4.3-11.0)
[2021-11-15] MEDS: HYDROcodone/APAP 5 MG/325 MG (LORTAB) TAB PO PRN ×2 (06:45→11:39)
[2021-11-15 06:53] LABS: ALBUMIN 2.8 GM/DL (3.2-4.5); POTASSIUM 3.5 MMOL/L (3.6-5.0)
[2021-11-15 06:55] LABS: CALCIUM 8.6 MG/DL (8.5-10.1)
[2021-11-15 06:56] LABS: TOTAL PROTEIN 5.1 GM/DL (6.4-8.2)
[2021-11-15 06:58] LABS: BILIRUBIN,TOTAL 0.7 MG/DL (0.1-1.0)
[2021-11-15 06:59] LABS: CREATININE SERUM 0.74 MG/DL (0.60-1.30)
--- NOTE | 2021-11-15 07:26 | PM&R Progress Note ---
Subjective HPI/CC On Admission Date Seen by Provider: Nov 15, 2021 Time Seen by Provider: 09:30 Subjective/Events-last exam 11/15/2021: Patient doing well Completing abx Sodium level 133 Improved ambulation 11/14/2021: Doing better Increased dietary consumption Checking labs tomorrow wonders if she can take care of him at home 11/13/2021: Orthostasis noted Laura ordered NELLY wraps over RAFAL hose Cefepime maintained 11/11/2021: Nurse called me to the bedside urgently due to hypotension and unable to obtain oxygen saturation and bradycardia of 30 I arrived at the bedside urgently and found the patient to be diaphoretic but in no other distress Blood pressure was 70/40 IV fluids initiated of 1 L bolus which ultimately improved blood pressure to 88/40 Constant cough was noted so chest x-ray obtained showing pneumonia and findings consistent with sepsis from pneumonia so he was moved to the ICU. All medication orders and sepsis protocol initiated 11/10/2021: No major issues No falls No pain Fluid restriction maintained 11/09/2021: Patient doing well Appreciate urology consult Discontinue catheter for trial void Flomax and Urecholine maintained No major issues 11/08/2021: Pt is confused a bit Sodium level is 128 Regular diet, will discontinue low sodium diet 11/07/2021: Doing well No pain reported Left sling in place BM with fecal incontinence which frustrates him 11/06/2021: Doing well Bowels caused fecal incontinence but they are moving Sodium level 125 Salt tablets and fluid restriction in place Participating in therapy Review of Systems General: Fatigue, Malaise Objective Exam Vital Signs Vital Signs Date Time Temp Pulse Resp B/P (MAP) Pulse Ox O2 Delivery O2 Flow Rate FiO2 11/15/21 21:00 Room Air 11/15/21 20:16 36.9 83 16 131/74 (93) 95 11/15/21 07:40 1.00 Capillary Refill : General Appearance: No Apparent Distress, WD/WN HEENT: PERRL/EOMI, Moist Mucous Membranes Neck: Normal Inspection, Supple, Carotid Bruit Respiratory: Lungs Clear, No Accessory Muscle Use, No Respiratory Distress Cardiovascular: Regular Rate, Rhythm, No Murmur Gastrointestinal: Normal Bowel Sounds, No Organomegaly, No Pulsatile Mass, Non Tender, Soft Back: Normal Inspection, No CVA Tenderness, No Vertebral Tenderness Extremity: No Pedal Edema Neurologic/Psychiatric: Alert, Oriented x3 Skin: Normal Color Lymphatic: No Adenopathy Results/Procedures Lab Laboratory Tests 11/15/21 06:31 Patient resulted labs reviewed. FIM Transfers Therapy Code Descriptions/Definitions Functional [place] Measure: 0=Not Assessed/NA 4=Minimal Assistance 1=Total Assistance 5=Supervision or Setup 2=Maximal Assistance 6=Modified [place] 3=Moderate Assistance 7=Complete IndependenceSCALE: Activities may be completed with or without assistive devices. 2-Rutvxjtebx-hjfmhzl completes the activity by him/herself with no assistance from a helper. 5-Set-up or Clean-up Assistance-helper sets up or cleans up; patient completes activity. [place] assists only prior to or following the activity. 4-Supervision or Touching Assistance-helper provides verbal cues and/or touc tree/steadying and/or contact guard assistance as patient completes activity. Assistance may be provided throughout the activity or intermittently. 3-Partial/Moderate Assistance-helper does LESS THAN HALF the effort. [place] lifts, holds or supports trunk or limbs, but provides less than half the effort. 2-Substantial/Maximal Assistance-helper does MORE THAN HALF the effort. [place] lifts or holds trunk or limbs and provides more than half the effort. 0-Dwpmnbcym-iiofab does ALL the effort. Patient does none of the effort to complete the activity. Or, the assistance of 2 or more helpers is required for the patient to complete the activity. If activity was not attempted, code reason: 7-Patient Refused. 9-Not Applicable-not attempted and the patient did not perform the activity be fore the current illness, exacerbation or injury. 10-Not Attempted due to Environmental Limitations-(lack of equipment, weather restraints, etc.). 88-Not Attempted due to Medical Conditions or Safety Concerns. Roll Left to Right (QC): 3 Sit to Lying (QC): 3 Sit to Stand (QC): 3 Chair/Odc-gp-Lrkcc Xfer(QC): 3 Car Transfer (QC): 3 Gait Training Does the Patient Walk?: No and Walking Goal IS indicated Distance: 15' x2 Walk 10 feet (QC): 3 Walk 50 ft with 2 Turns(QC): 88 Walk 150 ft (QC): 88 Walking 10ft/uneven surface-QC: 88 Gait Persons Needed: 1 Gait Assistive Device: Walker Erich Wheelchair Training Does the Pt Use a Wheelchair?: Yes Wheel 50 ft with 2 turns (QC): 5 Wheel 150 ft (QC): 5 Type of Wheelchair: Manual Stair Training 1 Step (curb) (QC): 88 4 Steps (QC): 88 12 Steps (QC): 88 Balance Picking up an Object (QC): 88 ADL-Treatment Eating (QC): 6 Oral Hygiene (QC): 6 Shower/Bathe Self (QC): 4 Upper Body Dressing (QC): 3 Lower Body Dressing (QC): 2 On/Off Footwear (QC): 2 Toileting Hygiene (QC): 3 (mod A) Toilet Transfer (QC): 4 (CGA) Assessment/Plan Assessment and Plan Assess & Plan/Chief Complaint Assessment: Hypotensive event on 11/11/2021 with hypoxia, diaphoresis and evidence of sepsis from pneumonia prompting ICU transfer Fall Debility Left humerus fracture no surgery required placed in sling Urinary retention Sherman cath in place started bladder meds then DC catheter 11/09/2021 by urology Hyponatremia placed on salt tablets and fluid restriction HTN HLP h/o Prostate cancer Orthostasis Plan: IRF protocol Bladder meds DC sherman soon Home meds 11/06/2021: Supportive care Bladder meds 11/07/2021: Check labs in am BM+ 11/08/2021: Salt tablets Fluid restriction 11/09/2021: Supportive care Monitor closely 11/10/2021: Fall risk Pain control 11/11/2021: Transferred to ICU 11/13/2021: 1 liter of NS today Lift fluid restriction Cefepime 11/14/2021: Monitor closely Labs in am 11/15/2021: Complete abx Monitor closely (1) Weakness Status: Acute (2) CAD (coronary artery disease) (3) Sherman catheter in place (4) Fall on same level Status: Acute (5) Hyponatremia Status: Acute (6) Urinary retention (7) History of prostate cancer Status: Chronic (8) Closed left humeral fracture Status: Acute (9) Multiple abrasions Status: Acute ARIA ALEMAN DO Nov 15, 2021 07:26
[2021-11-15 07:40] VITALS: BP 100/59
[2021-11-15] MEDS: SENNA W/DOCUSATE (SENOKOT S) TABLET PO SCH ×2 (08:10→20:30)
[2021-11-15] MEDS: DOCUSATE SODIUM 100 MG (COLACE) CAP PO SCH ×2 (08:10→20:30)
[2021-11-15] MEDS: polyethylene glycoL POWDER 17 GM (MIRALAX) PACK PO SCH ×2 (08:10→20:30)
--- NOTE | 2021-11-15 08:14 | Progress Note - Urology ---
Progress Note-Urology Progress Notes/Assess & Plan Progress/Assessment & Plan ANTONY OUT THIS AM. TOV Final Diagnosis RETENTION JANICE SCHWARZ MD Nov 15, 2021 08:14
--- NOTE | 2021-11-15 09:02 | Occupational Ther Daily Note ---
OT Current Status-Daily Note Subjective Pt has difficulty giving numerical pain rating (on scale of 0-10), verbalizes "not very much" pain. Appearance Pt left sitting in recliner, all needs within reach at OT departure. Mental Status/Objective Patient Orientation: Person, Place Attachments: IV, Oxygen (1L) ADL-Treatment Therapy Code Descriptions/Definitions Functional [place] Measure: 0=Not Assessed/NA 4=Minimal Assistance 1=Total Assistance 5=Supervision or Setup 2=Maximal Assistance 6=Modified [place] 3=Moderate Assistance 7=Complete IndependenceSCALE: Activities may be completed with or without assistive devices. 1-Zkpyykecrt-gprrhay completes the activity by him/herself with no assistance from a helper. 5-Set-up or Clean-up Assistance-helper sets up or cleans up; patient completes activity. [place] assists only prior to or following the activity. 4-Supervision or Touching Assistance-helper provides verbal cues and/or touching/steadying and/or contact guard assistance as patient completes activity. Assistance may be provided throughout the activity or intermittently. 3-Partial/Moderate Assistance-helper does LESS THAN HALF the effort. [place] lifts, holds or supports trunk or limbs, but provides less than half the effort. 2-Substantial/Maximal Assistance-helper does MORE THAN HALF the effort. [place] lifts or holds trunk or limbs and provides more than half the effort. 1-Ttqbfzscc-wzajxo does ALL the effort. Patient does none of the effort to complete the activity. Or, the assistance of 2 or more helpers is required for the patient to complete the activity. If activity was not attempted, code reason: 7-Patient Refused. 9-Not Applicable-not attempted and the patient did not perform the activity before the current illness, exacerbation or injury. 10-Not Attempted due to Environmental Limitations-(lack of equipment, weather restraints, etc.). 88-Not Attempted due to Medical Conditions or Safety Concerns. Shower/Bathe Self (QC): 4 Upper Body Dressing (QC): 3 Lower Body Dressing (QC): 3 On/Off Footwear: 2 Supine>sit: Min-mod a to elevate torso. Sit<>stand: CGA. Pt only able to take 5- 6 steps before becoming very Unsteady on feet, poor sequencing with shweta walker. OT had pt sit in chair and transfer to w/c. Stand pivot from w/c to shower bench with min a. 100% of shower performed in sitting. Mod verbal cues for sequencing and problem solving throughout shower. Cues to lean anteriorly in order to reach buttocks as well as cues for cross over method to reach/wash feet. Clothing donned seated in w/c. Pt able to verbalize correct sequencing (for compensatory method) when donning shirt, but required step by step cues during actual task. Assist to thread LUE and bring overhead. Pt able to thread RUE and bring over torso with verbal cues. Max a to don sling. When donning LB clothing, Cues needed to perform figure 4 method in order to better reach feet; mod a still required. Pt stood at grab bar for clothing management. When removing RUE, pt often resting head on wall for extra stability. Cues for upright posture. Min- mod a for balance and mod a to pull clothing up over L hip. Dependent to don [place] hose, flynn wraps and socks secondary to only having use of 1UE. Poor problem solving when tasks become difficult. Pt often requests help before attempting a task. Education OT Patient Education: Correct positioning, Energy conservation, Modified ADL techniques, Progress toward Goal/Update tx plan, Purpose of tx/functional a ctivities, Reviewed precautions, Safety issues, Transfer techniques, W/C management Teaching Recipient: Patient Teaching Methods: Demonstration, Discussion Response to Teaching: Verbalize Understanding, Unable to Return Demonstration, Reinforcement Needed OT Short Term Goals Short Term Goals Time Frame: Nov 19, 2021 Eatin Oral hygiene: 5 Toileting hygiene: 2 Shower/bathe self: 3 Upper body dressin Lower body dressin Putting on/taking off footwear: 2 OT Media Librarian Goals Media Librarian Goals Time Frame: Nov 26, 2021 Eating (QC): 5 (met) Oral Hygiene (QC): 5 (met) Toileting Hygiene (QC): 4 Shower/Bathe Self (QC): 4 Upper Body Dressing (QC): 4 Lower Body Dressing (QC): 3 On/Off Footwear (QC): 3 1=Demonstrate adherence to instructed precautions during ADL tasks. 2=Patient will verbalize/demonstrate understanding of assistive devices/modifications for ADL. 3=Patient will improve strength/tolerance for activity to enable patient to perform ADL's. OT Education/Plan Problem List/Assessment Assessment: Decreased Activ Tolerance, Decreased Safety Aware, Decreased UE Strength, Edema, Impaired Bed Mobility, Impaired Cognition, Impaired Coord ination, Impaired Funct Balance, Impaired I ADL's, Impaired Self-Care Skills, Restricted Funct UE ROM Discharge Recommendations Plan/Recommendations: Continue POC Therapy Discharge Recommendati: Post Acute OT Treatment Plan/Plan of Care Treatment,Training & Education: Yes Patient would benefit from OT for education, treatment and training to promote independence in ADL's, mobility, safety and/or upper extremity function for ADL's. Plan of Care: ADL Retraining, Caregiver Training, Cognitive Retraining, Concurrent Therapy, Functional Mobility, Group Exercise/Act as Ind, Orthotic Fitting/Training, UE Funct Exercise/Act, W/C Management Training Treatment Duration: Nov 26, 2021 Frequency: At least 5 of 7 days/Wk (IRF) Estimated Hrs Per Day: 1.5 hours per day (75-90 min/day) Agreement: Yes Rehab Potential: Fair Time/GCodes Start Time: 07:40 Stop Time: 09:10 Total Time Billed (hr/min): 90 Billed Treatment Time 1 visit ADL x6 Lindsey Sykes OT Nov 15, 2021 09:02
[2021-11-15] MEDS: SODIUM CHLORIDE 1 GM TABLET PO SCH ×3 (09:06→20:30)
[2021-11-15] MEDS: ACETAMINOPHEN 325 MG TABLET PO PRN (09:42)
--- NOTE | 2021-11-15 10:54 | Progress Note ---
JAZIEL LOCKWOOD 11/15/21 1054: Progress Note 85 yr old male on day 10 of admission for hyponatremia and a fall resulting in a left humerus fx that did not require surgery so the patient was admitted to inpatient rehab for monitoring, electrolyte resuscitation, and PT/OT. On day 6, PT was severely hypotensive and dx with PNA and transferred to ICU and started on sepsis protocol with fluid resuscitation and Abx. Pt had problems with urinary retention so a sherman catheter was placed to increase voiding and loose stools with fecal occult blood positive. Pt was not a good candidate for scopes at the time and denied the option and chose to wait and montior Hgb and stools. Day 7, pt was transferred back to inpatient rehab for continued monitoring and became hyponatremic again. Salt tabs and fluid restriction was in place and sodium has returned to near normal levels. Pt is currently in in-pt rehab doing well on last day of Abx therapy and cath was removed. PT/OT has continued along with monitoring of voids. Rehab staff meeting this Monday to discuss D/C plans and post-hosp care. AURELIA CRUZ DO 11/16/21 0557: Supervisory-Addendum Brief Verification & Attestation Participated in pt care: history, MDM, physical Personally performed: exam, history, MDM, supervision of care Care discussed with: Medical Student Procedures: n/a Results interpretation: Verified all documentation Verification and Attestation of Medical Student E/M Service A medical student performed and documented this service in my presence. I reviewed and verified all information documented by the medical student and made modifications to such information, when appropriate. I personally performed the physical exam and medical decision making. Aurelia Cruz Nov 16, 2021,05:57 JAZIEL LOCKWOOD Nov 15, 2021 10:54 AURELIA CRUZ DO Nov 16, 2021 05:57
--- NOTE | 2021-11-15 12:03 | Physical Therapy Daily Note ---
PT Daily Note-Current Subjective Pt sitting in recliner with Sp present. Pt agrees to PT but reports still feeling very tired. Pain Location: No Pain Reported Mental Status Patient Orientation: Person, Place, Situation Attachments: Other-See Comments (Sling for L UE) Transfers SCALE: Activities may be completed with or without assistive devices. 7-Gxrxvwpfkq-mdgyxdu completes the activity by him/herself with no assistance from a helper. 5-Set-up or Clean-up Assistance-helper sets up or cleans up; patient completes activity. [place] assists only prior to or following the activity. 4-Supervision or Touching Assistance-helper provides verbal cues and/or touching/steadying and/or contact guard assistance as patient completes activity. Assistance may be provided throughout the activity or intermittently. 3-Partial/Moderate Assistance-helper does LESS THAN HALF the effort. [place] lifts, holds or supports trunk or limbs, but provides less than half the effort. 2-Substantial/Maximal Assistance-helper does MORE THAN HALF the effort. [place] lifts or holds trunk or limbs and provides more than half the effort. 3-Mkcxttwbb-npgdfj does ALL the effort. Patient does none of the effort to complete the activity. Or, the assistance of 2 or more helpers is required for the patient to complete the activity. If activity was not attempted, code reason: 7-Patient Refused. 9-Not Applicable-not attempted and the patient did not perform the activity before the current illness, exacerbation or injury. 10-Not Attempted due to Environmental Limitations-(lack of equipment, weather restraints, etc.). 88-Not Attempted due to Medical Conditions or Safety Concerns. Sit to Stand (QC): 3 Weight Bearing Full Weight Bearing Full Weight Bearing Gait Training Does the Patient Walk?: Yes Distance: 20' Walk 10 feet (QC): 3 Gait Persons Needed: 1 Gait Assistive Device: Walker Erich Slow timoteo, CGA for most of walk but did have LOB that DIRECT SALES PROFESSIONAL had to assist to balance Wheelchair Training Does the Pt Use a Wheelchair?: Yes Type of Wheelchair: Manual Exercises Supine Ex: Ankle pumps, Quad Set, Glut sets, Heel Slides, Short Arc Quads, Straight leg raise, Hip abd/add Supine Reps: 15 Seated Therapy Exercises: Ankle pumps, Long arc quads, Hip flexion Seated Reps: 15 Treatments Pt and Sp discuss with DIRECT SALES PROFESSIONAL pt's progress and what pt can do to try to improve both medically and from Therapy standpoint. DIRECT SALES PROFESSIONAL will monitor BP as pt's has run low. Pt completes Seated EX then short RB. BP in sitting is 100/59, Pulse is 77 & O2 is 94%. Pt is not using O2 during tx at this time. After standing, BP is 112/59, Pulse is 85. Pt expresses want to ambulate. Pt is able to walk ~ 15' before needing RB. Pt sits in WCH then attempts to stand and walk again. Pt able to walk ~ 5' before LOB that DIRECT SALES PROFESSIONAL assists with. Pt propels WCH in hallway before returning to room to rest in recliner. Pt repositioned to comfort. All needs met, call light in hand. Assessment Current Status: Fair Progress Pt is limited by fatigue and activity tolerance at this time. PT Short Term Goals Short Term Goals Time Frame: Nov 12, 2021 Roll Left & Right: 4 (CGA) Sit to lyin (CGA) Lying to sitting on side of be: 4 (CGA) Sit to stand: 4 (CGA) Walk 10 feet: 4 (CGA) Walk 50 feet with two turns: 4 (CGA) PT Fci Goals Fci Goals PT Fci Goals Time Frame: Nov 26, 2021 Roll Left & Right (QC): 6 Sit to Lying (QC): 6 Lying-Sitting on Side/Bed(QC): 6 Sit to Stand (QC): 4 (SBA) Chair/Eey-me-Zuaks Xfer(QC): 4 (SA) Toilet Transfer (QC): 4 (SBA) Car Transfer (QC): 4 (SBA) Does the Patient Walk: Yes Walk 10 feet (QC): 4 (SBA) Walk 50ft with 2 Turns (QC): 4 (SBA) Walk 150 ft (QC): 4 (SBA) Walking 10ft on Uneven Surface: 4 (SBA) 1 Step (curb) (QC): 4 (SBA) 4 Steps (QC): 4 (SBA) 12 Steps (QC): 88 Picking up an Object (QC): 4 (CGA using boat mechanic) Wheel 50 feet with 2 turns (QC: 9 Wheel 150 feet: 9 PT Plan Problem List Problem List: Activity Tolerance, Functional Strength, Gait Treatment/Plan Treatment Plan: Continue Plan of Care Treatment Plan: Bed Mobility, Education, Functional Activity [place], Functional Strength, Group Therapy, Gait, Safety, Therapeutic Exercise, Transfers Treatment Duration: Nov 26, 2021 Frequency: At least 5 of 7 days/Wk (IRF) Estimated Hrs Per Day: 1.5 hours per day Patient and/or Family Agrees t: Yes Safety Risks/Education Patient Education: Transfer Techniques, Issued Written HEP, Correct Positioning Teaching Recipient: Patient Teaching Methods: Discussion Response to Teaching: Verbalize Understanding Time/GCodes Time In: 1030 Time Out: 1200 Total Billed Treatment Time: 90 Total Billed Treatment 1, FA x2 (35m), EX x2 (30m) & GT x2 (25m) VALERIE OMER DIRECT SALES PROFESSIONAL Nov 15, 2021 12:03
[2021-11-15] MEDS: TAMSULOSIN 0.4 MG (FLOMAX) CAP PO SCH (17:05)
[2021-11-15 20:16] VITALS: BP 131/74
[2021-11-15] MEDS: GABAPENTIN 300 MG (NEURONTIN) CAP PO SCH (20:29)
[2021-11-15] MEDS: AtorvaSTATin TABLET 10 MG TABLET PO SCH (20:30)
[2021-11-16] MEDS: CEFEPIME 1,000 MG/NS 50 ML IVPB IV SCH ×2 (00:26)
[2021-11-16] MEDS: HYDROcodone/APAP 5 MG/325 MG (LORTAB) TAB PO PRN (02:23)
[2021-11-16] MEDS: MULTIVIT W/MINERALS TAB (THERAGRAN M) PO SCH (06:20)
[2021-11-16] MEDS: CALCIUM CARBONATE 600 MG (CALCARB) TAB PO SCH (06:21)
[2021-11-16] MEDS: BETHANECHOL 25 MG (URECHOLINE) TAB PO SCH ×4 (06:21→20:37)
[2021-11-16] MEDS: OMEGA 3 (FISH OIL) 1000 MG CAP PO SCH (06:21)
[2021-11-16] MEDS: SODIUM CHLORIDE 1 GM TABLET PO SCH ×3 (08:08→20:39)
[2021-11-16] MEDS: CEFDINIR 300 MG (OMNICEF) CAP PO SCH ×2 (08:08→20:38)
[2021-11-16] MEDS: DOCUSATE SODIUM 100 MG (COLACE) CAP PO SCH ×2 (08:13→20:38)
[2021-11-16] MEDS: SENNA W/DOCUSATE (SENOKOT S) TABLET PO SCH ×2 (08:20→20:39)
[2021-11-16] MEDS: polyethylene glycoL POWDER 17 GM (MIRALAX) PACK PO SCH ×2 (08:20→20:39)
[2021-11-16 08:30] VITALS: BP 108/58
--- NOTE | 2021-11-16 09:07 | Occupational Ther Daily Note ---
OT Current Status-Daily Note Subjective Pt denies pain, reports urgency to use toilet at OT arrival. Appearance Pt returned to sitting in recliner, all needs within reach, RN notified. Mental Status/Objective Patient Orientation: Person, Place Attachments: IV ADL-Treatment Therapy Code Descriptions/Definitions Functional [place] Measure: 0=Not Assessed/NA 4=Minimal Assistance 1=Total Assistance 5=Supervision or Setup 2=Maximal Assistance 6=Modified [place] 3=Moderate Assistance 7=Complete IndependenceSCALE: Activities may be completed with or without assistive devices. 1-Hyszbvbkks-popcgtg completes the activity by him/herself with no assistance from a helper. 5-Set-up or Clean-up Assistance-helper sets up or cleans up; patient completes activity. [place] assists only prior to or following the activity. 4-Supervision or Touching Assistance-helper provides verbal cues and/or touching/steadying and/or contact guard assistance as patient completes activity. Assistance may be provided throughout the activity or intermittently. 3-Partial/Moderate Assistance-helper does LESS THAN HALF the effort. [place] lifts, holds or supports trunk or limbs, but provides less than half the effort. 2-Substantial/Maximal Assistance-helper does MORE THAN HALF the effort. [place] lifts or holds trunk or limbs and provides more than half the effort. 1-Kyqgngkdc-kygfof does ALL the effort. Patient does none of the effort to complete the activity. Or, the assistance of 2 or more helpers is required for the patient to complete the activity. If activity was not attempted, code reason: 7-Patient Refused. 9-Not Applicable-not attempted and the patient did not perform the activity before the current illness, exacerbation or injury. 10-Not Attempted due to Environmental Limitations-(lack of equipment, weather restraints, etc.). 88-Not Attempted due to Medical Conditions or Safety Concerns. Oral Hygiene (QC): 4 Upper Body Dressing (QC): 3 Lower Body Dressing (QC): 3 On/Off Footwear: 1 Toileting Hygiene (QC): 3 Toilet Transfer (QC): 3 Pt sitting in chair at OT arrival, reports urgency to use toilet. He requests help to stand despite being able to stand without physical assistance (CGA for pt's comfort). Continues to be very unsteady on feet with poor management of shweta walker when ambulating to bathroom. Min-mod a required for balance. Pt verbalizes that he usually stands when performing back devendra care. When removing RUE support, he often compensates by leaning body onto wall (thus putting pressure through L shoulder). Education and assist to return to upright posture. Min-mod a for balance and assist for thoroughness required. LB clothing donned seated on toilet. From a lower height, pt was able to thread BLE's into brief/pants with extra time and verbal cues for improved performance. Mod a to pull clothing up to waist with mod a for balance. When given shirt to don, pt immediately attempted to don overhead first. Poor problem solving exhibited, needing cues to doff shirt and thread LUE first. Mod a to thread left and bring overhead. Cues to pull down around torso. Dependent to don henry hose, flynn wraps and socks. Pt sat to complete grooming tasks with supervision and extra time. Other Treatment While seated in w/c, pt completed hand, wrist, elbow and cervical AROM (to full range). Cues for slow/controlled movement. 2x10. OT educated and instructed pt on scapular clocks and scapula retractions (no shoulder extension). 1x10. OT facilitated Soft tissue mobilization at shoulder. Pt tolerated well. Per non-operative humeral fracture protocol, pt is now able to begin pendulum exercises. Due to poor balance, pt not safe to complete at this time. Education OT Patient Education: Correct positioning, Energy conservation, Home exercise program, Modified ADL techniques, Progress toward Goal/Update tx plan, Purpose of tx/functional activities, Reviewed precautions, Rehab process, Safety issues, Transfer techniques, W/C management Teaching Recipient: Patient Teaching Methods: Demonstration, Discussion Response to Teaching: Verbalize Understanding, Return Demonstration, Reinfor cement Needed OT Short Term Goals Short Term Goals Time Frame: Nov 19, 2021 Eatin Oral hygiene: 5 Toileting hygiene: 2 Shower/bathe self: 3 Upper body dressin Lower body dressin Putting on/taking off footwear: 2 OT Alf Goals Delivery Rn Goals Time Frame: Nov 26, 2021 Eating (QC): 5 (met) Oral Hygiene (QC): 5 (met) Toileting Hygiene (QC): 4 Shower/Bathe Self (QC): 4 Upper Body Dressing (QC): 4 Lower Body Dressing (QC): 3 On/Off Footwear (QC): 3 1=Demonstrate adherence to instructed precautions during ADL tasks. 2=Patient will verbalize/demonstrate understanding of assistive devices/modifications for ADL. 3=Patient will improve strength/tolerance for activity to enable patient to perform ADL's. OT Education/Plan Problem List/Assessment Assessment: Decreased Activ Tolerance, Decreased Safety Aware, Decreased UE Strength, Edema, Impaired Cognition, Impaired Coordination, Impaired Funct Balance, Impaired Self-Care Skills, Restricted Funct UE ROM Discharge Recommendations Plan/Recommendations: Continue POC Therapy Discharge Recommendati: Post Acute OT Treatment Plan/Plan of Care Treatment,Training & Education: Yes Patient would benefit from OT for education, treatment and training to promote independence in ADL's, mobility, safety and/or upper extremity function for ADL's. Plan of Care: ADL Retraining, Caregiver Training, Cognitive Retraining, Concurrent Therapy, Functional Mobility, Group Exercise/Act as Ind, Orthotic Fitting/Training, UE Funct Exercise/Act, W/C Management Training Treatment Duration: Nov 26, 2021 Frequency: At least 5 of 7 days/Wk (IRF) Estimated Hrs Per Day: 1.5 hours per day (75-90 min/day) Agreement: Yes Rehab Potential: Fair Time/GCodes Start Time: 07:40 Stop Time: 09:10 Total Time Billed (hr/min): 90 Billed Treatment Time 1 visit ADL x4 (60 min) MAN (20 min) EX (10 min) Lindsey Sykes OT Nov 16, 2021 09:07
--- NOTE | 2021-11-16 10:20 | PM&R Progress Note ---
Subjective HPI/CC On Admission Date Seen by Provider: Nov 16, 2021 Time Seen by Provider: 10:15 Subjective/Events-last exam 11/16/2021: Patient doing pretty well Changed antibiotics to p.o. Inconsistent with ambulation May need skilled 11/15/2021: Patient doing well Completing abx Sodium level 133 Improved ambulation 11/14/2021: Doing better Increased dietary consumption Checking labs tomorrow wonders if she can take care of him at home 11/13/2021: Orthostasis noted Laura ordered NELLY wraps over RAFAL hose Cefepime maintained 11/11/2021: Nurse called me to the bedside urgently due to hypotension and unable to obtain oxygen saturation and bradycardia of 30 I arrived at the bedside urgently and found the patient to be diaphoretic but in no other distress Blood pressure was 70/40 IV fluids initiated of 1 L bolus which ultimately improved blood pressure to 88/40 Constant cough was noted so chest x-ray obtained showing pneumonia and findings consistent with sepsis from pneumonia so he was moved to the ICU. All medication orders and sepsis protocol initiated 11/10/2021: No major issues No falls No pain Fluid restriction maintained 11/09/2021: Patient doing well Appreciate urology consult Discontinue catheter for trial void Flomax and Urecholine maintained No major issues 11/08/2021: Pt is confused a bit Sodium level is 128 Regular diet, will discontinue low sodium diet 11/07/2021: Doing well No pain reported Left sling in place BM with fecal incontinence which frustrates him 11/06/2021: Doing well Bowels caused fecal incontinence but they are moving Sodium level 125 Salt tablets and fluid restriction in place Participating in therapy Review of Systems Musculoskeletal: arm pain Objective Exam Vital Signs Vital Signs Date Time Temp Pulse Resp B/P (MAP) Pulse Ox O2 Delivery O2 Flow Rate FiO2 11/16/21 20:48 Room Air 11/16/21 19:42 36.6 79 20 122/78 (93) 97 11/15/21 07:40 1.00 Capillary Refill : General Appearance: No Apparent Distress, WD/WN HEENT: PERRL/EOMI, Moist Mucous Membranes Neck: Normal Inspection, Supple, Carotid Bruit Respiratory: Lungs Clear, No Accessory Muscle Use, No Respiratory Distress Cardiovascular: Regular Rate, Rhythm, No Murmur Gastrointestinal: Normal Bowel Sounds, No Organomegaly, No Pulsatile Mass, Non Tender, Soft Back: Normal Inspection, No CVA Tenderness, No Vertebral Tenderness Extremity: No Pedal Edema Neurologic/Psychiatric: Alert, Oriented x3 Skin: Normal Color Lymphatic: No Adenopathy Results/Procedures Lab Patient resulted labs reviewed. FIM Transfers Therapy Code Descriptions/Definitions Functional [place] Measure: 0=Not Assessed/NA 4=Minimal Assistance 1=Total Assistance 5=Supervision or Setup 2=Maximal Assistance 6=Modified [place] 3=Moderate Assistance 7=Complete IndependenceSCALE: Activities may be completed with or without assistive devices. 7-Qtqvqvdxvd-uzwbceg completes the activity by him/herself with no assistance from a helper. 5-Set-up or Clean-up Assistance-helper sets up or cleans up; patient completes activity. [place] assists only prior to or following the activity. 4-Supervision or Touching Assistance-helper provides verbal cues and/or touching/steadying and/or contact guard assistance as patient completes ac tivity. Assistance may be provided throughout the activity or intermittently. 3-Partial/Moderate Assistance-helper does LESS THAN HALF the effort. [place] lifts, holds or supports trunk or limbs, but provides less than half the effort. 2-Substantial/Maximal Assistance-helper does MORE THAN HALF the effort. [place] lifts or holds trunk or limbs and provides more than half the effort. 5-Njleluksl-dmlxic does ALL the effort. Patient does none of the effort to complete the activity. Or, the assistance of 2 or more helpers is required for the patient to complete the activity. If activity was not attempted, code reason: 7-Patient Refused. 9-Not Applicable-not attempted and the patient did not perform the activity before the current illness, exacerbation or injury. 10-Not Attempted due to Environmental Limitations-(lack of equipment, weather restraints, etc.). 88-Not Attempted due to Medical Conditions or Safety Concerns. Roll Left to Right (QC): 3 Sit to Lying (QC): 3 Sit to Stand (QC): 3 Chair/Hhs-ou-Zdjwg Xfer(QC): 3 Car Transfer (QC): 3 Gait Training Does the Patient Walk?: Yes Distance: 20' Walk 10 feet (QC): 3 Walk 50 ft with 2 Turns(QC): 88 Walk 150 ft (QC): 88 Walking 10ft/uneven surface-QC: 88 Gait Persons Needed: 1 Gait Assistive Device: Walker Erich Wheelchair Training Does the Pt Use a Wheelchair?: Yes Wheel 50 ft with 2 turns (QC): 5 Wheel 150 ft (QC): 5 Type of Wheelchair: Manual Stair Training 1 Step (curb) (QC): 88 4 Steps (QC): 88 12 Steps (QC): 88 Balance Picking up an Object (QC): 88 ADL-Treatment Eating (QC): 6 Oral Hygiene (QC): 4 Shower/Bathe Self (QC): 4 Upper Body Dressing (QC): 3 Lower Body Dressing (QC): 3 On/Off Footwear (QC): 1 Toileting Hygiene (QC): 3 Toilet Transfer (QC): 3 Assessment/Plan Assessment and Plan Assess & Plan/Chief Complaint Assessment: Hypotensive event on 11/11/2021 with hypoxia, diaphoresis and evidence of sepsis from pneumonia prompting ICU transfer Fall Debility Left humerus fracture no surgery required placed in sling Urinary retention Sherman cath in place started bladder meds then DC catheter 11/09/2021 by urology Hyponatremia placed on salt tablets and fluid restriction HTN HLP h/o Prostate cancer Orthostasis Plan: IRF protocol Bladder meds DC sherman soon Home meds 11/06/2021: Supportive care Bladder meds 11/07/2021: Check labs in am BM+ 11/08/2021: Salt tablets Fluid restriction 11/09/2021: Supportive care Monitor closely 11/10/2021: Fall risk Pain control 11/11/2021: Transferred to ICU 11/13/2021: 1 liter of NS today Lift fluid restriction Cefepime 11/14/2021: Monitor closely Labs in am 11/15/2021: Complete abx Monitor closely 11/16/2021: May need skilled (1) Weakness Status: Acute (2) CAD (coronary artery disease) (3) Sherman catheter in place (4) Fall on same level Status: Acute (5) Hyponatremia Status: Acute (6) Urinary retention (7) History of prostate cancer Status: Chronic (8) Closed left humeral fracture Status: Acute (9) Multiple abrasions Status: Acute ARIA ALEMAN DO Nov 16, 2021 10:20
--- NOTE | 2021-11-16 12:13 | Physical Therapy Daily Note ---
PT Daily Note-Current Subjective Pt sitting in recliner visiting with Sp upon arrival. Pt agrees to PT but reports fatigue to start tx. Pain Location: No Pain Reported Mental Status Patient Orientation: Person, Place, Time, Situation Attachments: Other-See Comments (Sling for L UE) Transfers SCALE: Activities may be completed with or without assistive devices. 6-Mfylpgfqnb-fvgkhas completes the activity by him/herself with no assistance from a helper. 5-Set-up or Clean-up Assistance-helper sets up or cleans up; patient completes activity. [place] assists only prior to or following the activity. 4-Supervision or Touching Assistance-helper provides verbal cues and/or touching/steadying and/or contact guard assistance as patient completes activity. Assistance may be provided throughout the activity or intermittently. 3-Partial/Moderate Assistance-helper does LESS THAN HALF the effort. [place] lifts, holds or supports trunk or limbs, but provides less than half the effort. 2-Substantial/Maximal Assistance-helper does MORE THAN HALF the effort. [place] lifts or holds trunk or limbs and provides more than half the effort. 4-Hljjlwyip-lliaak does ALL the effort. Patient does none of the effort to complete the activity. Or, the assistance of 2 or more helpers is required for the patient to complete the activity. If activity was not attempted, code reason: 7-Patient Refused. 9-Not Applicable-not attempted and the patient did not perform the activity before the current illness, exacerbation or injury. 10-Not Attempted due to Environmental Limitations-(lack of equipment, weather restraints, etc.). 88-Not Attempted due to Medical Conditions or Safety Concerns. Sit to Stand (QC): 4 Weight Bearing Full Weight Bearing Full Weight Bearing Gait Training Does the Patient Walk?: Yes Distance: 75' Walk 10 feet (QC): 4 Walk 50 ft with 2 Turns(QC): 4 Gait Persons Needed: 1 Gait Assistive Device: Walker Erich Wheelchair Training Does the Pt Use a Wheelchair?: Yes Type of Wheelchair: Manual Exercises Seated Therapy Exercises: Ankle pumps, Long arc quads, Hip flexion, Hip abd/add, Glut set Seated Reps: 15 Treatments POULTRY OFFAL ICER discusses options for Family Training as pt wants to d/c home and Sp was assisting at home but pt is still requiring more assistance than previously at home. Pt TF to standing at [facility]. Pt amb. in hallway ~ 40' with [facility] following before resting. Pt amb. again before needing RB in [facility]. Pt completes Seated EX and propels WC back to room. Pt TF to recliner to rest with all needs met, call light in hand. Assessment Current Status: Good Progress Pt is able to amb. farther than previous tx. Pt fatigues easily and needs frequent RB. PT Short Term Goals Short Term Goals Time Frame: Nov 12, 2021 Roll Left & Right: 4 (CGA) Sit to lyin (CGA) Lying to sitting on side of be: 4 (CGA) Sit to stand: 4 (CGA) Walk 10 feet: 4 (CGA) Walk 50 feet with two turns: 4 (CGA) PT Maid Cleaning Cooking Goals Usp Goals PT Usp Goals Time Frame: Nov 26, 2021 Roll Left & Right (QC): 6 Sit to Lying (QC): 6 Lying-Sitting on Side/Bed(QC): 6 Sit to Stand (QC): 4 (SBA) Chair/Mzv-is-Rrdme Xfer(QC): 4 (SA) Toilet Transfer (QC): 4 (SBA) Car Transfer (QC): 4 (SBA) Does the Patient Walk: Yes Walk 10 feet (QC): 4 (SBA) Walk 50ft with 2 Turns (QC): 4 (SBA) Walk 150 ft (QC): 4 (SBA) Walking 10ft on Uneven Surface: 4 (SBA) 1 Step (curb) (QC): 4 (SBA) 4 Steps (QC): 4 (SBA) 12 Steps (QC): 88 Picking up an Object (QC): 4 (CGA using crater and packer) Wheel 50 feet with 2 turns (QC: 9 Wheel 150 feet: 9 PT Plan Problem List Problem List: Activity Tolerance, Functional Strength, Gait Treatment/Plan Treatment Plan: Continue Plan of Care Treatment Plan: Bed Mobility, Education, Functional Activity [place], Functional Strength, Group Therapy, Gait, Safety, Therapeutic Exercise, Transfers Treatment Duration: Nov 26, 2021 Frequency: At least 5 of 7 days/Wk (IRF) Estimated Hrs Per Day: 1.5 hours per day Patient and/or Family Agrees t: Yes Safety Risks/Education Patient Education: Gait Training, Transfer Techniques, Correct Positioning, W/C Management, Safety Issues Teaching Recipient: Patient, Significant Other Teaching Methods: Discussion Response to Teaching: Verbalize Understanding Time/GCodes Time In: 1000 Time Out: 1100 Total Billed Treatment Time: 60 Total Billed Treatment 1, FA (15m), GT x2 (25m) & EX (20m) VALERIE OMER POULTRY OFFAL ICER Nov 16, 2021 12:13
--- NOTE | 2021-11-16 15:29 | Physical Therapy Daily Note ---
PT Daily Note-Current Subjective Pt sitting in recliner upon arrival. Pt declines need for BR to start tx. Pt agrees to PT. Pain Location: No Pain Reported Mental Status Patient Orientation: Person, Place, Situation Attachments: Other-See Comments (Sling for L UE) Transfers SCALE: Activities may be completed with or without assistive devices. 6-Wfixyosdwk-rxgteqz completes the activity by him/herself with no assistance from a helper. 5-Set-up or Clean-up Assistance-helper sets up or cleans up; patient completes activity. [place] assists only prior to or following the activity. 4-Supervision or Touching Assistance-helper provides verbal cues and/or touching/steadying and/or contact guard assistance as patient completes activity. Assistance may be provided throughout the activity or intermittently. 3-Partial/Moderate Assistance-helper does LESS THAN HALF the effort. [place] lifts, holds or supports trunk or limbs, but provides less than half the effort. 2-Substantial/Maximal Assistance-helper does MORE THAN HALF the effort. [place] lifts or holds trunk or limbs and provides more than half the effort. 0-Dkjkknaer-gxvhnl does ALL the effort. Patient does none of the effort to complete the activity. Or, the assistance of 2 or more helpers is required for the patient to complete the activity. If activity was not attempted, code reason: 7-Patient Refused. 9-Not Applicable-not attempted and the patient did not perform the activity before the current illness, exacerbation or injury. 10-Not Attempted due to Environmental Limitations-(lack of equipment, weather restraints, etc.). 88-Not Attempted due to Medical Conditions or Safety Concerns. Sit to Stand (QC): 4 Weight Bearing Full Weight Bearing Full Weight Bearing Exercises Supine Ex: Ankle pumps, Quad Set, Glut sets, Heel Slides, Hip abd/add Supine Reps: 15 Treatments Pt completes Supine EX in recliner then reports needing to use BR to urinate. Floor had just been mopped so DAIRY FEED WORKER assists with standing and pt able to doff brief & pants to use urinal sitting in recliner. Pt returns to recliner at end of tx. All needs met, call light in hand. Assessment Current Status: Good Progress Pt [place]. tx well. PT Short Term Goals Short Term Goals Time Frame: Nov 12, 2021 Roll Left & Right: 4 (CGA) Sit to lyin (CGA) Lying to sitting on side of be: 4 (CGA) Sit to stand: 4 (CGA) Walk 10 feet: 4 (CGA) Walk 50 feet with two turns: 4 (CGA) PT Mcc Goals Mcc Goals PT Mcc Goals Time Frame: Nov 26, 2021 Roll Left & Right (QC): 6 Sit to Lying (QC): 6 Lying-Sitting on Side/Bed(QC): 6 Sit to Stand (QC): 4 (SBA) Chair/Wpu-np-Cgatc Xfer(QC): 4 (SA) Toilet Transfer (QC): 4 (SBA) Car Transfer (QC): 4 (SBA) Does the Patient Walk: Yes Walk 10 feet (QC): 4 (SBA) Walk 50ft with 2 Turns (QC): 4 (SBA) Walk 150 ft (QC): 4 (SBA) Walking 10ft on Uneven Surface: 4 (SBA) 1 Step (curb) (QC): 4 (SBA) 4 Steps (QC): 4 (SBA) 12 Steps (QC): 88 Picking up an Object (QC): 4 (CGA using carton machine operator) Wheel 50 feet with 2 turns (QC: 9 Wheel 150 feet: 9 PT Plan Problem List Problem List: Activity Tolerance, Functional Strength Treatment/Plan Treatment Plan: Continue Plan of Care Treatment Plan: Bed Mobility, Education, Functional Activity [place], Functional Strength, Group Therapy, Gait, Safety, Therapeutic Exercise, Transfers Treatment Duration: Nov 26, 2021 Frequency: At least 5 of 7 days/Wk (IRF) Estimated Hrs Per Day: 1.5 hours per day Patient and/or Family Agrees t: Yes Safety Risks/Education Patient Education: Transfer Techniques, Correct Positioning, Safety Issues Teaching Recipient: Patient Teaching Methods: Discussion Response to Teaching: Verbalize Understanding Time/GCodes Time In: 1300 Time Out: 1330 Total Billed Treatment 1, FA x2 (30m) VALERIE OMER DAIRY FEED WORKER Nov 16, 2021 15:29
[2021-11-16] MEDS: TAMSULOSIN 0.4 MG (FLOMAX) CAP PO SCH (18:33)
[2021-11-16 19:42] VITALS: BP 122/78
[2021-11-16] MEDS: GABAPENTIN 300 MG (NEURONTIN) CAP PO SCH (20:37)
[2021-11-16] MEDS: AtorvaSTATin TABLET 10 MG TABLET PO SCH (20:38)
[2021-11-17] MEDS: BETHANECHOL 25 MG (URECHOLINE) TAB PO SCH ×4 (05:49→20:51)
[2021-11-17] MEDS: OMEGA 3 (FISH OIL) 1000 MG CAP PO SCH (05:49)
[2021-11-17] MEDS: MULTIVIT W/MINERALS TAB (THERAGRAN M) PO SCH (05:49)
[2021-11-17] MEDS: CALCIUM CARBONATE 600 MG (CALCARB) TAB PO SCH (05:49)
--- NOTE | 2021-11-17 06:52 | PM&R Progress Note ---
Subjective HPI/CC On Admission Date Seen by Provider: Nov 17, 2021 Time Seen by Provider: 10:30 Subjective/Events-last exam 11/17/2021: Pt is doing well Needs skilled He will go to [facility] on Monday Incontinence is an issue Overall declining due to advanced age at 85 The patient has a mobility limitation that significantly impairs his ability to participate in one or more mobility-related activities of daily living (MRADL) in the home. The patient is able to safely use the walker and the functional mobility deficit can be sufficiently resolved with use of a walker. 11/16/2021: Patient doing pretty well Changed antibiotics to p.o. Inconsistent with ambulation May need skilled 11/15/2021: Patient doing well Completing abx Sodium level 133 Improved ambulation 11/14/2021: Doing better Increased dietary consumption Checking labs tomorrow wonders if she can take care of him at home 11/13/2021: Orthostasis noted Laura ordered NELLY wraps over RAFAL hose Cefepime maintained 11/11/2021: Nurse called me to the bedside urgently due to hypotension and unable to obtain oxygen saturation and bradycardia of 30 I arrived at the bedside urgently and found the patient to be diaphoretic but in no other distress Blood pressure was 70/40 IV fluids initiated of 1 L bolus which ultimately improved blood pressure to 88/40 Constant cough was noted so chest x-ray obtained showing pneumonia and findings consistent with sepsis from pneumonia so he was moved to the ICU. All medication orders and sepsis protocol initiated 11/10/2021: No major issues No falls No pain Fluid restriction maintained 11/09/2021: Patient doing well Appreciate urology consult Discontinue catheter for trial void Flomax and Urecholine maintained No major issues 11/08/2021: Pt is confused a bit Sodium level is 128 Regular diet, will discontinue low sodium diet 11/07/2021: Doing well No pain reported Left sling in place BM with fecal incontinence which frustrates him 11/06/2021: Doing well Bowels caused fecal incontinence but they are moving Sodium level 125 Salt tablets and fluid restriction in place Participating in therapy Review of Systems General: Fatigue, Malaise Objective Exam Vital Signs Vital Signs Date Time Temp Pulse Resp B/P (MAP) Pulse Ox O2 Delivery O2 Flow Rate FiO2 11/17/21 20:15 36.9 79 22 134/76 (95) 96 Room Air 11/15/21 07:40 1.00 Capillary Refill : General Appearance: No Apparent Distress, WD/WN HEENT: PERRL/EOMI, Moist Mucous Membranes Neck: Normal Inspection, Supple, Carotid Bruit Respiratory: Lungs Clear, No Accessory Muscle Use, No Respiratory Distress Cardiovascular: Regular Rate, Rhythm, No Murmur Gastrointestinal: Normal Bowel Sounds, No Organomegaly, No Pulsatile Mass, Non Tender, Soft Back: Normal Inspection, No CVA Tenderness, No Vertebral Tenderness Extremity: No Pedal Edema Neurologic/Psychiatric: Alert, Oriented x3 Skin: Normal Color Lymphatic: No Adenopathy Results/Procedures Lab Patient resulted labs reviewed. FIM Transfers Therapy Code Descriptions/Definitions Functional [place] Measure: 0=Not Assessed/NA 4=Minimal Assistance 1=Total Assistance 5=Supervision or Setup 2=Maximal Assistance 6=Modified [place] 3=Moderate Assistance 7=Complete IndependenceSCALE: Activities may be completed with or without assistive devices. 0-Iyjoidcfgo-rlrxuau completes the activity by him/herself with no assistance from a helper. 5-Set-up or Clean-up Assistance-helper sets up or cleans up; patient completes activity. [place] assists only prior to or following the activity. 4-Supervision or Touching Assistance-helper provides verbal cues and/or touching/steadying and/or contact guard assistance as patient completes activity. Assistance may be provided throughout the activity or intermittently. 3-Partial/Moderate Assistance-helper does LESS THAN HALF the effort. [place] lifts, holds or supports trunk or limbs, but provides less than half the effort. 2-Substantial/Maximal Assistance-helper does MORE THAN HALF the effort. [place] lifts or holds trunk or limbs and provides more than half the effort. 6-Vajiuvjcl-wtabao does ALL the effort. Patient does none of the effort to complete the activity. Or, the assistance of 2 or more helpers is required for the patient to complete the activity. If activity was not attempted, code reason: 7-Patient Refused. 9-Not Applicable-not attempted and the patient did not perform the activity before the current illness, exacerbation or injury. 10-Not Attempted due to Environmental Limitations-(lack of equipment, weather restraints, etc.). 88-Not Attempted due to Medical Conditions or Safety Concerns. Roll Left to Right (QC): 3 Sit to Lying (QC): 3 Sit to Stand (QC): 4 Chair/Hig-mi-Lgdki Xfer(QC): 3 Car Transfer (QC): 3 Gait Training Does the Patient Walk?: Yes Distance: 75' Walk 10 feet (QC): 4 Walk 50 ft with 2 Turns(QC): 4 Walk 150 ft (QC): 88 Walking 10ft/uneven surface-QC: 88 Gait Persons Needed: 1 Gait Assistive Device: Walker Erich Wheelchair Training Does the Pt Use a Wheelchair?: Yes Wheel 50 ft with 2 turns (QC): 5 Wheel 150 ft (QC): 5 Type of Wheelchair: Manual Stair Training 1 Step (curb) (QC): 88 4 Steps (QC): 88 12 Steps (QC): 88 Balance Picking up an Object (QC): 88 ADL-Treatment Eating (QC): 6 Oral Hygiene (QC): 4 Shower/Bathe Self (QC): 4 Upper Body Dressing (QC): 3 Lower Body Dressing (QC): 3 On/Off Footwear (QC): 1 Toileting Hygiene (QC): 3 Toilet Transfer (QC): 3 Assessment/Plan Assessment and Plan Assess & Plan/Chief Complaint Assessment: Hypotensive event on 11/11/2021 with hypoxia, diaphoresis and evidence of sepsis from pneumonia prompting ICU transfer Fall Debility Left humerus fracture no surgery required placed in sling Urinary retention Sherman cath in place started bladder meds then DC catheter 11/09/2021 by urology Hyponatremia placed on salt tablets and fluid restriction HTN HLP h/o Prostate cancer Orthostasis Plan: IRF protocol Bladder meds DC sherman soon Home meds 11/06/2021: Supportive care Bladder meds 11/07/2021: Check labs in am BM+ 11/08/2021: Salt tablets Fluid restriction 11/09/2021: Supportive care Monitor closely 11/10/2021: Fall risk Pain control 11/11/2021: Transferred to ICU 11/13/2021: 1 liter of NS today Lift fluid restriction Cefepime 11/14/2021: Monitor closely Labs in am 11/15/2021: Complete abx Monitor closely 11/16/2021: May need skilled 11/17/2021: DC to [facility] Monday (1) Weakness Status: Acute (2) CAD (coronary artery disease) (3) Sherman catheter in place (4) Fall on same level Status: Acute (5) Hyponatremia Status: Acute (6) Urinary retention (7) History of prostate cancer Status: Chronic (8) Closed left humeral fracture Status: Acute (9) Multiple abrasions Status: Acute ARIA ALEMAN DO Nov 17, 2021 06:51
[2021-11-17 08:09] VITALS: BP 107/63
[2021-11-17] MEDS: ACETAMINOPHEN 325 MG TABLET PO PRN ×2 (08:13→15:07)
[2021-11-17] MEDS: CEFDINIR 300 MG (OMNICEF) CAP PO SCH ×2 (08:13→20:51)
[2021-11-17] MEDS: DOCUSATE SODIUM 100 MG (COLACE) CAP PO SCH ×2 (09:00→20:50)
[2021-11-17] MEDS: polyethylene glycoL POWDER 17 GM (MIRALAX) PACK PO SCH ×2 (09:00→20:50)
[2021-11-17] MEDS: SENNA W/DOCUSATE (SENOKOT S) TABLET PO SCH ×2 (09:00→20:50)
--- NOTE | 2021-11-17 10:10 | Progress Note - Urology ---
Progress Note-Urology Progress Notes/Assess & Plan Progress/Assessment & Plan VOIDING AND EMPTYING VERY WELL. CHECK PSA Final Diagnosis RETENTION JANICE SCHWARZ MD Nov 17, 2021 10:10
--- NOTE | 2021-11-17 11:31 | Occupational Ther Daily Note ---
OT Current Status-Daily Note Subjective Pt denies pain. Co-treat with PT secondary to scheduled family training Appearance Pt returned to sitting in recliner, all needs within reach, in room at th erapy departure. Mental Status/Objective Patient Orientation: Person, Place, Situation Attachments: IV ADL-Treatment Therapy Code Descriptions/Definitions Functional [place] Measure: 0=Not Assessed/NA 4=Minimal Assistance 1=Total Assistance 5=Supervision or Setup 2=Maximal Assistance 6=Modified [place] 3=Moderate Assistance 7=Complete IndependenceSCALE: Activities may be completed with or without assistive devices. 1-Uobugwrnrm-fapssbp completes the activity by him/herself with no assistance from a helper. 5-Set-up or Clean-up Assistance-helper sets up or cleans up; patient completes activity. [place] assists only prior to or following the activity. 4-Supervision or Touching Assistance-helper provides verbal cues and/or touching/steadying and/or contact guard assistance as patient completes activity. Assistance may be provided throughout the activity or intermittently. 3-Partial/Moderate Assistance-helper does LESS THAN HALF the effort. [place] lift s, holds or supports trunk or limbs, but provides less than half the effort. 2-Substantial/Maximal Assistance-helper does MORE THAN HALF the effort. [place] lifts or holds trunk or limbs and provides more than half the effort. 1-Qiwvxgqkl-loidfg does ALL the effort. Patient does none of the effort to complete the activity. Or, the assistance of 2 or more helpers is required for the patient to complete the activity. If activity was not attempted, code reason: 7-Patient Refused. 9-Not Applicable-not attempted and the patient did not perform the activity before the current illness, exacerbation or injury. 10-Not Attempted due to Environmental Limitations-(lack of equipment, weather restraints, etc.). 88-Not Attempted due to Medical Conditions or Safety Concerns. Oral Hygiene (QC): 5 Shower/Bathe Self (QC): 4 Upper Body Dressing (QC): 3 Lower Body Dressing (QC): 3 On/Off Footwear: 1 Toileting Hygiene (QC): 2 Toilet Transfer (QC): 3 100% of shower performed in sitting. Mod verbal cues for sequencing and problem solving throughout shower. Cues to lean anteriorly in order to reach buttocks as well as cues for cross over method to reach/wash feet. Clothing donned seated in w/c. Pt able to verbalize correct sequencing (for compensatory method) when donning shirt, but required mod VC's during actual task. Assist to thread LUE and bring overhead. Pt able to thread RUE and bring over torso with verbal cues. Mod-max a to don sling. When donning LB clothing, Cues needed to for problem solving and to utilize RUE to assist. Min a still needed after significant effort exhibited. Pt stood at grab bar for clothing management. Pt continues to rest head on wall for extra stability when removing RUE support. Cues for upright posture. Min-mod a for balance and mod a to pull clothing up over L hip. OT educated on bed level dressing if balance does not improve. Dependent to don [place] hose, flynn wraps and socks secondary to only having use of 1UE. Poor problem solving when tasks become difficult. Pt often requests help before attempting a task. present during adls, and reports that she often will complete task for patient. She is aware that he requires increased help due to only having 1 functional UE. She asks appropriate questions and reports that th ey have discussed the possibility of him discharging to a SNF prior to discharge home. Other Treatment Post shower/dressing tasks, pt with increased fatigue. He requires several short rest breaks in between short walking bouts. See PT's note for specific distance. When pt fatigues, he begins to sink further into flexion, cues for upright posture. Poor safety/management of shweta-walker as he has tendency to push device too far anteriorly. Poor carry/short term memory as pt requires cues for hand placement and w/c break management for all transfers. Education OT Patient Education: Correct positioning, Disease process, Energy conservation, Modified ADL techniques, Progress toward Goal/Update tx plan, Purpose of tx/functional activities, Reviewed precautions, Safety issues, Transfer techniques, W/C management Teaching Recipient: Patient, Family Teaching Methods: Demonstration, Discussion Response to Teaching: Verbalize Understanding, Return Demonstration, Reinforcement Needed OT Short Term Goals Short Term Goals Time Frame: Nov 19, 2021 Eatin Oral hygiene: 5 Toileting hygiene: 2 Shower/bathe self: 3 Upper body dressin Lower body dressin Putting on/taking off footwear: 2 OT Chief Of Pediatric Urology Goals Shelter Goals Time Frame: Nov 26, 2021 Eating (QC): 5 (met) Oral Hygiene (QC): 5 (met) Toileting Hygiene (QC): 4 Shower/Bathe Self (QC): 4 Upper Body Dressing (QC): 4 Lower Body Dressing (QC): 3 On/Off Footwear (QC): 3 1=Demonstrate adherence to instructed precautions during ADL tasks. 2=Patient will verbalize/demonstrate understanding of assistive devices/modifications for ADL. 3=Patient will improve strength/tolerance for activity to enable patient to perform ADL's. OT Education/Plan Problem List/Assessment Assessment: Decreased Activ Tolerance, Decreased Safety Aware, Decreased UE Strength, Edema, Impaired Cognition, Impaired Funct Balance, Impaired Self-Care Skills Discharge Recommendations Plan/Recommendations: Continue POC Therapy Discharge Recommendati: Post Acute OT Treatment Plan/Plan of Care Treatment,Training & Education: Yes Patient would benefit from OT for education, treatment and training to promote independence in ADL's, mobility, safety and/or upper extremity function for ADL's. Plan of Care: ADL Retraining, Caregiver Training, Cognitive Retraining, Concurrent Therapy, Functional Mobility, Group Exercise/Act as Ind, Orthotic Fitting/Training, UE Funct Exercise/Act, W/C Management Training Treatment Duration: Nov 26, 2021 Frequency: At least 5 of 7 days/Wk (IRF) Estimated Hrs Per Day: 1.5 hours per day (75-90 min/day) Agreement: Yes Rehab Potential: Fair Time/GCodes Start Time: 10:00 Stop Time: 11:30 Total Time Billed (hr/min): 90 Billed Treatment Time 1 visit ADL x4 (60 min) FA x2 (30 min) Lindsey Sykes OT Nov 17, 2021 11:31
[2021-11-17] MEDS: SODIUM CHLORIDE 1 GM TABLET PO SCH ×3 (11:43→20:52)
--- NOTE | 2021-11-17 13:53 | Physical Therapy Daily Note ---
PT Daily Note-Current Subjective Pt sitting in recliner visiting with Sp upon arrival. Pt agrees to Family Training co-treat w/PT & OT. Mental Status Patient Orientation: Person, Place, Situation Attachments: IV Transfers SCALE: Activities may be completed with or without assistive devices. 2-Cznmsaldoa-tiwhybh completes the activity by him/herself with no assistance from a helper. 5-Set-up or Clean-up Assistance-helper sets up or cleans up; patient completes activity. [place] assists only prior to or following the activity. 4-Supervision or Touching Assistance-helper provides verbal cues and/or touching/steadying and/or contact guard assistance as patient completes activity. Assistance may be provided throughout the activity or intermittently. 3-Partial/Moderate Assistance-helper does LESS THAN HALF the effort. [place] lifts, holds or supports trunk or limbs, but provides less than half the effort. 2-Substantial/Maximal Assistance-helper does MORE THAN HALF the effort. [place] lifts or holds trunk or limbs and provides more than half the effort. 1-Bohcyydae-btdhuq does ALL the effort. Patient does none of the effort to complete the activity. Or, the assistance of 2 or more helpers is required for the patient to complete the activity. If activity was not attempted, code reason: 7-Patient Refused. 9-Not Applicable-not attempted and the patient did not perform the activity be fore the current illness, exacerbation or injury. 10-Not Attempted due to Environmental Limitations-(lack of equipment, weather restraints, etc.). 88-Not Attempted due to Medical Conditions or Safety Concerns. Sit to Stand (QC): 3 Weight Bearing Full Weight Bearing Full Weight Bearing Gait Training Does the Patient Walk?: Yes Distance: 40', 25', 40' Walk 10 feet (QC): 3 Walk 50 ft with 2 Turns(QC): 3 Gait Persons Needed: 2 Gait Assistive Device: Walker Erich Wheelchair Training Does the Pt Use a Wheelchair?: Yes Type of Wheelchair: Manual Treatments TF from recliner to standing using Erich walker at CGA-Min A. Pt amb. ~ 15' to BR and sits at shower bench. Post shower/dressing tasks, pt with increased fatigue. He requires several short rest breaks in between short walking bouts. When pt fatigues, he begins to sink further into flexion, cues for upright posture. Poor safety/management of erich-walker as he has tendency to push device too far anteriorly. Poor carry/short term memory as pt requires cues for hand placement and w/c break management for all transfers. Pt rests in [facility] then amb. back to room to rest in recliner. All nerds met, call light in hand. Assessment Current Status: Fair Progress Pt fatigues quickly, kaitlyn. on days that pt showers before walking. PT Short Term Goals Short Term Goals Time Frame: Nov 12, 2021 Roll Left & Right: 4 (CGA) Sit to lyin (CGA) Lying to sitting on side of be: 4 (CGA) Sit to stand: 4 (CGA) Walk 10 feet: 4 (CGA) Walk 50 feet with two turns: 4 (CGA) PT Care Home Goals Care Home Goals PT Care Home Goals Time Frame: Nov 26, 2021 Roll Left & Right (QC): 6 Sit to Lying (QC): 6 Lying-Sitting on Side/Bed(QC): 6 Sit to Stand (QC): 4 (SBA) Chair/Oba-vv-Dyreg Xfer(QC): 4 (SA) Toilet Transfer (QC): 4 (SBA) Car Transfer (QC): 4 (SBA) Does the Patient Walk: Yes Walk 10 feet (QC): 4 (SBA) Walk 50ft with 2 Turns (QC): 4 (SBA) Walk 150 ft (QC): 4 (SBA) Walking 10ft on Uneven Surface: 4 (SBA) 1 Step (curb) (QC): 4 (SBA) 4 Steps (QC): 4 (SBA) 12 Steps (QC): 88 Picking up an Object (QC): 4 (CGA using warehouse delivery driver) Wheel 50 feet with 2 turns (QC: 9 Wheel 150 feet: 9 PT Plan Problem List Problem List: Activity Tolerance, Functional Strength, Safety, Gait Treatment/Plan Treatment Plan: Continue Plan of Care Treatment Plan: Bed Mobility, Education, Functional Activity [place], Functional Strength, Group Therapy, Gait, Safety, Therapeutic Exercise, Transfers Treatment Duration: Nov 26, 2021 Frequency: At least 5 of 7 days/Wk (IRF) Estimated Hrs Per Day: 1.5 hours per day Patient and/or Family Agrees t: Yes Safety Risks/Education Patient Education: Gait Training, Transfer Techniques Teaching Recipient: Patient, Significant Other Teaching Methods: Demonstration, Discussion Response to Teaching: Verbalize Understanding, Return Demonstration Time/GCodes Time In: 1000 Time Out: 1130 Total Billed Treatment Time: 90 Total Billed Treatment 1, FA x5 (70m) & GT (20m) Co-treat w/OT for 90m VALERIE OMER FERRYBOAT OPERATOR Nov 17, 2021 13:53
--- NOTE | 2021-11-17 14:02 | Physical Therapy Progress Note ---
Therapy Progress Note Pt needs use of Erich Walker instead of FWW as the Erich Walker will be used more safely to ambulate and complete ADLs. than a FWW due to non use of Left arm due to Dr's orders and the functional mobility deficit can be sufficiently resolved with the use of the Erich Walker. VALERIE OMER APPEALS BOARD REFEREE Nov 17, 2021 14:02
[2021-11-17] MEDS: TAMSULOSIN 0.4 MG (FLOMAX) CAP PO SCH (17:39)
[2021-11-17 20:15] VITALS: BP 134/76
[2021-11-17] MEDS: MELATONIN 3 MG TABLET PO PRN (20:51)
[2021-11-17] MEDS: GABAPENTIN 300 MG (NEURONTIN) CAP PO SCH (20:51)
[2021-11-17] MEDS: AtorvaSTATin TABLET 10 MG TABLET PO SCH (20:51)
[2021-11-17] MEDS: HYDROcodone/APAP 5 MG/325 MG (LORTAB) TAB PO PRN (23:14)
--- NOTE | 2021-11-18 05:16 | PM&R Progress Note ---
Subjective HPI/CC On Admission Date Seen by Provider: Nov 18, 2021 Time Seen by Provider: 12:00 Subjective/Events-last exam 11/18/2021: Patient doing well Ready for discharge tomorrow to [facility] No concerns 11/17/2021: Pt is doing well Needs skilled He will go to [facility] on Monday Incontinence is an issue Overall declining due to advanced age at 85 The patient has a mobility limitation that significantly impairs his ability to participate in one or more mobility-related activities of daily living (MRADL) in the home. The patient is able to safely use the walker and the functional mobility deficit can be sufficiently resolved with use of a walker. 11/16/2021: Patient doing pretty well Changed antibiotics to p.o. Inconsistent with ambulation May need skilled 11/15/2021: Patient doing well Completing abx Sodium level 133 Improved ambulation 11/14/2021: Doing better Increased dietary consumption Checking labs tomorrow wonders if she can take care of him at home 11/13/2021: Orthostasis noted Laura ordered NELLY wraps over RAFAL hose Cefepime maintained 11/11/2021: Nurse called me to the bedside urgently due to hypotension and unable to obtain oxygen saturation and bradycardia of 30 I arrived at the bedside urgently and found the patient to be diaphoretic but in no other distress Blood pressure was 70/40 IV fluids initiated of 1 L bolus which ultimately improved blood pressure to 88/40 Constant cough was noted so chest x-ray obtained showing pneumonia and findings consistent with sepsis from pneumonia so he was moved to the ICU. All medication orders and sepsis protocol initiated 11/10/2021: No major issues No falls No pain Fluid restriction maintained 11/09/2021: Patient doing well Appreciate urology consult Discontinue catheter for trial void Flomax and Urecholine maintained No major issues 11/08/2021: Pt is confused a bit Sodium level is 128 Regular diet, will discontinue low sodium diet 11/07/2021: Doing well No pain reported Left sling in place BM with fecal incontinence which frustrates him 11/06/2021: Doing well Bowels caused fecal incontinence but they are moving Sodium level 125 Salt tablets and fluid restriction in place Participating in therapy Review of Systems General: Fatigue, Malaise Objective Exam Vital Signs Vital Signs Date Time Temp Pulse Resp B/P (MAP) Pulse Ox O2 Delivery O2 Flow Rate FiO2 11/18/21 19:42 37.0 80 20 117/75 (89) 96 Room Air 11/15/21 07:40 1.00 Capillary Refill : General Appearance: No Apparent Distress, WD/WN HEENT: PERRL/EOMI, Moist Mucous Membranes Neck: Normal Inspection, Supple, Carotid Bruit Respiratory: Lungs Clear, No Accessory Muscle Use, No Respiratory Distress Cardiovascular: Regular Rate, Rhythm, No Murmur Gastrointestinal: Normal Bowel Sounds, No Organomegaly, No Pulsatile Mass, Non Tender, Soft Back: Normal Inspection, No CVA Tenderness, No Vertebral Tenderness Extremity: No Pedal Edema Neurologic/Psychiatric: Alert, Oriented x3 Skin: Normal Color Lymphatic: No Adenopathy Results/Procedures Lab Laboratory Tests 11/18/21 06:36 Patient resulted labs reviewed. FIM Transfers Therapy Code Descriptions/Definitions Functional [place] Measure: 0=Not Assessed/NA 4=Minimal Assistance 1=Total Assistance 5=Supervision or Setup 2=Maximal Assistance 6=Modified [place] 3=Moderate Assistance 7=Complete IndependenceSCALE: Activities may be completed with or without assistive devices. 3-Fnhasvrwou-boihdju completes the activity by him/herself with no assistance from a helper. 5-Set-up or Clean-up Assistance-helper sets up or cleans up; patient completes activity. [place] assists only prior to or following the activity. 4-Supervision or Touching Assistance-helper provides verbal cues and/or touching/steadying and/or contact guard assistance as patient completes activity. Assistance may be provided throughout the activity or intermittently. 3-Partial/Moderate Assistance-helper does LESS THAN HALF the effort. [place] lifts, holds or supports trunk or limbs, but provides less than half the effort. 2-Substantial/Maximal Assistance-helper does MORE THAN HALF the effort. [place] lifts or holds trunk or limbs and provides more than half the effort. 9-Hewrcnntn-tskbja does ALL the effort. Patient does none of the effort to complete the activity. Or, the assistance of 2 or more helpers is required for the patient to complete the activity. If activity was not attempted, code reason: 7-Patient Refused. 9-Not Applicable-not attempted and the patient did not perform the activity before the current illness, exacerbation or injury. 10-Not Attempted due to Environmental Limitations-(lack of equipment, weather r estraints, etc.). 88-Not Attempted due to Medical Conditions or Safety Concerns. Roll Left to Right (QC): 3 Sit to Lying (QC): 3 Sit to Stand (QC): 3 Chair/Ytt-aj-Oihvw Xfer(QC): 3 Car Transfer (QC): 3 Gait Training Does the Patient Walk?: Yes Distance: 40', 25', 40' Walk 10 feet (QC): 3 Walk 50 ft with 2 Turns(QC): 3 Walk 150 ft (QC): 88 Walking 10ft/uneven surface-QC: 88 Gait Persons Needed: 2 Gait Assistive Device: Walker Erich Wheelchair Training Does the Pt Use a Wheelchair?: Yes Wheel 50 ft with 2 turns (QC): 5 Wheel 150 ft (QC): 5 Type of Wheelchair: Manual Stair Training 1 Step (curb) (QC): 88 4 Steps (QC): 88 12 Steps (QC): 88 Balance Picking up an Object (QC): 88 ADL-Treatment Eating (QC): 6 Oral Hygiene (QC): 5 Shower/Bathe Self (QC): 4 Upper Body Dressing (QC): 3 Lower Body Dressing (QC): 3 On/Off Footwear (QC): 1 Toileting Hygiene (QC): 2 Toilet Transfer (QC): 3 Assessment/Plan Assessment and Plan Assess & Plan/Chief Complaint Assessment: Hypotensive event on 11/11/2021 with hypoxia, diaphoresis and evidence of sepsis from pneumonia prompting ICU transfer Fall Debility Left humerus fracture no surgery required placed in sling Urinary retention Sherman cath in place started bladder meds then DC catheter 11/09/2021 by urology Hyponatremia placed on salt tablets and fluid restriction HTN HLP h/o Prostate cancer Orthostasis Plan: IRF protocol Bladder meds DC sherman soon Home meds 11/06/2021: Supportive care Bladder meds 11/07/2021: Check labs in am BM+ 11/08/2021: Salt tablets Fluid restriction 11/09/2021: Supportive care Monitor closely 11/10/2021: Fall risk Pain control 11/11/2021: Transferred to ICU 11/13/2021: 1 liter of NS today Lift fluid restriction Cefepime 11/14/2021: Monitor closely Labs in am 11/15/2021: Complete abx Monitor closely 11/16/2021: May need skilled 11/17/2021: DC to [facility] Monday11/18/2021: [facility] tomorrow (1) Weakness Status: Acute (2) CAD (coronary artery disease) (3) Sherman catheter in place (4) Fall on same level Status: Acute (5) Hyponatremia Status: Acute (6) Urinary retention (7) History of prostate cancer Status: Chronic (8) Closed left humeral fracture Status: Acute (9) Multiple abrasions Status: Acute ARIA ALEMAN DO Nov 18, 2021 05:16
[2021-11-18] MEDS: MULTIVIT W/MINERALS TAB (THERAGRAN M) PO SCH (06:06)
[2021-11-18] MEDS: OMEGA 3 (FISH OIL) 1000 MG CAP PO SCH (06:06)
[2021-11-18] MEDS: CALCIUM CARBONATE 600 MG (CALCARB) TAB PO SCH (06:06)
[2021-11-18] MEDS: BETHANECHOL 25 MG (URECHOLINE) TAB PO SCH ×4 (06:06→20:45)
[2021-11-18 07:14] LABS: CALCIUM 9.3 MG/DL (8.5-10.1); CREATININE SERUM 0.77 MG/DL (0.60-1.30)
[2021-11-18 07:36] VITALS: BP 124/70
[2021-11-18] MEDS: SODIUM CHLORIDE 1 GM TABLET PO SCH ×3 (08:17→20:45)
[2021-11-18] MEDS: polyethylene glycoL POWDER 17 GM (MIRALAX) PACK PO SCH ×2 (08:19→19:41)
[2021-11-18] MEDS: SENNA W/DOCUSATE (SENOKOT S) TABLET PO SCH ×2 (08:19→19:41)
[2021-11-18] MEDS: DOCUSATE SODIUM 100 MG (COLACE) CAP PO SCH ×2 (08:19→19:41)
--- NOTE | 2021-11-18 08:54 | Occupational Ther Daily Note ---
OT Current Status-Daily Note Subjective Pt requesting to use toilet at OT arrival. Co-treat with PT for part of treatment ([id number]) secondary to poor balance, high fall risk, poor endurance, and need of 2 skilled clinicians to progress indep and safety with adls and functional mobility. Appearance Pt left sitting on side of mat with physical therapist present at OT departure. Mental Status/Objective Patient Orientation: Person, Place, Situation Attachments: IV ADL-Treatment Therapy Code Descriptions/Definitions Functional [place] Measure: 0=Not Assessed/NA 4=Minimal Assistance 1=Total Assistance 5=Supervision or Setup 2=Maximal Assistance 6=Modified [place] 3=Moderate Assistance 7=Complete IndependenceSCALE: Activities may be completed with or without assistive devices. 0-Yearpxcotn-vhpmkgh completes the activity by him/herself with no assistance from a helper. 5-Set-up or Clean-up Assistance-helper sets up or cleans up; patient completes activity. [place] assists only prior to or following the activity. 4-Supervision or Touching Assistance-helper provides verbal cues and/or touching/steadying and/or contact guard assistance as patient completes act ivity. Assistance may be provided throughout the activity or intermittently. 3-Partial/Moderate Assistance-helper does LESS THAN HALF the effort. [place] lifts, holds or supports trunk or limbs, but provides less than half the effort. 2-Substantial/Maximal Assistance-helper does MORE THAN HALF the effort. [place] lifts or holds trunk or limbs and provides more than half the effort. 4-Uzjhwhpom-mvwgct does ALL the effort. Patient does none of the effort to complete the activity. Or, the assistance of 2 or more helpers is required for the patient to complete the activity. If activity was not attempted, code reason: 7-Patient Refused. 9-Not Applicable-not attempted and the patient did not perform the activity before the current illness, exacerbation or injury. 10-Not Attempted due to Environmental Limitations-(lack of equipment, weather restraints, etc.). 88-Not Attempted due to Medical Conditions or Safety Concerns. Oral Hygiene (QC): 6 Upper Body Dressing (QC): 3 On/Off Footwear: 1 Toileting Hygiene (QC): 3 Toilet Transfer (QC): 3 Pt sitting in chair at OT arrival, requests to use toilet. He ambulated to bathroom with use of [place] walker and min a. Improved sequencing and management of [place]weta walker, yet still needs min verbal cues for safety. Due to needing RUE support (LUE in sling), assist needed for clothing management pre/post toileting. María care completed in sitting, min a for thoroughness. Pt continues to need mod a to don shirt/sling as he requires assist to thread LUE and pulley worker his head. Grooming tasks performed at w/c level with extra time only. Other Treatment Pt participated in several standing tasks with focus on standing tolerance, posture, and improving balance when removing RUE support during functional activities. Heavy leaning of trunk onto mat for stability. When taking a small step away from mat, pt requires significant increase in maintaining balance; mod a. Education on compensating and using mat/counter/bed/etc outside of therapy times if needed to maintain balance. Pt often sinks further into flexion with prolonged standing (~20 seconds). He Needs several tactile and verbal cues to extend knees/hips throughout activities. With repetition, pt is able to initiate extension ~10% of the time. Several LOB during higher level balance activities, needing mod a to recover. Education OT Patient Education: Correct positioning, Energy conservation, Modified ADL techniques, Progress toward Goal/Update tx plan, Purpose of tx/functional activities, Reviewed precautions, Rehab process, Safety issues, Transfer techniques, W/C management Teaching Recipient: Patient Teaching Methods: Demonstration, Discussion Response to Teaching: Verbalize Understanding, Return Demonstration, Reinforcement Needed OT Short Term Goals Short Term Goals Time Frame: Nov 19, 2021 Eatin Oral hygiene: 5 Toileting hygiene: 2 Shower/bathe self: 3 Upper body dressin Lower body dressin Putting on/taking off footwear: 2 OT Prison Goals Threading Machine Tender Goals Time Frame: Nov 26, 2021 Eating (QC): 5 (met) Oral Hygiene (QC): 5 (met) Toileting Hygiene (QC): 4 Shower/Bathe Self (QC): 4 Upper Body Dressing (QC): 4 Lower Body Dressing (QC): 3 On/Off Footwear (QC): 3 1=Demonstrate adherence to instructed precautions during ADL tasks. 2=Patient will verbalize/demonstrate understanding of assistive devices/modifications for ADL. 3=Patient will improve strength/tolerance for activity to enable patient to perform ADL's. OT Education/Plan Problem List/Assessment Assessment: Decreased Activ Tolerance, Decreased Safety Aware, Decreased UE Strength, Impaired Cognition, Impaired Coordination, Impaired Funct Balance, Impaired Self-Care Skills, Restricted Funct UE ROM Discharge Recommendations Plan/Recommendations: Continue POC Therapy Discharge Recommendati: Post Acute OT Treatment Plan/Plan of Care Treatment,Training & Education: Yes Patient would benefit from OT for education, treatment and training to promote independence in ADL's, mobility, safety and/or upper extremity function for ADL's. Plan of Care: ADL Retraining, Caregiver Training, Cognitive Retraining, Concurrent Therapy, Functional Mobility, Group Exercise/Act as Ind, Orthotic Fitting/Training, UE Funct Exercise/Act, W/C Management Training Treatment Duration: Nov 26, 2021 Frequency: At least 5 of 7 days/Wk (IRF) Estimated Hrs Per Day: 1.5 hours per day (75-90 min/day) Agreement: Yes Rehab Potential: Fair Time/GCodes Start Time: 07:30 Stop Time: 09:00 Total Time Billed (hr/min): 90 Billed Treatment Time 1 visit ADL x2 (35 min) FA x4 (55 min) Lindsey Sykes OT Nov 18, 2021 08:54
--- NOTE | 2021-11-18 09:21 | Physical Therapy Daily Note ---
PT Daily Note-Current Subjective Patient in therapy gym pre tx, already working with OT, has 5/10 pain in left shoulder. Will be co-treating with OT for part of tx due to poor patient mobility, strength, endurance, severe debility, coordinate UE and LE during activity, safety and reduce risk of falls. Appearance Patient in recliner post tx with nurse call, phone, tray, all needs met. Mental Status Patient Orientation: Person, Place, Situation left arm sling. Transfers SCALE: Activities may be completed with or without assistive devices. 7-Hitrgtqggq-uktedqr completes the activity by him/herself with no assistance from a helper. 5-Set-up or Clean-up Assistance-helper sets up or cleans up; patient completes activity. [place] assists only prior to or following the activity. 4-Supervision or Touching Assistance-helper provides verbal cues and/or touching/steadying and/or contact guard assistance as patient completes activity. Assistance may be provided throughout the activity or intermittently. 3-Partial/Moderate Assistance-helper does LESS THAN HALF the effort. [place] lifts, holds or supports trunk or limbs, but provides less than half the effort. 2-Substantial/Maximal Assistance-helper does MORE THAN HALF the effort. [place] lifts or holds trunk or limbs and provides more than half the effort. 7-Djtjyxkiz-airbno does ALL the effort. Patient does none of the effort to complete the activity. Or, the assistance of 2 or more helpers is required for the patient to complete the activity. If activity was not attempted, code reason: 7-Patient Refused. 9-Not Applicable-not attempted and the patient did not perform the activity before the current illness, exacerbation or injury. 10-Not Attempted due to Environmental Limitations-(lack of equipment, weather restraints, etc.). 88-Not Attempted due to Medical Conditions or Safety Concerns. Roll Left & Right (QC): 6 Sit to Lying (QC): 4 Lying to Sitting/Side of Bed(Q: 3 Sit to Stand (QC): 3 Chair/Eku-iz-Vispv Xfer(QC): 4 Toilet Transfer (QC): 4 Car Transfer (QC): 4 Patient performs rolling with independence, supine to sit min assist, sit to supine SBA, sit to stand min assist, transfers CGA, car transfer CGA. Patient needs a lot of cues for positioning and safety, tends to not reach back when sitting, has some unsafe behavior on a consistent basis. Weight Bearing Full Weight Bearing Full Weight Bearing Gait Training Distance: 20'x2 Walk 10 feet (QC): 4 Walk 50 ft with 2 Turns(QC): 88 Walk 150 ft (QC): 88 Walking 10ft/uneven surface-QC: 3 Gait Persons Needed: 1 Gait Assistive Device: Walker Erich Patient can ambulate 20' with a hemiwalker with CGA (but needs min assist for 10' over an uneven surface), patient has a lot of difficulty coordinating steps with his HW despite constant cues for direction, needs some assist with balance, tends to ambulate with flexed knees, needs cues to straighten up. Wheelchair Training Does the Pt Use a Wheelchair?: Yes Wheel 50 ft with 2 turns (QC): 1 Wheel 150 ft (QC): 1 Stair Training 1 Step (curb) (QC): 88 4 Steps (QC): 88 12 Steps (QC): 88 Balance Picking up an Object (QC): 3 Exercises NuStep Minutes: 10 NuStep Workload: 5 (left arm not used) Treatments Patient also was toileted, [facility] for toilet transfers, OT assisted with pants, also performed standing UE activity to work on leg strength and endurance. PT performed bed mobility and transfers, ambulation, standing during UE activity, toileting, OT performed UE positioning and safety during activity, UE activity, toileting. Assessment Current Status: Fair Progress Patient needs a little encouragement to stay on task, wanted to stop NuStep several times, fatigues very quickly. Needs a lot of cues for safety and positioning with virtually all aspects of mobility. PT Short Term Goals Short Term Goals Time Frame: Nov 12, 2021 Roll Left & Right: 4 (CGA) Sit to lyin (CGA) Lying to sitting on side of be: 4 (CGA) Sit to stand: 4 (CGA) Walk 10 feet: 4 (CGA) Walk 50 feet with two turns: 4 (CGA) PT [place] Assembler Goals Correction Goals PT [place] Assembler Goals Time Frame: Nov 26, 2021 Roll Left & Right (QC): 6 Sit to Lying (QC): 6 Lying-Sitting on Side/Bed(QC): 6 Sit to Stand (QC): 4 (SBA) Chair/Kns-xq-Bcjai Xfer(QC): 4 (SA) Toilet Transfer (QC): 4 (SBA) Car Transfer (QC): 4 (SBA) Does the Patient Walk: Yes Walk 10 feet (QC): 4 (SBA) Walk 50ft with 2 Turns (QC): 4 (SBA) Walk 150 ft (QC): 4 (SBA) Walking 10ft on Uneven Surface: 4 (SBA) 1 Step (curb) (QC): 4 (SBA) 4 Steps (QC): 4 (SBA) 12 Steps (QC): 88 Picking up an Object (QC): 4 (CGA using survey analyst) Wheel 50 feet with 2 turns (QC: 9 Wheel 150 feet: 9 PT Plan Problem List Problem List: Activity Tolerance, Functional Strength, Safety, Balance, Gait, Transfer, Bed Mobility, ROM Treatment/Plan Treatment Plan: Continue Plan of Care Treatment Plan: Bed Mobility, Education, Functional Activity [place], Functional Strength, Group Therapy, Gait, Safety, Therapeutic Exercise, Transfers Treatment Duration: Nov 26, 2021 Frequency: At least 5 of 7 days/Wk (IRF) Estimated Hrs Per Day: 1.5 hours per day Patient and/or Family Agrees t: Yes Safety Risks/Education Patient Education: Gait Training, Transfer Techniques, Correct Positioning, W/C Management, Safety Issues Teaching Recipient: Patient Teaching Methods: Demonstration, Discussion Response to Teaching: Reinforcement Needed Time/GCodes Time In: 0800 Time Out: 929 Total Billed Treatment Time: 90 Total Billed Treatment 1 visit EX 10' FA 80' co-treated from [id number] BRENDA LEVIN PT Nov 18, 2021 09:21
--- NOTE | 2021-11-18 15:48 | Diagnostic Imaging Report ---
INDICATION: Follow-up shoulder fracture. COMPARISON: 11/03/2021 FINDINGS: Two radiographic views of the left shoulder were obtained. Again identified is a nonacute nondisplaced transversely-oriented fracture through the surgical neck of the proximal right humerus. Fracture fragments are in stable alignment. Glenohumeral joint space is maintained. No new acute osseous abnormality is seen. Included portions of the left hemithorax are clear. IMPRESSION: 1. Redemonstration nonacute fracture of the proximal left humerus. Dictated by: Dictated on workstation # [id number]
[2021-11-18] MEDS: TAMSULOSIN 0.4 MG (FLOMAX) CAP PO SCH (17:11)
[2021-11-18 19:42] VITALS: BP 117/75
[2021-11-18] MEDS: GABAPENTIN 300 MG (NEURONTIN) CAP PO SCH (20:45)
[2021-11-18] MEDS: AtorvaSTATin TABLET 10 MG TABLET PO SCH (20:45)
[2021-11-18] MEDS ORDERED: CLOP75TA28 PO (21:35)
[2021-11-18] MEDS ORDERED: OMG1KC PO (21:35)
[2021-11-18] MEDS ORDERED: ATOR20TA66 PO (21:35)
[2021-11-18] MEDS ORDERED: GABA300C PO (21:35)
[2021-11-18] MEDS ORDERED: NF-NACL1GT PO (21:35)
[2021-11-18] MEDS ORDERED: ACHD5005 PO (21:35)
[2021-11-18] MEDS ORDERED: LISI40TA9 PO (21:35)
[2021-11-18] MEDS ORDERED: ASPI-1238 PO (21:35)
[2021-11-18] MEDS ORDERED: TMSL.4C PO (21:35)
[2021-11-18] MEDS ORDERED: BETH25TA2 PO (21:35)
[2021-11-18] MEDS ORDERED: METO50TA15 PO (21:35)
--- NOTE | 2021-11-18 21:36 | Discharge Inst-Skilled Nursing ---
Discharge Inst-Skilled NF Reconcile Patient Problems Problems Reviewed?: Yes Patient Instructions Patient Problems: Left humerus fracture Recent pneumonia Goal: Return to independent living Consult/Follow Up/Orders Follow Up Appt.: Dr. Smith longterm rounds Skilled NF Admit to: [facility] Certification ([facility]) I certify that SNF services are required to be given on an inpatient basis because of the above named patient's need for care home care on a continuing basis for the conditions(s) for which he/she was receiving inpatient hospital services prior to his/her transfer to the SNF. Longterm Facility Order: Nursing Services, Heel Top Lift Splitter-Evaluate & Treat, Physical Therapy-Evaluate & Treat, Speech Language-Evaluate & Treat Oxygen Delivery Method: Room Air Discharge Diet: No Restrictions Resuscitation Status: Full Code New & Resume Previous Orders New Medications: Bethanechol Chloride (Bethanechol Chloride) 25 Mg Tablet 25 MG PO ACHS, #120 TAB Hydrocodone Bit/Acetaminophen (HYDROcodone/APAP 5 MG/325 MG TAB) 1 Tab Tab 1 EA PO Q4H PRN for PAIN-MODERATE (5-7), #20 TAB [place] 3 Polyunsat Fatty Acids (Fish Oil 1,000 mg Capsule) 340 Mg-1,000 Mg Cap 1000 MG PO DAILY@0700, #30 CAP Sodium Chloride (Sodium Chloride) 1 Gram Tab 1 GM PO TID, #30 TAB Tamsulosin HCl (Flomax) 0.4 Mg Cap 0.4 MG PO DAILY@1800, #30 CAP Changed Medications: Atorvastatin Calcium (Atorvastatin Calcium) 20 Mg Tablet 5 MG PO HS, #30 TAB (Changed from: Removed Instructions) Lisinopril (Lisinopril) 40 Mg Tablet 20 MG PO DAILY, #30 TAB (Changed from: Removed Instructions) Metoprolol Tartrate (Metoprolol Tartrate) 50 Mg Tablet 25 MG PO BID, #60 TAB (Changed from: Removed Instructions) Continued Medications: Aspirin (Aspirin EC) 81 Mg Tablet.dr 81 MG PO DAILY, #30 TAB (This prescription has been renewed) Clopidogrel Bisulfate (Clopidogrel) 75 Mg Tablet 75 MG PO DAILY, #30 TAB (This prescription has been renewed) Gabapentin (Neurontin) 300 Mg Capsule 600 MG PO HS, #30 CAP (This prescription has been renewed) TAKES 2 (300MG) CAPS Multivitamin (Multivitamin) 1 Each Tablet 1 EACH PO DAILY, TAB Discontinued Medications: Calcium Carbonate (Calcium Carbonate) 600 Mg Calcium (1500 Mg) Tablet 600 MG PO DAILY, TAB Hydrochlorothiazide (Hydrochlorothiazide) 25 Mg Tablet 12.5 MG PO DAILY, TAB TAKES OF A 25MG TAB [place]-3/Dha/Epa/Fish Oil (Fish Oil 1,200 mg Softgel) 1,200 Mg Capsule 1200 MG PO DAILY, CAP Aurelia Cruz Nov 18, 2021 21:36 AURELIA CRUZ DO Nov 18, 2021 21:36
--- NOTE | 2021-11-19 03:27 | Discharge Summary ---
Diagnosis/Chief Complaint Date of Admission Nov 05, 2021 at 13:38 Date of Discharge Discharge Date: Nov 19, 2021 Discharge Diagnosis Assessment: Hypotensive event on 11/11/2021 with hypoxia, diaphoresis and evidence of sepsis from pneumonia prompting ICU transfer Fall Debility Left humerus fracture no surgery required placed in sling Urinary retention Sherman cath in place started bladder meds then DC catheter 11/09/2021 by urology Hyponatremia placed on salt tablets and fluid restriction HTN HLP h/o Prostate cancer Orthostasis Plan: IRF protocol Bladder meds DC sherman soon Home meds 11/06/2021: Supportive care Bladder meds 11/07/2021: Check labs in am BM+ 11/08/2021: Salt tablets Fluid restriction 11/09/2021: Supportive care Monitor closely 11/10/2021: Fall risk Pain control 11/11/2021: Transferred to ICU 11/13/2021: 1 liter of NS today Lift fluid restriction Cefepime 11/14/2021: Monitor closely Labs in am 11/15/2021: Complete abx Monitor closely 11/16/2021: May need skilled 11/17/2021: DC to [facility] Monday11/18/2021: [facility] tomorrow (1) Weakness Status: Acute (2) CAD (coronary artery disease) (3) Sherman catheter in place (4) Fall on same level Status: Acute (5) Hyponatremia Status: Acute (6) Urinary retention (7) History of prostate cancer Status: Chronic (8) Closed left humeral fracture Status: Acute (9) Multiple abrasions Status: Acute Discharge Summary Discharge Physical Examination Allergies: Coded Allergies: Sulfa (Sulfonamide Antibiotics) (Unverified Allergy, Unknown, 12/20/13) Vitals & I&Os Vital Signs Date Time Temp Pulse Resp B/P (MAP) Pulse Ox O2 Delivery O2 Flow Rate FiO2 11/19/21 09:00 Room Air 11/19/21 07:59 36.2 92 18 110/74 (86) 96 11/15/21 07:40 1.00 General Appearance: Alert, Oriented X3, Cooperative Respiratory: Clear to Auscultation Cardiovascular: Regular Rate Neuro: Normal Speech Psych/Mental Status: Mental Status NL Hospital Course Was the Problem List Reviewed?: Yes Lengthy course after he was admitted from fall and hyponatremia. Debility noted so he was aggressively managed with PT OT. Catheter was DC along with Urology consultation. FLuid restriction with salt tablets required. ICU transfer for 36 hours occurred due to PNA and he had completed that treatment. Overall he did very well but was a continued fall risk and spouse needed him to go to [facility] for a short time prior to DC. Labs (last 24 hrs) Laboratory Tests 11/06/21 07:15: White Blood Count 6.4, Red Blood Count 3.88L, Hemoglobin 13.3, Hematocrit 38L, Mean Corpuscular Volume 97, Mean Corpuscular Hemoglobin 34, Mean Corpuscular Hemoglobin Concent 35, Red Cell Distribution Width 13.0, Platelet Count 229, Mean Platelet Volume 8.2L, Immature Granulocyte % (Auto) 1, Neutrophils (%) (Auto) 57, Lymphocytes (%) (Auto) 25, Monocytes (%) (Auto) 13H, Eosinophils (%) (Auto) 3, Basophils (%) (Auto) 1, Neutrophils # (Auto) 3.7, Lymphocytes # (Auto) 1.6, Monocytes # (Auto) 0.8, Eosinophils # (Auto) 0.2, Basophils # (Auto) 0.1, Immature Granulocyte # (Auto) 0.1, Sodium Level 125*L, Potassium Level 3.9, Chloride Level 91L, Carbon Dioxide Level 27, Anion Gap 7, Blood Urea Nitrogen 9, Creatinine 0.78, Estimat Glomerular Filtration Rate 87, BUN/Creatinine Ratio 12, Glucose Level 92, Calcium Level 8.8, Corrected Calcium 9.5, Total Bilirubin 0.8, Aspartate Amino Transf (AST/SGOT) 18, Alanine Aminotransferase (ALT/SGPT) 13, Alkaline Phosphatase 64, Total Protein 5.6L, Albumin 3.1L 11/08/21 05:30: Sodium Level 128L, Potassium Level 4.2, Chloride Level 92L, Carbon Dioxide Level 23, Anion Gap 13, Blood Urea Nitrogen 12, Creatinine 0.79, Estimat Glomerular F iltration Rate 87, BUN/Creatinine Ratio 15, Glucose Level 85, Calcium Level 8.6, Corrected Calcium 9.4, Total Bilirubin 0.7, Aspartate Amino Transf (AST/SGOT) 23, Alanine Aminotransferase (ALT/SGPT) 16, Alkaline Phosphatase 64, Total Protein 5.6L, Albumin 3.0L 11/08/21 06:32: White Blood Count 7.3, Red Blood Count 3.78L, Hemoglobin 12.6L, Hematocrit 36L, Mean Corpuscular Volume 96, Mean Corpuscular Hemoglobin 33, Mean Corpuscular Hemoglobin Concent 35, Red Cell Distribution Width 12.7, Platelet Count 242, Mean Platelet Volume 8.3L, Immature Granulocyte % (Auto) 1, Neutrophils (%) (Auto) 60, Lymphocytes (%) (Auto) 24, Monocytes (%) (Auto) 11, Eosinophils (%) (Auto) 3, Basophils (%) (Auto) 1, Neutrophils # (Auto) 4.4, Lymphocytes # (Auto) 1.8, Monocytes # (Auto) 0.8, Eosinophils # (Auto) 0.3, Basophils # (Auto) 0.1, Immature Granulocyte # (Auto) 0.1 11/11/21 08:12: Sodium Level 128L, Potassium Level 3.9, Chloride Level 89L, Carbon Dioxide Level 25, Anion Gap 14, Blood Urea Nitrogen 17, Creatinine 0.91, Estimat Glomerular Filtration Rate 83, BUN/Creatinine Ratio 19, Glucose Level 103, Calcium Level 9.7 11/11/21 12:54: White Blood Count 14.8H, Red Blood Count 4.43, Hemoglobin 15.1, Hematocrit 44, Mean Corpuscular Volume 99, Mean Corpuscular Hemoglobin 34, Mean Corpuscular Hemoglobin Concent 35, Red Cell Distribution Width 13.0, Platelet Count 286, Mean Platelet Volume 8.5L, Immature Granulocyte % (Auto) 1, Neutrophils (%) (A uto) 85H, Lymphocytes (%) (Auto) 6L, Monocytes (%) (Auto) 8, Eosinophils (%) (Auto) 0, Basophils (%) (Auto) 1, Neutrophils # (Auto) 12.5H, Lymphocytes # (Auto) 0.8L, Monocytes # (Auto) 1.2H, Eosinophils # (Auto) 0.0, Basophils # (Auto) 0.1, Immature Granulocyte # (Auto) 0.1, Neutrophils % (Manual) 89, Lymphocytes % (Manual) 5, Monocytes % (Manual) 6, Blood Morphology Comment NORMAL, Lactic Acid Level 3.59*H, Total Bilirubin 0.8, Direct Bilirubin 0.4H, Indirect Bilirubin 0.4, Aspartate Amino Transf (AST/SGOT) 33, Alanine Aminotransferase (ALT/SGPT) 27, Alkaline Phosphatase 89, Total Protein 6.5, Albumin 3.9, Procalcitonin 0.05 11/11/21 15:27: Lactic Acid Level 3.24*H 11/11/21 19:05: Lactic Acid Level 1.95 11/13/21 05:55: Hemoglobin 11.9L, Hematocrit 35L 11/15/21 06:31: White Blood Count 7.6, Red Blood Count 3.51L, Hemoglobin 11.7L, Hematocrit 35L, Mean Corpuscular Volume 99, Mean Corpuscular Hemoglobin 33, Mean Corpuscular Hemoglobin Concent 34, Red Cell Distribution Width 12.9, Platelet Count 247, Mean Platelet Volume 9.1, Immature Granulocyte % (Auto) 0, Neutrophils (%) (Auto) 64, Lymphocytes (%) (Auto) 21, Monocytes (%) (Auto) 10, Eosinophils (%) (Auto) 4, Basophils (%) (Auto) 1, Neutrophils # (Auto) 4.9, Lymphocytes # (Auto) 1.6, Monocytes # (Auto) 0.7, Eosinophils # (Auto) 0.3, Basophils # (Auto) 0.1, Immature Granulocyte # (Auto) 0.0, Sodium Level 133L, Potassium Level 3.5L, Chloride Level 96L, Carbon Dioxide Level 25, Anion Gap 12, Blood Urea Nitrogen 11, Creatinine 0.74, Estimat Glomerular Filtration Rate 89, BUN/Creatinine Ratio 15, Glucose Level 94, Calcium Level 8.6, Corrected Calcium 9.6, Total Bilirubin 0.7, Aspartate Amino Transf (AST/SGOT) 21, Alanine Aminotransferase (ALT/SGPT) 17, Alkaline Phosphatase 53, Total Protein 5.1L, Albumin 2.8L 11/17/21 13:35: Prostate Specific Antigen <0.05 11/18/21 06:36: Sodium Level 133L, Potassium Level 4.0, Chloride Level 97L, Carbon Dioxide Level 25, Anion Gap 11, Blood Urea Nitrogen 11, Creatinine 0.77, Estimat Glomerular Filtration Rate 88, BUN/Creatinine Ratio 14, Glucose Level 111H, Calcium Level 9.3 Microbiology 11/11/21 Blood Culture - Final, Complete No growth Pending Labs Microbiology Date/Time Source Procedure Growth Status 11/11/21 12:54 Peripheral Rt Hand Blood Culture - Final No growth Complete 11/11/21 12:43 Peripheral Rt Hand Blood Culture - Final No growth Complete Laboratory Tests 11/06/21 07:15: White Blood Count 6.4, Red Blood Count 3.88, Hemoglobin 13.3, Hematocrit 38, Mean Corpuscular Volume 97, Mean Corpuscular Hemoglobin 34, Mean Corpuscular Hemoglobin Concent 35, Red Cell Distribution Width 13.0, Platelet Count 229, Mean Platelet Volume 8.2, Immature Granulocyte % (Auto) 1, Neutrophils (%) (Auto) 57, Lymphocytes (%) (Auto) 25, Monocytes (%) (Auto) 13, Eosinophils (%) (Auto) 3, Basophils (%) (Auto) 1, Neutrophils # (Auto) 3.7, Lymphocytes # (Auto) 1.6, Monocytes # (Auto) 0.8, Eosinophils # (Auto) 0.2, Basophils # (Auto) 0.1, Immature Granulocyte # (Auto) 0.1, Sodium Level 125, Potassium Level 3.9, Chloride Level 91, Carbon Dioxide Level 27, Anion Gap 7, Blood Urea Nitrogen 9, Creatinine 0.78, Estimat Glomerular Filtration Rate 87, BUN/Creatinine Ratio 12, Glucose Level 92, Calcium Level 8.8, Corrected Calcium 9.5, Total Bilirubin 0.8, Aspartate Amino Transf (AST/SGOT) 18, Alanine Aminotransferase (ALT/SGPT) 13, Alkaline Phosphatase 64, Total Protein 5.6, Albumin 3.1 11/08/21 05:30: Sodium Level 128, Potassium Level 4.2, Chloride Level 92, Carbon Dioxide Level 23, Anion Gap 13, Blood Urea Nitrogen 12, Creatinine 0.79, Estimat Glomerular Filtration Rate 87, BUN/Creatinine Ratio 15, Glucose Level 85, Calcium Level 8.6, Corrected Calcium 9.4, Total Bilirubin 0.7, Aspartate Amino Transf (AST/SGOT) 23, Alanine Aminotransferase (ALT/SGPT) 16, Alkaline Phosphatase 64, Total Protein 5.6, Albumin 3.0 11/08/21 06:32: White Blood Count 7.3, Red Blood Count 3.78, Hemoglobin 12.6, Hematocrit 36, Mean Corpuscular Volume 96, Mean Corpuscular Hemoglobin 33, Mean Corpuscular Hemoglobin Concent 35, Red Cell Distribution Width 12.7, Platelet Count 242, Mean Platelet Volume 8.3, Immature Granulocyte % (Auto) 1, Neutrophils (%) (Auto) 60, Lymphocytes (%) (Auto) 24, Monocytes (%) (Auto) 11, Eosinophils (%) (Auto) 3, Basophils (%) (Auto) 1, Neutrophils # (Auto) 4.4, Lymphocytes # (Auto) 1.8, Monocytes # (Auto) 0.8, Eosinophils # (Auto) 0.3, Basophils # (Auto) 0.1, Immature Granulocyte # (Auto) 0.1 11/11/21 08:12: Sodium Level 128, Potassium Level 3.9, Chloride Level 89, Carbon Dioxide Level 25, Anion Gap 14, Blood Urea Nitrogen 17, Creatinine 0.91, Estimat Glomerular Filtration Rate 83, BUN/Creatinine Ratio 19, Glucose Level 103, Calcium Level 9.7 11/11/21 12:54: White Blood Count 14.8, Red Blood Count 4.43, Hemoglobin 15.1, Hematocrit 44, Mean Corpuscular Volume 99, Mean Corpuscular Hemoglobin 34, Mean Corpuscular Hemoglobin Concent 35, Red Cell Distribution Width 13.0, Platelet Count 286, Mean Platelet Volume 8.5, Immature Granulocyte % (Auto) 1, Neutrophils (%) (Auto) 85, Lymphocytes (%) (Auto) 6, Monocytes (%) (Auto) 8, Eosinophils (%) (Auto) 0, Basophils (%) (Auto) 1, Neutrophils # (Auto) 12.5, Lymphocytes # (Auto) 0.8, Monocytes # (Auto) 1.2, Eosinophils # (Auto) 0.0, Basophils # (Auto) 0.1, Immature Granulocyte # (Auto) 0.1, Neutrophils % (Manual) 89, Lymphocytes % (Manual) 5, Monocytes % (Manual) 6, Blood Morphology Comment NORMAL, Lactic Acid Level 3.59, Total Bilirubin 0.8, Direct Bilirubin 0.4, Indirect Bilirubin 0.4, Aspartate Amino Transf (AST/SGOT) 33, Alanine Aminotransferase (ALT/SGPT) 27, Alkaline Phosphatase 89, Total Protein 6.5, Albumin 3.9, Procalcitonin 0.05 11/11/21 15:27: Lactic Acid Level 3.24 11/11/21 19:05: Lactic Acid Level 1.95 11/13/21 05:55: Hemoglobin 11.9, Hematocrit 35 11/15/21 06:31: White Blood Count 7.6, Red Blood Count 3.51, Hemoglobin 11.7, Hematocrit 35, Mean Corpuscular Volume 99, Mean Corpuscular Hemoglobin 33, Mean Corpuscular Hemoglobin Concent 34, Red Cell Distribution Width 12.9, Platelet Count 247, Mean Platelet Volume 9.1, Immature Granulocyte % (Auto) 0, Neutrophils (%) (Auto) 64, Lymphocytes (%) (Auto) 21, Monocytes (%) (Auto) 10, Eosinophils (%) (Auto) 4, Basophils (%) (Auto) 1, Neutrophils # (Auto) 4.9, Lymphocytes # (Auto) 1.6, Monocytes # (Auto) 0.7, Eosinophils # (Auto) 0.3, Basophils # (Auto) 0.1, Immature Granulocyte # (Auto) 0.0, Sodium Level 133, Potassium Level 3.5, Chloride Level 96, Carbon Dioxide Level 25, Anion Gap 12, Blood Urea Nitrogen 11 , Creatinine 0.74, Estimat Glomerular Filtration Rate 89, BUN/Creatinine Ratio 15, Glucose Level 94, Calcium Level 8.6, Corrected Calcium 9.6, Total Bilirubin 0.7, Aspartate Amino Transf (AST/SGOT) 21, Alanine Aminotransferase (ALT/SGPT) 17, Alkaline Phosphatase 53, Total Protein 5.1, Albumin 2.8 11/17/21 13:35: Prostate Specific Antigen <0.05 11/18/21 06:36: Sodium Level 133, Potassium Level 4.0, Chloride Level 97, Carbon Dioxide Level 25, Anion Gap 11, Blood Urea Nitrogen 11, Creatinine 0.77, Estimat Glomerular Filtration Rate 88, BUN/Creatinine Ratio 14, Glucose Level 111, Calcium Level 9. 3 Discharge Home Medications: Active Scripts Active Sodium Chloride 1 Gram Tab 1 Gm PO TID HYDROcodone/APAP 5 MG/325 MG TAB (Acetaminophen/Hydrocodone Bitart) 1 Tab Tab 1 Ea PO Q4H PRN Fish Oil 1,000 mg Capsule ([place] 3 Polyunsat Fatty Acids) 340 Mg-1,000 Mg Cap 1,000 Mg PO DAILY@0700 Flomax (Tamsulosin HCl) 0.4 Mg Cap 0.4 Mg PO DAILY@1800 Bethanechol Chloride 25 Mg Tablet 25 Mg PO ACHS Clopidogrel (Clopidogrel Bisulfate) 75 Mg Tablet 75 Mg PO DAILY Aspirin EC (Aspirin) 81 Mg Tablet.dr 81 Mg PO DAILY Neurontin (Gabapentin) 300 Mg Capsule 600 Mg PO HS TAKES 2 (300MG) CAPS Atorvastatin Calcium 20 Mg Tablet 5 Mg PO HS Lisinopril 40 Mg Tablet 20 Mg PO DAILY Metoprolol Tartrate 50 Mg Tablet 25 Mg PO BID Reported Multivitamin 1 Each Tablet 1 Each PO DAILY Instructions to patient/family Please see electronic discharge instructions given to patient. Diagnosis/Problems Diagnosis/Problems (1) Weakness Status: Acute (2) CAD (coronary artery disease) (3) Sherman catheter in place (4) Fall on same level Status: Acute (5) Hyponatremia Status: Acute (6) Urinary retention (7) History of prostate cancer Status: Chronic (8) Closed left humeral fracture Status: Acute (9) Multiple abrasions Status: Acute ARIA ALEMAN DO Nov 19, 2021 03:27
[2021-11-19] MEDS: MULTIVIT W/MINERALS TAB (THERAGRAN M) PO SCH (06:33)
[2021-11-19] MEDS: BETHANECHOL 25 MG (URECHOLINE) TAB PO SCH ×2 (06:33→12:32)
[2021-11-19] MEDS: OMEGA 3 (FISH OIL) 1000 MG CAP PO SCH (06:33)
[2021-11-19] MEDS: CALCIUM CARBONATE 600 MG (CALCARB) TAB PO SCH (06:33)
[2021-11-19 07:59] VITALS: BP 110/74
--- NOTE | 2021-11-19 08:53 | Progress Note - Urology ---
Progress Note-Urology Progress Notes/Assess & Plan Progress/Assessment & Plan CONTINUES WELL [facility]. [facility]. WILL SEE PRN Final Diagnosis RETENTION JANICE SCHWARZ MD Nov 19, 2021 08:53
--- NOTE | 2021-11-19 08:59 | Therapy Team Discharge Summary ---
Therapy Discharge Summary Discharge Recommendations Date of Discharge Physical Therapy Patient came to rehab with debility, humerus fx. Upon evaluation patient performs rolling and supine <-> sit with min assist, sit <-> stand min assist, transfers CGA, car transfer min assist, ambulated 6' with a hemiwalker with min assist. Patient has been performing bed mobility and transfer training, balance and endurance training, functional strengthening, gait training, and education. Patient has made some progress but has only met his termite helper goals for transfers and car transfer. Now patient performs rolling with independence, supine to sit min assist, sit to supine SBA, sit to stand min assist, transfers CGA, car transfer CGA, can ambulate 20' with a hemiwalker with CGA (but needs min assist for 10' over an uneven surface), dependent for WC mobility, and can bulk picker an object from the floor using a twister operator with min/mod assist. Patient is being discharged from this facility today and will be discharged from PT at this time. Roll Left to Right (QC): 6 Sit to Lying (QC): 4 Lying to Sitting/Side of Bed(Q: 3 Sit to Stand (QC): 3 Chair/Ths-pk-Xtvcy Xfer(QC): 4 Toilet Transfer (QC): 3 Car Transfer (QC): 4 Does the Patient Walk: Yes Mode of Locomotion: Walk Anticipated Mode of Locomotion: Walk Walk 10 feet (QC): 4 Walk 50 ft with 2 Turns(QC): 88 Walk 150 ft (QC): 88 Walking 10ft on uneven surface: 3 Distance: 6' Gait Assistive Device: Walker Erich Does the Pt Use a Wheelchair: Yes Wheel 50 ft with 2 turns (QC): 1 Wheel 150 ft (QC): 1 Type of Wheelchair: Manual 1 Step (curb) (QC): 88 4 Steps (QC): 88 12 Steps (QC): 88 Balance Sitting Static: Normal Balance Sitting Dynamic: Normal Balance-Standing Static: Poor Picking up an Object (QC): 3 Occupational Therapy Decreased Activ Tolerance, Decreased Safety Aware, Decreased UE Strength, Impaired Cognition, Impaired Coordination, Impaired Funct Balance, Impaired Self-Care Skills, Restricted Funct UE ROM Eating (QC): 6 Oral Hygiene (QC): 6 Shower/Bathe Self (QC): 4 Upper Body Dressing (QC): 3 Lower Body Dressing (QC): 3 On/Off Footwear (QC): 1 Toileting Hygiene (QC): 3 PT Swage Tender Goals Swage Tender Goals PT Long-Term Goals Time Frame: Nov 26, 2021 Roll Left to Right (QC): 6 Sit to Lying (QC): 6 Lying-Sitting on Side/Bed(QC): 6 Sit to Stand (QC): 4 (SBA) Chair/Ojb-yk-Ebtgi Xfer(QC): 4 (SA) Car Transfer (QC): 4 (SBA) Does the Patient Walk: Yes Walk 10 feet (QC): 4 (SBA) Walk 10ft-Uneven Surface(QC): 4 (SBA) Walk 50ft with 2 Turns (QC): 4 (SBA) Walk 150 ft (QC): 4 (SBA) Wheel 50 feet with 2 turns (QC: 9 1 Step (curb) (QC): 4 (SBA) 4 Steps (QC): 4 (SBA) 12 Steps (QC): 88 Picking up an Object (QC): 4 (CGA using twister operator) OT Long-Term Goals Swage Tender Goals Time Frame: Nov 26, 2021 Eating (QC): 5 (met) Oral Hygiene (QC): 5 (met) Shower/Bathe Self (QC): 4 Upper Body Dressing (QC): 4 Lower Body Dressing (QC): 3 On/Off Footwear (QC): 3 Toileting Hygiene (QC): 4 Toilet/Commode Transfer (QC): 4 (SBA) 1=Demonstrate adherence to instructed precautions during ADL tasks. 2=Patient will verbalize/demonstrate understanding of assistive devices/modifications for ADL. 3=Patient will improve strength/tolerance for activity to enable patient to perform ADL's. BRENDA LEVIN PT Nov 19, 2021 08:59
[2021-11-19] MEDS: SENNA W/DOCUSATE (SENOKOT S) TABLET PO SCH (09:01)
[2021-11-19] MEDS: DOCUSATE SODIUM 100 MG (COLACE) CAP PO SCH (09:02)
[2021-11-19] MEDS: SODIUM CHLORIDE 1 GM TABLET PO SCH ×2 (09:02→12:32)
[2021-11-19] MEDS: polyethylene glycoL POWDER 17 GM (MIRALAX) PACK PO SCH (09:04)
--- NOTE | 2021-11-19 09:16 | Therapy Team Discharge Summary ---
Therapy Discharge Summary Discharge Recommendations Date of Discharge Therapy D/C Recommendations: [facility] ([facility]) Physical Therapy Roll Left to Right (QC): 6 Sit to Lying (QC): 4 Lying to Sitting/Side of Bed(Q: 3 Sit to Stand (QC): 3 Chair/Mfq-ag-Dkezm Xfer(QC): 4 Toilet Transfer (QC): 3 Car Transfer (QC): 4 Does the Patient Walk: Yes Mode of Locomotion: Walk Anticipated Mode of Locomotion: Walk Walk 10 feet (QC): 4 Walk 50 ft with 2 Turns(QC): 88 Walk 150 ft (QC): 88 Walking 10ft on uneven surface: 3 Distance: 6' Gait Assistive Device: Walker Erich Does the Pt Use a Wheelchair: Yes Wheel 50 ft with 2 turns (QC): 1 Wheel 150 ft (QC): 1 Type of Wheelchair: Manual 1 Step (curb) (QC): 88 4 Steps (QC): 88 12 Steps (QC): 88 Balance Sitting Static: Normal Balance Sitting Dynamic: Normal Balance-Standing Static: Poor Picking up an Object (QC): 3 Occupational Therapy Pt admitted to ARU with debility and humerus fracture. At time of evaluation he was dependent for toileting, footwear, lower body dressing, and bathing, max a for upper body dressing, and SBA for oral care and eating. During his rehab stay, OT focused on compensatory methods, balance, endurance, posture, strengthening, sequencing, memory, and safety in order to increase performance and independence in adls and functional transfers. Pt made slow, fair progress. He did not meet all of his mcc goals. Pt's biggest barrier is only having 1UE to assist in maintaining balance thus causing difficulty when needing to use that UE during functional tasks. See below for current levels of assist. Pt will be discharging from this facility today and will be discharged from OT at this time. Decreased Activ Tolerance, Decreased Safety Aware, Decreased UE Strength, Impaired Cognition, Impaired Coordination, Impaired Funct Balance, Impaired Self-Care Skills, Restricted Funct UE ROM Eating (QC): 6 Oral Hygiene (QC): 6 Shower/Bathe Self (QC): 4 Upper Body Dressing (QC): 3 Lower Body Dressing (QC): 3 On/Off Footwear (QC): 1 Toileting Hygiene (QC): 3 PT Acute Care Occupational Therapist Goals Acute Care Occupational Therapist Goals PT Acute Care Occupational Therapist Goals Time Frame: Nov 26, 2021 Roll Left to Right (QC): 6 Sit to Lying (QC): 6 Lying-Sitting on Side/Bed(QC): 6 Sit to Stand (QC): 4 (SBA) Chair/Tsz-bp-Agodb Xfer(QC): 4 (SA) Car Transfer (QC): 4 (SBA) Does the Patient Walk: Yes Walk 10 feet (QC): 4 (SBA) Walk 10ft-Uneven Surface(QC): 4 (SBA) Walk 50ft with 2 Turns (QC): 4 (SBA) Walk 150 ft (QC): 4 (SBA) Wheel 50 feet with 2 turns (QC: 9 1 Step (curb) (QC): 4 (SBA) 4 Steps (QC): 4 (SBA) 12 Steps (QC): 88 Picking up an Object (QC): 4 (CGA using testing shaking shipping) OT Long-Term Goals Long-Term Goals Time Frame: Nov 26, 2021 Eating (QC): 5 (met) Oral Hygiene (QC): 5 (met) Shower/Bathe Self (QC): 4 (met) Upper Body Dressing (QC): 4 (not met) Lower Body Dressing (QC): 3 (met) On/Off Footwear (QC): 3 (not met) Toileting Hygiene (QC): 4 (not met) Toilet/Commode Transfer (QC): 4 (SBA) 1=Demonstrate adherence to instructed precautions during ADL tasks. 2=Patient will verbalize/demonstrate understanding of assistive devices/modifications for ADL. 3=Patient will improve strength/tolerance for activity to enable patient to perform ADL's. Lindsey Sykes OT Nov 19, 2021 09:16
--- NOTE | 2021-11-19 09:30 | Progress Note - Ortho ---
Progress Note Subjective Date of Exam 11/19/21 Chief Complaint Fracture left proximal humerus HPI/Events since last exam Mr. Negro is 27 days since fracture left proximal humerus. I saw him in the office approximately 1-1/2 weeks ago and his fracture remains in good condition. He continues with his sling. He has no complaints other than some mild pain. Review of Systems Reviewed and no additions or changes Allergies: Coded Allergies: Sulfa (Sulfonamide Antibiotics) (Unverified Allergy, Unknown, 12/20/13) Home Meds Active Scripts Sodium Chloride (Sodium Chloride) 1 Gram Tab, 1 GM PO TID, #30 TAB Prov:ARIA ALEMAN DO 11/18/21 Hydrocodone Bit/Acetaminophen (HYDROcodone/APAP 5 MG/325 MG TAB) 1 Tab Tab, 1 EA PO Q4H PRN for PAIN-MODERATE (5-7), #20 TAB Prov:ARIA ALEMAN DO 11/18/21 Alkol 3 Polyunsat Fatty Acids (Fish Oil 1,000 mg Capsule) 340 Mg-1,000 Mg Cap, 1000 MG PO DAILY@0700, #30 CAP Prov:ARIA ALEMAN DO 11/18/21 Tamsulosin HCl (Flomax) 0.4 Mg Cap, 0.4 MG PO DAILY@1800, #30 CAP Prov:ARIA ALEMAN DO 11/18/21 Bethanechol Chloride (Bethanechol Chloride) 25 Mg Tablet, 25 MG PO ACHS, #120 TAB Prov:ARIA ALEMAN DO 11/18/21 Clopidogrel Bisulfate (Clopidogrel) 75 Mg Tablet, 75 MG PO DAILY, #30 TAB Prov:ARIA ALEMAN DO 11/18/21 Aspirin (Aspirin EC) 81 Mg Tablet.dr, 81 MG PO DAILY, #30 TAB Prov:ARIA ALEMAN DO 11/18/21 Gabapentin (Neurontin) 300 Mg Capsule, 600 MG PO HS, #30 CAP TAKES 2 (300MG) CAPS Prov:ARIA ALEMAN DO 11/18/21 Atorvastatin Calcium (Atorvastatin Calcium) 20 Mg Tablet, 5 MG PO HS, #30 TAB Prov:ARIA ALEMAN DO 11/18/21 Lisinopril (Lisinopril) 40 Mg Tablet, 20 MG PO DAILY, #30 TAB Prov:ARIA ALEMAN DO 11/18/21 Metoprolol Tartrate (Metoprolol Tartrate) 50 Mg Tablet, 25 MG PO BID, #60 TAB Prov:ARIA ALEMAN DO 11/18/21 Reported Medications Calcium Carbonate (Calcium Carbonate) 600 Mg Calcium (1500 Mg) Tablet, 600 MG PO DAILY, TAB 11/04/21 Hydrochlorothiazide (Hydrochlorothiazide) 25 Mg Tablet, 12.5 MG PO DAILY, TAB TAKES OF A 25MG TAB 07/23/21 Alkol-3/Dha/Epa/Fish Oil (Fish Oil 1,200 mg Softgel) 1,200 Mg Capsule, 1200 MG PO DAILY, CAP 12/17/20 Multivitamin (Multivitamin) 1 Each Tablet, 1 EACH PO DAILY, TAB 12/17/20 Objective Exam Constitutional: [] HEENT: [] Neck: [] Cardiovascular: [] Respiratory: [] Gastrointestinal: [] Genitourinary: [] Skin: [] Back/Spine: [] Extremities: [Limited motion left shoulder. Mild pain with gentle range of motion. Mild pain with palpation. No pain at the elbow, forearm, wrist or hand. Normal sensation to the fingers and thumb with good cap refill good radial pulse] Neurologic: [] Psychiatric: [] Hematologic/lymphatic/immunologic: [] Vital Signs Vital Signs Date Time Temp Pulse Resp B/P (MAP) Pulse Ox O2 Delivery O2 Flow Rate FiO2 11/19/21 07:59 36.2 92 18 110/74 (86) 96 Room Air 11/18/21 20:30 Room Air 11/18/21 19:42 37.0 80 20 117/75 (89) 96 Room Air Lab Results Microbiology 11/11/21 Blood Culture - Final, Complete No growth Imaging X-rays obtained yesterday shows continued good alignment of the three-part fracture of the proximal humerus. He has a surgical neck as well as the greater tuberosity which is minimally displaced. Early callus is noted at the fracture site Assessment and Plan Assessment Minimally displaced three-part fracture left proximal humerus Problem List Same Plan Continue sling. He is being transferred to [facility] today. We will call on Monday and order therapy for his shoulder with gentle range of motion. We will also schedule a follow-up visit in approximately 2 weeks for recheck and repeat x-rays. Again continue with the sling Final Diagonsis Fracture left proximal humerus Level of the visit: Level 3 CAROLYN LINDER MD Nov 19, 2021 09:30
--- NOTE | 2021-11-19 14:15 | Progress Note ---
JAZIEL LOCKWOOD 11/19/21 1415: Progress Note 85 yr old male on day 14 of admission for hyponatremia and a fall resulting in a left humerus fx that did not require surgery so the patient was admitted to inpatient rehab for monitoring, electrolyte resuscitation, and PT/OT. On day 6, PT was severely hypotensive and dx with PNA and transferred to ICU and started on sepsis protocol with fluid resuscitation and Abx. Pt had problems with urinary retention so a sherman catheter was placed to increase voiding and loose stools with fecal occult blood positive. Pt was not a good candidate for scopes at the time and denied the option and chose to wait and montior Hgb and stools. Day 7, pt was transferred back to inpatient rehab for continued monitoring and became hyponatremic again. Salt tabs and fluid restriction was in place and sodium has returned to near normal levels. Today, 11/19/2021 pt is doing well with no pain SOB fever N/V. Labs have stabilized. Pt to tx to [facility] today for continued therapy. PE: Vitals: T 36.2, HR 92, BP 110/74, RR 18, PO2 96 on RA General: no distress Cardio: HRRR no murmors Pulm: CTAB good air movement Labs: CMP Na has stabilized X-ray confirmed good alignment of Lt humerus A/P continue therapy at [facility] to improve ambulation endurance and strength continue to monitor BP and Na levels AURELIA CRUZ DO 11/19/212114: Supervisory-Addendum Brief Verification & Attestation Participated in pt care: history, MDM, physical Personally performed: exam, history, MDM, supervision of care Care discussed with: Medical Student Procedures: n/a Results interpretation: Verified all documentation Verification and Attestation of Medical Student E/M Service A medical student performed and documented this service in my presence. I reviewed and verified all information documented by the medical student and made modifications to such information, when appropriate. I personally performed the physical exam and medical decision making. Aurelia Cruz, Nov 19, 2021,21:15 JAZIEL LOCKWOOD Nov 19, 2021 14:15 AURELIA CRUZ DO Nov 19, 2021 21:15
== END 2021-11-19 13:10 | DRG 559 ==
LOC: UNDODISIN 13:57
PROVIDERS: ADMIT Internal Medicine; ATTEND Internal Medicine
DX: S42.302D Unspecified fracture of shaft of humerus, left arm, subsequent encounter for fracture with routine healing (principal); A41.9 Sepsis, unspecified organism; J18.9 Pneumonia, unspecified organism; E87.1 Hypo-osmolality and hyponatremia; R33.9 Retention of urine, unspecified; R15.9 Full incontinence of feces; I25.10 Atherosclerotic heart disease of native coronary artery without angina pectoris; E78.00 Pure hypercholesterolemia, unspecified; I10 Essential (primary) hypertension; G62.9 Polyneuropathy, unspecified; F41.9 Anxiety disorder, unspecified; F32.A Depression, unspecified; I95.9 Hypotension, unspecified; R00.1 Bradycardia, unspecified; R09.02 Hypoxemia; R19.5 Other fecal abnormalities; Z87.891 Personal history of nicotine dependence; Z95.5 Presence of coronary angioplasty implant and graft; Z85.46 Personal history of malignant neoplasm of prostate; Z85.828 Personal history of other malignant neoplasm of skin; Z79.82 Long term (current) use of aspirin; Z88.2 Allergy status to sulfonamides; W18.30XD Fall on same level, unspecified, subsequent encounter
CPT/HCPCS: 36415; 71045; 73030; 80048; 80053; 80076; 83605; 84145; 84153; 85007; 85014; 85018; 85025; 85027; 87040; 93005; 94640

== ENCOUNTER 2021-11-11 12:29 | Inpatient (IN) | payer MEDICARE, OTHER ==
[~2021-11-11] VITALS: Ht 182.9 cm; Wt 81.6 kg
[2021-11-11] MEDS ORDERED: diphenhydrAMINE 25 MG TAB (BENADRYL) PO PRN (12:45)
[2021-11-11] MEDS ORDERED: BISACODYL 10 MG SUPP (DULCOLAX) PR PRN (12:45)
[2021-11-11] MEDS ORDERED: morphine INJ 4 MG/ML 1 ML (VIAL/SYRINGE) IV PRN (12:45)
[2021-11-11] MEDS ORDERED: CALCIUM CARBONATE 500 MG (TUMS) TAB.CHEW PO PRN (12:45)
[2021-11-11] MEDS ORDERED: diphenhydrAMINE 50 MG/ML INJ (BENADRYL) IVP PRN (12:45)
[2021-11-11] MEDS ORDERED: NS IV 500 ML 500 ML IV PRN (12:45)
[2021-11-11] MEDS ORDERED: LACTULOSE SYRUP 10GM/15ML (ENULOSE) 30ML UDC PO PRN (12:45)
[2021-11-11] MEDS ORDERED: polyethylene glycoL POWDER 17 GM (MIRALAX) PACK PO PRN (12:45)
[2021-11-11] MEDS ORDERED: ONDANSETRON 4 MG (ZOFRAN) ORAL DISSOLVE TAB PO PRN (12:45)
[2021-11-11] MEDS ORDERED: MELATONIN 3 MG TABLET PO PRN (12:45)
[2021-11-11] MEDS ORDERED: NS IV 1000 ML 1,000 ML IV SCH ×3 (12:45→16:00)
[2021-11-11] MEDS ORDERED: LIDOCAINE UROJET 2% GEL 10 ML PKG TOP NR (12:45)
[2021-11-11] MEDS ORDERED: MILK OF MAGNESIA 400 MG/5 ML 30 ML UDC PO PRN (12:45)
[2021-11-11] MEDS ORDERED: ONDANSETRON 4 MG/2 ML (SDV) Z0FRAN IV PRN (12:45)
[2021-11-11] MEDS ORDERED: ACETAMINOPHEN 325 MG TABLET PO PRN (12:45)
[2021-11-11] MEDS ORDERED: ANTACID SUSP 30 ML UDC (MYLANTA) PO PRN (12:45)
--- NOTE | 2021-11-11 12:48 | History & Physical ---
History of Present Illness HPI/Chief Complaint Chief complaint: Hypotension from sepsis and pneumonia History of present illness: This is an 85-year-old male transferred from rehab urgently due to change of clinical status. Nurse called me to the bedside urgently and rehab due to hypotension and unable to obtain oxygen saturation and bradycardia of 30. I arrived at the bedside urgently and found the patient to be diaphoretic but in no other distress Blood pressure was 70/40 so IV fluids initiated of 1 L bolus which ultimately improved blood pressure to 88/40. Constant cough was noted so chest x-ray obtained showing pneumonia and findings consistent with sepsis from pneumonia so he was moved to the ICU. All medication orders and sepsis protocol initiated Source: patient Exam Limitations: clinical condition Date Seen 11/11/21 Time Seen by a Provider: 12:00 Attending Physician Ed Smith MD PCP Admitting Physician: Aurelia Aleman DO Attending Physician: Aurelia Aleman DO Referring Physician Date of Admission Home Medications & Allergies Home Medications Reviewed patient Home Medication Reconciliation performed by pharmacy medication reconciliations advanced manufacturing technician and/or nursing. Patients Allergies have been reviewed. Allergies Allergies Coded Allergies Sulfa (Sulfonamide Antibiotics) (Unverified Allergy, Unknown, 12/20/13) Past Fszrlbi-Qzoxst-Fqfvgm Hx Past Med/Social Hx: Reviewed Nursing Past Med/Soc Hx, Reviewed and Corrections made Patient Social History Marrital Status: Employed/Student: retired Alcohol Use: Occasionally Uses Alcohol Beverage of Choice: Beer Former Smoker, Quit: Feb 20, 1988 Type Used: Cigarettes Recent Hopitalizations: No Immunizations Up To Date Tetanus Booster (TDap): Unknown Pediatric: Yes Date of Pneumonia Vaccine: Jan 01, 2014 Date of Influenza Vaccine: Dec 17, 2020 Seasonal Allergies Seasonal Allergies: No Past Medical History Surgeries: Abdominal, Appendectomy, Cardiac, Coronary Stent, Gallbladder, Prostatectomy Currently Using CPAP: No Currently Using BIPAP: No Cardiac: Coronary Artery Disease, High Cholesterol, Hypertension Neurological: Neuropathy Sexually Transmitted Disease: No HIV/AIDS: No Genitourinary: Prostate Problems Gastrointestinal: Abdominal Hernia Musculoskeletal: Arthritis, Fractures Cancer: Prostate, Skin Did You Recieve Any Treatments: Yes What Type of Treatment Did You: Radiation, Surgical Intervention History of Blood Disorders: No Adverse Reaction to Blood [place]: No Family History Glaucoma G8 BROTHER No Family History of: AIDS Abdominal aortic aneurysm [place]'s disease Alcoholism Aphasia Arthritis Asthma Cancer of mouth Cardiovascular disease Cataracts Colon cancer Completed stroke Congenital disease Congenital heart disease Coronary thrombosis Cystic fibrosis Deafness or hearing loss Dementia Diabetes mellitus Drug abuse Dysphasia Fibrocystic disease of breast Gastroenteritis Headache disorder Hypercholesterolemia Hypertension Infertility Kidney disease Myocardial infarction Neoplasm Not obtainable due to adoption Osteoporosis Parkinson's disease Prostate cancer Psychosocial problem Respiratory disorder Seizure disorder Severe allergy Thyroid disease Tuberculosis Visual disorder No Pertinent Family Hx Review of Systems Constitutional: see HPI, malaise, weakness EENTM: no symptoms reported Respiratory: cough, dyspnea on exertion Cardiovascular: no symptoms reported Gastrointestinal: no symptoms reported Genitourinary: no symptoms reported Musculoskeletal: joint pain Skin: no symptoms reported Psychiatric/Neurological: No Symptoms Reported Physical Exam Physical Exam Vital Signs Vital Signs - First Documented 11/11/21 11/11/21 13:30 16:25 Temp 36.2 Pulse 78 B/P (MAP) 135/83 Pulse Ox 97 O2 Delivery Nasal Cannula O2 Flow Rate 2.00 Capillary Refill : Height, Weight, BMI Height: 5'10.00" Weight: 220lbs. 4.0oz. 99.729059dz; 29.89 BMI Method:Stated General Appearance: Anxious, Chronically ill, Mild Distress, Other (Pale and fatigued) HEENT: PERRL/EOMI, Normal ENT Inspection, Pharynx Normal Neck: Full Range of Motion Respiratory: Accessory Muscle Use, Crackles, Decreased Breath Sounds, Wheezing Cardiovascular: Regular Rate, Rhythm, Tachycardia Neurologic/Psychiatric: Alert, Oriented x3, Disoriented Results Results/Procedures Labs Laboratory Tests 11/11/21 19:05 Patient resulted labs reviewed. Assessment/Plan Admission Diagnosis Assessment: Hypotension Sepsis Pneumonia facility acquired Fall Debility Left humerus fracture no surgery required placed in sling Urinary retention [place] cath in place started bladder meds then DC catheter 11/09/2021 by urology Hyponatremia placed on salt tablets and fluid restriction HTN HLP h/o Prostate cancer Plan: Pneumonia treatment IV fluids Supportive care Once stable return back to inpatient rehab Admission Status: Inpatient Order (span 2 midnights) Reason for Inpatient Admission: Hypotension Diagnosis/Problems Diagnosis/Problems (1) Pneumonia (2) Sepsis (3) Weakness Status: Acute (4) Closed left humeral fracture Status: Acute (5) History of prostate cancer Status: Chronic (6) Fall on same level Status: Acute (7) Hyponatremia Status: Acute (8) CAD (coronary artery disease) (9) Urinary retention AURELIA ALEMAN DO Nov 11, 2021 12:48
--- NOTE | 2021-11-11 13:38 | Occ Therapy Progress Note ---
Therapy Progress Note OT orders received. Pt just transferred from ARU to ICU due to increased medical complexity. OT will continue to monitor pt's status and initiate treatment when pt is more medically stable and able to actively participate in skilled therapy. OT will check on pt tomorrow. KYLIE SHERWOOD OT Nov 11, 2021 13:37
[2021-11-11 14:41] VITALS: BP 135/83
[2021-11-11] MEDS ORDERED: RT-ALBUTEROL/IPRATROPIUM 3 ML (DUONEB) VIAL INH PRN (15:00)
--- NOTE | 2021-11-11 15:51 | Tele-ICU Progress Note ---
Subjective Date Seen by a Provider: Nov 11, 2021 Time Seen by a Provider: 15:47 Subjective/Events-last exam (Tele-ICU Physician , consultation) Available chart/ vitals / labs / Images reviewed H&P is from ER notes Patient's information available about PMH, Shx, Fhx allergy reviewed inEMR. ROS as per chart and RN report Now in ICU, hemodynamically stable, but BP borderline Video assessment done using teleICU camera, rest of exam as per RN Discussed with RN. Consultants: Hospital course: (11/03) originally at other hosp for weakness and fall CT head chronic atrophy no acute findings (11/11) 85 y M from other hospital for higher level of care treat PNA/ syncope episode at rehab ( h/o left arm prox humerus fx Sling in place A/P Leukocytosis with elev lactate and borderline hypotension and syncopy episode - received 1 L NS - repeated lactate pending , NS at 100cc/h infusing - will reassess vitals and lactate , ABX and cx ordered -cefepime started 11/11 - CXR with possible PNA ( has fibrotic changes on CT chest earlier ) Urinary retention -Burnett cath d/c-ed 11/09/2021 by urology Hyponatremia - 128 - improving on salt tablets and fluid restriction S/p fall with left humerus fracture -no surgery, in sling CAD - s/p stented re-stenosed LAD 07/2021 , on Plavix - stress test 07/2021 - EF 67% HTN - off meds now periph Lines : , (Central Line Necessity Reviewed) Burnett: void OG: Nutrition: Analgesia: Anxiety/ delirium VTE Prophylaxis: anne-marie 40 Stress Ulcer Prophylaxis: po Plans in collaboration with bedside consultants and IM MDs. Discussed with RN to reach out if any questions or concerns A total of 31minutes of critical care time was devoted to this patient today, required to treat and/or prevent further deterioration of critical care condition ( as above ) . Sepsis Event Evaluation Height, Weight, BMI Height: 5'10.00" Weight: 220lbs. 4.0oz. 99.384734aq; 24.39 BMI Method:Stated Focused Exam Sepsis Stage: Severe Sepsis Time of Focused Exam: 15:49 Respiratory: No Accessory Muscle Use Cardiovascular: Regular Rate, Rhythm Within 3hrs of presentation: Admin fluids, Admin ABX, Focus exam, Lactate level Exam Exam Patient acknowledged, consented, and participated in this virtual visit which was conducted using real time audio/video Vital Signs Date Time Temp Pulse Resp B/P (MAP) Pulse Ox O2 Delivery O2 Flow Rate FiO2 11/11/21 14:53 Nasal Cannula 2.00 11/11/21 14:41 91 97 Height & Weight Height: 5'10.00" Weight: 220lbs. 4.0oz. 99.426303um; 24.39 BMI Method:Stated General Appearance: No Apparent Distress Assessment/Plan Assessment/Plan 1 TOYA AMAYA MD Nov 11, 2021 15:51
[2021-11-11] MEDS: NS IV 1000 ML 1,000 ML IV SCH ×2 (17:12→22:08)
[2021-11-11] MEDS ORDERED: ENOXAPARIN 40 MG/0.4 ML (LOVENOX) SYR SC SCH (18:00)
[2021-11-11 19:39] LABS: CALCIUM 9.2 MG/DL (8.5-10.1); CREATININE SERUM 0.92 MG/DL (0.60-1.30); POTASSIUM 4.1 MMOL/L (3.6-5.0)
[2021-11-11] MEDS: DOCUSATE SODIUM 100 MG (COLACE) CAP PO SCH (20:27)
[2021-11-11] MEDS: SENNOSIDES 8.6 MG (SENOKOT) TAB PO SCH (20:27)
[2021-11-11] MEDS: CEFEPIME INJECTION 1,000 MG in NS (IVPB) 50 ML IV SCH (20:58)
[2021-11-11] MEDS: RT-ALBUTEROL/IPRATROPIUM 3 ML (DUONEB) VIAL INH SCH (21:28)
[2021-11-12] MEDS: CEFEPIME INJECTION 1,000 MG in NS (IVPB) 50 ML IV SCH ×3 (02:25→12:49)
[2021-11-12 05:32] LABS: BASOPHILS # (AUTO) 0.1 10^3/uL (0.0-0.1); BASOPHILS % (AUTO) 1 % (0-10); EOSINOPHILS % (AUTO) 0 % (0-10); HEMATOCRIT 37 % (40-54); HEMOGLOBIN 13.1 g/dL (13.3-17.7); LYMPHOCYTES # (AUTO) 1.5 10^3/uL (1.0-4.0); LYMPHOCYTES % (AUTO) 10 % (12-44); MEAN CORPUSCULAR HEMOGLOBIN 34 pg (25-34); MEAN CORPUSCULAR HGB CONC 35 g/dL (32-36); MEAN CORPUSCULAR VOLUME 97 fL (80-99); MEAN PLATELET VOLUME 8.4 fL (9.0-12.2); MONOCYTES # (AUTO) 1.4 10^3/uL (0.0-1.0); MONOCYTES % (AUTO) 10 % (0-12); NEUTROPHILS # (AUTO) 11.6 10^3/uL (1.8-7.8); NEUTROPHILS % (AUTO) 79 % (42-75); PLATELET COUNT 264 10^3/uL (130-400); WHITE BLOOD COUNT 14.6 10^3/uL (4.3-11.0)
[2021-11-12] MEDS ORDERED: KCL 20 MEQ TAB (K-DUR) PO SCH (06:00)
[2021-11-12] MEDS ORDERED: MAGNESIUM 1 GM/100 ML IVPB 100 ML IV SCH (06:00)
[2021-11-12] MEDS ORDERED: POTASSIUM CL 10MEQ/50ML IVPB 50 ML IV SCH (06:00)
[2021-11-12 06:03] LABS: ALBUMIN 3.1 GM/DL (3.2-4.5); BILIRUBIN,TOTAL 0.9 MG/DL (0.1-1.0); CALCIUM 8.9 MG/DL (8.5-10.1); CREATININE SERUM 0.83 MG/DL (0.60-1.30); MAGNESIUM 1.7 MG/DL (1.6-2.4); PHOSPHORUS 3.2 MG/DL (2.3-4.7); TOTAL PROTEIN 5.5 GM/DL (6.4-8.2)
[2021-11-12] MEDS: RT-ALBUTEROL/IPRATROPIUM 3 ML (DUONEB) VIAL INH SCH (08:02)
[2021-11-12] MEDS: MAGNESIUM 1 GM/100 ML IVPB 100 ML IV SCH ×2 (08:08→08:59)
--- NOTE | 2021-11-12 08:21 | Diagnostic Imaging Report ---
EXAMINATION: Chest 1 view HISTORY: Sepsis COMPARISON: 11/11/2021 FINDINGS: There is an increasing right base airspace opacity. No pleural effusion or pneumothorax. Heart size is normal. IMPRESSION: 1. Increasing right base airspace opacity concerning for pneumonia. Dictated by: Dictated on workstation # [id number]
[2021-11-12] MEDS: SENNOSIDES 8.6 MG (SENOKOT) TAB PO SCH (08:59)
[2021-11-12] MEDS: DOCUSATE SODIUM 100 MG (COLACE) CAP PO SCH (08:59)
--- NOTE | 2021-11-12 11:12 | Occupational Therapy Eval ---
OT Evaluation-General/PLF Medical Diagnosis Admission Date Nov 11, 2021 at 13:31 Medical Diagnosis: Sepsis, PNA Onset Date: Nov 11, 2021 Therapy Diagnosis Therapy Diagnosis: decreased ADL status and weakness Height/Weight Height (Feet): 5 Height (Inches): 10.00 Weight (Pounds): 220 Weight (Ounces): 4.0 Precautions Precautions/Isolations: Fall Prevention, Standard Precautions Referral Physician: Anthony Referral Reason: Evaluation/Treatment Medical History Pertinent Medical History: CAD, HTN, Neuropathy Additional Medical History CAD, HLD, HTN, arthritis, and prostate and skin cancer Current History Pt transferred from ARU to ICU d/t change in clinical status. Pt was experiencing s/s of hypotension, bradycardia, and was unable to maintain SPO2 levels. Social History Current Living Status: Spouse ADL-Prior Level of Function SCALE: Activities may be completed with or without assistive devices. 3-Cfuqssxrdm-etwtlsp completes the activity by him/herself with no assistance from a helper. 5-Set-up or Clean-up Assistance-helper sets up or cleans up; patient completes activity. [place] assists only prior to or following the activity. 4-Supervision or Touching Assistance-helper provides verbal cues and/or touching/steadying and/or contact guard assistance as patient completes activity. Assistance may be provided throughout the activity or intermittently. 3-Partial/Moderate Assistance-helper does LESS THAN HALF the effort. [place] lifts, holds or supports trunk or limbs, but provides less than half the effort. 2-Substantial/Maximal Assistance-helper does MORE THAN HALF the effort. [place] lifts or holds trunk or limbs and provides more than half the effort. 0-Nmrihivqs-rcduug does ALL the effort. Patient does none of the effort to complete the activity. Or, the assistance of 2 or more helpers is required for the patient to complete the activity. If activity was not attempted, code reason: 7-Patient Refused. 9-Not Applicable-not attempted and the patient did not perform the activity before the current illness, exacerbation or injury. 10-Not Attempted due to Environmental Limitations-(lack of equipment, weather restraints, etc.). 88-Not Attempted due to Medical Conditions or Safety Concerns. ADL PLOF Comments He had a fall ~1 week prior resulting in a L shoulder fx. Per family, pt is to remain in sling and is not a candidate for surgery. Unknown WB status, thus therapy will treat as NWB at this time. Per , pt is unsteady at baseline secondary to neuropathy and weakness. He required assistance with transferring in/out of shower and "sometimes" (depending on day) need assist with LB dressing. Since fall, he has been dependent for adls. does all iadls. Pt uses a walker at baseline. Self Care: Needed Some Help Functional Cognition: Needed Some Help DME/Equipment: Bath Chair, Grab Bars, Shower OT Current Status Subjective Pt laying in bed with present upon OT arrival, agreeable to eval/tx. Mental Status/Objective Patient Orientation: Person, Place, Situation Attachments: Burnett Catheter, IV, Oxygen, Ventilator ADL-Treatment Toileting Hygiene (QC): 3 (Pt required Min A to sit/stand and manuever clothing. He was able to wipe buttocks.) Other Treatments Pt educated on the purpose and benefit of skilled OT services in increasing IND in ADLs, pt verbalized understanding. He provided information about PLOF and living conditions while sitting in bed. He declined any ADLs at this time but was agreeable to sit in recliner. Pt required Mod A to transfer supine<>EOB, but was able to maintain balance once seated upright. Upon standing, pt stated, "I think I'm messing my pants." OT noticed liquid, bloody stool on bed meggan, nurse notified and BSC obtained. Pt verbalized that he was not in pain/discomfort. Pt able to SPT from EOB<>BSC with Min A. After toileting, he SPT to recliner with Min A. Post tx, pt left in recliner with call light in reach and all needs met. Education OT Patient Education: Energy conservation, Modified ADL techniques, Progress toward Goal/Update tx plan, Purpose of tx/functional activities, Rehab process, Safety issues, Transfer techniques Teaching Recipient: Patient Teaching Methods: Discussion Response to Teaching: Verbalize Understanding OT Usp Goals Usp Goals Time Frame: Nov 19, 2021 Eating (QC): 6 Oral Hygiene (QC): 6 Toileting Hygiene (QC): 4 Shower/Bathe Self (QC): 4 Upper Body Dressing (QC): 4 Lower Body Dressing (QC): 3 On/Off Footwear (QC): 3 Additional Goals: 1-Demonstrate ADL Tasks, 2-Verbalize Understanding, 3- ImproveStrength/[place] 1=Demonstrate adherence to instructed precautions during ADL tasks. 2=Patient will verbalize/demonstrate understanding of assistive devices/modifications for ADL. 3=Patient will improve strength/tolerance for activity to enable patient to perform ADL's. OT Education/Plan Problem List/Assessment Assessment: Decreased Activ Tolerance, Decreased UE Strength, Impaired Funct Balance, Impaired I ADL's, Impaired Self-Care Skills Discharge Recommendations Plan/Recommendations: Continue POC Treatment Plan/Plan of Care Patient would benefit from OT for education, treatment and training to promote independence in ADL's, mobility, safety and/or upper extremity function for ADL's. Plan of Care: ADL Retraining, Functional Mobility, UE Funct Exercise/Act Treatment Duration: Nov 19, 2021 Frequency: 3 times per week (3-5x/wk) Estimated Hrs Per Day: .25 hour per day Time/GCodes Start Time: 08:35 Stop Time: 08:53 Total Time Billed (hr/min): 20 Billed Treatment Time 1, KYLIE DAVISON OT Nov 12, 2021 11:12
--- NOTE | 2021-11-12 11:24 | Tele-ICU Progress Note ---
Subjective Date Seen by a Provider: Nov 12, 2021 Time Seen by a Provider: 11:24 Subjective/Events-last exam (Tele-ICU Physician , Progress Note ) Available chart/ vitals / labs / Images reviewed Video assessment done using teleICU camera, rest of exam as per RN Discussed with RN Events overnight : Afebrile hemodynamically stable Respiratory - 2L I/O =pos Drips: Pressors- no Consultants: Hospital course: (11/03) originally at other hosp for weakness and fall CT head chronic atrophy no acute findings (11/11) 85 y M from other hospital for higher level of care treat PNA/ syncope episode at rehab ( h/o left arm prox humerus fx Sling in place A/P Leukocytosis with elev lactate and borderline hypotension and syncopy episode - received 1 L NS - repeated lactate WNL , NS at 100cc/h infusing -cefepime started 11/11 - CXR with possible PNA ( has fibrotic changes on CT chest earlier ) - RLL atelectasi vs PNA on CXR 11/12 Urinary retention -Sherman cath d/c-ed 11/09/2021 by urology - now sherman in place - as per urology Hyponatremia - 129 - stable on salt tablets and fluid restriction S/p fall with left humerus fracture -no surgery, in sling CAD - s/p stented re-stenosed LAD 07/2021 , on Plavix - stress test 07/2021 - EF 67% HTN - off meds now Lines : periph , (Central Line Necessity Reviewed) Sherman: + OG: Nutrition: Analgesia: Anxiety/ delirium VTE Prophylaxis: anne-marie 40 Stress Ulcer Prophylaxis: po Plans in collaboration with bedside consultants and IM MDs. Discussed with RN to reach out if any questions or concerns A total of 20 minutes of critical care time was devoted to this patient today, required to treat and/or prevent further deterioration of critical care cond ition ( as above ) . Sepsis Event Evaluation Height, Weight, BMI Height: 5'10.00" Weight: 220lbs. 4.0oz. 99.984282hw; 24.39 BMI Method:Stated Focused Exam Time of Focused Exam: 15:49 Exam Exam Patient acknowledged, consented, and participated in this virtual visit which was conducted using real time audio/video Vital Signs Date Time Temp Pulse Resp B/P (MAP) Pulse Ox O2 Delivery O2 Flow Rate FiO2 11/12/21 10:00 75 14 116/85 100 Nasal Cannula 2.00 11/12/21 09:00 87 9 93/64 94 Nasal Cannula 2.00 11/12/21 08:03 98 Nasal Cannula 2.00 11/12/21 08:00 100 Nasal Cannula 2.00 11/12/21 08:00 87 11 81/53 97 Nasal Cannula 2.00 11/12/21 07:47 36.0 11/12/21 07:00 82 11/12/21 07:00 80 18 86/69 90 Nasal Cannula 2.00 11/12/21 06:00 82 119/74 99 Nasal Cannula 2.00 11/12/21 05:00 80 106/56 94 Nasal Cannula 2.00 11/12/21 04:00 82 111/62 99 Nasal Cannula 2.00 11/12/21 04:00 Nasal Cannula 2.00 11/12/21 03:00 76 105/49 93 Nasal Cannula 2.00 11/12/21 02:00 94 22 116/60 99 Nasal Cannula 2.00 11/12/21 01:00 92 11/12/21 01:00 92 92/58 99 Nasal Cannula 2.00 11/12/21 00:00 111 92/52 95 Nasal Cannula 2.00 11/11/21 23:59 Nasal Cannula 2.00 11/11/21 23:00 121 97/73 95 Nasal Cannula 2.00 11/11/21 22:00 140 108/89 97 Nasal Cannula 2.00 11/11/21 21:29 96 Nasal Cannula 2.00 11/11/21 21:00 98 109/72 95 Nasal Cannula 2.00 11/11/21 20:10 37.0 11/11/21 20:00 103 23 107/81 98 Nasal Cannula 2.00 11/11/21 20:00 Nasal Cannula 2.00 11/11/21 19:00 105 19 110/54 97 Nasal Cannula 2.00 11/11/21 19:00 105 11/11/21 18:00 101 154/105 98 Nasal Cannula 2.00 11/11/21 17:00 100 153/72 99 Nasal Cannula 2.00 11/11/21 16:25 36.2 11/11/21 16:00 Nasal Cannula 2.00 11/11/21 16:00 95 127/112 95 Nasal Cannula 2.00 11/11/21 15:00 86 97 Nasal Cannula 2.00 11/11/21 14:53 Nasal Cannula 2.00 11/11/21 14:41 91 97 11/11/21 14:00 75 100 Nasal Cannula 2.00 11/11/21 13:30 78 135/83 97 Nasal Cannula 2.00 I & O 11/12/21 07:00 Intake Total 2400 ml Output Total 2075 ml Balance 325 ml Height & Weight Height: 5'10.00" Weight: 220lbs. 4.0oz. 99.807310dz; 24.39 BMI Method:Stated General Appearance: Anxious, Chronically ill, Mild Distress, Other (Pale and fatigued) HEENT: PERRL/EOMI, Normal ENT Inspection, Pharynx Normal Neck: Full Range of Motion Respiratory: Accessory Muscle Use, Crackles, Decreased Breath Sounds, Wheezing Cardiovascular: Regular Rate, Rhythm, Tachycardia Neurologic/Psychiatric: Alert, Oriented x3, Disoriented Results Lab Laboratory Tests 11/11/21 19:05 11/12/21 05:17 Assessment/Plan Assessment/Plan 1 TOYA AMAYA MD Nov 12, 2021 11:24
--- NOTE | 2021-11-12 11:33 | Discharge Summary ---
Diagnosis/Chief Complaint Date of Admission Nov 11, 2021 at 13:31 Date of Discharge Discharge Date: Nov 12, 2021 Discharge Diagnosis Assessment: Hypotension Sepsis Pneumonia facility acquired Fall Debility Left humerus fracture no surgery required placed in sling Urinary retention Burnett cath in place started bladder meds then DC catheter 11/09/2021 by urology Hyponatremia placed on salt tablets and fluid restriction HTN HLP h/o Prostate cancer Plan: Pneumonia treatment IV fluids Supportive care Once stable return back to inpatient rehab Discharge Summary Discharge Physical Examination Allergies: Coded Allergies: Sulfa (Sulfonamide Antibiotics) (Unverified Allergy, Unknown, 12/20/13) Vitals & I&Os Vital Signs Date Time Temp Pulse Resp B/P (MAP) Pulse Ox O2 Delivery O2 Flow Rate FiO2 11/12/21 13:34 11/12/21 12:00 36.0 Nasal Cannula 2.00 11/12/21 12:00 100 11/12/21 12:00 70 14 General Appearance: Alert, Oriented X3, Cooperative Respiratory: Clear to Auscultation Cardiovascular: Regular Rate Psych/Mental Status: Mental Status NL Hospital Course Was the Problem List Reviewed?: Yes 85 M transfered from rehab to ICU due to hypotension secodary to sepsis from suspected pneumonia. Sepsis protocol was started. Chest x-ray showed evidence of PNA. Fecal Occult blood was positive. Burnett catheter was placed due to urine retention. Cardiology and surgery consulted. Pt to transfer back to rehab today with continued sepsis management + OT/PT. SAUCE,JAZIEL Labs (last 24 hrs) Laboratory Tests 11/11/21 12:54: B-Type Natriuretic Peptide 107.7H 11/11/21 14:49: Glucometer 130H 11/11/21 19:05: Sodium Level 129L, Potassium Level 4.1, Chloride Level 95L, Carbon Dioxide Level 23, Anion Gap 11, Blood Urea Nitrogen 17, Creatinine 0.92, Estimat Glomerular Filtration Rate 82, BUN/Creatinine Ratio 18, Glucose Level 135H, Calcium Level 9.2 11/11/21 20:30: Glucometer 131H 11/12/21 02:00: Stool Occult Blood Immunoassay POSITIVEH 11/12/21 05:17: White Blood Count 14.6H, Red Blood Count 3.84L, Hemoglobin 13.1L, Hematocrit 37L , Mean Corpuscular Volume 97, Mean Corpuscular Hemoglobin 34, Mean Corpuscular Hemoglobin Concent 35, Red Cell Distribution Width 13.0, Platelet Count 264, Mean Platelet Volume 8.4L, Immature Granulocyte % (Auto) 1, Neutrophils (%) (Auto) 79H, Lymphocytes (%) (Auto) 10L, Monocytes (%) (Auto) 10, Eosinophils (%) (Auto) 0, Basophils (%) (Auto) 1, Neutrophils # (Auto) 11.6H, Lymphocytes # (Auto) 1.5, Monocytes # (Auto) 1.4H, Eosinophils # (Auto) 0.0, Basophils # (Auto) 0.1, Immature Granulocyte # (Auto) 0.1, Sodium Level 129L, Potassium Level 4.0, Chloride Level 96L, Carbon Dioxide Level 23, Anion Gap 10, Blood Urea Nitrogen 14, Creatinine 0.83, Estimat Glomerular Filtration Rate 86, BUN/Creatinine Ratio 17, Glucose Level 112H, Calcium Level 8.9, Corrected Calcium 9.6, Phosphorus Level 3.2, Magnesium Level 1.7, Total Bilirubin 0.9, Aspartate Amino Transf (AST/SGOT) 38H, Alanine Aminotransferase (ALT/SGPT) 22, Alkaline Phosphatase 68, Total Protein 5.5L, Albumin 3.1L Microbiology 11/12/21 C. difficile GDH Antigen & Toxins - Final, Complete 11/11/21 MRSA Screen - Final, Complete MRSA not isolated Pending Labs Microbiology Date/Time Source Procedure Growth Status 11/12/21 02:00 Stool C. difficile GDH Antigen & Toxins - Final Complete 11/11/21 12:40 Nasal MRSA Screen - Final MRSA not isolated Complete Laboratory Tests 11/11/21 12:54: B-Type Natriuretic Peptide 107.7 11/11/21 14:49: Glucometer 130 11/11/21 19:05: Sodium Level 129, Potassium Level 4.1, Chloride Level 95, Carbon Dioxide Level 23, Anion Gap 11, Blood Urea Nitrogen 17, Creatinine 0.92, Estimat Glomerular Filtration Rate 82, BUN/Creatinine Ratio 18, Glucose Level 135, Calcium Level 9.2 11/11/21 20:30: Glucometer 131 11/12/21 02:00: Stool Occult Blood Immunoassay POSITIVE 11/12/21 05:17: White Blood Count 14.6, Red Blood Count 3.84, Hemoglobin 13.1, Hematocrit 37, Mean Corpuscular Volume 97, Mean Corpuscular Hemoglobin 34, Mean Corpuscular Hemoglobin Concent 35, Red Cell Distribution Width 13.0, Platelet Count 264, Mean Platelet Volume 8.4, Immature Granulocyte % (Auto) 1, Neutrophils (%) (Auto) 79, Lymphocytes (%) (Auto) 10, Monocytes (%) (Auto) 10, Eosinophils (%) (Auto) 0, Basophils (%) (Auto) 1, Neutrophils # (Auto) 11.6, Lymphocytes # (Auto) 1.5, Monocytes # (Auto) 1.4, Eosinophils # (Auto) 0.0, Basophils # (Auto) 0.1, Immature Granulocyte # (Auto) 0.1, Sodium Level 129, Potassium Level 4.0, Chloride Level 96, Carbon Dioxide Level 23, Anion Gap 10, Blood Urea Nitrogen 14, Creatinine 0.83, Estimat Glomerular Filtration Rate 86, BUN/Creatinine Ratio 17, Glucose Level 112, Calcium Level 8.9, Corrected Calcium 9.6, Phosphorus Level 3.2, Magnesium Level 1.7, Total Bilirubin 0.9, Aspartate Amino Transf (AST/SGOT) 38, Alanine Aminotransferase (ALT/SGPT) 22, Alkaline Phosphatase 68, Total Protein 5.5, Albumin 3.1 Discharge Home Medications: Active Scripts Active Reported Clopidogrel (Clopidogrel Bisulfate) 75 Mg Tablet 75 Mg PO DAILY Calcium Carbonate 600 Mg Calcium (1500 Mg) Tablet 600 Mg PO DAILY Aspirin EC (Aspirin) 81 Mg Tablet.dr 81 Mg PO DAILY Neurontin (Gabapentin) 300 Mg Capsule 600 Mg PO HS TAKES 2 (300MG) CAPS Atorvastatin Calcium 20 Mg Tablet 5 Mg PO HS TAKES OF A 20MG TAB Hydrochlorothiazide 25 Mg Tablet 12.5 Mg PO DAILY TAKES OF A 25MG TAB Lisinopril 40 Mg Tablet 20 Mg PO DAILY TAKES OF A 40MG TAB Metoprolol Tartrate 50 Mg Tablet 25 Mg PO BID TAKES OF A 50MG TAB Fish Oil 1,200 mg Softgel (Neche-3/Dha/Epa/Fish Oil) 1,200 Mg Capsule 1,200 Mg PO DAILY Multivitamin 1 Each Tablet 1 Each PO DAILY Instructions to patient/family Please see electronic discharge instructions given to patient. Diagnosis/Problems Diagnosis/Problems (1) Pneumonia (2) Sepsis (3) Weakness Status: Acute (4) Closed left humeral fracture Status: Acute (5) History of prostate cancer Status: Chronic (6) Fall on same level Status: Acute (7) Hyponatremia Status: Acute (8) CAD (coronary artery disease) (9) Urinary retention ARIA ALEMAN DO Nov 12, 2021 11:33
--- NOTE | 2021-11-12 11:38 | Progress Note ---
JAZIEL LOCKWOOD 11/12/21 1138: Progress Note 85 M transfered from rehab to ICU due to hypotension secodary to sepsis from suspected pneumonia. Sepsis protocol was started. Chest x-ray showed evidence of PNA. Fecal Occult blood was positive. Burnett catheter was placed due to urine retention. Cardiology and surgery consulted. Pt to transfer back to rehab today with continued sepsis management + OT/PT. AURELIA CRUZ DO 11/12/21 2201: Supervisory-Addendum Brief Verification & Attestation Participated in pt care: history, MDM, physical Personally performed: exam, history, MDM, supervision of care Care discussed with: Medical Student Procedures: n/a Results interpretation: Verified all documentation Verification and Attestation of Medical Student E/M Service A medical student performed and documented this service in my presence. I reviewed and verified all information documented by the medical student and made modifications to such information, when appropriate. I personally performed the physical exam and medical decision making. Aurelia Cruz Nov 12, 2021,22:01 JAZIEL LOCKWOOD Nov 12, 2021 11:38 AURELIA CRUZ DO Nov 12, 2021 22:01
--- NOTE | 2021-11-12 12:05 | Consultation-Cardiology ---
HPI-Cardiology Cardiology Consultation Date of Consultation 11/12/21 Date of Admission Time Seen by Provider: 11:24 Indication: Coronary artery disease HPI 85 years old gentleman who was admitted to acute rehab after hip fracture, receiving physical therapy. He was transferred to the intensive care unit due to hypotension and bradycardia. He received IV fluid On my evaluation he was feeling better, blood pressure is more stable. Denied any chest pain. No syncope or near syncopal episodes. Reporting improvement in his symptoms Noted to have pneumonia and received antibiotics. Home Medications & Allergies Allergies: Coded Allergies: Sulfa (Sulfonamide Antibiotics) (Unverified Allergy, Unknown, 12/20/13) Home Medication List Reviewed: Yes LNM-Knnuig-Vvwizc Hx Patient Social History Marital Status: Employed/Student: retired Smoking Status: Never a Smoker Former smoker/When Quit: Apr 03, 1987 Type Used: Cigarettes Recent Hopitalizations: No Alcohol Use?: Yes Immunizations Up To Date Tetanus Booster (TDap): Unknown Date of Pneumonia Vaccine: Jan 01, 2014 Date of Influenza Vaccine: Dec 17, 2020 Past Medical History Discussed below Family Medical History Significant Family History: No Pertinent Family Hx Family History: Glaucoma G8 BROTHER No Family History of: AIDS Abdominal aortic aneurysm Fellows's disease Alcoholism Aphasia Arthritis Asthma Cancer of mouth Cardiovascular disease Cataracts Colon cancer Completed stroke Congenital disease Congenital heart disease Coronary thrombosis Cystic fibrosis Deafness or hearing loss Dementia Diabetes mellitus Drug abuse Dysphasia Fibrocystic disease of breast Gastroenteritis Headache disorder Hypercholesterolemia Hypertension Infertility Kidney disease Myocardial infarction Neoplasm Not obtainable due to adoption Osteoporosis Parkinson's disease Prostate cancer Psychosocial problem Respiratory disorder Seizure disorder Severe allergy Thyroid disease Tuberculosis Visual disorder Review of Systems-General Review of Systems Constitutional: see HPI, malaise, weakness EENTM: no symptoms reported Respiratory: see HPI, cough, dyspnea on exertion Cardiovascular: see HPI; No chest pain, No edema, No Hx of Intervention, No palpitations, No syncope, No vascular heart diseas, No other Gastrointestinal: no symptoms reported, see HPI Genitourinary: no symptoms reported, see HPI Musculoskeletal: see HPI, joint pain Skin: no symptoms reported, see HPI Psychiatric/Neurological: No Symptoms Reported, See HPI Reviewed Test Results Reviewed Test Results Lab Laboratory Tests Test 11/11/21 12:54 11/11/21 14:49 11/11/21 19:05 11/11/21 20:30 Range/Units B-Type Natriuretic Peptide 107.7 H <100.0 PG/ML Glucometer 130 H 131 H 70-110 MG/DL Sodium Level 129 L 135-145 MMOL/L Potassium Level 4.1 3.6-5.0 MMOL/L Chloride Level 95 L 98-107 MMOL/L Carbon Dioxide Level 23 21-32 MMOL/L Anion Gap 11 5-14 MMOL/L Blood Urea Nitrogen 17 7-18 MG/DL Creatinine 0.92 0.60-1.30 MG/DL Estimat Glomerular Filtration Rate 82 BUN/Creatinine Ratio 18 Glucose Level 135 H 70-105 MG/DL Calcium Level 9.2 8.5-10.1 MG/DL Test 11/12/21 02:00 11/12/21 05:17 Range/Units Stool Occult Blood Immunoassay POSITIVE H NEGATIVE White Blood Count 14.6 H 4.3-11.0 10^3/uL Red Blood Count 3.84 L 4.30-5.52 10^6/uL Hemoglobin 13.1 L 13.3-17.7 g/dL Hematocrit 37 L 40-54 % Mean Corpuscular Volume 97 80-99 fL Mean Corpuscular Hemoglobin 34 25-34 pg Mean Corpuscular Hemoglobin Concent 35 32-36 g/dL Red Cell Distribution Width 13.0 10.0-14.5 % Platelet Count 264 130-400 10^3/uL Mean Platelet Volume 8.4 L 9.0-12.2 fL Immature Granulocyte % (Auto) 1 % Neutrophils (%) (Auto) 79 H 42-75 % Lymphocytes (%) (Auto) 10 L 12-44 % Monocytes (%) (Auto) 10 0-12 % Eosinophils (%) (Auto) 0 0-10 % Basophils (%) (Auto) 1 0-10 % Neutrophils # (Auto) 11.6 H 1.8-7.8 10^3/uL Lymphocytes # (Auto) 1.5 1.0-4.0 10^3/uL Monocytes # (Auto) 1.4 H 0.0-1.0 10^3/uL Eosinophils # (Auto) 0.0 0.0-0.3 10^3/uL Basophils # (Auto) 0.1 0.0-0.1 10^3/uL Immature Granulocyte # (Auto) 0.1 0.0-0.1 10^3/uL Sodium Level 129 L 135-145 MMOL/L Potassium Level 4.0 3.6-5.0 MMOL/L Chloride Level 96 L 98-107 MMOL/L Carbon Dioxide Level 23 21-32 MMOL/L Anion Gap 10 5-14 MMOL/L Blood Urea Nitrogen 14 7-18 MG/DL Creatinine 0.83 0.60-1.30 MG/DL Estimat Glomerular Filtration Rate 86 BUN/Creatinine Ratio 17 Glucose Level 112 H 70-105 MG/DL Calcium Level 8.9 8.5-10.1 MG/DL Corrected Calcium 9.6 8.5-10.1 MG/DL Phosphorus Level 3.2 2.3-4.7 MG/DL Magnesium Level 1.7 1.6-2.4 MG/DL Total Bilirubin 0.9 0.1-1.0 MG/DL Aspartate Amino Transf (AST/SGOT) 38 H 5-34 U/L Alanine Aminotransferase (ALT/SGPT) 22 0-55 U/L Alkaline Phosphatase 68 40-136 U/L Total Protein 5.5 L 6.4-8.2 GM/DL Albumin 3.1 L 3.2-4.5 GM/DL Physical Exam Physical Exam Vital Signs Vital Signs - First Documented 11/11/21 11/11/21 11/11/21 13:30 16:25 19:00 Temp 36.2 Pulse 78 Resp 19 B/P (MAP) 135/83 Pulse Ox 97 O2 Delivery Nasal Cannula O2 Flow Rate 2.00 Capillary Refill : Height, Weight, BMI Height: 5'10.00" Weight: 220lbs. 4.0oz. [id number]; 24.39 BMI Method:Stated General Appearance: Anxious, Chronically ill, Mild Distress, Other (Pale and fatigued) HEENT: PERRL/EOMI, Normal ENT Inspection, Pharynx Normal Neck: Full Range of Motion Respiratory: Accessory Muscle Use, Crackles, Decreased Breath Sounds, Wheezing Cardiovascular: Regular Rate, Rhythm, Tachycardia Neurologic/Psychiatric: Alert, Oriented x3, Disoriented A/P-Cardiology Admission Diagnosis Pneumonia Sepsis Coronary artery disease Peripheral arterial disease Assessment/Plan Pneumonia, sepsis, received antibiotic and IV fluid Feeling better, reporting improvement. Transient episode of bradycardia, probably secondary to hypoxemia, heart rate is better, patient is feeling better. Continue to monitor Status post closed left humeral fracture, receiving physical therapy. Coronary artery disease with stenting to LAD in the past, underwent LHC done 07/14/21 with balloon angioplasty for instent restenosis. Continue aspirin and Plavix Peripheral arterial disease, nonhealing ulcer on the right first and fifth toe since March 2021.ONUR on was nondiagnostic bilaterally. Had an abnormal TBI and waveforms bilaterally, 0.64 on the right and 0.38 on the left. Underwent peripheral angiogram on 07/23/21 showing Subtotal occlusion with heavily calcified right SFA and popliteal artery with successful balloon angioplasty and reduction of the stenosis. Patient will require debulking system then deployment of a stent. Which will be staged for later point. Total occlusion of the left distal SFA/popliteal artery, the trifurcation is reconstructed by collateral with slow flow. Reports wounds to right foot slowly improving. Continue on aspirin and Plavix Peripheral neuropathy, absent sensation in the feet. Maintained on gabapentin Hypertension, controlled on current medication, continue to monitor Hyperlipidemia, controlled. Nonobstructive carotid artery stenosis per carotid duplex done July 2021. History of tobaccoism, stopped smoking in 1987 Occasional alcohol use, social drinking. BMI 30. We discussed weight loss. NANCI ORTIZ MD Nov 12, 2021 12:05
--- NOTE | 2021-11-12 15:02 | Consultation - Surgery ---
BEBETO CABRERA 11/12/21 1502: History of Present Illness History of Present Illness Patient Consulted On(sussy/time) 11/12/21 14:57 Date Seen by Provider: Nov 12, 2021 Time Seen by Provider: 14:55 Reason for Visit: Coronary artery disease History of Present Illness Pt is an 85yo M who is currently being treated for septic pneumonia acquired while rehabbing a L humerus fx here in the hospital. He was found to have a positive fecal occult blood test today. He has not seen any blood in his stool. Denies nausea/vomiting, abdominal pain, diarrhea or constipation. He is not aware of a family hx of cancer of any sort. He states that his last colonoscopy was 10+ years ago, he has only had one and doesnt believe they found anything. Allergies and Home Medications Allergies Coded Allergies: Sulfa (Sulfonamide Antibiotics) (Unverified Allergy, Unknown, 12/20/13) Patient Home Medication List Aspirin (Aspirin EC) 81 Mg Tablet.dr, 81 MG PO DAILY, (Reported) Entered as Reported by: HORTENSIA RUIZ on 07/23/21908 Last Action: Reviewed Atorvastatin Calcium (Atorvastatin Calcium) 20 Mg Tablet, 5 MG PO HS, (Reported) Entered as Reported by: HORTENSIA RUIZ on 07/23/21908 Last Action: Reviewed Calcium Carbonate (Calcium Carbonate) 600 Mg Calcium (1500 Mg) Tablet, 600 MG PO DAILY, (Reported) Entered as Reported by: KAYLEE ADAMS on 11/04/211258 Last Action: Reviewed Clopidogrel Bisulfate (Clopidogrel) 75 Mg Tablet, 75 MG PO DAILY, (Reported) Entered as Reported by: KAYLEE ADAMS on 11/04/211258 Last Action: Reviewed Gabapentin (Neurontin) 300 Mg Capsule, 600 MG PO HS, (Reported) Entered as Reported by: HORTENSIA RUIZ on 07/23/21908 Last Action: Reviewed Hydrochlorothiazide (Hydrochlorothiazide) 25 Mg Tablet, 12.5 MG PO DAILY, (Reported) Entered as Reported by: HORTENSIA RUIZ on 07/23/21908 Last Action: Reviewed Lisinopril (Lisinopril) 40 Mg Tablet, 20 MG PO DAILY, (Reported) Entered as Reported by: HORTENSIA RUIZ on 07/23/21908 Last Action: Reviewed Metoprolol Tartrate (Metoprolol Tartrate) 50 Mg Tablet, 25 MG PO BID, (Reported) Entered as Reported by: MARLA LEIVA on 12/17/201541 Last Action: Reviewed Multivitamin (Multivitamin) 1 Each Tablet, 1 EACH PO DAILY, (Reported) Entered as Reported by: MARAL LEIVA on 12/17/201541 Last Action: Reviewed [place]-3/Dha/Epa/Fish Oil (Fish Oil 1,200 mg Softgel) 1,200 Mg Capsule, 1,200 MG PO DAILY, (Reported) Entered as Reported by: MARLA LEIVA on 12/17/201541 Last Action: Reviewed Past [place]ov[place]-Ebdtjg Hx Patient Social History Smoking Status: Never a Smoker Former Smoker, Quit: Feb 20, 1988 Type Used: Cigarettes Recent Hopitalizations: No Alcohol Use?: Yes Immunizations Up To Date Tetanus Booster (TDap): Unknown PED Vaccines UTD: Yes Date of Pneumonia Vaccine: Jan 01, 2014 Date of Influenza Vaccine: Dec 17, 2020 Seasonal Allergies Seasonal Allergies: No Surgeries History of Surgeries: Yes (skin lesions removed, ) Surgeries: Abdominal, Appendectomy, Cardiac, Coronary Stent, Gallbladder, Prostatectomy Respiratory History of Respiratory Disorde: Yes Respiratory Disorders: Pneumonia Cardiovascular History of Cardiac Disorders: Yes (CARDIAC STENTS X2-2000,) Cardiac Disorders: Coronary Artery Disease, High Cholesterol, Hypertension Neurological History of Neurological Disord: Yes (PERIPHERAL NEUROPATHY) Neurological Disorders: Neuropathy Reproductive System Sexually Transmitted Disease: No HIV/AIDS: No Genitourinary History of Genitourinary Disor: Yes (PROSTATE CANCER) Genitourinary Disorders: Prostate Problems Gastrointestinal History of Gastrointestinal Di: Yes Gastrointestinal Disorders: Abdominal Hernia Musculoskeletal History of Musculoskeletal Dis: Yes Musculoskeletal Disorders: Arthritis, Fractures Endocrine History of Endocrine Disorders: No HEENT History of HEENT Disorders: No Cancer History of Cancer: Yes Cancer: Prostate, Skin Psychosocial History of Psychiatric Problem: No Integumentary History of Skin or Integumenta: Yes (hx SKIN CANCER-REMOVED) Blood Transfusions History of Blood Disorders: No Adverse Reaction to a Blood Tr: No Family Medical History Significant Family History: No Pertinent Family Hx Family Medial History: Glaucoma G8 BROTHER No Family History of: AIDS Abdominal aortic aneurysm Gabe's disease Alcoholism Aphasia Arthritis Asthma Cancer of mouth Cardiovascular disease Cataracts Colon cancer Completed stroke Congenital disease Congenital heart disease Coronary thrombosis Cystic fibrosis Deafness or hearing loss Dementia Diabetes mellitus Drug abuse Dysphasia Fibrocystic disease of breast Gastroenteritis Headache disorder Hypercholesterolemia Hypertension Infertility Kidney disease Myocardial infarction Neoplasm Not obtainable due to adoption Osteoporosis Parkinson's disease Prostate cancer Psychosocial problem Respiratory disorder Seizure disorder Severe allergy Thyroid disease Tuberculosis Visual disorder Review of Systems-General Constitutional: No chills, No diaphoresis Respiratory: cough Gastrointestinal: No abdominal pain, No constipation, No diarrhea, No nausea, No vomiting Physical Exam-General Problems Physical Exam Vital Signs Vital Signs - First Documented 11/11/21 11/11/21 11/11/21 13:30 16:25 19:00 Temp 36.2 Pulse 78 Resp 19 B/P (MAP) 135/83 Pulse Ox 97 O2 Delivery Nasal Cannula O2 Flow Rate 2.00 Capillary Refill : General Appearance: WD/WN, no apparent distress HEENT: PERRL/EOMI Neck: supple, normal inspection Respiratory: no respiratory distress, no accessory muscle use Cardiovascular: regular rate, rhythm, no murmur Gastrointestinal: normal bowel sounds, non tender, soft Extremities: normal inspection, no pedal edema Neurologic/Psychiatric: alert, oriented x 3 Skin: normal color, warm/dry Data Review Labs Laboratory Tests 11/11/21 19:05: Sodium Level 129L, Potassium Level 4.1, Chloride Level 95L, Carbon Dioxide Level 23, Anion Gap 11, Blood Urea Nitrogen 17, Creatinine 0.92, Estimat Glomerular Filtration Rate 82, BUN/Creatinine Ratio 18, Glucose Level 135H, Calcium Level 9.2 11/11/21 20:30: Glucometer 131H 11/12/21 02:00: Stool Occult Blood Immunoassay POSITIVEH 11/12/21 05:17: Sodium Level 129L, Potassium Level 4.0, Chloride Level 96L, Carbon Dioxide Level 23, Anion Gap 10, Blood Urea Nitrogen 14, Creatinine 0.83, Estimat Glomerular Filtration Rate 86, BUN/Creatinine Ratio 17, Glucose Level 112H, Calcium Level 8.9, White Blood Count 14.6H, Red Blood Count 3.84L, Hemoglobin 13.1L, Hematoc rit 37L, Mean Corpuscular Volume 97, Mean Corpuscular Hemoglobin 34, Mean Corpuscular Hemoglobin Concent 35, Red Cell Distribution Width 13.0, Platelet Count 264, Mean Platelet Volume 8.4L, Immature Granulocyte % (Auto) 1, Neutrophils (%) (Auto) 79H, Lymphocytes (%) (Auto) 10L, Monocytes (%) (Auto) 10, Eosinophils (%) (Auto) 0, Basophils (%) (Auto) 1, Neutrophils # (Auto) 11.6H, Lymphocytes # (Auto) 1.5, Monocytes # (Auto) 1.4H, Eosinophils # (Auto) 0.0, Basophils # (Auto) 0.1, Immature Granulocyte # (Auto) 0.1, Corrected Calcium 9.6, Phosphorus Level 3.2, Magnesium Level 1.7, Total Bilirubin 0.9, Aspartate Amino Transf (AST/SGOT) 38H, Alanine Aminotransferase (ALT/SGPT) 22, Alkaline Phosphatase 68, Total Protein 5.5L, Albumin 3.1L Microbiology 11/12/21 C. difficile GDH Antigen & Toxins - Final, Complete 11/11/21 MRSA Screen - Final, Complete MRSA not isolated Assessment/Plan Assessment/Plan Assessment/Plan Sepsis Pneumonia Positive fecal occult HTN CAD PAD Pt was hypotensive and bradycardic today likely secondary to sepsis. He is stable now and receiving fluids and abx. He has not had a colonoscopy in 10+ years. Hgb is 13.1 and pt is on Aspirin/Plavix. I spoke with the patient about his options of having a colonoscopy or EGD to further evaluate GI bleed if necessary. Would not recommend any intervention at this time, plan on checking Hgb in the morning to make sure it is stable. KELBY CHRISTENSEN DO 11/14/21 1454: Allergies and Home Medications Allergies Coded Allergies: Sulfa (Sulfonamide Antibiotics) (Unverified Allergy, Unknown, 12/20/13) Patient Home Medication List Home Medication List Reviewed: Yes Aspirin (Aspirin EC) 81 Mg Tablet.dr, 81 MG PO DAILY, (Reported) Entered as Reported by: HORTENSIA RUIZ on 07/23/21908 Last Action: Reviewed Atorvastatin Calcium (Atorvastatin Calcium) 20 Mg Tablet, 5 MG PO HS, (Reported) Entered as Reported by: HORTENSIA RUIZ on 07/23/21908 Last Action: Reviewed Calcium Carbonate (Calcium Carbonate) 600 Mg Calcium (1500 Mg) Tablet, 600 MG PO DAILY, (Reported) Entered as Reported by: KAYLEE ADAMS on 11/04/21 1259 Last Action: Reviewed Clopidogrel Bisulfate (Clopidogrel) 75 Mg Tablet, 75 MG PO DAILY, (Reported) Entered as Reported by: KAYLEE ADAMS on 11/04/21 1259 Last Action: Reviewed Gabapentin (Neurontin) 300 Mg Capsule, 600 MG PO HS, (Reported) Entered as Reported by: HORTENSIA RUIZ on 07/23/21908 Last Action: Reviewed Hydrochlorothiazide (Hydrochlorothiazide) 25 Mg Tablet, 12.5 MG PO DAILY, (Reported) Entered as Reported by: HORTENSIA RUIZ on 07/23/21908 Last Action: Reviewed Lisinopril (Lisinopril) 40 Mg Tablet, 20 MG PO DAILY, (Reported) Entered as Reported by: HORTENSIA RUIZ on 07/23/21908 Last Action: Reviewed Metoprolol Tartrate (Metoprolol Tartrate) 50 Mg Tablet, 25 MG PO BID, (Reported) Entered as Reported by: MARLA LEIVA on 12/17/201541 Last Action: Reviewed Multivitamin (Multivitamin) 1 Each Tablet, 1 EACH PO DAILY, (Reported) Entered as Reported by: MARLA LEIVA on 12/17/201541 Last Action: Reviewed [place]-3/Dha/Epa/Fish Oil (Fish Oil 1,200 mg Softgel) 1,200 Mg Capsule, 1,200 MG PO DAILY, (Reported) Entered as Reported by: MARLA LEIVA on 12/17/201541 Last Action: Reviewed Past [place]-Yxiafj Hx Family Medical History Family Medial History: Glaucoma G8 BROTHER No Family History of: AIDS Abdominal aortic aneurysm Gbae's disease Alcoholism Aphasia Arthritis Asthma Cancer of mouth Cardiovascular disease Cataracts Colon cancer Completed stroke Congenital disease Congenital heart disease Coronary thrombosis Cystic fibrosis Deafness or hearing loss Dementia Diabetes mellitus Drug abuse Dysphasia Fibrocystic disease of breast Gastroenteritis Headache disorder Hypercholesterolemia Hypertension Infertility Kidney disease Myocardial infarction Neoplasm Not obtainable due to adoption Osteoporosis Parkinson's disease Prostate cancer Psychosocial problem Respiratory disorder Seizure disorder Severe allergy Thyroid disease Tuberculosis Visual disorder Supervisory-Addendum Brief Verification & Attestation Participated in pt care: history, MDM, physical Personally performed: exam, history, MDM, supervision of care Care discussed with: Medical Student Procedures: n/a Verification and Attestation of Medical Student E/M Service A medical student performed and documented this service. I then reviewed and verified all information documented by the medical student and made modifications to such information, when appropriate. I personally performed a physical exam, medical decision making and then discussed any differences between the notes and made revisions as necessary to create one note. Kelby Christensen , 11/14/21 , 14:54 BEBETO CABRERA Nov 12, 2021 15:02 KELBY CHRISTENSEN DO Nov 14, 2021 14:54
== END 2021-11-12 13:34 | DRG 871 ==
LOC: ICU 13:31
PROVIDERS: ADMIT Internal Medicine; ATTEND Internal Medicine
DX: A41.9 Sepsis, unspecified organism (principal); J18.9 Pneumonia, unspecified organism; S42.302A Unspecified fracture of shaft of humerus, left arm, initial encounter for closed fracture; E87.1 Hypo-osmolality and hyponatremia; Z95.5 Presence of coronary angioplasty implant and graft; I25.10 Atherosclerotic heart disease of native coronary artery without angina pectoris; E78.00 Pure hypercholesterolemia, unspecified; I10 Essential (primary) hypertension; G62.9 Polyneuropathy, unspecified; M19.90 Unspecified osteoarthritis, unspecified site; Z85.46 Personal history of malignant neoplasm of prostate; Z85.828 Personal history of other malignant neoplasm of skin; Z92.3 Personal history of irradiation; W18.30XA Fall on same level, unspecified, initial encounter; R33.9 Retention of urine, unspecified; E78.5 Hyperlipidemia, unspecified; Y95 Nosocomial condition; Z79.82 Long term (current) use of aspirin; I65.29 Occlusion and stenosis of unspecified carotid artery; I73.9 Peripheral vascular disease, unspecified; R09.02 Hypoxemia
CPT/HCPCS: 36415; 71045; 80048; 80053; 82274; 82947; 83735; 83880; 84100; 85025; 87081; 87324; 87449; 93306; 94640; 94664

== ENCOUNTER → 2021-11-29 | Outpatient (CLI) | payer MEDICARE, OTHER ==
[~2021-11-29] MED LIST changes: +BETH25TA2 PO; +NF-NACL1GT PO; +OMG1KC PO; +TMSL.4C PO
--- NOTE | 2021-11-29 13:27 | Diagnostic Imaging Report ---
INDICATION: Trauma with left shoulder pain. FINDINGS: The 2 views. Comminuted humeral neck fracture is again noted with good overall alignment with minimal impaction. Humeral head remains in good articulation with the glenoid. There is some early callus formation noted though no solid bony bridging is seen. AC joint remains in good alignment with moderate arthritic change. IMPRESSION: The fracture of the left proximal humerus again demonstrated with good overall alignment. Dictated by: Dictated on workstation # [id number]
== END ==
LOC: ORTHO 09:33
PROVIDERS: ATTEND Orthopaedic Surgery
DX: S42.225D 2-part nondisplaced fracture of surgical neck of left humerus, subsequent encounter for fracture with routine healing (principal); X58.XXXD Exposure to other specified factors, subsequent encounter
CPT/HCPCS: 73030

== ENCOUNTER 2021-12-05 22:56 | Inpatient (IN) | payer MEDICARE, OTHER ==
[~2021-12-05] VITALS: Ht 177.8 cm; Wt 92.7 kg
[2021-12-05] MEDS ORDERED: NS IV 1000 ML 1,000 ML IV SCH (23:15)
[2021-12-05] MEDS ORDERED: ACETAMINOPHEN 500 MG TAB (TYLENOL) PO ONE (23:15)
[2021-12-05] MEDS ORDERED: IBUPROFEN 800 MG (MOTRIN) TAB PO ONE (23:15)
[2021-12-05 23:47] LABS: BASOPHILS # (AUTO) 0.1 10^3/uL (0.0-0.1); BASOPHILS % (AUTO) 1 % (0-10); EOSINOPHILS % (AUTO) 0 % (0-10); HEMATOCRIT 43 % (40-54); HEMOGLOBIN 14.3 g/dL (13.3-17.7); LYMPHOCYTES # (AUTO) 0.7 10^3/uL (1.0-4.0); LYMPHOCYTES % (AUTO) 8 % (12-44); MEAN CORPUSCULAR HEMOGLOBIN 33 pg (25-34); MEAN CORPUSCULAR HGB CONC 33 g/dL (32-36); MEAN CORPUSCULAR VOLUME 99 fL (80-99); MEAN PLATELET VOLUME 9.3 fL (9.0-12.2); MONOCYTES # (AUTO) 1.5 10^3/uL (0.0-1.0); MONOCYTES % (AUTO) 17 % (0-12); NEUTROPHILS # (AUTO) 6.7 10^3/uL (1.8-7.8); NEUTROPHILS % (AUTO) 75 % (42-75); PLATELET COUNT 213 10^3/uL (130-400); WHITE BLOOD COUNT 8.9 10^3/uL (4.3-11.0)
--- NOTE | 2021-12-05 23:49 | ED General ---
General Chief Complaint: Fever-Adult/Adol Stated Complaint: AMS Nursing Triage Note: PT TO ER [facility] FROM NURSING FACILITY WITH COMPLAINT OF FEVER. Source of Information: Patient, Longterm Records, Spouse History of Present Illness Date Seen by Provider: Dec 05, 2021 Time Seen by Provider: 23:03 Initial Comments PT ARRIVES VIA EMS FROM [facility] [place] PT WAS REPORTEDLY CONFUSED, AND HAD FEVER OF 99.6, HAD TREMORS, AND DID NOT EAT DINNER, SO SENT HERE COVID TEST WAS NEGATIVE PRIOR TO ARRIVAL. PT DOES STATE HE HAS HAD A COUGH, BUT CANNOT STATE HOW LONG HE HAS HAD THE COUGH DENIES SHORTNESS OF BREATH DENIES CHEST PAIN DENIES GI SYMPTOMS DENIES HEADACHE Allergies and Home Medications Allergies Coded Allergies: Sulfa (Sulfonamide Antibiotics) (Unverified Allergy, Unknown, 12/20/13) Patient Home Medication List Aspirin (Aspirin EC) 81 Mg Tablet.dr, 81 MG PO DAILY Prescribed by: ARIA ALEMAN on 11/18/212134 Atorvastatin Calcium (Atorvastatin Calcium) 20 Mg Tablet, 5 MG PO HS Prescribed by: ARIA ALEMAN on 11/18/212134 Bethanechol Chloride (Bethanechol Chloride) 25 Mg Tablet, 25 MG PO ACHS Prescribed by: ARIA ALEMAN on 11/18/212134 Clopidogrel Bisulfate (Clopidogrel) 75 Mg Tablet, 75 MG PO DAILY Prescribed by: ARIA ALEMAN on 11/18/212134 Gabapentin (Neurontin) 300 Mg Capsule, 600 MG PO HS Prescribed by: ARIA ALEMAN on 11/18/212134 Hydrocodone Bit/Acetaminophen (HYDROcodone/APAP 5 MG/325 MG TAB) 1 Tab Tab, 1 EA PO Q4H PRN for PAIN-MODERATE (5-7) Prescribed by: ARIA ALEMAN on 11/18/212135 Lisinopril (Lisinopril) 40 Mg Tablet, 20 MG PO DAILY Prescribed by: ARIA ALEMAN on 11/18/212134 Metoprolol Tartrate (Metoprolol Tartrate) 50 Mg Tablet, 25 MG PO BID Prescribed by: ARIA ALEMAN on 11/18/212134 Multivitamin (Multivitamin) 1 Each Tablet, 1 EACH PO DAILY, (Reported) Entered as Reported by: MARLA LEIVA on 12/17/20 1542 [place] 3 Polyunsat Fatty Acids (Fish Oil 1,000 mg Capsule) 340 Mg-1,000 Mg Cap, 1,000 MG PO DAILY@0700 Prescribed by: ARIA ALEMAN on 11/18/212134 Sodium Chloride (Sodium Chloride) 1 Gram Tab, 1 GM PO TID Prescribed by: ARIA ALEMAN on 11/18/212134 Tamsulosin HCl (Flomax) 0.4 Mg Cap, 0.4 MG PO DAILY@1800 Prescribed by: ARIA ALEMAN on 11/18/212134 Past Yvaxugg-Xwjbej-Xlvvox Hx Patient Social History Tobacco Use?: No Use of E-Cig and/or Vaping dev: No Substance use?: No Alcohol Use?: No Pt feels they are or have been: No Immunizations Up To Date Tetanus Booster (TDap): Unknown PED Vaccines UTD: Yes Influenza Vaccine Up-to-Date: No; Not Current First/Initial COVID19 Vaccinat: Apr 2020 Second COVID19 Vaccination Marcelo: May 2020 Third COVID19 Vaccination Date: FALL 2020 Seasonal Allergies Seasonal Allergies: No Past Medical History Surgery/Hospitalization HX: HEART STENTS, HERNIA REPAIR, PROSTATE SURGERY, LUNG SURGERY Surgeries: Yes (skin lesions removed, ) Abdominal, Appendectomy, Cardiac, Coronary Stent, Gallbladder, Prostatectomy Respiratory: Yes Pneumonia Currently Using CPAP: No Currently Using BIPAP: No Cardiac: Yes (CARDIAC STENTS X2-2000,) Coronary Artery Disease, High Cholesterol, Hypertension Neurological: Yes (PERIPHERAL NEUROPATHY) Neuropathy Sexually Transmitted Disease: No HIV/AIDS: No Genitourinary: Yes (PROSTATE CANCER) Prostate Problems Gastrointestinal: Yes Abdominal Hernia Musculoskeletal: Yes Arthritis, Fractures Endocrine: No HEENT: No Cancer: Yes Prostate, Skin Did You Recieve Any Treatments: Yes What Type of Treatment Did You: Radiation, Surgical Intervention Psychosocial: No Integumentary: Yes (hx SKIN CANCER-REMOVED) Blood Disorders: No Adverse Reaction/Blood Tranf: No Family Medical History Glaucoma G8 BROTHER No Family History of: AIDS Abdominal aortic aneurysm Dutchess's disease Alcoholism Aphasia Arthritis Asthma Cancer of mouth Cardiovascular disease Cataracts Colon cancer Completed stroke Congenital disease Congenital heart disease Coronary thrombosis Cystic fibrosis Deafness or hearing loss Dementia Diabetes mellitus Drug abuse Dysphasia Fibrocystic disease of breast Gastroenteritis Headache disorder Hypercholesterolemia Hypertension Infertility Kidney disease Myocardial infarction Neoplasm Not obtainable due to adoption Osteoporosis Parkinson's disease Prostate cancer Psychosocial problem Respiratory disorder Seizure disorder Severe allergy Thyroid disease Tuberculosis Visual disorder No Pertinent Family Hx Physical Exam Vital Signs Vital Signs - First Documented 12/05/21 23:00 Temp 38.7 Pulse 98 Resp 18 B/P (MAP) 128/90 (103) Pulse Ox 95 O2 Delivery Room Air Capillary Refill : Less Than 3 Seconds Height, Weight, BMI Height: 5'10.00" Weight: 220lbs. 4.0oz. [id number]; 31.00 BMI Method:Stated Focused Exam Sepsis Stage: Sepsis Possible Source: Pulmonary Lactate Level 12/05/21 23:29: Lactic Acid Level 1.70 Respiratory: Normal Breath Sounds, No Accessory Muscle Use, No Respiratory Distress Cardiovascular: Regular Rate, Rhythm Capillary Refill: Less Than 3 Seconds Lactic Acid Level Laboratory Tests Test 12/05/21 23:29 Lactic Acid Level 1.70 MMOL/L (0.50-2.00) Within 3hrs of presentation: Admin fluids, Blood cultures prior to ABX's, Focus exam, Lactate level Progress/Results/Core Measures Suspected Sepsis SIRS Temperature: Pulse: 98 Respiratory Rate: 18 Laboratory Tests 12/05/21 23:29: White Blood Count 8.9 Blood Pressure 128 /90 Mean: 103 12/05/21 23:29: Lactic Acid Level 1.70 Laboratory Tests 12/05/21 23:29: Creatinine 0.89, Platelet Count 213, Total Bilirubin 0.9 Results/Orders Lab Results Laboratory Tests Test 12/05/21 23:05 12/05/21 23:29 12/06/21 00:30 Range/Units Influenza Type A (RT-PCR) Not Detected Not Detecte Influenza Type B (RT-PCR) Not Detected Not Detecte SARS-CoV-2 RNA (RT-PCR) Detected H Not Detecte White Blood Count 8.9 4.3-11.0 10^3/uL Red Blood Count 4.38 4.30-5.52 10^6/uL Hemoglobin 14.3 13.3-17.7 g/dL Hematocrit 43 40-54 % Mean Corpuscular Volume 99 80-99 fL Mean Corpuscular Hemoglobin 33 25-34 pg Mean Corpuscular Hemoglobin Concent 33 32-36 g/dL Red Cell Distribution Width 13.8 10.0-14.5 % Platelet Count 213 130-400 10^3/uL Mean Platelet Volume 9.3 9.0-12.2 fL Immature Granulocyte % (Auto) 0 % Neutrophils (%) (Auto) 75 42-75 % Lymphocytes (%) (Auto) 8 L 12-44 % Monocytes (%) (Auto) 17 H 0-12 % Eosinophils (%) (Auto) 0 0-10 % Basophils (%) (Auto) 1 0-10 % Neutrophils # (Auto) 6.7 1.8-7.8 10^3/uL Lymphocytes # (Auto) 0.7 L 1.0-4.0 10^3/uL Monocytes # (Auto) 1.5 H 0.0-1.0 10^3/uL Eosinophils # (Auto) 0.0 0.0-0.3 10^3/uL Basophils # (Auto) 0.1 0.0-0.1 10^3/uL Immature Granulocyte # (Auto) 0.0 0.0-0.1 10^3/uL Neutrophils % (Manual) 86 % Lymphocytes % (Manual) 4 % Monocytes % (Manual) 9 % Band Neutrophils 1 % Blood Morphology Comment NORMAL Erythrocyte Sedimentation Rate 15 0-30 MM/HR Sodium Level 134 L 135-145 MMOL/L Potassium Level 4.4 3.6-5.0 MMOL/L Chloride Level 97 L 98-107 MMOL/L Carbon Dioxide Level 23 21-32 MMOL/L Anion Gap 14 5-14 MMOL/L Blood Urea Nitrogen 9 7-18 MG/DL Creatinine 0.89 0.60-1.30 MG/DL Estimat Glomerular Filtration Rate 83 BUN/Creatinine Ratio 10 Glucose Level 107 H 70-105 MG/DL Lactic Acid Level 1.70 0.50-2.00 MMOL/L Calcium Level 9.4 8.5-10.1 MG/DL Corrected Calcium 9.6 8.5-10.1 MG/DL Total Bilirubin 0.9 0.1-1.0 MG/DL Aspartate Amino Transf (AST/SGOT) 18 5-34 U/L Alanine Aminotransferase (ALT/SGPT) 15 0-55 U/L Alkaline Phosphatase 87 40-136 U/L C-Reactive Protein High Sensitivity 2.10 H 0.00-0.50 MG/DL Total Protein 6.9 6.4-8.2 GM/DL Albumin 3.8 3.2-4.5 GM/DL Procalcitonin 0.05 <0.10 NG/ML Urine Color YELLOW Urine Clarity CLEAR Urine pH 7.0 5-9 Urine Specific Bruin 1.015 L 1.016-1.022 Urine Protein NEGATIVE NEGATIVE Urine Glucose (UA) NEGATIVE NEGATIVE Urine Ketones TRACE H NEGATIVE Urine Nitrite NEGATIVE NEGATIVE Urine Bilirubin NEGATIVE NEGATIVE Urine Urobilinogen 4.0 < = 1.0 MG/DL Urine Leukocyte Esterase TRACE H NEGATIVE Urine RBC (Auto) TRACE-I H NEGATIVE Urine RBC 5-10 H /HPF Urine WBC 0-2 /HPF Urine Squamous Epithelial Cells 0-2 /HPF Urine Crystals NONE /LPF Urine Bacteria TRACE /HPF Urine Casts NONE /LPF Urine Mucus NEGATIVE /LPF Urine Culture Indicated NO My Orders Orders - TIERA MALHOTRA DO Ed Iv/Invasive Line Start (12/05/21 23:03) Ekg Tracing (12/05/21:) O2 (12/05/21:03) Monitor-Rhythm Ecg Trace Only (12/05/21:03) Ct Head Wo-R/O Stroke (12/05/21 23:03) Cbc With Automated Diff (12/05/21:) Comprehensive Metabolic Panel (12/05/21:) Blood Culture (12/05/21 23:03) Sputum Culture (12/05/21:03) Urinalysis (12/05/21:) Urine Culture (12/05/21:) Protime With Inr (12/05/21:) Partial Thromboplastin Time (12/05/21 23:03) Chest 1 View, Ap/Pa Only (12/05/21 23:03) Ed Iv/Invasive Line Start (12/05/21 23:03) Ed Iv/Invasive Line Start (12/05/21 23:03) Vital Signs Adult Sepsis Patie Q15M (12/05/21 23:03) O2 (12/05/21 23:03) Remove Rings In Anticipation O (12/05/21:03) Lactic Acid Analyzer (12/05/21:03) Procalcitonin (Pct) (12/05/21 23:03) Hs C Reactive Protein (12/05/21 23:03) Erythrocyte Sedimentation Rate (12/05/21 23:03) Covid 19 Inhouse Test (12/05/21 23:03) Ed Iv/Invasive Line Start (12/05/21 23:03) Ns Iv 1000 Ml (Sodium Chloride 0.9%) (12/05/21 23:15) Influenza A And B By Pcr (12/05/21 23:03) Isolation Central Supply Req (12/05/21 23:03) Acetaminophen Tablet (Tylenol Tablet) (12/05/21 23:15) Ibuprofen Tablet (Motrin Tablet) (12/05/21 23:15) Straight Cath For Spec.-Adult (12/05/21 23:55) Manual Differential (12/05/21 23:29) Cefepime Injection (Maxipime Injection) (12/06/21 00:15) Medications Given in ED Current Medications Medications Dose Ordered Sig/Stephen Route Start Time Stop Time Status Last Admin Dose Admin Acetaminophen 1,000 mg ONCE ONCE PO 12/05/21 23:15 12/05/21 23:16 DC 12/06/21 00:15 1,000 MG Cefepime HCl 1000 mg/Sodium Chloride 50 ml @ 100 mls/hr ONCE ONCE IV 12/06/21 00:15 12/06/21 00:44 DC 12/06/21 00:36 100 MLS/HR Ibuprofen 800 mg ONCE ONCE PO 12/05/21 23:15 12/05/21 23:16 DC 12/06/21 00:15 800 MG Vital Signs/I&O 12/05/21 12/06/21 12/06/21 23:00 00:15 00:15 Temp 38.7 38.7 38.7 Pulse 98 Resp 18 B/P (MAP) 128/90 (103) Pulse Ox 95 O2 Delivery Room Air Capillary Refill : Less Than 3 Seconds Blood Pressure Mean: 103 Progress Note : Progress Note PPE WORN COVID AND FLU TESTING DONE SEPSIS PROTOCOL INITIATED GIVEN: -IV FLUIDS -TYLENOL AND MOTRIN - NO COUGH NO DYSPNEA NO HYPOXIA NO HYPOTENSION OR TACHYCARDIA NO CONFUSION NOTED IN ER NO DETERIORATION IN PT'S CONDITION DURING ER STAY ECG Initial ECG Impression Date: Dec 05, 2021 Initial ECG Impression Time: 23:10 Initial ECG Rate: 87 Initial ECG Rhythm: Normal Sinus Initial ECG Impression: Nonspecific Changes Departure Impression Primary Impression: COVID-19 virus infection Additional Impression: Pneumonia due to COVID-19 virus Departure-Patient Inst. Referrals: PAUL CARMEN MD (PCP/Family) Primary Care Physician TIERA MALHOTRA DO Dec 05, 2021 23:49
[2021-12-05 23:54] LABS: ALBUMIN 3.8 GM/DL (3.2-4.5); POTASSIUM 4.4 MMOL/L (3.6-5.0)
[2021-12-05 23:55] LABS: CALCIUM 9.4 MG/DL (8.5-10.1)
[2021-12-05 23:56] LABS: TOTAL PROTEIN 6.9 GM/DL (6.4-8.2)
[2021-12-05 23:58] LABS: BILIRUBIN,TOTAL 0.9 MG/DL (0.1-1.0)
[2021-12-06] VITALS (8 sets, daily range): BP systolic 104–151; BP diastolic 56–89
[2021-12-06] LABS: CREATININE SERUM 0.89 MG/DL (0.60-1.30)
[2021-12-06] MEDS ORDERED: CEFEPIME INJECTION 1,000 MG in NS (IVPB) 50 ML IV ONE (00:15)
[2021-12-06 00:19] LABS: BAND NEUTROPHILS 1 %; LYMPHOCYTES % (MANUAL) 4 %; MONOCYTES % (MANUAL) 9 %; NEUTROPHILS % (MANUAL) 86 %; RBC MORPH NORMAL
[2021-12-06 00:30] LABS: ERYTHROCYTE SEDIMENTATION RATE 15 MM/HR (0-30)
[2021-12-06 00:46] LABS: BILIRUBIN,URINE NEGATIVE (NEGATIVE); CLARITY,URINE CLEAR; COLOR,URINE YELLOW; GLUCOSE, URINE (UA) NEGATIVE (NEGATIVE); KETONES,URINE TRACE (NEGATIVE); LEUKOCYTE ESTERASE ,URINE TRACE (NEGATIVE); NITRITE,URINE NEGATIVE (NEGATIVE); PROTEIN,URINE NEGATIVE (NEGATIVE)
[2021-12-06 01:02] LABS: BACTERIA,URINE TRACE /HPF; SQUAMOUS EPITHELIAL CELL,UR 0-2 /HPF; WBC,URINE 0-2 /HPF
[2021-12-06] MEDS ORDERED: D5 1/2 NS W/KCL 20 MEQ/L 1,000 ML IV ONE (01:31)
[2021-12-06] MEDS ORDERED: IBUPROFEN 800 MG (MOTRIN) TAB PO PRN (01:45)
[2021-12-06] MEDS ORDERED: ACETAMINOPHEN 500 MG TAB (TYLENOL) PO PRN (01:45)
[2021-12-06] MEDS ORDERED: ONDANSETRON 4 MG/2 ML (SDV) Z0FRAN IV PRN (01:45)
[2021-12-06] MEDS: D5 1/2 NS W/KCL 20 MEQ/L 1,000 ML IV SCH ×3 (02:07→23:42)
[2021-12-06] MEDS: CEFEPIME 1,000 MG/NS 50 ML IVPB IV SCH ×8 (05:30→23:42)
[2021-12-06 06:45] LABS: BASOPHILS # (AUTO) 0.1 10^3/uL (0.0-0.1); BASOPHILS % (AUTO) 1 % (0-10); EOSINOPHILS % (AUTO) 0 % (0-10); HEMATOCRIT 37 % (40-54); HEMOGLOBIN 12.3 g/dL (13.3-17.7); LYMPHOCYTES % (AUTO) 14 % (12-44); MEAN CORPUSCULAR HEMOGLOBIN 33 pg (25-34); MEAN CORPUSCULAR HGB CONC 33 g/dL (32-36); MEAN CORPUSCULAR VOLUME 100 fL (80-99); MEAN PLATELET VOLUME 9.6 fL (9.0-12.2); MONOCYTES % (AUTO) 14 % (0-12); NEUTROPHILS # (AUTO) 5.1 10^3/uL (1.8-7.8); NEUTROPHILS % (AUTO) 71 % (42-75); PLATELET COUNT 181 10^3/uL (130-400); WHITE BLOOD COUNT 7.2 10^3/uL (4.3-11.0)
--- NOTE | 2021-12-06 06:58 | Diagnostic Imaging Report ---
PROCEDURE: CT head wo r/o stroke. TECHNIQUE: Multiple contiguous axial images were obtained through the brain without the use of intravenous contrast. Auto Exposure Controls were utilized during the CT exam to meet ALARA standards for radiation dose reduction. Indication: Altered mental status, neurological deficit. Comparison: 11/03/2021. Discussion: No adverse interval change. Diffuse brain volume loss is stable, likely age related. White matter hypoattenuation is nonspecific, greater than expected for age related chronic small vessel ischemic disease. Ventriculomegaly is again noted, stable. This could be due to centrally predominant volume loss or underlying normal pressure hydrocephalus. No acute intracranial hemorrhage, mass, midline shift. The orbits, sinuses, mastoid air cells, and calvarium are unremarkable. Impression: 1. Stable head CT as described. No acute intracranial abnormality identified. 2. Agree with preliminary report. Dictated by: Dictated on workstation # [id number]
[2021-12-06 07:01] LABS: BILIRUBIN,TOTAL 0.8 MG/DL (0.1-1.0); CALCIUM 8.3 MG/DL (8.5-10.1); CREATININE SERUM 0.91 MG/DL (0.60-1.30); TOTAL PROTEIN 5.4 GM/DL (6.4-8.2)
--- NOTE | 2021-12-06 07:21 | Diagnostic Imaging Report ---
INDICATION: COVID positive patient. COMPARISON: 11/13/2021 FINDINGS: Single frontal radiographic view of the chest was obtained. Patient is moderately rotated to the right. There is stable right base airspace opacity. Small effusions are suspected as well. There is no pneumothorax. Cardiac silhouette and pulmonary vasculature are stable. IMPRESSION:. Persistent right basilar airspace disease concerning for pneumonia. Dictated by: Dictated on workstation # [id number]
[2021-12-06] MEDS ORDERED: BETH25TA2 PO (11:19)
--- NOTE | 2021-12-06 11:44 | History & Physical-Hospitalist ---
History of Present Illness HPI/Chief Complaint Patient is an 86-year-old male with past medical history of hypertension, recent pneumonia, recent left humerus fracture, BPH who presented to the emergency department due to confusion and fever. He was recently admitted to inpatient rehab here at the hospital due to his humerus fracture and was discharged from there to the intermediate. He reports he was actually scheduled to be discharged from the intermediate this week but yesterday staff noticed he had been more confused and did not eat dinner. They checked his temperature and noted it was 99.6 so sent him in for evaluation. The intermediate did swab him for COVID which was negative there but PCR testing was done here due to cough and fever and was found to be positive. He reports feeling better this morning since his fever broke and has no complaints. Source: patient Date Seen 12/06/21 Time Seen by a Provider: 09:45 Attending Physician Ed Smith MD PCP Admitting Physician: Tamara High MD Attending Physician: Ed Smith MD Referring Physician Date of Admission Dec 06, 2021 at 00:40 Home Medications & Allergies Home Medications Reviewed patient Home Medication Reconciliation performed by pharmacy medication reconciliations process environmental technician and/or nursing. Patients Allergies have been reviewed. Allergies Allergies Coded Allergies Sulfa (Sulfonamide Antibiotics) (Unverified Allergy, Unknown, 12/20/13) Past Zptrscm-Atovbs-Aqppzx Hx Patient Social History Employed/Student: retired Tobacco Use?: No Use of E-Cig and/or Vaping dev: No Substance use?: No Alcohol Use?: Yes Alcohol type: Hard Liquor Alcohol Frequency: Rarely Pt feels they are or have been: No Immunizations Up To Date Date of Influenza Vaccine: Dec 17, 2020 First/Initial COVID19 Vaccinat: Apr 2020 Second COVID19 Vaccination Marcelo: May 2020 Tetanus Booster (TDap): Unknown Hepatitis A: Yes Hepatitis B: Yes PED Vaccines UTD: Yes Date of Pneumonia Vaccine: Jan 01, 2014 Seasonal Allergies Seasonal Allergies: No Current Status Advance Directives: Unable to obtain Communicates: Verbally Primary Language: Amharic Preferred Spoken Language: Amharic Is interpretation needed?: No Sensory deficits: Vision impairment Implanted or Applied Medical D: Stents Past Medical History Surgeries: Abdominal, Appendectomy, Cardiac, Coronary Stent, Gallbladder, Prostatectomy Pneumonia Currently Using CPAP: No Currently Using BIPAP: No Coronary Artery Disease, High Cholesterol, Hypertension Neuropathy Sexually Transmitted Disease: No HIV/AIDS: No Prostate Problems Abdominal Hernia Arthritis, Fractures Prostate, Skin Did You Recieve Any Treatments: Yes What Type of Treatment Did You: Radiation, Surgical Intervention Blood Disorders: No Adverse Reaction/Blood Tranf: No Family Medical History Reviewed Nursing Family Hx Glaucoma G8 BROTHER No Family History of: AIDS Abdominal aortic aneurysm Gabe's disease Alcoholism Aphasia Arthritis Asthma Cancer of mouth Cardiovascular disease Cataracts Colon cancer Completed stroke Congenital disease Congenital heart disease Coronary thrombosis Cystic fibrosis Deafness or hearing loss Dementia Diabetes mellitus Drug abuse Dysphasia Fibrocystic disease of breast Gastroenteritis Headache disorder Hypercholesterolemia Hypertension Infertility Kidney disease Myocardial infarction Neoplasm Not obtainable due to adoption Osteoporosis Parkinson's disease Prostate cancer Psychosocial problem Respiratory disorder Seizure disorder Severe allergy Thyroid disease Tuberculosis Visual disorder Review of Systems Constitutional: chills, fever, malaise EENTM: no symptoms reported Respiratory: cough; No phlegm, No short of breath Cardiovascular: No chest pain, No edema Gastrointestinal: no symptoms reported Genitourinary: no symptoms reported Musculoskeletal: see HPI (recent humerus fracture) Skin: no symptoms reported Psychiatric/Neurological: No Symptoms Reported Physical Exam Physical Exam Vital Signs Vital Signs - First Documented 12/05/21 12/06/21 23:00 02:15 Temp 38.7 Pulse 98 Resp 18 B/P (MAP) 128/90 (103) Pulse Ox 95 O2 Delivery Room Air FiO2 21 Capillary Refill : Less Than 3 Seconds Height, Weight, BMI Height: 5'10.00" Weight: 220lbs. 4.0oz. 99.320255ib; 29.32 BMI Method:Stated General Appearance: No Apparent Distress, WD/WN, Chronically ill HEENT: Moist Mucous Membranes; No Scleral Icterus (L), No Scleral Icterus (R) Respiratory: Lungs Clear, No Accessory Muscle Use, No Respiratory Distress Cardiovascular: Regular Rate, Rhythm, No JVD, No Murmur Gastrointestinal: Normal Bowel Sounds, Non Tender, Soft Neurologic/Psychiatric: Alert, Oriented x3, Normal Mood/Affect Skin: Normal Color, Warm/Dry Results Results/Procedures Labs Laboratory Tests 12/05/21 23:29 12/06/21 06:22 12/07/21 05:30 Patient resulted labs reviewed. Imaging: Reviewed Imaging Report [facility] [place], [place] NAME: SANDRA LANGLEY#: [id number] PT STATUS: ADM IN : 1935 PHYSICIAN: TIERA MALHOTRA DO ADMIT DATE: 12/06/21 Signed Date of Exam:12/05/21 CHEST 1 VIEW, AP/PA ONLY INDICATION: COVID positive patient. COMPARISON: 11/13/2021 FINDINGS: Single frontal radiographic view of the chest was obtained. Patient is moderately rotated to the right. There is stable right base airspace opacity. Small effusions are suspected as well. There is no pneumothorax. Cardiac silhouette and pulmonary vasculature are stable. IMPRESSION:. Persistent right basilar airspace disease concerning for pneumonia. Dictated by: Dictated on workstation # [id number] Dict: 12/06/2153 Trans: 12/06/21835 CV [id number] Interpreted by: CARLOS ADAMS MD Electronically signed by: CARLOS ADAMS MD 12/06/21835 [facility] [place], [place] NAME: SANDRA LANGLEY [facility] REC#: [id number] PT STATUS: ADM IN : 1935 PHYSICIAN: TIERA MALHOTRA DO ADMIT DATE: 12/06/21 Draft Date of Exam:12/05/21 CT HEAD WO-R/O STROKE PROCEDURE: CT head wo r/o stroke. TECHNIQUE: Multiple contiguous axial images were obtained through the brain without the use of intravenous contrast. Auto Exposure Controls were utilized during the CT exam to meet ALARA standards for radiation dose reduction. Indication: Altered mental status, neurological deficit. Comparison: 11/03/2021. Discussion: No adverse interval change. Diffuse brain volume loss is stable, likely age related. White matter hypoattenuation is nonspecific, greater than expected for age related chronic small vessel ischemic disease. Ventriculomegaly is again noted, stable. This could be due to centrally predominant volume loss or underlying normal pressure hydrocephalus. No acute intracranial hemorrhage, mass, midline shift. The orbits, sinuses, mastoid air cells, and calvarium are unremarkable. Impression: 1. Stable head CT as described. No acute intracranial abnormality identified. 2. Agree with preliminary report. Dictated on workstation # [id number] Dict: 12/06/2133 Trans: 12/06/21 0658 [facility] [id number] Interpreted by: STAN CA MD Electronically signed by: Assessment/Plan Admission Diagnosis COVID19 Admission Status: Inpatient Order (span 2 midnights) Reason for Inpatient Admission: see below Assessment and Plan COVID19 Weakness ON room air Discussed use of Paxlovid with patient and he consents to treatment No indication for steroids as is not hypoxic Will consult PT/OT for weakness Has persistent pneumonia on CXR- not septic Continue Cefepime Left humerus fracture Was at [facility] for therapy PT/OT manager financial services consult for tomorrow when back Continue home hydrocodone HTN Continue home antihypertensives Hyponatremia Continue home salt tabs HLD Hold home statin while on paxlovid TAMARA HIGH MD Dec 06, 2021 11:44
[2021-12-06] MEDS ORDERED: HYDROcodone/APAP 5 MG/325 MG (LORTAB) TAB PO PRN (11:45)
[2021-12-06] MEDS ORDERED: NON-FORMULARY MEDICATION 1 EA EA PO SCH (12:00)
[2021-12-06] MEDS ORDERED: NIRMATRELVIR/RITONAVIR (PAXLOVID) TABLET PO SCH ×2 (12:15→12:30)
[2021-12-06] MEDS: SODIUM CHLORIDE 1 GM TABLET PO SCH ×2 (12:45→20:14)
--- NOTE | 2021-12-06 13:21 | Occupational Therapy Eval ---
OT Evaluation-General/PLF Medical Diagnosis Admission Date Dec 06, 2021 at 00:40 Medical Diagnosis: COVID 19 Onset Date: Dec 06, 2021 Therapy Diagnosis Therapy Diagnosis: reduced adl status Height/Weight Height (Feet): 5 Height (Inches): 10.00 Weight (Pounds): 220 Weight (Ounces): 4.0 Precautions Precautions/Isolations: Contact Isolation, Droplet Isolation, Fall Prevention, Standard Precautions Referral Referral Reason: Evaluation/Treatment Medical History Pertinent Medical History: CAD, HTN, Neuropathy Additional Medical History L humerus fx Current History Pt presents from [facility] with increased confusion and fever. Found to be positive for COVID 19. Pt was recently in rehab for a fall and L shoulder fx. He was not a candidate for surgery. Pt is a poor historian. During last OT eval, reported, pt is unsteady at baseline secondary to neuropathy and weakness. He required assistance with transferring in/out of shower and "sometimes" (depending on day) need assist with LB dressing. Prior to discharging from rehab, pt was mod a for upper and lower body dressing, dependent for footwear, min-mod a for transfers, and CGA for bathing. does all iadls. Pt uses a walker at baseline. Reviewed History: Yes Social History Current Living Status: Spouse ADL-Prior Level of Function SCALE: Activities may be completed with or without assistive devices. 8-Ktnipqdxlz-wsygujg completes the activity by him/herself with no assistance from a helper. 5-Set-up or Clean-up Assistance-helper sets up or cleans up; patient completes activity. [place] assists only prior to or following the activity. 4-Supervision or Touching Assistance-helper provides verbal cues and/or touching/steadying and/or contact guard assistance as patient completes activity. Assistance may be provided throughout the activity or intermittently. 3-Partial/Moderate Assistance-helper does LESS THAN HALF the effort. [place] lifts, holds or supports trunk or limbs, but provides less than half the effort. 2-Substantial/Maximal Assistance-helper does MORE THAN HALF the effort. [place] lifts or holds trunk or limbs and provides more than half the effort. 0-Wxjsxhhif-oivydx does ALL the effort. Patient does none of the effort to complete the activity. Or, the assistance of 2 or more helpers is required for the patient to complete the activity. If activity was not attempted, code reason: 7-Patient Refused. 9-Not Applicable-not attempted and the patient did not perform the activity before the current illness, exacerbation or injury. 10-Not Attempted due to Environmental Limitations-(lack of equipment, weather restraints, etc.). 88-Not Attempted due to Medical Conditions or Safety Concerns. Self Care: Needed Some Help Functional Cognition: Needed Some Help DME/Equipment: Bath Chair, Grab Bars, Shower Drive Self: No OT Current Status Subjective Pt denies pain, appears to be in good spirits. Appearance Pt returned to supine in bed, all needs within reach at therapy departure. Mental Status/Objective Patient Orientation: Person, Place Attachments: IV, Telemetry Current Glasses/Contacts: Yes Hearing Aids: No Dentures/Partials: No Hand Dominance: Right Upper Extremity ROM RUE WFL L Elbow, Hand/wrist WFL L shoulder: AAROM to 90 degrees, no pain. Per protocol, pt may begin AAROM flexion to 140 degrees if clinical situation is stable. Upper Extremity Strength RUE: 3+/5 grossly L pathologist assistant: fair ADL-Treatment Lower Body Dressing (QC): 1 (per clinical judgment) On/Off Footwear (QC): 2 Supine<>sit: CGA, extra time to complete. Fair sitting balance at edge of bed, cues for improved stability. Pt was able to doff bilateral socks but unable to don secondary to poor flexibility. Pt unaware to answer if his completes at PLOF. CGA to stand. Min-mod a for standing balance. Pt unsteady on feet, yet this is baseline. Pt unable to sustain balance for very long before needing to sit, however no walker currently present. Anticipate slight improvement in balance if pt utilizing AD. No gait attempted, again due to not having assistive device. At this time pt would require at least 1-2 UE support to maintain bal ance, thus anticipate assistance needed with clothing management pre/post toileting. He returned to supine, required cues to reduce weight bearing through LUE as OT unaware of current weight bearing restrictions. Education OT Patient Education: Correct positioning, Modified ADL techniques, Progress toward Goal/Update tx plan, Purpose of tx/functional activities, Reviewed precautions, Rehab process, Safety issues, Transfer techniques Teaching Recipient: Patient Teaching Methods: Discussion Response to Teaching: Verbalize Understanding, Reinforcement Needed OT Hop Strainer Goals Alf Goals Time Frame: Dec 24, 2021 Eating (QC): 5 Oral Hygiene (QC): 5 Toileting Hygiene (QC): 4 Shower/Bathe Self (QC): 4 Upper Body Dressing (QC): 3 Lower Body Dressing (QC): 3 On/Off Footwear (QC): 2 Additional Goals: 1-Demonstrate ADL Tasks, 2-Verbalize Understanding, 3- ImproveStrength/[place] 1=Demonstrate adherence to instructed precautions during ADL tasks. 2=Patient will verbalize/demonstrate understanding of assistive devices/modifications for ADL. 3=Patient will improve strength/tolerance for activity to enable patient to perform ADL's. OT Education/Plan Problem List/Assessment Assessment: Decreased Activ Tolerance, Decreased Safety Aware, Decreased UE Strength, Impaired Bed Mobility, Impaired Cognition, Impaired Coordination, Impaired Funct Balance, Impaired Self-Care Skills, Restricted Funct UE ROM Discharge Recommendations Plan/Recommendations: Continue POC Therapy Discharge Recommendati: Post Acute OT Treatment Plan/Plan of Care Treatment,Training & Education: Yes Patient would benefit from OT for education, treatment and training to promote independence in ADL's, mobility, safety and/or upper extremity function for ADL's. Plan of Care: ADL Retraining, Caregiver Training, Functional Mobility, Group Exercise/Act as Ind, Orthotic Fitting/Training (LUE sling), UE Funct Exercise/Act, W/C Management Training Treatment Duration: Dec 24, 2021 Frequency: 3 times per week (3-5x/week) Estimated Hrs Per Day: .25 hour per day Rehab Potential: Fair Time/GCodes Start Time: 12:53 Stop Time: 13:07 Total Time Billed (hr/min): 14 Billed Treatment Time 1 visit Lindsey Colin OT Dec 06, 2021 13:21
--- NOTE | 2021-12-06 13:55 | Physical Therapy Evaluation ---
PT Evaluation-General Medical Diagnosis Admission Date Dec 06, 2021 at 00:40 Medical Diagnosis: COVID 19 Onset Date: Dec 06, 2021 Therapy Diagnosis Therapy Diagnosis: Gait deficit, strength deficit Height/Weight Height (Feet): 5 Height (Inches): 10.00 Weight (Pounds): 220 Weight (Ounces): 4.0 Precautions Precautions/Isolations: Contact Isolation, Droplet Isolation, Fall Prevention, Standard Precautions Weight Bear Status Right Lower Extremity: Right Full Weight Bearing Left Lower Extremity: Left Full Weight Bearing Referral Physician: Dr. Puente Reason for Referral: Evaluation/Treatment Medical History Pertinent Medical History: CAD, HTN, Neuropathy Reviewed History: Yes Social History Home: [facility] Current Living Status: Spouse Entry Into Home: Stairs With Railing PT Steps Into Home: 3 PT Steps Inside Home: 14 Prior Prior Level of Function SCALE: Activities may be completed with or without assistive devices. 2-Qvawtiupxu-ykyucxh completes the activity by him/herself with no assistance from a helper. 5-Set-up or Clean-up Assistance-helper sets up or cleans up; patient completes activity. [place] assists only prior to or following the activity. 4-Supervision or Touching Assistance-helper provides verbal cues and/or touching/steadying and/or contact guard assistance as patient completes activity. Assistance may be provided throughout the activity or intermittently. 3-Partial/Moderate Assistance-helper does LESS THAN HALF the effort. [place] lifts, holds or supports trunk or limbs, but provides less than half the effort. 2-Substantial/Maximal Assistance-helper does MORE THAN HALF the effort. [place] lifts or holds trunk or limbs and provides more than half the effort. 8-Jupqipmbs-afyyue does ALL the effort. Patient does none of the effort to complete the activity. Or, the assistance of 2 or more helpers is required for the patient to complete the activity. If activity was not attempted, code reason: 7-Patient Refused. 9-Not Applicable-not attempted and the patient did not perform the activity before the current illness, exacerbation or injury. 10-Not Attempted due to Environmental Limitations-(lack of equipment, weather restraints, etc.). 88-Not Attempted due to Medical Conditions or Safety Concerns. Bed Mobility: 6 Transfers (B,C,W/C): 6 Gait: 6 Stairs: 6 Indoor Mobility (Ambulation): Independent Stairs: Independent Prior Devices Use: Walker PT Evaluation-Current Subjective Patient lying supine in bed upon PT arrival, agreeable to treatment. Reports 0/10 pain currently. He reports that his nurse told him that he no longer had to wear the left UE sling. Sling doffed upon PT entry into the room. Objective Patient Orientation: Person, Place, Time, Situation Attachments: IV ROM/Strength ROM Lower Extremities WFLs bilaterally all planes Strength Lower Extremities 4/5 bilaterally all planes Sensory Vision: Wears Glasses Hearing: Functional Hand Dominance: Right Sensation Right Lower Extremit: Intact Sensation Left Lower Extremity: Intact Transfers Roll Left to Right (QC): 3 Sit to Lying (QC): 3 Lying to Sitting/Side of Bed(Q: 3 Sit to Stand (QC): 4 Chair/Mpp-ii-Rlujv Xfer(QC): 4 Gait Does the Patient Walk?: Yes Mode of Locomotion: Walk Anticipated Mode of Locomotion: Walk Walk 10 feet (QC): 3 Distance: 30 feet Gait Assistive Device: None Comments/Gait Description Patient used the IV pole in the right UE for support. He tends to lean forward and to the left during gait. Balance Sitting Static: Fair Sitting Dynamic: Fair Standing Static: Fair Standing Dynamic: Poor Assessment/Needs Patient tolerated treatment fair. Requires min A for all bed mobility and transfers. Patient ambulates 30 feet with IV pole for support, with min A and verbal cues for safety, progression, posture and conservation of energy. Patient used the IV pole in the right UE for support. He tends to lean forward and to the left during gait. He takes short steps and is unsteady at times. Balance declines during turning, however he is able to maintain balance with min a. Patient in chair post treatment with all needs met, nursing notified, call light in hand, and chair alarm activated. Rehab Potential: Fair PT Nursing Home Goals Nursing Home Goals PT Nursing Home Goals Time Frame: Dec 17, 2021 Roll Left & Right (QC): 6 Sit to Lying (QC): 6 Lying-Sitting on Side/Bed(QC): 6 Sit to Stand (QC): 6 Chair/Ehz-fw-Ykgym Xfer(QC): 6 Toilet Transfer (QC): 6 Car Transfer (QC): 6 Does the Patient Walk: Yes Walk 10 feet (QC): 5 Walk 50ft with 2 Turns (QC): 5 Walk 150 ft (QC): 5 1 Step (curb) (QC): 4 4 Steps (QC): 4 PT Plan Problem List Problem List: Activity Tolerance, Functional Strength, Safety, Balance, Gait, Transfer, Bed Mobility, ROM Treatment/Plan Treatment Plan: Continue Plan of Care Treatment Plan: Bed Mobility, Education, Functional Activity [place], Functional Strength, Group Therapy, Gait, Safety, Therapeutic Exercise, Transfers Treatment Duration: Dec 31, 2021 Frequency: 6 times per week Estimated Hrs Per Day: .25 hour per day Patient and/or Family Agrees t: Yes Safety Risks/Education Patient Education: Gait Training, Transfer Techniques Teaching Recipient: Patient Teaching Methods: Demonstration, Discussion Response to Teaching: Verbalize Understanding, Return Demonstration Time/GCodes Time In: 1310 Time Out: 1330 Total Billed Treatment Time: 25 Total Billed Treatment Visit, Kayce Gomez JOHN A PT Dec 06, 2021 13:55
[2021-12-06] MEDS: NIRMATRELVIR/RITONAVIR (PAXLOVID) TABLET PO SCH ×2 (15:05→20:14)
[2021-12-06] MEDS ORDERED: TAMSULOSIN 0.4 MG (FLOMAX) CAP PO SCH (18:00)
[2021-12-06] MEDS ORDERED: guaiFENesin/DM (ROBITUSSIN DM) 10 ML UDC PO PRN (19:00)
[2021-12-06] MEDS: meTOprolol TARTRATE 50 MG (LOPRESSOR) TAB PO SCH (20:14)
[2021-12-06] MEDS ORDERED: GABAPENTIN 300 MG (NEURONTIN) CAP PO SCH (21:00)
[2021-12-07 03:20] VITALS: BP 127/78
[2021-12-07 05:52] LABS: BASOPHILS # (AUTO) 0.1 10^3/uL (0.0-0.1); BASOPHILS % (AUTO) 1 % (0-10); EOSINOPHILS % (AUTO) 0 % (0-10); HEMATOCRIT 37 % (40-54); HEMOGLOBIN 12.5 g/dL (13.3-17.7); LYMPHOCYTES # (AUTO) 1.3 10^3/uL (1.0-4.0); LYMPHOCYTES % (AUTO) 14 % (12-44); MEAN CORPUSCULAR HEMOGLOBIN 33 pg (25-34); MEAN CORPUSCULAR HGB CONC 34 g/dL (32-36); MEAN CORPUSCULAR VOLUME 96 fL (80-99); MEAN PLATELET VOLUME 9.6 fL (9.0-12.2); MONOCYTES # (AUTO) 1.8 10^3/uL (0.0-1.0); MONOCYTES % (AUTO) 19 % (0-12); NEUTROPHILS % (AUTO) 65 % (42-75); PLATELET COUNT 179 10^3/uL (130-400); WHITE BLOOD COUNT 9.1 10^3/uL (4.3-11.0)
[2021-12-07 06:12] LABS: ALBUMIN 3.1 GM/DL (3.2-4.5)
[2021-12-07 06:13] LABS: POTASSIUM 4.4 MMOL/L (3.6-5.0)
[2021-12-07 06:14] LABS: CALCIUM 8.5 MG/DL (8.5-10.1)
[2021-12-07 06:15] LABS: TOTAL PROTEIN 5.7 GM/DL (6.4-8.2)
[2021-12-07 06:17] LABS: BILIRUBIN,TOTAL 0.9 MG/DL (0.1-1.0)
[2021-12-07 06:19] LABS: CREATININE SERUM 0.79 MG/DL (0.60-1.30)
[2021-12-07] MEDS: CEFEPIME 1,000 MG/NS 50 ML IVPB IV SCH ×4 (06:21→12:21)
[2021-12-07] MEDS ORDERED: OMEGA 3 (FISH OIL) 1000 MG CAP PO SCH (07:00)
[2021-12-07] MEDS ORDERED: MULTIVIT W/MINERALS TAB (THERAGRAN M) PO SCH (07:00)
[2021-12-07 07:36] VITALS: BP 150/95
[2021-12-07] MEDS: D5 1/2 NS W/KCL 20 MEQ/L 1,000 ML IV SCH (07:40)
--- NOTE | 2021-12-07 07:51 | Diagnostic Imaging Report ---
INDICATION: Pneumonia. TECHNIQUE: Single view chest 3:21 AM. CORRELATION STUDY: 12/05/2021 FINDINGS: Heart size and mediastinum are enlarged and prominent. Overall appears slightly increased. Vasculature also appears more prominent from prior. Scattered bilateral pulmonary opacities particularly in the central and basilar aspect right greater than left along with bilateral pleural effusions. IMPRESSION: 1. Bilateral pulmonary opacities are again demonstrated likely worsening edema versus infiltrate along with pleural effusions. Dictated by: Dictated on workstation # [id number]
[2021-12-07] MEDS ORDERED: ASPIRIN E.C. 81 MG (ECOTRIN) TAB PO SCH (09:00)
[2021-12-07] MEDS ORDERED: lisINopril 20 MG (PRINIVIL) TABLET PO SCH (09:00)
[2021-12-07] MEDS ORDERED: CLOPIDOGREL 75 MG (PLAVIX) TABLET PO SCH (09:00)
[2021-12-07] MEDS ORDERED: lisINopril 40 MG (PRINIVIL) TABLET PO SCH (09:00)
[2021-12-07] MEDS ORDERED: NON-FORMULARY MEDICATION 1 EA EA (Multivitamin 1 EACH) PO SCH (09:00)
[2021-12-07] MEDS ORDERED: ATOR20TA66 PO (10:01)
[2021-12-07] MEDS ORDERED: NIRM1TAB PO (10:01)
[2021-12-07] MEDS ORDERED: TMSL.4C PO ×2 (10:01→11:31)
[2021-12-07] MEDS: meTOprolol TARTRATE 50 MG (LOPRESSOR) TAB PO SCH (10:46)
[2021-12-07] MEDS: NIRMATRELVIR/RITONAVIR (PAXLOVID) TABLET PO SCH (10:46)
[2021-12-07] MEDS: SODIUM CHLORIDE 1 GM TABLET PO SCH ×2 (10:47→12:20)
[2021-12-07] MEDS ORDERED: CLOP75TA28 PO (11:31)
[2021-12-07] MEDS ORDERED: NF-NACL1GT PO (11:31)
[2021-12-07] MEDS ORDERED: OMG1KC PO (11:31)
[2021-12-07] MEDS ORDERED: METO-333 PO (11:31)
[2021-12-07] MEDS ORDERED: ASPI-1238 PO (11:31)
[2021-12-07] MEDS ORDERED: ATOR10TA66 PO (11:31)
[2021-12-07] MEDS ORDERED: GABA300C PO (11:31)
[2021-12-07] MEDS ORDERED: LISI20TA26 PO (11:31)
[2021-12-07] MEDS ORDERED: ACHD5005 PO (11:31)
--- NOTE | 2021-12-07 11:39 | Discharge Summary ---
Diagnosis/Chief Complaint Date of Admission Dec 06, 2021 at 00:40 Date of Discharge Discharge Date: Dec 07, 2021 Admission Diagnosis COVID19 Primary Care Ed Smith MD Discharge Summary Discharge Physical Exam Allergies: Coded Allergies: Sulfa (Sulfonamide Antibiotics) (Unverified Allergy, Unknown, 12/20/13) Vitals & I&Os Vital Signs Date Time Temp Pulse Resp B/P (MAP) Pulse Ox O2 Delivery O2 Flow Rate FiO2 12/07/21 12:33 71 12/07/21 11:53 37.6 18 112/71 (85) 95 Room Air 12/06/21 02:15 21 General Appearance: No Apparent Distress, WD/WN Respiratory: Lungs Clear, No Respiratory Distress Cardiovascular: Regular Rate, Rhythm Neurologic/Psychiatric: Alert, Oriented x3 Hospital Course Patient was admitted to the hospital secondary to generalized weakness due to COVID-19. He was seen by physical and Occupational Therapy and treated with Paxlovid. He did well and was able to return to [facility] for continued strengthening and skilled therapy. Labs (last 24 hrs) Laboratory Tests 12/07/21 05:30: White Blood Count 9.1, Red Blood Count 3.85L, Hemoglobin 12.5L, Hematocrit 37L, Mean Corpuscular Volume 96, Mean Corpuscular Hemoglobin 33, Mean Corpuscular Hemoglobin Concent 34, Red Cell Distribution Width 13.9, Platelet Count 179, Me an Platelet Volume 9.6, Immature Granulocyte % (Auto) 0, Neutrophils (%) (Auto) 65, Lymphocytes (%) (Auto) 14, Monocytes (%) (Auto) 19H, Eosinophils (%) (Auto) 0, Basophils (%) (Auto) 1, Neutrophils # (Auto) 6.0, Lymphocytes # (Auto) 1.3, Monocytes # (Auto) 1.8H, Eosinophils # (Auto) 0.0, Basophils # (Auto) 0.1, Immature Granulocyte # (Auto) 0.0, Sodium Level 128L, Potassium Level 4.4, Chloride Level 98, Carbon Dioxide Level 22, Anion Gap 8, Blood Urea Nitrogen 10, Creatinine 0.79, Estimat Glomerular Filtration Rate 87, BUN/Creatinine Ratio 13, Glucose Level 118H, Calcium Level 8.5, Corrected Calcium 9.2, Total Bilirubin 0.9, Aspartate Amino Transf (AST/SGOT) 24, Alanine Aminotransferase (ALT/SGPT) 11, Alkaline Phosphatase 69, Total Protein 5.7L, Albumin 3.1L Microbiology 12/06/21 Blood Culture - Preliminary, Resulted No growth Patient resulted labs reviewed. Pending Labs Imaging: Reviewed Imaging Report Discussion & Recommendations Discharge Planning: >30 minutes discharge planning Discharge Home Medications: Active Scripts Active Cefdinir 300 Mg Capsule 300 Mg PO BID Paxlovid 300-100 mg Pack (Eua) (Nirmatrelvir/Ritonavir) 300 Mg (150 Mg X 2)-100 Mg Tab.ds.pk 0 Each PO BID relabeled for home use Flomax (Tamsulosin HCl) 0.4 Mg Cap 0.4 Mg PO DAILY@1800 Hold for 1 week while on paxlovid Atorvastatin Calcium 20 Mg Tablet 5 Mg PO HS Hold for 1 week while on Paxlovid Reported Metoprolol Tartrate 25 Mg Tablet 25 Mg PO BID Lisinopril 20 Mg Tablet 20 Mg PO DAILY Atorvastatin Calcium 10 Mg Tablet 5 Mg PO HS TAKES OF A (10MG) TABLET Neurontin (Gabapentin) 300 Mg Capsule 600 Mg PO HS TAKES 2 (300MG) CAPSULES Clopidogrel (Clopidogrel Bisulfate) 75 Mg Tablet 75 Mg PO DAILY Aspirin EC (Aspirin) 81 Mg Tablet.dr 81 Mg PO DAILY Flomax (Tamsulosin HCl) 0.4 Mg Cap 0.4 Mg PO 1800 Sodium Chloride 1 Gram Tab 1 Gm PO TID Fish Oil 1,000 mg Capsule ([place] 3 Polyunsat Fatty Acids) 340 Mg-1,000 Mg Cap 1,000 Mg PO DAILY Hydrocodone-Acetamin 5-325 mg (Hydrocodone/Acetaminophen) 5 Mg-325 Mg Tablet 1 Tab PO Q4H PRN Bethanechol Chloride 25 Mg Tablet 25 Mg PO ACHS Multivitamin 1 Each Tablet 1 Each PO DAILY Instructions to patient/family Please see electronic discharge instructions given to patient. TAMARA HIGH MD Dec 07, 2021 11:39
--- NOTE | 2021-12-07 11:41 | Physical Therapy Daily Note ---
PT Daily Note-Current Subjective Patient agrees to PT. Mental Status Attachments: IV Transfers SCALE: Activities may be completed with or without assistive devices. 1-Arlikacrom-xzpyshq completes the activity by him/herself with no assistance from a helper. 5-Set-up or Clean-up Assistance-helper sets up or cleans up; patient completes activity. Leonore assists only prior to or following the activity. 4-Supervision or Touching Assistance-helper provides verbal cues and/or touching/steadying and/or contact guard assistance as patient completes activity. Assistance may be provided throughout the activity or intermittently. 3-Partial/Moderate Assistance-helper does LESS THAN HALF the effort. Leonore lifts, holds or supports trunk or limbs, but provides less than half the effort. 2-Substantial/Maximal Assistance-helper does MORE THAN HALF the effort. Leonore lifts or holds trunk or limbs and provides more than half the effort. 2-Sqelceilo-akkdqc does ALL the effort. Patient does none of the effort to complete the activity. Or, the assistance of 2 or more helpers is required for the patient to complete the activity. If activity was not attempted, code reason: 7-Patient Refused. 9-Not Applicable-not attempted and the patient did not perform the activity before the current illness, exacerbation or injury. 10-Not Attempted due to Environmental Limitations-(lack of equipment, weather restraints, etc.). 88-Not Attempted due to Medical Conditions or Safety Concerns. Lying to Sitting/Side of Bed(Q: 6 Sit to Stand (QC): 4 Chair/Buw-ds-Psszn Xfer(QC): 4 Weight Bearing Right Lower Extremity: Right Full Weight Bearing Left Lower Extremity: Left Full Weight Bearing Gait Training Distance: 150' in room Walk 10 feet (QC): 4 Walk 50 ft with 2 Turns(QC): 4 Walk 150 ft (QC): 4 Gait Assistive Device: None CGA with use of gait belt and patient held onto IV pole Assessment Patient up in recliner with chair alarm activated. Patient tolerated treatment well. PT Nursing Home Goals Accelerator Technician Goals PT Nursing Home Goals Time Frame: Dec 17, 2021 Roll Left & Right (QC): 6 Sit to Lying (QC): 6 Lying-Sitting on Side/Bed(QC): 6 Sit to Stand (QC): 6 Chair/Wmq-hg-Kctns Xfer(QC): 6 Toilet Transfer (QC): 6 Car Transfer (QC): 6 Does the Patient Walk: Yes Walk 10 feet (QC): 5 Walk 50ft with 2 Turns (QC): 5 Walk 150 ft (QC): 5 1 Step (curb) (QC): 4 4 Steps (QC): 4 PT Plan Treatment/Plan Treatment Plan: Continue Plan of Care Treatment Plan: Bed Mobility, Education, Functional Activity [place], Functional Strength, Group Therapy, Gait, Safety, Therapeutic Exercise, Transfers Treatment Duration: Dec 31, 2021 Frequency: 6 times per week Estimated Hrs Per Day: .25 hour per day Patient and/or Family Agrees t: Yes Time/GCodes Time In: 1116 Time Out: 1130 Total Billed Treatment Time: 14 Total Billed Treatment 1 visit FA 14 min MITESH BULLARD PT Dec 07, 2021 11:41
--- NOTE | 2021-12-07 11:43 | Discharge Inst-Skilled Nursing ---
Discharge Inst-Skilled NF Chief Complaint Patient is an 86-year-old male with past medical history of hypertension, recent pneumonia, recent left humerus fracture, BPH who presented to the emergency department due to confusion and fever. He was recently admitted to inpatient rehab here at the hospital due to his humerus fracture and [facility]. He reports he was actually scheduled to be discharged from the jail this week but yesterday staff noticed he had been more confused and did not eat dinner. They checked his temperature and noted it was 99.6 so sent him in for evaluation. The jail did swab him for COVID which was negative there but PCR testing was done here due to cough and fever and was found to be positive. He reports feeling better this morning since his fever broke and has no complaints. Consult/Follow Up/Orders Skilled NF Admit to: Via [facility] Certification ([facility]) I certify that SNF services are required to be given on an inpatient basis because of the above named patient's need for long-term care on a continuing basis for the conditions(s) for which he/she was receiving inpatient hospital services prior to his/her transfer to the [facility]. Shelter Facility Order: Nursing Services, [employer]-Evaluate & Treat, Physical Therapy-Evaluate & Treat Oxygen Delivery Method: Room Air Discharge Diet: No Restrictions Resuscitation Status: Full Code New & Resume Previous Orders Tamara Puente Dec 07, 2021 11:39 TAMARA PUENTE MD Dec 07, 2021 11:43
[2021-12-07] MEDS ORDERED: CEFD300C3 PO (11:44)
[2021-12-07 11:53] VITALS: BP 112/71
[2021-12-07] MEDS ORDERED: RELABEL FOR HOME USE MC SCH (12:00)
== END 2021-12-07 14:29 | DRG 177 ==
LOC: EDUNIT# 22:56 → ER 22:57 → 4TH 12-06 00:40
PROVIDERS: ADMIT Family Medicine; ATTEND Internal Medicine
PROC: 8E0ZXY6 Isolation (ICD-10-PCS; principal; 2021-12-06)
DX: U07.1 COVID-19 (principal); J12.82 Pneumonia due to coronavirus disease 2019; S42.302A Unspecified fracture of shaft of humerus, left arm, initial encounter for closed fracture; E87.1 Hypo-osmolality and hyponatremia; I25.10 Atherosclerotic heart disease of native coronary artery without angina pectoris; E78.00 Pure hypercholesterolemia, unspecified; I10 Essential (primary) hypertension; G62.9 Polyneuropathy, unspecified; N40.0 Benign prostatic hyperplasia without lower urinary tract symptoms; M19.90 Unspecified osteoarthritis, unspecified site; Z85.46 Personal history of malignant neoplasm of prostate; Z85.828 Personal history of other malignant neoplasm of skin; Z92.3 Personal history of irradiation; Z79.82 Long term (current) use of aspirin; Z79.899 Other long term (current) drug therapy; Z95.5 Presence of coronary angioplasty implant and graft
CPT/HCPCS: 36415; 70450; 71045; 80053; 81000; 83605; 84145; 85007; 85025; 85027; 85652; 86141; 87040; 87077; 87088; 87636; 93005; 93041

== ENCOUNTER → 2021-12-22 | Outpatient (CLI) | payer MEDICARE, OTHER ==
[~2021-12-22] MED LIST changes: +CEFD300C3 PO; +METO-333 PO; +NIRM1TAB PO
--- NOTE | 2021-12-22 09:02 | Diagnostic Imaging Report ---
INDICATION: Left humeral fracture. TECHNIQUE: AP and transscapular Y views of the left shoulder were obtained. COMPARISON: 11/29/2021. FINDINGS: There has been a minimal increase in the callus about the proximal left humeral fracture. There is no dislocation. Degenerative findings are again noted at the acromioclavicular joint. IMPRESSION: Generally stable appearance of the proximal left humeral fracture and degenerative findings at the acromioclavicular joint. Dictated by: Dictated on workstation # [id number]
== END ==
LOC: ORTHO 08:36
PROVIDERS: ATTEND Orthopaedic Surgery
DX: S42.225A 2-part nondisplaced fracture of surgical neck of left humerus, initial encounter for closed fracture (principal); X58.XXXA Exposure to other specified factors, initial encounter
CPT/HCPCS: 73030

== ENCOUNTER → 2022-01-19 | Outpatient (CLI) | payer MEDICARE, OTHER ==
--- NOTE | 2022-01-19 14:41 | Diagnostic Imaging Report ---
Indication: Left shoulder pain. Comparison with 12/22/2021. FINDINGS: The left humeral neck fracture is again noted unchanged in position. The fracture is still quite visible with no evidence of solid bony bridging callus. The glenohumeral joint shows good alignment with smooth surfaces. IMPRESSION: Impacted humeral neck fracture without significant callus formation noted. Dictated by: Dictated on workstation # [id number]
== END ==
LOC: ORTHO 10:09
PROVIDERS: ATTEND Orthopaedic Surgery
DX: S42.225A 2-part nondisplaced fracture of surgical neck of left humerus, initial encounter for closed fracture (principal); X58.XXXA Exposure to other specified factors, initial encounter
CPT/HCPCS: 73030

== ENCOUNTER → 2022-05-30 | Outpatient (CLI) | payer MEDICARE, OTHER ==
[~2022-05-30] VITALS: Ht 177 cm; Wt 100.0 kg
[~2022-05-30] MED LIST changes: +CATHETER FLUSH 10 ML SYR IVP PRN; +REGADENOSON 0.4 MG/5 ML SYR (LEXISCAN) IV ONE
[2022-05-30 09:32] VITALS: BP 116/75
--- NOTE | 2022-05-30 12:17 | Cardiology Stress Test Report ---
Stress Test Report Date of Procedure/Referring: Date of Procedure: May 30, 2022 PCP Paul Carmen MD Admitting Physician Admitting Physician: Attending Physician: Ric Ortiz MD Indications: HTN Baseline Heart Rate: 85 Baseline Blood Pressure: Blood Pressure Systolic: 116 Blood Pressure Diastolic: 75 Baseline Vitals Vital Signs Date Time Temp Pulse Resp B/P (MAP) Pulse Ox O2 Delivery O2 Flow Rate FiO2 05/30/22 09:32 85 116/75 (89) 92 Baseline EKG: Baseline EKG: NSR Summary After explaining the procedure to the patient, he signed a consent and then brought to the stress nuclear laboratory. Patient received 0.4 mg Lexiscan for stress test, ECG, heart rate and blood pressure were monitored continuously. Resting and stress dose of radio tracer were injected, imaging was acquired and reviewed in short axis, horizontal long axis and vertical long axis views. 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
== END ==
LOC: CARD 07:33
PROVIDERS: ATTEND Internal Medicine Cardiovascular Disease
DX: I11.9 Hypertensive heart disease without heart failure (principal); I21.9 Acute myocardial infarction, unspecified
CPT/HCPCS: 78452; 93017; A9502

== ENCOUNTER → 2023-01-25 | Outpatient (CLI) | payer MEDICARE, OTHER ==
[~2023-01-25] MED LIST changes: -CATHETER FLUSH 10 ML SYR IVP PRN; -REGADENOSON 0.4 MG/5 ML SYR (LEXISCAN) IV ONE
--- NOTE | 2023-01-25 10:18 | Diagnostic Imaging Report ---
INDICATION: Hyponatremia. CHF. Hypertension. COMPARISON: 05/20/2018 FINDINGS: Frontal and lateral radiograph views of the chest were obtained and show blunting of the bilateral lateral and posterior costophrenic angles, which may be on the basis of small effusions and/or pleural scarring/thickening. Chronic interstitial changes are also again noted within the lung bases. No pneumothorax is seen. Cardiac silhouette and pulmonary vasculature is within normal limits. Prominent pericardial opacity is noted on the right, but this is shown to correspond to prominent pericardial fat when compared to previous CT chest dated 05/20/2018. IMPRESSION: 1. Probable small bibasilar effusions versus underlying pleural scarring/thickening. 2. Redemonstration background chronic interstitial lung changes. Dictated by: Dictated on workstation # [id number]
== END ==
LOC: RAD 09:35
PROVIDERS: ATTEND Internal Medicine
DX: E87.1 Hypo-osmolality and hyponatremia (principal); I11.0 Hypertensive heart disease with heart failure
CPT/HCPCS: 71046